=== PATIENT | female | born 1950 | race Caucasian/White ===

== ENCOUNTER 2016-07-29 12:54 | Inpatient (IN) ==
--- NOTE | 2016-07-29 13:19 | EKG Report ---
Stationary ECG Study 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
--- NOTE | 2016-07-29 13:25 | Emergency Department Note ---
Arrival - Arrival Chief Complaint: Shortness of Breath Stated Complaint: sob,multi myloma ED Nursing Triage Note: Pt states that she has been having some SOB over the last few days worse today - pt states that she is currently taking chemo - Dr Gaines - pt states that her meds were also changed at this time - pt states that she was told to come to ER for Dr Gaines Mode of Arrival: Ambulatory Limitations: No Limitations Source: Patient, RN Notes Reviewed Time Seen by Provider: 07/29/16 13:15 - History of Present Illness HPI Narrative: Patient is a 66-year-old white female with a known history of multiple myeloma followed by Dr. Gaines who is seen today complaining of shortness of breath. Patient has been short of breath for the last 3-4 days. She denies cough or sputum production. She denies any history of fever. Last chemotherapy was about 2 weeks ago. Patient is scheduled to undergo chemotherapy later this week. She denies any hemoptysis. Onset (ago): day(s) (3-4) Consistency: constant Severity: moderate Date of Last Menstrual Period: hyster Allergies/Adverse Reactions: Allergies Allergy/AdvReac Type Severity Reaction Status Date / Time Iodinated Contrast Media - Allergy Mild ITCHING Verified 12/29/14 18:19 IV Dye Home Medications: Home Medications Medication Instructions Recorded Confirmed Type Ascorbic Acid Tab [Vitamin C Tab] 500 mg PO DAILY 06/13/16 07/29/16 History Aspirin [Ecotrin] 81 mg PO DAILY 06/13/16 07/29/16 History Cyanocobalamin (Vitamin B-12) 2,500 mcg PO DAILY 06/13/16 07/29/16 History [Vitamin B12] Letrozole [Femara] 2.5 mg PO PC SUPPER 06/13/16 07/29/16 History Multivitamin [Multivitamins] 1 tablet PO DAILY 06/13/16 07/29/16 History Selenium [Selenium Cap] 200 mcg PO PC SUPPER 06/13/16 07/29/16 History Venlafaxine Xr [Effexor XR] 75 mg PO PC SUPPER 06/13/16 07/29/16 History Cholecalciferol [Vitamin D3] 1,000 unit PO DAILY 06/18/16 07/29/16 History Coenzyme Q10 200 mg PO DAILY 06/18/16 07/29/16 History Garlic 1,000 mg PO DAILY 06/18/16 07/29/16 History Review of System - Review of System 12 point system: reviewed and no additional remarkable complaints except as stated - Review of System Constitutional: Absent: chills, fever Respiratory: Absent: cough, respiratory distress, wheezing Cardiovascular: Present: chest pain (minimal, around swollen area on sternum) Medical,Surgical,& Family Hx - Medical History Endocrine: History of: Thyroid Disorder Gastrointestinal: History of: GI Problems (ULCERS) Musculoskeletal: History of: Musculoskeletal Problems (ARTHRITIS) Reproductive: History of: Breast Cancer (LEFT HAS MEDIPORT DR GAINES HAS MASS AROUND BREAST) Other: History of: Cancer (LEFT BREAST), Miscellaneous Medical Problems ( multiple myeloma) - Surgical History HEENT Surgeries: Surgical HX of: Thyroid Surgery Abdominal Surgeries: Surgical HX of: Colonoscopy, EGD Reproductive Surgeries: Surgical HX of;: Breast Surgery (LEFT BREAST REMOVE) - Family History Family History: Reports;: Family Cancer (MOM), Family Diabetes (BROTHER), Family Psychiatric Problems (MOM- ALZHMIERS) - Social History Smoking Status: Never smoker Frequency of Alcohol Use: None Type of Drug Use: None Functional capacity: independent ambulation Exam Vital Signs: Vital Signs Temperature 97.3 F L 07/29/16 13:08 Pulse Rate 102 H 07/29/16 13:08 Respiratory Rate 20 07/29/16 13:08 Blood Pressure 114/76 07/29/16 13:08 O2 Sat by Pulse Oximetry 97 07/29/16 13:08 GENERAL: This is a well-nourished well-developed white female in no apparent distress. VITAL SIGNS: Reviewed HEENT: Head is atraumatic and normocephalic. Pupils are equal round react to light. Extraocular movements are intact. Pale conjunctiva oropharynx is benign with moist mucous membranes. NECK: Neck is soft and supple without tenderness. There are no masses. There is no lymphadenopathy. LUNGS: Lungs are clear to auscultation. Chest rises symmetrically. There is no chest wall tenderness. CV: Heart is rapid rate, regular rhythm without murmurs rubs or gallops. ABDOMEN: Abdomen is soft, nontender to palpation. There are no abdominal abnormal masses palpated. There is no organomegaly. Bowel sounds are present and active. SKIN: Skin is warm and dry. No rash. EXTREMITIES: Patient has full range of motion without tenderness. There is no pedal edema. NEUROLOGIC: Awake alert and oriented 4. Cranial nerves II through XII are grossly intact. Motor is 5 over 5 in all extremities bilaterally. Course - Consultations Consultation #1: Discussed with Dr. Gutiérrez. Patient will be admitted to Dr. Gaines. Initial orders written for them. The hematology oncology service will assume care of this patient upon her arrival on the pedroza. Time: 14:29 Results - Labs CBC & BMP: 07/29/16 13:38 07/29/16 13:38 Lab Results: I have reviewed the patients labs Labs: Laboratory Tests 07/29/16 07/29/16 13:38 13:38 WBC 3.5 L Hgb 8.1 L Hct 24.9 L INR 1.2 - Diagnostic Findings Procedure: Chest x-ray: image reviewed by me, report reviewed by me (Mild compression of T8, mild cardiomegaly.) Disposition Clinical Impression: Dyspnea, Multiple myeloma, Anemia, Thrombocytopenia Case discussed with: patient, patient's family Disposition: Still a Patient Condition: Stable Time of Disposition: 14:19
[2016-07-29 13:50] LABS: Basophils % 0.3 % (0.0-0.8); Eosinophils % 1.1 % (0.00-10.9); Hematocrit 24.9 VOL% (35.7-47.0); Hemoglobin 8.1 GM/DL (12.0-16.0); Immature Granulocytes % 7.4 %; Immature Granulocytes Absolute 0.26 #; Lymphocytes # 1.1 10*3/uL (1.4-4.0); Lymphocytes % 32.4 % (21.3-54.2); Mean Corpuscular HGB Conc 32.5 GM/DL (32-36); Mean Corpuscular Hemoglobin 31 PG (27-34); Mean Corpuscular Volume 96.5 FL (87-102); Mean Platelet Volume 9.2 FL (9.6-12.0); Monocytes # 0.5 10*3/uL (0.11-0.8); Monocytes % 13.9 % (1.7-12.7); NRBC # 0.12 10*3/uL; Neutrophils # 1.6 10*3/uL (1.4-7.4); Neutrophils % 44.9 % (38.7-73.9); Red Blood Count 2.58 10*6/uL (3.8-5.5); Red Cell Distribution Width 19.6 % (9.3-17.3); White Blood Count 3.5 10*3/uL (4.5-13.71)
--- NOTE | 2016-07-29 13:59 | XRay Report ---
Exam: XR chest 2V Date: 07/29/2016 1:22 PM Indication: Shortness of breath Comparison: 06/18/2016 Technical:PA lateral chest Findings: Cardiomegaly is present. Previous surgical changes over the left axillary region with a right-sided subclavian port catheter with distal tip in the right atrium. Mild interstitial thickening in the perihilar regions. No pneumothorax. Minimal compression deformity in the midthoracic spine approximately T8. Impression: 1. Mild interstitial thickening in the perihilar regions 2. Stable appearance of the port catheter and previous surgical changes left axillary region 3. Mild compression deformity at T8 PROCEDURE INTERPRETED AT [facility] DEPARTMENT OF RADIOLOGY Final Report Signed by: Dr. Ryan Chow
[2016-07-29 14:06] LABS: INR 1.2; PT Patient Result 12.6 SECS; Partial Thromboplastin Time 24.7 SECS (0-40)
[2016-07-29 14:08] LABS: Platelet Count 42 10*3/uL (130-400)
[2016-07-29 14:13] LABS: Atypical Lymphocytes Few; Band Neutrophils 2 % (0-10); Lymphocytes 28 % (20-55); Myelocytes 1 %; Nucleated Red Blood Cells 5 (0-5); Platelet Estimate Decreased; Poikilocytosis 1+; Rouleau Slight; Segmented Neutrophils 61 % (50-85); Tear Drop Cells Few; Total Cells Counted 100
[2016-07-29 14:24] LABS: Alanine Aminotransferase 13 U/L (13-56); Albumin 2.6 G/DL (3.4-5.0); Alkaline Phosphatase 191 U/L (45-117); Aspartate Amino Transferase 52 U/L (0-37); Blood Urea Nitrogen 10 MG/DL (7-18); Calcium 8.8 MG/DL (8.5-10.1); Glucose 81 MG/DL (74-106); Osmolality,Calculated 272.7 MOS/KG (273-304); Potassium 4.1 MMOL/L (3.5-5.1); Sodium 138 MMOL/L (136-145); Total Protein 10.1 G/DL (6.4-8.3); Troponin I Only < 0.015 NG/ML (0.00-0.045)
[2016-07-29] MEDS ORDERED: SODIUM CHLORIDE 0.9% 250 ML IV PRN (16:11)
[2016-07-29] MEDS ORDERED: chlorproMAZINE 25 MG TABLET PO PRN (16:11)
[2016-07-29] MEDS ORDERED: LACTULOSE 20 GM/30 ML UDCUP PO PRN (16:11)
[2016-07-29] MEDS ORDERED: chlorproMAZINE INJ 25 MG in SODIUM CHLORIDE 0.9% 100 ML IV PRN (16:11)
[2016-07-29] MEDS ORDERED: MYLANTA/LIDO VISC 2:1 300 ML BOTTLE SWISH/SPIT PRN (16:11)
[2016-07-29] MEDS ORDERED: ACETAMINOPHEN 325 MG TABLET PO PRN (16:11)
[2016-07-29] MEDS ORDERED: ONDANSETRON 4 MG/2 ML VIAL IV PRN (16:11)
[2016-07-29] MEDS ORDERED: LOPERAMIDE 2 MG CAPSULE PO PRN ×2 (16:11)
[2016-07-29] MEDS ORDERED: BENZTROPINE 2 MG/2 ML AMP IV PRN (16:11)
[2016-07-29] MEDS ORDERED: chlorproMAZINE INJ 50 MG in SODIUM CHLORIDE 0.9% 100 ML IV PRN (16:11)
[2016-07-29] MEDS ORDERED: MAGNESIUM HYDROXIDE SUSP 30 ML UDCUP PO PRN (16:11)
[2016-07-29] MEDS ORDERED: PROMETHAZINE INJ 25 MG in SODIUM CHLORIDE 0.9% 50 ML IV PRN (16:11)
[2016-07-29] MEDS ORDERED: traMADol 50 MG TABLET PO PRN (16:11)
[2016-07-29] MEDS ORDERED: guaiFENesin 200 MG/10 ML UDCUP PO PRN (16:11)
[2016-07-29] MEDS ORDERED: ALUMINUM/MAGNES/SIMETH MAX STR 30 ML UDCUP PO PRN (16:11)
[2016-07-29] MEDS ORDERED: MYLANTA/LIDO VISC 2:1 300 ML BOTTLE SWISH/SWAL PRN (16:11)
[2016-07-29] MEDS: TEMAZEPAM 7.5 MG CAPSULE PO PRN (22:50)
[2016-07-29 22:57] LABS: Apearance,Urine CLEAR (Clear); Bilirubin,Urine Negative (Negative); Blood, Urine Moderate mg/dL (Negative); Glucose,Urine (UA) Negative (Negative); Ketones,Urine 5 mg/dL (Negative); Nitrite,Urine Negative (Negative); Protein,Urine Negative; RBC,Urine 1 /HPF (0-4); Urine Color Colorless (Yellow); Urine Specific Gravity 1.002 (1.001-1.035); Urine Urobilinogen < 2.0 EU/DL (0.2-1.0); WBC,Urine <1 /HPF (0-6)
[2016-07-30] MEDS: ALPRAZolam 0.25 MG TABLET PO PRN (02:31)
[2016-07-30] MEDS ORDERED: SODIUM CHLORIDE 0.9% 250 ML IV PRN (06:55)
[2016-07-30 07:35] LABS: Basophils % 0.5 % (0.0-0.8); Eosinophils % 1.1 % (0.00-10.9); Hematocrit 31.7 VOL% (35.7-47.0); Immature Granulocytes % 10.9 %; Immature Granulocytes Absolute 0.41 #; Lymphocytes # 1.1 10*3/uL (1.4-4.0); Lymphocytes % 30.1 % (21.3-54.2); Mean Corpuscular HGB Conc 31.9 GM/DL (32-36); Mean Corpuscular Hemoglobin 30 PG (27-34); Mean Corpuscular Volume 94.6 FL (87-102); Mean Platelet Volume 10.3 FL (9.6-12.0); Monocytes # 0.5 10*3/uL (0.11-0.8); Monocytes % 14.4 % (1.7-12.7); NRBC # 0.14 10*3/uL; Neutrophils # 1.6 10*3/uL (1.4-7.4); Platelet Count 43 10*3/uL (130-400); Red Cell Distribution Width 17.6 % (9.3-17.3); White Blood Count 3.8 10*3/uL (4.5-13.71)
[2016-07-30 07:37] LABS: Hemoglobin 10.1 GM/DL (12.0-16.0); Red Blood Count 3.35 10*6/uL (3.8-5.5)
[2016-07-30 08:15] LABS: Albumin 2.6 G/DL (3.4-5.0); Bilirubin,Total 0.8 MG/DL (0.2-1.0); Osmolality,Calculated 279.1 MOS/KG (273-304); Potassium 4.2 MMOL/L (3.5-5.1)
[2016-07-30 08:19] LABS: Band Neutrophils 6 % (0-10); Eosinophils 2 % (0-10); Hypochromasia Slight; Lymphocytes 29 % (20-55); Nucleated Red Blood Cells 7 (0-5); Platelet Estimate Decreased; Segmented Neutrophils 45 % (50-85); Total Cells Counted 100
[2016-07-30 08:31] LABS: Immunoglobulin A < 31 MG/DL (70-400); Immunoglobulin G 5630 MG/DL (700-1600); Immunoglobulin M < 21 MG/DL (40-230)
--- NOTE | 2016-07-30 08:45 | Oncology History&Physical ---
History of Present Illness History of present illness: Ms. Kate is a 66 year old female with a history of both IgG lambda myeloma that was diagnosed in August 2003 and also history of lower inner quadrant left breast carcinoma initially diagnosed April 20, 2013. She was admitted at this time with increasing dyspnea and was noted to be anemic. She was transfused. She had a slight cough. She has had sinus congestion but she actually has had no wheezing or sputum production or any suggestion of pulmonary congestion or infection. She has had no flulike symptoms. IgG lambda myeloma Ms. Cagle was diagnosed as having IgG lambda myeloma in 2013 and underwent a single bone marrow transplant. She was subsequently placed on thalidomide and dexamethasone and intermittently received Zometa. She is currently on Velcade and dexamethasone and we have held thalidomide because I suspected it might be contributing to her thrombocytopenia and leukopenia that had been going on for the last few weeks. Recently she had evidence of progression of disease and was switched to Velcade. 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 A CT of her chest, abdomen and pelvis done May 23, 2015 demonstrated an expansile soft tissue lesion in the upper right manubrium that measured 37 mm in greatest diameter. It had previously measured 26 mm in diameter a couple of months earlier. Adenocarcinoma of the left breast post mastectomy without proven evidence of metastatic disease She has a history of lower inner quadrant left breast carcinoma initially diagnosed April 20, 2013. It was stage IB at the time of diagnosis. It was ER/LA positive and HER-2/nannette negative. There was one lymph node that was microscopically positive. She was treated with mastectomy and placed on hormone therapy. She subsequently developed recurrent disease to the left chest wall with 1.1 cm primary in 2013. She was treated with radiation therapy. She had been on for marrow and later switched to Aromasin with this recurrence. She was also treated with 4 courses of Adriamycin and Cytoxan which were completed in July 2014. The radiation was completed October 28, 2014. I am still concerned that her breast cancer may be recurrent. She has sclerotic areas that were confirmed in the lumbar spine and pelvis on the CT of her chest, abdomen and pelvis done May 23, 2015. This would be unusual for myeloma and more likely to be due to breast cancer. I have a CA 27.29 on record for May 07, 2015 that was 56.0. I am rechecking this now. Past medical history: Allergies: Aspirin and iodine Prior operations: Autologous marrow transplant 2004 Hysterectomy Cholecystectomy Thyroidectomy Past medical history is positive for myeloma in 2003, GERD, hyperlipidemia, osteoarthritis and thyroid disease. Review of systems: General: Positive for increasing dyspnea and for fatigue. Eyes: No history of eye disease or visual loss ENT: No history of hearing loss, odynophagia, chronic sinus or throat infections. Positive for thyroid disease post thyroidectomy. Respiratory: Positive for gradually increasing dyspnea. Cardiovascular: Negative for coronary artery disease, heart attack, congestive heart failure, palpitations or syncope. GI: Positive for GERD. Negative for liver or gallbladder disease, peptic ulcer disease, upper or lower GI bleeding or disease of the colon. : She is postmenopausal. No history of chronic or recurrent urinary tract infections or kidney stones or hematuria. Musculoskeletal: Positive for increasing back pain and also generalized muscle aches and pains and joint stiffness. Neurologic: Negative for seizures, convulsions, paralysis or chronic or acute neurologic disorder Hematologic: Positive for chronic anemia and more recently the patient has had some problems with thrombocytopenia and leukopenia that may have been related to treatment of her myeloma including an escalation of the dose of her thalidomide Skin: Negative for chronic skin lesions, petechiae or ecchymoses. Psychiatric: Negative for significant psychiatric illness, confusion or nervous breakdown. Social history: She has never been a smoker. Family history: Brother: Glaucoma Brother: Diabetes mellitus Father: Diabetes mellitus Mother: Arthritis, blood clots and colon cancer Physical examination: General: Well-developed, well-nourished but somewhat chronically ill-appearing. In no acute distress. Eyes: Normal lids and conjunctivae. ENT: She has some obvious sinus congestion. Her pharynx is normal. Her trachea is midline. Her oral mucosa is normal. Her hearing is normal. She has a scar in the area of her thyroid gland and I cannot palpate her thyroid gland. Lungs: Normal breath sounds without rubs, rales or rhonchi. Her chest moves symmetrically with respiration. Cardiovascular: Her heart rhythm is regular without murmur, gallop or rub. There is no jugular venous distention, clubbing, edema or cyanosis. Abdomen: No abdominal masses, organomegaly, distention, tenderness or ascites. Musculoskeletal: There is no focal muscle atrophy or bone or joint deformity. Neurologic: Cranial nerves II through XII are intact. There are no focal neurologic deficits. Psychiatric: She is oriented to time, place, person and situation. Breasts: She has had a left mastectomy. She has no masses or nodules in the left mastectomy nor does she have any abnormalities of the right breast by inspection or palpation. In addition, cursory skin examination is generally normal. This lady has been dyspneic for some time. It may be a combination of things but I am going to evaluate her cardiac function because of her past history of having received Adriamycin. In addition myocardial function could be impaired by myeloma producing amyloid. I am also proceeding with another CT of the chest , abdomen and pelvis to reassess the evidence of bone involvement and to assess for any further evidence of pulmonary involvement by either breast cancer or myeloma. Home Medications Medication Instructions Recorded Confirmed Type Ascorbic Acid Tab [Vitamin C Tab] 500 mg PO DAILY 06/13/16 07/29/16 History Aspirin [Ecotrin] 81 mg PO DAILY 06/13/16 07/29/16 History Cyanocobalamin (Vitamin B-12) 2,500 mcg PO DAILY 06/13/16 07/29/16 History [Vitamin B12] Letrozole [Femara] 2.5 mg PO PC SUPPER 06/13/16 07/29/16 History Multivitamin [Multivitamins] 1 tablet PO DAILY 06/13/16 07/29/16 History Selenium [Selenium Cap] 200 mcg PO PC SUPPER 06/13/16 07/29/16 History Venlafaxine Xr [Effexor XR] 75 mg PO PC SUPPER 06/13/16 07/29/16 History Cholecalciferol [Vitamin D3] 1,000 unit PO DAILY 06/18/16 07/29/16 History Coenzyme Q10 200 mg PO DAILY 06/18/16 07/29/16 History Garlic 1,000 mg PO DAILY 06/18/16 07/29/16 History Allergies Allergy/AdvReac Type Severity Reaction Status Date / Time Iodinated Contrast Media - Allergy Mild ITCHING Verified 12/29/14 18:19 IV Dye Medical,Surgical,& Family Hx - Medical History Endocrine: History of: Thyroid Disorder Gastrointestinal: History of: GI Problems (ULCERS) Musculoskeletal: History of: Musculoskeletal Problems (ARTHRITIS) Reproductive: History of: Breast Cancer (LEFT HAS MEDIPORT DR MOORE HAS MASS AROUND BREAST) Other: History of: Cancer (LEFT BREAST), Miscellaneous Medical Problems ( multiple myeloma) - Surgical History HEENT Surgeries: Surgical HX of: Thyroid Surgery Abdominal Surgeries: Surgical HX of: Colonoscopy, EGD Reproductive Surgeries: Surgical HX of;: Breast Surgery (LEFT BREAST REMOVE) - Family History Family History: Reports;: Family Cancer (MOM), Family Diabetes (BROTHER), Family Psychiatric Problems (MOM- ALZHMIERS) - Social History Smoking Status: Never smoker Frequency of Alcohol Use: None Type of Drug Use: None Exam - Constitutional Vitals: Period Temp Pulse Resp BP Sys/Mcneill Pulse Ox Last 24 Hr 97.2 F-98.4 F 104-149 18-20 96-134/55-69 93-99 Results - Labs CBC & BMP: 07/30/16 07:17 07/30/16 07:17
[2016-07-30 11:34] LABS: Immunoglobulin A (Chem) < 31 MG/DL (70-400); Immunoglobulin G (Chem) 5630 MG/DL (700-1600); Immunoglobulin M (Chem) < 21 MG/DL (40-230)
--- NOTE | 2016-07-30 12:47 | ECHO Report ---
Marisela Kate Exam Date: 07/30/2016 11:15 Referring Physician: Technologist: Age: 66 Ht (in): Wt (lb): Gender: F Exam Location: [facility] Echo Indications: BP: / HR: Rhythm: Sinus Technical Quality: Fair IMPRESSIONS Normal left ventricular size, systolic function and wall thickness, with no regional wall motion abnormalities. Left ventricular ejection fraction is estimated at 55 %. Mildly increased right ventricular size. The right atrium is mildly enlarged. Normal left atrial size. Morphologically normal mitral valve. Mild mitral valve regurgitation. The aortic valve is trileaflet, delicate and has normal motion. Morphologically normal tricuspid valve. Mild tricuspid valve regurgitation. Tricuspid regurgitation velocities suggest a PAP of 51 mmHg. Pulmonic valve not well visualized. Small pericardial effusion. No thickening/calcification of the pericardium. Normal size aortic root and proximal ascending aorta. MEASUREMENTS (Male / Female) Normal Values 2D ECHO LV Diastolic Diameter PLAX 4.6 cm 4.2 - 5.9 / 3.9 - 5.3 cm LV Systolic Diameter PLAX 2.7 cm LV Fractional Shortening PLAX 42.0 % IVS Diastolic Thickness 0.7 cm 0.6 - 1.0 / 0.6 - 0.9 cm LVPW Diastolic Thickness 0.8 cm 0.6 - 1.0 / 0.6 - 0.9 cm RV Internal Dim ED PLAX 3.2 cm Aortic Root Diameter 2.4 cm LA Systolic Diameter LX 3.3 cm 3.0 - 4.0 / 2.7 - 3.8 cm DOPPLER TR Peak Velocity 320.0 cm/s TR Peak Gradient 41.0 mmHg FINDINGS Left Ventricle Normal left ventricular size, systolic function and wall thickness, with no regional wall motion abnormalities. Left ventricular ejection fraction is estimated at 55 %. Right Ventricle Mildly increased right ventricular size. Right Atrium The right atrium is mildly enlarged. Left Atrium Normal left atrial size. Mitral Valve Morphologically normal mitral valve. Mild mitral valve regurgitation. Aortic Valve The aortic valve is trileaflet, delicate and has normal motion. Tricuspid Valve Morphologically normal tricuspid valve. Mild tricuspid valve regurgitation. Tricuspid regurgitation velocities suggest a PAP of 51 mmHg. Pulmonic Valve Pulmonic valve not well visualized. Pericardium Small pericardial effusion. No thickening/calcification of the pericardium. Aorta Normal size aortic root and proximal ascending aorta. Sang Oreilly MD (Electronically Signed) Final Date: 30 July 2016 12:46
[2016-07-30] MEDS ORDERED: predniSONE 50 MG TABLET PO SCH (13:00)
[2016-07-30] MEDS: COENZYME Q10 100 MG CAPSULE PO SCH (13:03)
[2016-07-30] MEDS: CYANOCOBALAMIN 500 MCG TABLET PO SCH (13:03)
[2016-07-30] MEDS: ASPIRIN EC 81 MG TABLET PO SCH (13:03)
[2016-07-30] MEDS ORDERED: FUROSEMIDE 40 MG/4 ML VIAL IV ONE (13:40)
--- NOTE | 2016-07-30 13:45 | Cardiology Consult Note ---
I, Esme Singh RN, am scribing for, and in the presence of, Sang Oreilly MD 13:43. Assessment and Plan - Time spent with patient Time spent with patient: Greater than 30 minutes (due to assessment, planning, documentation) (1) Dyspnea Status: Acute Current Visit: Yes (2) Multiple myeloma Status: Acute Current Visit: Yes (3) Anemia Status: Acute Current Visit: Yes (4) Thrombocytopenia Status: Acute Current Visit: Yes (5) Orthopnea Status: Acute Current Visit: Yes (6) Tachycardia Status: Acute Assessment and plan: By my exam today her rhythm is irregular and we will evaluate that with 24-hour Holter. I don't know whether she is having episodes of atrial fibrillation. She has a small pericardial effusion which I do not think is hemodynamically significant. Current Visit: Yes (7) Elevated brain natriuretic peptide (BNP) level Status: Acute Current Visit: Yes History of Present Illness - Data of Consult Patient: new to practice (evaluated per myself at [facility] in 2012) Consult date: 07/30/16 Requesting Physician: Hernan Gaines - Consult Narrative Reason for consult: SOB, recent use of adriamycin History of present illness: Ms. Kate is a 66 year old white female whom I have evaluated in the past at [facility] in January 2013. She has a PMHx hypothyroidism, anxiety, palpitations, left breast CA with mastectomy and most recently IgG lambda myeloma in 2013 for which she is currently taking chemotherapy and being managed by Dr. Gaines. Presented to the ER with c/o dyspnea and WRIGHT increasing in severity over the last 4-5 days. Denies cough but states she has had sinus and nasal congestion over the last few days. Workup in ER included chest x-ray, EKG, lab work. Chest x-ray negative for acute processes. EKG revealed sinus tachycardia with heart rate around [address] changes. H/H noted to be 8.1 & 24.9 in ER, and she received 2 units PRBC's yesterday after admission. Current H/H 10.1 & 31.7. Cardiac isoenzymes negative. BnP in ER 263. Patient reports she does have some chest pain from time to time, usually when she is "extrememely short of breath", and she describes it as a "pressure" and says it sometimes radiates into the scapular area and also both arms. In 2012, patient was referred to me by Dr. Gaines for chest tightness and lightheadedness. A 2D echo at that time revealed an anterior pericardial effusion. She was admitted and MD was ruled out. Echocardiogram this admission with normal LV size and ejection fraction 55%, mildly increased RV/RA, normal LA size, mild TR with PA pressure 51 mmHg. States she has had some lower extremity edema the past week, but she feels this has basically resolved since thalidomide stopped recently. Trace pretibial edema on today's exam. Admitted 2+ pillow orthopnea and some infrequent palpitations. Denies current chest discomfort. Admits some mild shortness of breath and "hard to take in a good breath now and then." O2 in use. BP 105/60. Regular rhythm, tachycardic. Labs reviewed. Thrombocytopenia noted. With mildly elevated BNP and symptoms fairly convincing for orthopnea on the give her a one-time dose of intravenous Lasix. She is tachycardic but I think she is at least euvolemic if not a little volume overloaded and we will see if she feels better with a little more diuresis. Her rhythm is a little irregular as well and we are going to go ahead and check a Holter monitor and get her started on telemetry. I think there is a anxiety component here but my suspicion is that she has a little bit of volume overload. We will continue following thank you for the consult CC: Hernan Gaines MD - Home Medications and Allergies Home Medications: Home Medications Medication Instructions Recorded Confirmed Type Ascorbic Acid Tab [Vitamin C Tab] 500 mg PO DAILY 06/13/16 07/29/16 History Aspirin [Ecotrin] 81 mg PO DAILY 06/13/16 07/29/16 History Cyanocobalamin (Vitamin B-12) 2,500 mcg PO DAILY 06/13/16 07/29/16 History [Vitamin B12] Letrozole [Femara] 2.5 mg PO PC SUPPER 06/13/16 07/29/16 History Multivitamin [Multivitamins] 1 tablet PO DAILY 06/13/16 07/29/16 History Selenium [Selenium Cap] 200 mcg PO PC SUPPER 06/13/16 07/29/16 History Venlafaxine Xr [Effexor XR] 75 mg PO PC SUPPER 06/13/16 07/29/16 History Cholecalciferol [Vitamin D3] 1,000 unit PO DAILY 06/18/16 07/29/16 History Coenzyme Q10 200 mg PO DAILY 06/18/16 07/29/16 History Garlic 1,000 mg PO DAILY 06/18/16 07/29/16 History Allergies/Adverse Reactions: Allergies Allergy/AdvReac Type Severity Reaction Status Date / Time Iodinated Contrast Media - Allergy Mild ITCHING Verified 12/29/14 18:19 IV Dye - Constitutional Constitutional: Present: fatigue, fever(s) (reports 99.9 yesterday at home ( none now)). Absent: chills, daytime sleepiness, frequent falls, increased appetite, night sweats, stops breathing during sleep, weakness, weight gain, weight loss - EENT Eyes: Absent: blurry vision, loss of vision Ears: Absent: decreased hearing, ear pain Nose, mouth and throat: Present: nasal congestion, sinus pressure. Absent: dysphagia, epistaxis, neck pain, sore throat, throat swelling, tongue swelling, vertigo - Cardiovascular Cardiovascular: Present: chest pain with activity, dyspnea, dyspnea on exertion. Absent: chest pain at rest, claudication, diaphoresis, edema, radiating jaw, neck or arm pain, lightheadedness, orthopnea - Respiratory Respiratory: Present: dyspnea, dyspnea on exertion. Absent: cough, hemoptysis, wheezing, pain on inspiration - Gastrointestinal Gastrointestinal: Present: early satiety. Absent: bloating, change in bowel habits, coffee ground emesis, constipation, cramping, dysphagia, fecal incontinence, hematemesis, hematochezia, nausea, vomiting, jaundice - Genitourinary Genitourinary: Absent: abnormal vaginal bleeding, dysuria, flank pain, hematuria - Musculoskeletal Musculoskeletal: Absent: joint swelling - Neurological Neurological: Absent: confusion, dizziness, frequent falls, headache(s), numbness, paresthesias, syncope, tremor(s) - Psychiatric Psychiatric: Absent: anxiety, confusion, depression - Endocrine Endocrine: Absent: cold intolerance, heat intolerance - Hematologic/Lymphatic Hematologic/Lymphatic: Absent: easy bleeding, easy bruising Medical,Surgical,& Family Hx - Medical History Cardio: No history of: Cardiac Dysrhythmia, Cerebrovascular Disease, CHF, Hypertension, MD Psychological: No history of: Behavior Problems, Depression, Previous Suicide Attempt Neurology: No history of: Cerebrovascular Accident, Dementia, Migraine, Seizures, TIA, Vertigo HEENT: No history of: Ear Problem, Eye Problem, Glaucoma Endocrine: History of: Thyroid Disorder Respiratory: No history of: Asthma, Bronchitis, COPD, Obstructive Sleep Apnea, Pulmonary Embolism, Pulmonary Hypertension Renal: No history of: Renal (Kidney) Cancer, Dialysis, Renal Failure Genitourinary: No history of: Bladder Problem, Genitourinary Cancer Gastrointestinal: History of: GERD, GI Problems (ULCERS) No history of: Gastrointestinal Bleed, Hepatitis Musculoskeletal: History of: Musculoskeletal Problems (ARTHRITIS) Hematology: History of: Anemia, Hematologic Cancer (IgG lambda myeloma ) No history of: Blood Transfusion Reaction, Sickle Cell Disease Reproductive: History of: Breast Cancer (left breast CA 2012) Other: History of: Cancer (LEFT BREAST), Miscellaneous Medical Problems ( multiple myeloma) - Surgical History Cardiac Surgeries: Patient Denies: Cardiac Catheterization, Cardiac Surgery, Carotid Endarterectomy, Internal Defibrillator Thoracic Surgeries: Patient denies;: Kidney (Renal Surgery) HEENT Surgeries: Surgical HX of: Thyroid Surgery (thyroidectomy) Abdominal Surgeries: Surgical HX of: Cholecystectomy, Colonoscopy, EGD Reproductive Surgeries: Surgical HX of;: Breast Surgery (left mastectomy), Hysterectomy - Family History Family History: Reports;: Family Cancer (mom-colon CA), Family Diabetes (brother , father), Family Heart Disease (brother-CAD pt reports brother "had 2 stents put in his heart 2 weeks ago"), Family Hypertension, Additional Family History ( mom-Alzheimer's) - Social History Smoking Status: Never smoker Frequency of Alcohol Use: None Type of Drug Use: None Marital Status: Lives With:: Spouse Functional capacity: independent ambulation Physical Examination Vital Signs Temp Pulse Resp BP Pulse Ox 97.3 F L 102 H 20 114/76 97 07/29/16 13:08 07/29/16 13:08 07/29/16 13:08 07/29/16 13:08 07/29/16 13:08 General: Present: No Apparent Distress HEENT: Present: Normocephaly, Mucus Membranes Moist Neck: Present: Supple Neck, Midline Trachea, No JVD/HJR, No Masses, No Bruit Cardiac: Present: Regular Rhythm, No Murmur, Tachycardia. Absent: Audible Murmur, Bradycardia Lungs: Present: Clear Ascult./Percussion, No Wheeze, Rales, Rhonchi Neuro: Present: Grossly Intact. Absent: Resting Tremor Abdomen: Present: Soft, Active Bowel Sounds, No Masses. Absent: Ascites, Tender , Firm, Distended Skin: Present: Clear Extremities: Present: No Clubbing, No Cyanosis, No Edema, Normal Upper Extr. Pulses (2+ sudha), Normal Lower Extr. Pulses (2+ bilaterally), Capillary Refill ( normal) Result/EKG - Labs CBC & BMP: 07/30/16 07:17 07/30/16 07:17 Lab Results: I have reviewed the past 24 hour labs Labs: Laboratory Results - last 24 hr 07/29/16 07/29/16 07/30/16 17:25 21:30 06:55 WBC RBC Hgb Hct MCV MCH MCHC RDW Plt Count MPV Neut % (Auto) Lymph % (Auto) Hickman % (Auto) Eos % (Auto) Baso % (Auto) Neut # (Auto) Lymph # (Auto) Hickman # (Auto) Eos # (Auto) Baso # (Auto) Total Counted Immature Gran % Nucleated RBC % Immature Gran # Segmented Neutrophils Band Neutrophils Lymphocytes Monocytes Eosinophils Nucleated RBCs Nucleated RBCs # Platelet Estimate Hypochromasia Morphology Comment Sodium Potassium Chloride Carbon Dioxide Anion Gap BUN Creatinine GFR Calculation BUN/Creatinine Ratio Glucose Calculated Osmolality Calcium Total Bilirubin AST ALT Alkaline Phosphatase Total Protein Albumin Globulin Albumin/Globulin Ratio Urine Color Colorless Urine Appearance Clear Urine pH 6.0 Ur Specific [place] 1.002 Urine Protein Negative Urine Glucose (UA) Negative Urine Ketones 5 Urine Blood Moderate Urine Nitrate Negative Urine Bilirubin Negative Urine Urobilinogen < 2.0 H Urine Leukocytes Negative Urine RBC 1 Urine WBC <1 Ur Culture Indicated? Not indicated IgG IgA IgM Blood Type Cancelled Cancelled Antibody Screen Cancelled Cancelled Crossmatch See Detail See Detail Blood Bank Comment Cancelled Cancelled 07/30/16 07/30/16 07/30/16 07:17 07:17 07:17 WBC 3.8 L RBC 3.35 L D Hgb 10.1 L D Hct 31.7 L MCV 94.6 MCH 30 MCHC 31.9 L RDW 17.6 H Plt Count 43 L MPV 10.3 Neut % (Auto) 43.0 Lymph % (Auto) 30.1 Hickman % (Auto) 14.4 H Eos % (Auto) 1.1 Baso % (Auto) 0.5 Neut # (Auto) 1.6 Lymph # (Auto) 1.1 L Hickman # (Auto) 0.5 Eos # (Auto) 0.0 Baso # (Auto) 0.0 Total Counted 100 Immature Gran % 10.9 Nucleated RBC % 3.7 Immature Gran # 0.41 Segmented Neutrophils 45 L Band Neutrophils 6 Lymphocytes 29 Monocytes 18 H Eosinophils 2 Nucleated RBCs 7 H Nucleated RBCs # 0.14 Platelet Estimate Decreased Hypochromasia Slight Morphology Comment Sodium 142 Potassium 4.2 Chloride 108 H Carbon Dioxide 22 Anion Gap 16.2 H BUN 8 Creatinine 0.60 GFR Calculation 99 BUN/Creatinine Ratio 13.00 Glucose 82 Calculated Osmolality 279.1 Calcium 9.0 Total Bilirubin 0.80 AST 48 H ALT 9 L Alkaline Phosphatase 178 H Total Protein 10.0 H Albumin 2.6 L Globulin 7.4 H Albumin/Globulin Ratio 0.3 L Urine Color Urine Appearance Urine pH Ur Specific [place] Urine Protein Urine Glucose (UA) Urine Ketones Urine Blood Urine Nitrate Urine Bilirubin Urine Urobilinogen Urine Leukocytes Urine RBC Urine WBC Ur Culture Indicated? IgG 5630 H IgA < 31 L IgM < 21 L Blood Type Antibody Screen Crossmatch Blood Bank Comment - Diagnostic Findings Procedure: Chest x-ray: report reviewed by me (07/29 mild interstitial thickening in perihilar regions. mild compression deformity at T8. cardiomegaly present.) - EKG EKG results: interpreted by me, sinus rhythm EKG shows: tachycardia (sinus tachycardia, rate 110 bpm) Denilson Machuca Wesley, MD, personally performed the services described in this documentation, ascribed by Esme Singh RN in my presence, and it is both accurate and complete 345 .
[2016-07-30] MEDS: SODIUM CHLORIDE 0.9% 1,000 ML IV SCH ×2 (15:17→15:22)
[2016-07-30] MEDS ORDERED: LETROZOLE 2.5 MG TABLET PO SCH (18:00)
[2016-07-30] MEDS: VENLAFAXINE XR 75 MG CAPSULE PO SCH (18:09)
[2016-07-30] MEDS: predniSONE 50 MG TABLET PO SCH (18:10)
[2016-07-30] MEDS: TEMAZEPAM 7.5 MG CAPSULE PO PRN (21:44)
[2016-07-31] MEDS: SODIUM CHLORIDE 0.9% 1,000 ML IV SCH ×2 (03:28→17:03)
[2016-07-31] MEDS: diphenhydrAMINE CAP 25 MG CAPSULE PO PRN (05:01)
[2016-07-31 05:27] LABS: Basophils % 0.5 % (0.0-0.8); Eosinophils % 0.4 % (0.00-10.9); Hematocrit 33.1 VOL% (35.7-47.0); Hemoglobin 10.8 GM/DL (12.0-16.0); Immature Granulocytes % 11.9 %; Immature Granulocytes Absolute 0.65 #; Lymphocytes # 1.4 10*3/uL (1.4-4.0); Lymphocytes % 25.7 % (21.3-54.2); Mean Corpuscular HGB Conc 32.6 GM/DL (32-36); Mean Corpuscular Hemoglobin 30 PG (27-34); Mean Platelet Volume 9.8 FL (9.6-12.0); Monocytes # 0.7 10*3/uL (0.11-0.8); Monocytes % 12.6 % (1.7-12.7); NRBC # 0.13 10*3/uL; Neutrophils # 2.7 10*3/uL (1.4-7.4); Neutrophils % 48.9 % (38.7-73.9); Red Blood Count 3.56 10*6/uL (3.8-5.5); Red Cell Distribution Width 17.7 % (9.3-17.3); White Blood Count 5.5 10*3/uL (4.5-13.71)
[2016-07-31 05:37] LABS: Platelet Count 34 10*3/uL (130-400)
[2016-07-31] MEDS ORDERED: predniSONE 50 MG TABLET PO ONE ×2 (06:00)
[2016-07-31] MEDS ORDERED: diphenhydrAMINE CAP 50 MG CAPSULE PO ONE (06:00)
[2016-07-31 06:02] LABS: Band Neutrophils 9 % (0-10); Hypochromasia 1+; Lymphocytes 28 % (20-55); Macrocytosis 1+; Metamyelocytes 4 %; Myelocytes 1 %; Nucleated Red Blood Cells 4 (0-5); Segmented Neutrophils 47 % (50-85); Total Cells Counted 100
[2016-07-31 06:03] LABS: Platelet Estimate Decreased
[2016-07-31 06:04] LABS: Rouleau Slight
[2016-07-31 06:05] LABS: Albumin 2.6 G/DL (3.4-5.0); Bilirubin,Total 0.8 MG/DL (0.2-1.0); Calcium 8.7 MG/DL (8.5-10.1); Calcium 8.8 MG/DL (8.5-10.1); Magnesium 1.8 MG/DL (1.8-2.4); Osmolality,Calculated 277.7 MOS/KG (273-304); Osmolality,Calculated 278.7 MOS/KG (273-304); Potassium 3.7 MMOL/L (3.5-5.1); Potassium 3.9 MMOL/L (3.5-5.1); Total Protein 10.5 G/DL (6.4-8.3)
[2016-07-31 06:58] LABS: Immuno Free Light Chain Lambda 40.46 MG/DL (0.57-2.63)
--- NOTE | 2016-07-31 07:22 | CT Report ---
CT of the chest, abdomen, and pelvis with intravenous and oral contrast. 100 cc Omni 350. Axial images were obtained with sagittal and coronal reconstructions. Comparison: May 23, 2016. The patient was premedicated for allergy to intravenous contrast. Indication:. Multiple myeloma. Breast cancer. A small amount of thyroid tissue is included on this exam on the right. There has been a left mastectomy and axillary dissection. A chemotherapy port is in place on the right. Along the right midline of the upper chest wall, associated with the manubrium, there are multiple enhancing soft tissue mass is 2, measuring 17 mm each are seen adjacent to the medial aspect of the right clavicle. There is a 4 mm subcutaneous noted in this location as well. At the midline, over the manubrium, there is a 2.6 x 2.2 CM enhancing mass. Destructive changes are noted involving the manubrium, and there is additional new soft tissue mass is seen behind the manubrium increasing soft tissue mass effect behind the manubrium and sternum, within the anterior mediastinum, conglomerate measuring 50 x 18 mm. The great vessels are not occluded. The heart is enlarged. There is pericardial effusion present, stable compared to the previous exam, with a maximum thickness of 13 mm. There are bilateral pleural effusions present, small in size, not seen on the previous study. No hilar lymphadenopathy is seen. There is a diffuse increase in the interstitial markings compared to the previous exam. Scattered atelectasis is present. A small benign-appearing cystic area seen in the left lower lobe. No axillary lymphadenopathy is seen. There is a fracture of the left second anterior rib, not seen on the previous study. Healed fracture of a lower left rib was present previously. There is a hemangioma of the T10 vertebra. There are compression fractures, which appear new, involving T7, T8, and T9, without significant retropulsed fracture fragments. There is also noted to be new superior endplate compression of L4. Mixed density lesions are seen within the sternum and spinal column and pelvis, which are quite vague, and are mildly progressed compared to the previous exam. The liver is normal in size and density. A 1.7 x 1.5 cm mixed density lesion has developed in the anterior lower right lobe of the liver, not seen on the previous study. The spleen is normal in size. There is no adrenal enlargement. There is no pancreatic enlargement. No renal abnormality is seen. The urinary bladder presents a normal appearance. The abdominal aorta is of normal caliber, with scattered plaque in its wall. There is no inguinal or iliac chain lymphadenopathy. There is no retroperitoneal or mesenteric lymphadenopathy. No pancreatic enlargement is seen. The gastric contour is normal. The loops of small and large intestine are not dilated. The terminal ileum and appendix present a normal appearance. The colon is nondilated. There is no evidence of bowel obstruction. Impression: 1. Worsening enhancing soft tissue mass and lytic defect involving the manubrium and upper sternum. 2. Development of bilateral pleural effusions. 3. Stable pericardial effusion. 4. Interval increase in the interstitial markings, interstitial edema, interstitial pneumonia, or interstitial spread of tumor. 5. Development of multiple compression fractures, including T7, T8, and T9, and the superior endplate of L4. New left second rib fracture. 6. Worsening vague mixed density lesions within the entirety of the bony structures, including weightbearing areas, with suspected involvement of the right femur. 7. New hepatic lesion raising concern for metastatic focus. PROCEDURE INTERPRETED AT [facility] DEPARTMENT OF RADIOLOGY Final Report Signed by: Dr. Camryn Valerio
[2016-07-31] MEDS ORDERED: BISACODYL 5 MG TABLET PO ONE (07:27)
--- NOTE | 2016-07-31 07:27 | Oncology Progress Note ---
Oncology Subjective PN Interval history: jean-paul is not working which disrupted patient care and documentation. I have reviewed her CAT scan. She has multiple progressive bony metastases and I am concerned that this is metastatic breast cancer or refractory myeloma. I have ordered breast cancer antigen. I am consulting interventional radiology to perform a bone biopsy to see if we can establish whether or not this is myeloma versus metastatic breast cancer. She is developing progressive thrombocytopenia. She has nucleated red cells documented on her peripheral blood. 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 If this is metastatic breast cancer or if it is refractory myeloma, this is a very poor prognostic sign. We are checking an LDH on this patient and it is reported as 979. This is another very poor prognostic sign. I am consulted Dr. Sanchez to follow her with me. He performed her mastectomy. If there is something that he can biopsy to help us distinguish whether or not this is metastatic breast cancer versus myeloma, I think we need to do that. I have also discussed her case with Dr. Smiley, interventional radiology, and he is going to evaluate her and consider biopsy of a separate site from her sternum. We already had a sternal biopsy late last year that confirmed myeloma but I am suspicious of this being metastatic breast cancer as well. Exam - Constitutional Vitals: Period Temp Pulse Resp BP Sys/Mcneill Pulse Ox Last 24 Hr 96.3 F-98.9 F 104-115 18-22 108-129/61-79 93-96 Results - Labs CBC & BMP: 07/31/16 04:21 07/31/16 04:21
--- NOTE | 2016-07-31 07:27 | XRay Report ---
Exam: Chest 2 views Date: July 31, 2016 at 6:34 AM Comparison: Chest 2 views July 29, 2016 Reason: Dyspnea/shortness of breath, orthopnea Findings: A right-sided Mediport is in place, and there is mild cardiomegaly. Surgical clips are seen at the left axilla/chest, and the patient is status post left mastectomy. A few surgical clips also project below the right clavicle. The interstitial markings are slightly prominent bilaterally, which could represent minimal pulmonary edema. No pneumothorax is identified, but there is minimal bilateral pleural fluid which is better seen on the recent CT. The osseous structures appear stable. Impression: The interstitial markings are slightly prominent bilaterally, which may reflect minimal pulmonary edema. This has improved since the previous study performed on July 29, 2016. PROCEDURE INTERPRETED AT [facility] DEPARTMENT OF RADIOLOGY Final Report Signed by: Dr. Gama Georges
[2016-07-31 07:33] LABS: Albumin (SPE) 3.4 G/DL (3.2-5.3); Albumin (SPE) Rel % 34.2 %; Alpha 1 (SPE) 0.4 G/DL (0.1-0.4); Alpha 1 (SPE) Rel % 3.7 %; Alpha 2 (SPE) 0.8 G/DL (0.4-1.0); Alpha 2 (SPE) Rel % 8.1 %; Beta (SPE) 0.8 G/DL (0.5-1.1); Beta (SPE) Rel % 7.5 %
[2016-07-31 07:34] LABS: Gamma (SPE) 4.6 G/DL (0.7-1.7); Gamma (SPE) Rel % 46.5 %
[2016-07-31] MEDS ORDERED: FULVESTRANT 250 MG/5 ML SYRINGE IM ONE (08:04)
--- NOTE | 2016-07-31 08:20 | Physician Query Form ---
CLICK EDIT DOCUMENT TO SELECT QUERY ANSWER --> OK --> SIGN Kirstie Pan RN, CCDS Certified Clinical Mortgage Closing Clerk W) [phone] (f) [phone] [email or web address] PROVIDERS: Make your selection(s) from the choices in EACH section by typing an "x" and enter comments in the comment section. Please use your independent medical judgment in providing your response. This request does not imply that any particular answer is desired or expected. CLINICAL INDICATORS: (Providers should not edit this section) The medical record indicates that the patient was admitted with MM, dyspnea, WRIGHT increasing in severity over the last 4-5 days, 2+ pillow orthopnea, "mildly elevated BNP", "BNP in ER 263", BNP of 478 on the 24th, "volume overloaded" and we will see if she feels better with a little more diuresis. [patient was given one dose of IV Lasix]---[Echocardiogram this admission with normal LV size and ejection fraction 55%] Please provide further specificity regarding CHF. ACUITY: ( ) Acute ( ) Chronic ( X) Acute on Chronic ( ) Clinically unable to determine TYPE: ( ) Systolic ( X) Diastolic ( ) Combined Systolic/Diastolic ( ) Other, please specify: ( ) Clinically unable to determine ( ) The patient does NOT have CHF COMMENTS: Use of terms such as suspected, likely, or probable (associated with a specific diagnosis that is being evaluated, monitored, or treated as if it exists) are acceptable and can be restated in the discharge summary if not ruled out. MTDD
[2016-07-31] MEDS: ASPIRIN EC 81 MG TABLET PO SCH (09:06)
[2016-07-31] MEDS: CYANOCOBALAMIN 500 MCG TABLET PO SCH (09:07)
[2016-07-31] MEDS: COENZYME Q10 100 MG CAPSULE PO SCH (09:08)
[2016-07-31] MEDS: EXEMESTANE 25 MG TABLET PO SCH (13:39)
[2016-07-31] MEDS: predniSONE 50 MG TABLET PO SCH (13:39)
--- NOTE | 2016-07-31 14:17 | General Surgery Consult Note ---
Assessment and Plan - Time spent with patient Time spent with patient: Less than 30 minutes (1) Metastatic disease Status: Acute Assessment and plan: Impression: 1. Extensive metastatic disease to the bones of unknown etiology. Breast versus myeloma 2. A palpable lymph node in the right supraclavicular area 3. A sternal swelling and mass in the upper mid sternal area 4. Mastectomy wound of the left breast area with no sign of any local recurrence 5. History of multiple myeloma. Plan: 1. I don't think he could effectively biopsied the area of sternal region because of its size and possible bony involvement. No way that this could be removed. 2. Could remove the lymph node of the right supraclavicular area and see if it shows anything since his send a independent area from everything else at this time. 3. No sign of a local recurrence in the left mastectomy scar axilla at this time. Current Visit: Yes History of Present Illness Chief complaint: metastatic cancer History of present illness: Ms. Kate is a 66 year old female white who is known to have had breast cancer and is status post mastectomy on the left with previously chemotherapy and radiation therapy. She also has multiple myeloma multiple myeloma at this time. She's complained of some chest wall discomfort in his had CTs it suggest extensive bony metastatic disease. Its unknown whether these changes are related to the multiple myeloma or possibly to metastatic breast cancer. I was asked to see her for the possibility of finding something to biopsy other than the bone Cosmo to see if there was anything else going on rather than the multiple myeloma. The mastectomy site looks clean with no sign of any recurrent disease present in that area of the axilla. There is a lymph node in the right supraclavicular area that is smooth and mobile at this point and may be easily removed which we could do and see if it shows anything in particular. We'll try to set her up for surgery jarred see if we get this area. Home Medications Medication Instructions Recorded Confirmed Type Ascorbic Acid Tab [Vitamin C Tab] 500 mg PO DAILY 06/13/16 07/29/16 History Aspirin [Ecotrin] 81 mg PO DAILY 06/13/16 07/29/16 History Cyanocobalamin (Vitamin B-12) 2,500 mcg PO DAILY 06/13/16 07/29/16 History [Vitamin B12] Letrozole [Femara] 2.5 mg PO PC SUPPER 06/13/16 07/29/16 History Multivitamin [Multivitamins] 1 tablet PO DAILY 06/13/16 07/29/16 History Selenium [Selenium Cap] 200 mcg PO PC SUPPER 06/13/16 07/29/16 History Venlafaxine Xr [Effexor XR] 75 mg PO PC SUPPER 06/13/16 07/29/16 History Cholecalciferol [Vitamin D3] 1,000 unit PO DAILY 06/18/16 07/29/16 History Coenzyme Q10 200 mg PO DAILY 06/18/16 07/29/16 History Garlic 1,000 mg PO DAILY 06/18/16 07/29/16 History Allergies Allergy/AdvReac Type Severity Reaction Status Date / Time Iodinated Contrast Media - Allergy Mild ITCHING Verified 12/29/14 18:19 IV Dye Medical,Surgical,& Family Hx - Medical History Cardio: No history of: Cardiac Dysrhythmia, Cerebrovascular Disease, CHF, Hypertension, ME Psychological: No history of: Behavior Problems, Depression, Previous Suicide Attempt Neurology: No history of: Cerebrovascular Accident, Dementia, Migraine, Seizures, TIA, Vertigo HEENT: No history of: Ear Problem, Eye Problem, Glaucoma Endocrine: History of: Thyroid Disorder Respiratory: No history of: Asthma, Bronchitis, COPD, Obstructive Sleep Apnea, Pulmonary Embolism, Pulmonary Hypertension Renal: No history of: Renal (Kidney) Cancer, Dialysis, Renal Failure Genitourinary: No history of: Bladder Problem, Genitourinary Cancer Gastrointestinal: History of: GERD, GI Problems (ULCERS) No history of: Gastrointestinal Bleed, Hepatitis Musculoskeletal: History of: Musculoskeletal Problems (ARTHRITIS) Hematology: History of: Anemia, Hematologic Cancer (IgG lambda myeloma ) No history of: Blood Transfusion Reaction, Sickle Cell Disease Reproductive: History of: Breast Cancer (left breast CA 2012) Other: History of: Cancer (LEFT BREAST), Miscellaneous Medical Problems ( multiple myeloma) - Surgical History Cardiac Surgeries: Patient Denies: Cardiac Catheterization, Cardiac Surgery, Carotid Endarterectomy, Internal Defibrillator Thoracic Surgeries: Patient denies;: Kidney (Renal Surgery) HEENT Surgeries: Surgical HX of: Thyroid Surgery (thyroidectomy) Patient denies: Carotid Endarterectomy Abdominal Surgeries: Surgical HX of: Cholecystectomy, Colonoscopy, EGD Reproductive Surgeries: Surgical HX of;: Breast Surgery (left mastectomy), Hysterectomy - Family History Family History: Reports;: Family Cancer (mom-colon CA), Family Diabetes (brother , father), Family Heart Disease (brother-CAD pt reports brother "had 2 stents put in his heart 2 weeks ago"), Family Hypertension, Family Psychiatric Problems (MOM- ALZHMIERS), Additional Family History (mom-Alzheimer's) - Social History Smoking Status: Never smoker Frequency of Alcohol Use: None Type of Drug Use: None 12 point system: reviewed and no additional remarkable complaints except as stated Exam - Constitutional Vitals: Period Temp Pulse Resp BP Sys/Mcneill Pulse Ox Last 24 Hr 96.3 F-98.9 F 94-115 18-22 115-129/58-79 93-95 General appearance: no acute distress - Head Head exam: Present: normal inspection - ENT ENT exam: Present: normal exam - Neck Neck exam: Present: normal inspection, lymphadenopathy (possible lymph node in the right supraclavicular area that is smooth yet mobile) - Respiratory Respiratory exam: Present: clear to auscultation bilaterally, rales - Cardiovascular Cardiovascular exam: Present: RRR - GI/Abdominal GI/Abdominal exam: Present: normal bowel sounds, soft - Extremities Exam Extremities exam: Present: normal inspection - Back Exam Back exam: Present: normal inspection - Neurological Exam Neurological exam: Present: alert, oriented X3, CN II-XII intact - Skin Skin exam: Present: normal color, warm, dry, other (right breast is stable with no palpable masses present. Left mastectomy wound is well-healed and there is no evidence of any masses or nodules under the flaps at this time. Left axilla is also negative on palpation.) Quality Measures - VTE Contraindication to Pharmacological VTE Prophylaxis: High Risk of Bleeding Results - Labs CBC & BMP: 07/31/16 04:21 07/31/16 04:21 Lab Results: I have reviewed the past 24 hour labs
--- NOTE | 2016-07-31 17:42 | Cardiology Progress Note ---
I, Esme Singh RN, am scribing for, and in the presence of, Sang Oreilly MD 17:42. Assessment and Plan - Time spent with patient Time spent with patient: Less than 30 minutes (1) Dyspnea Status: Acute Assessment and plan: Dyspnea is essentially unchanged and her chest x-ray continues to show interstitial edema although it's improved over previously. We will push diuresis and see if we can get her symptomatically better. Current Visit: Yes (2) Multiple myeloma Status: Acute Current Visit: Yes (3) Anemia Status: Acute Current Visit: Yes (4) Thrombocytopenia Status: Acute Current Visit: Yes Cardiology - PN: Subj Interval history: Resting quietly without distress or need observed. Denies any chest discomfort overnight. Still has some mild dyspnea and is using O2 to help alleviate some of her difficulty. CT of chest/abd this AM revealed a new hepatic lesion suspicious for metastasis. Also showed worsening, enhancing soft tissue mass and lytic defect of manubrium/upper sternum, development of sudha pleural effusions, stable pericardial effusion, interval increase in interstitial edema/ PNA/spread of tumor, worsening mixed density lesions within entirety of bony structures. Per oncology note, breast CA antigen now ordered and IR has been consulted for bone biopsy to evaluate for myeloma vs metastatic breast CA. BP is 120/50, continued tachycardia with pulse rate about 110 bpm. Received IV Lasix 40 mg yesterday. Feels orthopnea "about the same." Labs reviewed: PLT 34, RBC 3.56, H/H 10.8 & 33.1, K+ 3.7, Mg+ 1.8, and BNP 478 ( 263 on 07/29) Patient has an abnormal chest x-ray is suspicious for interstitial edema. Her ejection fraction is normal and she has no evidence of impaired [place] my exam today. I don't think she has significant pericardial effusion that is human dynamically important. I am going to bump her with some Lasix and see if we can improve her symptoms. She is for evaluation related to recurrence of her primary tumor tomorrow. Exam (Progress Note) - Constitutional Vitals: Period Temp Pulse Resp BP Sys/Mcneill Pulse Ox Last 24 Hr 96.3 F-98.9 F 94-115 18-22 112-129/58-79 93-95 Exam: General: Present: No Apparent Distress HEENT: Present: Normocephaly, Mucus Membranes Moist Neck: Present: Supple Neck, Midline Trachea, No JVD/HJR, No Masses, No Bruit Cardiac: Present: Regular Rhythm, No Murmur, Tachycardia. Absent: Audible Murmur, Bradycardia Lungs: Present: Clear Ascult./Percussion, No Wheeze, Rales, Rhonchi Neuro: Present: Grossly Intact. Absent: Resting Tremor Abdomen: Present: Soft, Active Bowel Sounds, No Masses. Absent: Ascites, Tender , Firm, Distended Skin: Present: Clear Extremities: Present: No Clubbing, No Cyanosis, No Edema, Normal Upper Extr. Pulses (2+ sudha), Normal Lower Extr. Pulses (2+ bilaterally), Capillary Refill ( normal) Result/EKG - Labs CBC & BMP: 07/31/16 04:21 07/31/16 04:21 Lab Results: I have reviewed the past 24 hour labs Labs: Laboratory Results - last 24 hr 07/30/16 07/30/16 07/31/16 07:17 07:17 04:00 WBC RBC Hgb Hct MCV MCH MCHC RDW Plt Count MPV Neut % (Auto) Lymph % (Auto) [place] % (Auto) Eos % (Auto) Baso % (Auto) Neut # (Auto) Lymph # (Auto) [place] # (Auto) Eos # (Auto) Baso # (Auto) Total Counted Immature Gran % Nucleated RBC % Immature Gran # Segmented Neutrophils Band Neutrophils Lymphocytes Monocytes Basophils Metamyelocytes Myelocytes Nucleated RBCs Nucleated RBCs # Platelet Estimate Hypochromasia Macrocytosis Rouleaux Sodium Potassium Chloride Carbon Dioxide Anion Gap BUN Creatinine GFR Calculation BUN/Creatinine Ratio Glucose Calculated Osmolality Calcium Magnesium Total Bilirubin AST ALT Alkaline Phosphatase Lactate Dehydrogenase 979 H B-Natriuretic Peptide Serum Total Protein 10.0 H Total Protein Albumin Albumin (relative) 34.2 Albumin (PEP) 3.4 Globulin Albumin/Globulin Ratio Simpx-4-Usehnpxkl 0.4 Sdjln-9-Srxvdjxo (rel) 3.7 Xjtlo-0-Wqfvryhnz 0.8 Lukuz-5-Uhokxnep (rel) 8.1 Dzjc-5-Aznmkiij 0.8 Bacx-6-Lirmehie (rel) 7.5 Gamma Globulins 4.6 H Gamma Globulins (rel) 46.5 PEP Interpretation See comment IgG Total 5630 H IgA Total < 31 L IgM Total < 21 L IRAM Interpretation See comment Free [place] Light Chains 0.10 L Free Lambda Light Chain 40.46 H Free [place]/Lambda Ratio 0.00 L 07/31/16 07/31/16 07/31/16 04:21 04:21 04:21 WBC 5.5 D RBC 3.56 L Hgb 10.8 L Hct 33.1 L MCV 93.0 MCH 30 MCHC 32.6 RDW 17.7 H Plt Count 34 L* D MPV 9.8 Neut % (Auto) 48.9 Lymph % (Auto) 25.7 [place] % (Auto) 12.6 Eos % (Auto) 0.4 Baso % (Auto) 0.5 Neut # (Auto) 2.7 Lymph # (Auto) 1.4 [place] # (Auto) 0.7 Eos # (Auto) 0.0 Baso # (Auto) 0.0 Total Counted 100 Immature Gran % 11.9 Nucleated RBC % 2.4 Immature Gran # 0.65 Segmented Neutrophils 47 L Band Neutrophils 9 Lymphocytes 28 Monocytes 10 Basophils 1.0 H Metamyelocytes 4 Myelocytes 1 Nucleated RBCs 4 Nucleated RBCs # 0.13 Platelet Estimate Decreased Hypochromasia 1+ Macrocytosis 1+ Rouleaux Slight Sodium 138 Potassium 3.9 Chloride 104 Carbon Dioxide 19 L Anion Gap 18.9 H BUN 12 Creatinine 0.60 GFR Calculation 99 BUN/Creatinine Ratio 20.00 Glucose 163 H Calculated Osmolality 278.7 Calcium 8.8 Magnesium 1.8 Total Bilirubin AST ALT Alkaline Phosphatase Lactate Dehydrogenase B-Natriuretic Peptide 478 H Serum Total Protein Total Protein Albumin Albumin (relative) Albumin (PEP) Globulin Albumin/Globulin Ratio Deybh-7-Tmpsemles Zzuel-0-Irsirhym (rel) Wpmqn-8-Qhghidjrr Tinjo-7-Wvpskjwa (rel) Fvtg-9-Rwkipgqv Ztfv-6-Rrasiiyd (rel) Gamma Globulins Gamma Globulins (rel) PEP Interpretation IgG Total IgA Total IgM Total IRAM Interpretation Free [place] Light Chains Free Lambda Light Chain Free [place]/Lambda Ratio 07/31/16 04:21 WBC RBC Hgb Hct MCV MCH MCHC RDW Plt Count MPV Neut % (Auto) Lymph % (Auto) [place] % (Auto) Eos % (Auto) Baso % (Auto) Neut # (Auto) Lymph # (Auto) [place] # (Auto) Eos # (Auto) Baso # (Auto) Total Counted Immature Gran % Nucleated RBC % Immature Gran # Segmented Neutrophils Band Neutrophils Lymphocytes Monocytes Basophils Metamyelocytes Myelocytes Nucleated RBCs Nucleated RBCs # Platelet Estimate Hypochromasia Macrocytosis Rouleaux Sodium 138 Potassium 3.7 Chloride 104 Carbon Dioxide 19 L Anion Gap 18.7 H BUN 11 Creatinine 0.60 GFR Calculation 99 BUN/Creatinine Ratio 18.00 Glucose 165 H Calculated Osmolality 277.7 Calcium 8.7 Magnesium Total Bilirubin 0.80 AST 48 H ALT 10 L Alkaline Phosphatase 168 H Lactate Dehydrogenase B-Natriuretic Peptide Serum Total Protein Total Protein 10.5 H Albumin 2.6 L Albumin (relative) Albumin (PEP) Globulin 7.9 H Albumin/Globulin Ratio 0.3 L Xpknw-6-Bdwxfgjlt Slouc-2-Rxsupscl (rel) Jjbsh-1-Ervhvgldz Gxkob-5-Aewoswox (rel) Bmpi-2-Pwudrhcf Oxpk-3-Jxkzfvso (rel) Gamma Globulins Gamma Globulins (rel) PEP Interpretation IgG Total IgA Total IgM Total IRAM Interpretation Free [place] Light Chains Free Lambda Light Chain Free [place]/Lambda Ratio - Diagnostic Findings Procedure: Chest x-ray: report reviewed by me (07/31 interstitial marking slightly prominent bilaterally, poss reflective of pulmonary edema. improved since 07/29) - EKG EKG results: interpreted by me EKG shows: tachycardia, sinus rhythm IDenilson Wesley, MD, personally performed the services described in this documentation, ascribed by Esme Singh RN in my presence, and it is both accurate and complete [id number] .
[2016-07-31] MEDS: VENLAFAXINE XR 75 MG CAPSULE PO SCH (18:08)
--- NOTE | 2016-07-31 18:21 | IR History and Physical Update ---
IR Pre-Procedure - History and Physical H&P was reviewed, the patient examined and there: are no changes in the patients condition since last H&P was completed. Reason for procedure:: 66-year-old female with multiple myeloma and breast cancer. 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 She has new marrow lesions present in her pelvis and is profoundly thrombocytopenic, possibly from marrow replacement. Dr. Salmeron requesting biopsy. - Dictation Physical: refer to H&P completed by admitting physician - Physical Exam Vital Signs: Last Vital Signs Temp 98.2 F 07/31/16 11:25 Pulse 118 H 07/31/16 11:25 Resp 18 07/31/16 11:25 BP 128/78 07/31/16 11:25 Pulse Ox 97 07/31/16 11:25 Mental Status: alert and oriented - Sedation IR anesthesia plan for sedation: minimal ASA Class: II - Risks Risks: Procedures explained. Risks discussed include, but not limited to, the following:[ Pain, bleeding, infection] All questions answered. The following alternatives were discussed:[ None ] Risks and benefits discussed with: patient Consent obtained from: patient Assessment and Plan - Time spent with patient Time spent with patient: Less than 30 minutes (1) Metastatic disease Status: Acute Assessment and plan: Plan bone marrow biopsy left iliac [place] Current Visit: Yes
[2016-07-31] MEDS: TEMAZEPAM 7.5 MG CAPSULE PO PRN (21:25)
[2016-08-01 05:15] LABS: Eosinophils % 0.5 % (0.00-10.9); Hematocrit 26.5 VOL% (35.7-47.0); Hemoglobin 8.7 GM/DL (12.0-16.0); Immature Granulocytes % 9.9 %; Immature Granulocytes Absolute 0.42 #; Lymphocytes # 0.8 10*3/uL (1.4-4.0); Lymphocytes % 18.8 % (21.3-54.2); Mean Corpuscular HGB Conc 32.8 GM/DL (32-36); Mean Corpuscular Hemoglobin 31 PG (27-34); Mean Corpuscular Volume 93.3 FL (87-102); Mean Platelet Volume 10.7 FL (9.6-12.0); Monocytes # 0.7 10*3/uL (0.11-0.8); Monocytes % 16.7 % (1.7-12.7); Neutrophils # 2.3 10*3/uL (1.4-7.4); Neutrophils % 54.1 % (38.7-73.9); Red Blood Count 2.84 10*6/uL (3.8-5.5); Red Cell Distribution Width 18.2 % (9.3-17.3); White Blood Count 4.3 10*3/uL (4.5-13.71)
[2016-08-01 05:26] LABS: Platelet Count 36 10*3/uL (130-400)
[2016-08-01 05:36] LABS: INR 1.2; PT Patient Result 12.7 SECS; Partial Thromboplastin Time 25.5 SECS (0-40)
[2016-08-01 05:48] LABS: Band Neutrophils 6 % (0-10); Eosinophils 2 % (0-10); Lymphocytes 14 % (20-55); Metamyelocytes 5 %; Nucleated Red Blood Cells 3 (0-5); Segmented Neutrophils 60 % (50-85); Total Cells Counted 100
[2016-08-01 05:49] LABS: Hypochromasia 1+; Macrocytosis 1+
[2016-08-01 05:50] LABS: Platelet Estimate Decreased
[2016-08-01] MEDS ORDERED: MIDAZOLAM 2 MG/2 ML VIAL IV ONE (06:00)
[2016-08-01] MEDS ORDERED: fentaNYL 100 MCG/2 ML VIAL IV ONE (06:00)
[2016-08-01] MEDS ORDERED: DIAZEPAM 5 MG TABLET PO ONE (06:00)
[2016-08-01 06:11] LABS: Albumin 2.4 G/DL (3.4-5.0); Calcium 8.5 MG/DL (8.5-10.1); Osmolality,Calculated 281.3 MOS/KG (273-304); Potassium 3.5 MMOL/L (3.5-5.1); Total Protein 9.3 G/DL (6.4-8.3)
[2016-08-01] MEDS: SODIUM CHLORIDE 0.9% 1,000 ML IV SCH ×2 (06:14→23:27)
[2016-08-01] MEDS ORDERED: LACTATED RINGERS 1,000 ML IV SCH (06:30)
[2016-08-01] MEDS ORDERED: FAMOTIDINE 20 MG/2 ML VIAL IV ONE (06:30)
--- NOTE | 2016-08-01 07:34 | Oncology Progress Note ---
Oncology Subjective PN Interval history: This case appears to be turning into a catastrophic situation. This lady has a long history of myeloma and a more recent history of breast cancer. She now has some nucleated red cells in her peripheral blood and is developing progressive thrombocytopenia. We are trying to get a bone marrow biopsy from the pelvis to establish whether or not she has metastatic disease both from her breast and her myeloma. I am very concerned about the possibility of metastatic breast cancer at this point. We biopsied her sternum and it demonstrated plasmacytoma. Since that biopsy was done, she has had a repeat CT that demonstrates much more extensive bony involvement that concerns me for metastatic breast cancer. I have ordered a breast cancer antigen. There is no documentation as to whether or not it is pending. I am reordering it today stat. He would think this electronic medical record would provide communication as to whether or not a test was pending. The documentation in the orders section simply states "received". This is insufficient information. I have discussed this patient's case with Dr. Sanchez. He thinks he can obtain a right Supraclavicular node biopsy. I have instructed him to proceed with this as soon as it is practical. The patient is fully oriented and alert. Her family is in attendance. She has anemia as well as thrombocytopenia and she also has leukopenia. Nucleated red cells reported on her peripheral smear and once again I am concerned that this is a myelophthisic problem. Exam - Constitutional Vitals: Period Temp Pulse Resp BP Sys/Mcneill Pulse Ox Last 24 Hr 96.9 F-98.2 F 94-118 18-20 105-130/58-82 94-97 Results - Labs CBC & BMP: 08/01/16 04:29 08/01/16 04:29 Quality Measures - VTE Contraindication to Pharmacological VTE Prophylaxis: High Risk of Bleeding
[2016-08-01] MEDS ORDERED: BUPIVACAINE MPF 0.25% /EPI 30 ML VIAL ONE (09:51)
[2016-08-01] MEDS ORDERED: PROPOFOL 200 MG/20 ML VIAL IV ONE (10:24)
[2016-08-01] MEDS ORDERED: TISSUE ADHESIVE 1 EACH APPLICATOR TOP ONE (10:56)
[2016-08-01] MEDS ORDERED: HYDROmorphone 2 MG/1 ML VIAL IV PRN (11:02)
--- NOTE | 2016-08-01 12:14 | Post Interventional Procedure ---
Pre-op diagnosis: Multiple myeloma, breast cancer, pancytopenia Post-op diagnosis: same Procedure: Left iliac bone marrow aspirate and bx Flouroscopy: 0.6 min Radiologist: Hernan Smiley Anesthesia: local Specimens: other (20 cc bone marrow aspirate, 11 ga marrow biopsy) Estimated blood loss: none Complications: none Condition: stable Assessment and Plan - Time spent with patient Time spent with patient: Less than 30 minutes (1) Metastatic disease Status: Acute Assessment and plan: Plan bone marrow biopsy left iliac [place] Current Visit: Yes
--- NOTE | 2016-08-01 12:48 | Operative Note ---
Date of procedure: 08/01/16 Pre-op diagnosis: metastatic cancer with a enlarged lymph node right supraclavicular area Post-op diagnosis: same Procedure: Operative note: Preoperative diagnosis: Metastatic cancer with an enlarged lymph node right supra clavicular area. Postoperative diagnosis: Same Procedure: Excision of enlarged lymph node right supraclavicular area Surgeon Dr. Sanchez Operations Advisor Terra Lundberg [facility] Brief history: 66-year-old white female with a history of multiple myeloma and breast cancer who has come in with some increased chest discomfort and PET scans have shown multiple areas of involvement of the bone. It is unclear as with a not this is related to breast cancer or whether this is related to her multiple myeloma. Bone marrow biopsies being planned and they asked me to look for any other masses that we could diagnose and biopsy. The mastectomy site is clear with no sign of any local recurrence nothing into the axilla there. I did find a prominent lymph node in the right supraclavicular area at that we could biopsy this since its away from the left mastectomy being on the right hand away from any other lesions present. Procedure: With patient supine position prepped and draped in a sterile fashion Timeout and antibiotics completed brooches area of the right supraclavicular area at the base of the neck. We infiltrated with local anesthetic and I made a little transverse incision to the skin subcutaneous tissue dissected through Elliot's fascia down to the level of the muscle region. With cold careful dissection I was able to identify the lymph node and then just carefully dissected out using clips to control any bleeding around the edges of it. Lymph node was friable and tore up a good bit but I was able to eventually remove the entire lymph node. He is a left cauterization controlling additional bleeding we washed some saline. Once that was out then and no bleeding was seen I went ahead and closed subcutaneous tissue with a running 3-0 Vicryl closed the skin with a running 4-0 Monocryl and Dermabond was applied. Patient was then taken to recovery room Estimated blood loss 2 mL Sponge count correct 2 Drains none Complications none Condition stable satisfactory Anesthesia: MAC, local (0.25% Marcaine with epinephrine mixed medx-kec-faci 1% Xylocaine plain) Surgeon / Physician: Abdirizak Sanchez Operations Advisor: Terra Lundberg Estimated blood loss: minimal Specimens: other (lymph node) Condition: stable Disposition: floor Results - Labs CBC & BMP: 08/01/16 04:29 08/01/16 04:29 Discharge Plan - Discharge Medications No Action Letrozole [Femara] 2.5 mg PO PC SUPPER Cyanocobalamin (Vitamin B-12) [Vitamin B12] 2,500 mcg PO DAILY Multivitamin [Multivitamins] 1 tablet PO DAILY Selenium [Selenium Cap] 200 mcg PO PC SUPPER Venlafaxine Xr [Effexor XR] 75 mg PO PC SUPPER Ascorbic Acid Tab [Vitamin C Tab] 500 mg PO DAILY Aspirin [Ecotrin] 81 mg PO DAILY Coenzyme Q10 200 mg PO DAILY Cholecalciferol [Vitamin D3] 1,000 unit PO DAILY Garlic 1,000 mg PO DAILY - Follow Up or Referral - Forms/Instructions
[2016-08-01] MEDS: ASPIRIN EC 81 MG TABLET PO SCH (13:18)
[2016-08-01] MEDS: COENZYME Q10 100 MG CAPSULE PO SCH (13:18)
[2016-08-01] MEDS: FUROSEMIDE 40 MG TABLET PO SCH (13:18)
[2016-08-01] MEDS: EXEMESTANE 25 MG TABLET PO SCH (13:19)
[2016-08-01] MEDS: CYANOCOBALAMIN 500 MCG TABLET PO SCH (13:19)
[2016-08-01] MEDS ORDERED: fentaNYL 100 MCG/2 ML VIAL ONE (13:28)
[2016-08-01] MEDS ORDERED: MIDAZOLAM 2 MG/2 ML VIAL ONE (13:28)
--- NOTE | 2016-08-01 14:33 | Anesthesia ---
Anesthesia Post OP - Post Ansesthetic Evaluation Patient seen in post op: Yes Resp: within normal limits CV: within normal limits Mental: within normal limits Temp: within normal limits Zlwv-Vm-Dekyroevj: within normal limits Nausea and Vomiting: within normal limits Pain: within normal limits
[2016-08-01] MEDS: oxyCODONE/ACETAMINOPHEN 5-325 MG TABLET PO PRN (15:59)
--- NOTE | 2016-08-01 16:20 | Cardiology Progress Note ---
Francisco Machuca Vanessa, RN, am scribing for, and in the presence of, Sang Oreilly MD 16:20. Assessment and Plan - Time spent with patient Time spent with patient: Less than 30 minutes (1) Dyspnea Status: Acute Assessment and plan: -Lasix 40 mg PO QD. Current Visit: Yes (2) Multiple myeloma Status: Acute Current Visit: Yes (3) Anemia Status: Acute Current Visit: Yes (4) Thrombocytopenia Status: Acute Current Visit: Yes Cardiology - PN: Subj Interval history: Vitals stable overnight. Orthostatic VS reviewed, and no significant orthostasis seen. Has been tachycardic with HR around 110 bpm. Tele monitoring overnight revealed a couple episodes of atrial tachycardia and 1 episode suspicious for atrial fib with rapid rate around 145. BP 117/72. Progression of thrompocytopenia noted. She is scheduled for a bone marrow biopsy this AM and a right supraclavicular node biopsy later today to evaluate for metastasis from both breast CA and myeloma. Currently out of room for bone marrow biopsy. Will follow up. She is undergoing evaluation to determine whether she's having issues related to return of her breast or myeloma. She from a cardiac standpoint is stable and her heart rate continues tachycardic which I think is appropriate given the metabolic demands at this point. I will continue following Exam (Progress Note) - Constitutional Vitals: Period Temp Pulse Resp BP Sys/Mcneill Pulse Ox Last 24 Hr 96.6 F-98.2 F 107-119 18-20 101-130/58-82 95-97 Exam: General: Present: No Apparent Distress HEENT: Present: Normocephaly, Mucus Membranes Moist Neck: Present: Supple Neck, Midline Trachea, No JVD/HJR, No Masses, No Bruit Cardiac: Present: Regular Rhythm, No Murmur, Tachycardia. Absent: Audible Murmur, Bradycardia Lungs: Present: Clear Ascult./Percussion, No Wheeze, Rales, Rhonchi Neuro: Present: Grossly Intact. Absent: Resting Tremor Abdomen: Present: Soft, Active Bowel Sounds, No Masses. Absent: Ascites, Tender , Firm, Distended Skin: Present: Clear Extremities: Present: No Clubbing, No Cyanosis, No Edema, Normal Upper Extr. Pulses (2+ sudha), Normal Lower Extr. Pulses (2+ bilaterally), Capillary Refill ( normal) Result/EKG - Labs CBC & BMP: 08/01/16 04:29 08/01/16 04:29 Lab Results: I have reviewed the past 24 hour labs Labs: Laboratory Results - last 24 hr 08/01/16 08/01/16 08/01/16 04:29 04:29 04:29 WBC 4.3 L RBC 2.84 L D Hgb 8.7 L D Hct 26.5 L MCV 93.3 MCH 31 MCHC 32.8 RDW 18.2 H Plt Count 36 L* MPV 10.7 Neut % (Auto) 54.1 Lymph % (Auto) 18.8 L [place] % (Auto) 16.7 H Eos % (Auto) 0.5 Baso % (Auto) 0.0 Neut # (Auto) 2.3 Lymph # (Auto) 0.8 L [place] # (Auto) 0.7 Eos # (Auto) 0.0 Baso # (Auto) 0.0 Total Counted 100 Immature Gran % 9.9 Nucleated RBC % 2.4 Immature Gran # 0.42 Segmented Neutrophils 60 Band Neutrophils 6 Lymphocytes 14 L Monocytes 11 Eosinophils 2 Basophils 2.0 H Metamyelocytes 5 Nucleated RBCs 3 Nucleated RBCs # 0.10 Platelet Estimate Decreased Hypochromasia 1+ Macrocytosis 1+ INR 1.2 PT Patient/Control Mix 12.7 Circ Anticoag PTT 25.5 Sodium 141 Potassium 3.5 Chloride 109 H Carbon Dioxide 17 L Anion Gap 18.5 H BUN 12 Creatinine 0.60 GFR Calculation 99 BUN/Creatinine Ratio 20.00 Glucose 110 H Calculated Osmolality 281.3 Calcium 8.5 Total Bilirubin 1.00 AST 40 H ALT 9 L Alkaline Phosphatase 125 H B-Natriuretic Peptide Total Protein 9.3 H Albumin 2.4 L Globulin 6.9 H Albumin/Globulin Ratio 0.3 L Blood Type Antibody Screen 08/01/16 08/01/16 04:29 04:29 WBC RBC Hgb Hct MCV MCH MCHC RDW Plt Count MPV Neut % (Auto) Lymph % (Auto) [place] % (Auto) Eos % (Auto) Baso % (Auto) Neut # (Auto) Lymph # (Auto) [place] # (Auto) Eos # (Auto) Baso # (Auto) Total Counted Immature Gran % Nucleated RBC % Immature Gran # Segmented Neutrophils Band Neutrophils Lymphocytes Monocytes Eosinophils Basophils Metamyelocytes Nucleated RBCs Nucleated RBCs # Platelet Estimate Hypochromasia Macrocytosis INR PT Patient/Control Mix Circ Anticoag PTT Sodium Potassium Chloride Carbon Dioxide Anion Gap BUN Creatinine GFR Calculation BUN/Creatinine Ratio Glucose Calculated Osmolality Calcium Total Bilirubin AST ALT Alkaline Phosphatase B-Natriuretic Peptide 693 H Total Protein Albumin Globulin Albumin/Globulin Ratio Blood Type O POSITIVE Antibody Screen Negative - EKG EKG results: interpreted by me EKG shows: tachycardia Quality Measures - VTE Contraindication to Pharmacological VTE Prophylaxis: High Risk of Bleeding IDenilson Wesley, MD, personally performed the services described in this documentation, ascribed by Esme Singh RN in my presence, and it is both accurate and complete [id number] .
--- NOTE | 2016-08-01 16:42 | Interventional Radiology Rpt ---
IR Bone Marrow Biopsy Indication: No metastases. Myeloma and breast cancer, synchronous primaries. Pancytopenia. BONE MARROW BIOPSY- ASPIRATE Description: A formal timeout was performed. Fluoroscopic observation shows the left iliac bone to be the best candidate for sampling from posterior approach, also suspicious for containing vague metastatic lesions identified on CT. With the patient prone on the fluoroscopy table, the left low back was prepped and draped in a sterile fashion. Skin was anesthetized with 5 cc 1% lidocaine, with lidocaine injected down to the periosteal surface. Under fluoroscopic observation, a 11 gauge Arrow guide needle was advanced to the posterior left iliac crest periosteum. The outer cortex was gently penetrated with the luci tip stylette needle. A "Arrow on Control" drill was then used to penetrate the cortex several millimeters. After removing the stylette, bone marrow aspirate was performed obtaining 11 cc of bone marrow, directly into a syringe prefilled with 2000 units heparin. Cytopathology received the bone marrow aspirate and determinate was inadequate due to clotting. An additional 10 cc of bone marrow was withdrawn directly into 2000 units of heparin. This time, cytopathology determined it was an adequate sample. The drill was reattached and the coring needle advanced an additional 3 cm into the marrow space and then withdrawn and one motion. The 11-gauge biopsy specimen was then removed from the needle and handed to cytopathology. A bandage is placed the puncture site. Patient tolerated the procedure well. Medications: None. Fluoroscopy: 0.6 minutes. Impression: Uncomplicated successful bone marrow biopsy and aspirate as described. PROCEDURE INTERPRETED AT [facility] DEPARTMENT OF RADIOLOGY Final Report Signed by: Hernan Smiley M.D.
[2016-08-01] MEDS: VENLAFAXINE XR 75 MG CAPSULE PO SCH (21:03)
[2016-08-01] MEDS: TEMAZEPAM 7.5 MG CAPSULE PO PRN (21:04)
[2016-08-01] MEDS: ceFAZolin 2,000 MG in PREMIX 1 EACH IV SCH (21:04)
[2016-08-02] MEDS: SODIUM CHLORIDE 0.9% 1,000 ML IV SCH (00:12)
[2016-08-02] MEDS: ceFAZolin 2,000 MG in PREMIX 1 EACH IV SCH (04:55)
[2016-08-02 05:20] LABS: Basophils % 0.6 % (0.0-0.8); Eosinophils # 0.1 10*3/uL (0.0-0.87); Eosinophils % 1.9 % (0.00-10.9); Hemoglobin 8.7 GM/DL (12.0-16.0); Immature Granulocytes % 12.9 %; Immature Granulocytes Absolute 0.41 #; Lymphocytes # 0.9 10*3/uL (1.4-4.0); Lymphocytes % 26.8 % (21.3-54.2); Mean Corpuscular HGB Conc 32.2 GM/DL (32-36); Mean Corpuscular Hemoglobin 31 PG (27-34); Mean Corpuscular Volume 96.1 FL (87-102); Mean Platelet Volume 10.2 FL (9.6-12.0); Monocytes # 0.4 10*3/uL (0.11-0.8); NRBC # 0.18 10*3/uL; Neutrophils # 1.5 10*3/uL (1.4-7.4); Neutrophils % 45.8 % (38.7-73.9); Red Blood Count 2.81 10*6/uL (3.8-5.5); Red Cell Distribution Width 17.9 % (9.3-17.3); White Blood Count 3.2 10*3/uL (4.5-13.71)
[2016-08-02 05:40] LABS: Platelet Count 30 10*3/uL (130-400)
[2016-08-02 05:44] LABS: Band Neutrophils 10 % (0-10); Eosinophils 1 % (0-10); Lymphocytes 29 % (20-55); Metamyelocytes 4 %; Microcytosis 3+; Myelocytes 2 %; Nucleated Red Blood Cells 12 (0-5); Platelet Estimate Decreased; Polychromasia Slight; Segmented Neutrophils 49 % (50-85); Total Cells Counted 100
[2016-08-02 05:50] LABS: Calcium 7.8 MG/DL (8.5-10.1); Potassium 3.2 MMOL/L (3.5-5.1)
--- NOTE | 2016-08-02 07:46 | Oncology Progress Note ---
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 It has responded well to treatment up until now. She also has a history of breast cancer and I am concerned that it is now metastatic. She has undergone biopsies of her pelvis and also a right supraclavicular node biopsy and we are awaiting the results of these reports. In the meantime, I have switched her from letrozole to Aromasin and she has received 1 dose of Faslodex. The patient's breast cancer anagen ANTIGEN, NOT "ANAGEN" WHATEVER THAT IS...was ordered earlier this week. It did not appear on her chart until this morning. She has had both a lymph node biopsy and bone marrow biopsy with the results still pending. I am hoping to have some results back. She complains of back pain, probably from the malignancy. The nurses tell me that her is not being very supportive presently. I think he has had bad experiences with cancer previously and that he may be expecting the worst. Her outlook is very good however. She is oriented and alert and I am anxiously awaiting the reports from the biopsy specimens. Exam - Constitutional Vitals: Period Temp Pulse Resp BP Sys/Mcneill Pulse Ox Last 24 Hr 96.0 F-98.7 F 104-124 16-24 101-136/55-80 95-99 Results - Labs CBC & BMP: 08/02/16 03:58 08/02/16 03:58 Quality Measures - VTE Contraindication to Pharmacological VTE Prophylaxis: High Risk of Bleeding
--- NOTE | 2016-08-02 08:55 | General Surgery Progress Note ---
Assessment and Plan - Time spent with patient Time spent with patient: Less than 30 minutes (Stable post op excisional biopsy of right infraclavicular lymph node. We'll watch the surgical area closely, given her thrombocytopenia, and await the path for further planning.) Subjective Patient reports: Present: no new complaints Exam - Constitutional Vitals: Period Temp Pulse Resp BP Sys/Mcneill Pulse Ox Last 24 Hr 96.0 F-98.7 F 104-124 16-24 101-136/55-80 95-99 General appearance: no acute distress - Respiratory Respiratory exam: Present: clear to auscultation bilaterally, other (Right infraclavicular surgical site is clean; moderate ecchymosis is present about the incision without hematoma or unusual tenderness. ). Absent: rales, wheezes Results - Labs CBC & BMP: 08/02/16 03:58 08/02/16 03:58 Lab Results: I have reviewed the past 24 hour labs (Platelets down to 30K. Hct stable at 27.) Quality Measures - VTE Contraindication to Pharmacological VTE Prophylaxis: High Risk of Bleeding
[2016-08-02] MEDS: COENZYME Q10 100 MG CAPSULE PO SCH (09:28)
[2016-08-02] MEDS: ASPIRIN EC 81 MG TABLET PO SCH (09:28)
[2016-08-02] MEDS: CYANOCOBALAMIN 500 MCG TABLET PO SCH (09:28)
[2016-08-02] MEDS: EXEMESTANE 25 MG TABLET PO SCH (09:28)
[2016-08-02] MEDS: DEXT 5% NACL 0.45% KCL 20 MEQ 20 MEQ/1,000 ML BAG IV SCH ×2 (09:28→18:02)
[2016-08-02] MEDS: PANTOPRAZOLE 40 MG TABLET PO SCH (09:29)
[2016-08-02] MEDS: FUROSEMIDE 40 MG TABLET PO SCH (09:29)
--- NOTE | 2016-08-02 15:40 | Pathology Report from [facility] ---
ACCESSION # : [id number] PATIENT NAME : Jon Schilling ORDERING DR : ADRIANNE JESSICA MD CLINICAL HX: Metastatic cancer - Myeloma and a more history of breast cancer POST-OP DX: Same SPECIMEN INFO: Right supraclavicular lymph node GROSS DESCRIPTION: Received fresh labeled with the patient's name "JON SCHILLING" and consists of an aggregate of pink-ramesh tissue measuring 3.5 x 2.0 cm. Sectioned and submitted in one cassette. DIAGNOSIS FOR JON SCHILLING: RIGHT SUPRACLAVICULAR LYMPH NODE: Marked plasma cell infiltrate c/w multiple myeloma. SERVICE DATE: 08/01/2016 REPORT DATE: 08/02/2016 PATHOLOGIST: Desiree Roy M.D. [facility]
[2016-08-02] MEDS: VENLAFAXINE XR 75 MG CAPSULE PO SCH (18:01)
[2016-08-02] MEDS: TEMAZEPAM 7.5 MG CAPSULE PO PRN (20:32)
[2016-08-03] MEDS: DEXT 5% NACL 0.45% KCL 20 MEQ 20 MEQ/1,000 ML BAG IV SCH ×3 (02:02→19:31)
[2016-08-03 08:15] LABS: Basophils % 0.3 % (0.0-0.8); Eosinophils # 0.1 10*3/uL (0.0-0.87); Hematocrit 26.7 VOL% (35.7-47.0); Hemoglobin 8.6 GM/DL (12.0-16.0); Immature Granulocytes % 12.6 %; Immature Granulocytes Absolute 0.44 #; Lymphocytes # 0.9 10*3/uL (1.4-4.0); Lymphocytes % 26.4 % (21.3-54.2); Mean Corpuscular HGB Conc 32.2 GM/DL (32-36); Mean Corpuscular Hemoglobin 31 PG (27-34); Mean Platelet Volume 12.1 FL (9.6-12.0); Monocytes # 0.5 10*3/uL (0.11-0.8); Monocytes % 13.5 % (1.7-12.7); NRBC # 0.17 10*3/uL; Neutrophils # 1.6 10*3/uL (1.4-7.4); Neutrophils % 45.2 % (38.7-73.9); Red Blood Count 2.78 10*6/uL (3.8-5.5); Red Cell Distribution Width 17.4 % (9.3-17.3); White Blood Count 3.5 10*3/uL (4.5-13.71)
[2016-08-03 08:18] LABS: Platelet Count 25 10*3/uL (130-400)
[2016-08-03 08:36] LABS: Band Neutrophils 6 % (0-10); Hypochromasia 1+; Lymphocytes 26 % (20-55); Nucleated Red Blood Cells 1 (0-5); Platelet Estimate Adequate; Segmented Neutrophils 62 % (50-85); Total Cells Counted 100
[2016-08-03] MEDS ORDERED: SODIUM CHLORIDE 0.9% 250 ML IV PRN (08:58)
--- NOTE | 2016-08-03 09:02 | Oncology Progress Note ---
Oncology Subjective PN Interval history: This patient has a long history of myeloma and has a history of breast cancer several years that was initially stage I and then recurred on the left chest wall and was treated at that time with Adriamycin and Cytoxan. She has been on hormone therapy and I just switched her from letrozole to Aromasin. Also added Faslodex. 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 Her blood counts began to drop and I held thalidomide. She was admitted at this time with increasing dyspnea and weakness and her blood counts are following. We have 2 separate biopsies pending now. She has had a biopsy of the right iliac bone and also has had a right supraclavicular node biopsy. 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 She also has evidence of progression of bony metastases on CTs. There were arguably some blastic areas of metastatic disease which would imply either healing bone or metastatic breast cancer. However, we have not established anything to suggest recurrence of her breast cancer and it should not have recurred. I am proceeding with Zometa today. I am going to consider proceeding with daratumumab if the bone marrow biopsy returns as myeloma as well. I had considered adding Taxol and carboplatin or possibly Ibrance if this had been metastatic breast cancer. Progression of either of her malignancies may prove catastrophic. I am writing standing orders for transfusion of platelets because her platelet count continues to drop. She may also require blood transfusion because she is severely anemic. All this is apparently due to marrow involvement, either by the myeloma or the breast cancer or both. 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 Exam - Constitutional Vitals: Period Temp Pulse Resp BP Sys/Mcneill Pulse Ox Last 24 Hr 96.4 F-98.8 F 102-125 19-20 96-129/54-72 96-100 Results - Labs CBC & BMP: 08/03/16 07:51 08/02/16 03:58 Quality Measures - VTE Contraindication to Pharmacological VTE Prophylaxis: High Risk of Bleeding
[2016-08-03] MEDS ORDERED: ZOLEDRONIC ACID 4 MG in PREMIX 1 EACH IV ONE (10:00)
[2016-08-03] MEDS: EXEMESTANE 25 MG TABLET PO SCH (10:08)
[2016-08-03] MEDS: oxyCODONE/ACETAMINOPHEN 5-325 MG TABLET PO PRN (10:08)
[2016-08-03] MEDS: ASPIRIN EC 81 MG TABLET PO SCH (10:09)
[2016-08-03] MEDS: FUROSEMIDE 40 MG TABLET PO SCH (10:09)
[2016-08-03] MEDS: COENZYME Q10 100 MG CAPSULE PO SCH (10:09)
[2016-08-03] MEDS: PANTOPRAZOLE 40 MG TABLET PO SCH (10:10)
[2016-08-03] MEDS: CYANOCOBALAMIN 500 MCG TABLET PO SCH (10:10)
--- NOTE | 2016-08-03 15:54 | Cardiology Progress Note ---
I, Esme Singh RN, am scribing for, and in the presence of, Sang Oreilly MD 15:53. Assessment and Plan - Time spent with patient Time spent with patient: Less than 30 minutes (1) Dyspnea Status: Acute Assessment and plan: -Lasix 40 mg PO QD. Current Visit: Yes (2) Multiple myeloma Status: Acute Current Visit: Yes (3) Anemia Status: Acute Current Visit: Yes (4) Thrombocytopenia Status: Acute Current Visit: Yes Cardiology - PN: Subj Interval history: No new complaint overnight. No CP. States mild SOB is "about the same" with no increase in severity. Feels better using O2. Some soreness from previous pelvic bone biopsy and right supraventricular node biopsy sites yesterday. Awaiting results. Labs reviewed. Thrombocytopenia and neutropenia noted. K+ 3.2 today.BP 116/70, tachycardic with HR around 115 bpm. The patient is lying in bed comfortable. She continues with oxygen and says that she feels better with it. She doesn't appear to be dyspneic and is sleeping better and appears to be able to speak in full sentences without having to stop. We are awaiting results of studies. I don't see any evidence that there is anything from a heart failure standpoint that applies here currently. I have discussed in detail the particulars of this case and I have examined the patient and reviewed the patient's chart both current and old. I was directly involved in the patient's evaluation and management and I completely agree with Esme Singh regarding this patient's evaluation and treatment plan. Exam (Progress Note) - Constitutional Vitals: Period Temp Pulse Resp BP Sys/Mcneill Pulse Ox Last 24 Hr 96.0 F-98.7 F 104-124 16-24 101-136/55-80 95-99 Exam: General: Present: No Apparent Distress HEENT: Present: Normocephaly, Mucus Membranes Moist Neck: Present: Supple Neck, Midline Trachea, No JVD/HJR, No Masses, No Bruit. Other (dsg at biopsy site of right suprventricular node area) Cardiac: Present: Regular Rhythm, No Murmur, Tachycardia. Absent: Audible Murmur, Bradycardia Lungs: Present: Clear Ascult./Percussion, No Wheeze, Rales, Rhonchi Neuro: Present: Grossly Intact. Absent: Resting Tremor Abdomen: Present: Soft, Active Bowel Sounds, No Masses. Absent: Ascites, Tender , Firm, Distended Skin: Present: Clear Extremities: Present: No Clubbing, No Cyanosis, No Edema, Normal Upper Extr. Pulses (2+ sudha), Normal Lower Extr. Pulses (2+ bilaterally), Capillary Refill ( normal) Result/EKG - Labs CBC & BMP: 08/03/16 07:51 08/02/16 03:58 Lab Results: I have reviewed the past 24 hour labs Labs: Laboratory Results - last 24 hr 07/30/16 07/30/16 08/02/16 07:17 07:17 03:58 WBC 3.2 L RBC 2.81 L Hgb 8.7 L Hct 27.0 L MCV 96.1 MCH 31 MCHC 32.2 RDW 17.9 H Plt Count 30 L* MPV 10.2 Neut % (Auto) 45.8 Lymph % (Auto) 26.8 [place] % (Auto) 12.0 Eos % (Auto) 1.9 Baso % (Auto) 0.6 Neut # (Auto) 1.5 Lymph # (Auto) 0.9 L [place] # (Auto) 0.4 Eos # (Auto) 0.1 Baso # (Auto) 0.0 Total Counted 100 Immature Gran % 12.9 Nucleated RBC % 5.7 Immature Gran # 0.41 Segmented Neutrophils 49 L Band Neutrophils 10 Lymphocytes 29 Monocytes 5 Eosinophils 1 Metamyelocytes 4 Myelocytes 2 Nucleated RBCs 12 H Nucleated RBCs # 0.18 Platelet Estimate Decreased Polychromasia Slight Microcytosis 3+ Sodium Potassium Chloride Carbon Dioxide Anion Gap BUN Creatinine GFR Calculation BUN/Creatinine Ratio Glucose Calculated Osmolality Calcium Breast [employer] Ag 42.0 H TSH, Ultra Sensitive 1.7 08/02/16 03:58 WBC RBC Hgb Hct MCV MCH MCHC RDW Plt Count MPV Neut % (Auto) Lymph % (Auto) [place] % (Auto) Eos % (Auto) Baso % (Auto) Neut # (Auto) Lymph # (Auto) [place] # (Auto) Eos # (Auto) Baso # (Auto) Total Counted Immature Gran % Nucleated RBC % Immature Gran # Segmented Neutrophils Band Neutrophils Lymphocytes Monocytes Eosinophils Metamyelocytes Myelocytes Nucleated RBCs Nucleated RBCs # Platelet Estimate Polychromasia Microcytosis Sodium 143 Potassium 3.2 L Chloride 111 H Carbon Dioxide 21 Anion Gap 14.2 BUN 19 H Creatinine 0.60 GFR Calculation 99 BUN/Creatinine Ratio 31.00 H Glucose 87 Calculated Osmolality 285.0 Calcium 7.8 L Breast [employer] Ag TSH, Ultra Sensitive - EKG EKG results: interpreted by me Quality Measures - VTE Contraindication to Pharmacological VTE Prophylaxis: High Risk of Bleeding Denilson Machuca Wesley, MD, personally performed the services described in this documentation, ascribed by Esme Singh RN in my presence, and it is both accurate and complete 553 .
--- NOTE | 2016-08-03 15:55 | Cardiology Progress Note ---
Francisco Machuca Vanessa RN, am scribing for, and in the presence of, Sang Oreilly MD 15:55. Assessment and Plan - Time spent with patient Time spent with patient: Less than 30 minutes (1) Dyspnea Status: Acute Assessment and plan: -Lasix 40 mg PO QD. Current Visit: Yes (2) Multiple myeloma Status: Acute Current Visit: Yes (3) Anemia Status: Acute Current Visit: Yes (4) Thrombocytopenia Status: Acute Current Visit: Yes Cardiology - PN: Subj Interval history: No new complaint this morning. Patient is getting up OOB to go to bathroom and return. Reports large increase in urine output since daily PO Lasix added to medication regimen. Does not appear as short of breath as in previous couple days. Denies increasing dyspnea, pain, or other c/o. Tele monitoring reveals continued tachycardia, rate 100-110 bpm. No orthostasis after reviewing vitals. SBP 110-120 / DBP 60-80 mmHg. She has been up and sitting in the chair some today. We've encouraged her to begin ambulating a little. Dr. Goldman plans to keep her through the weekend and we will continue following. She is currently cardiac stable. I have discussed in detail the particulars of this case and I have examined the patient and reviewed the patient's chart both current and old. I was directly involved in the patient's evaluation and management and I completely agree with Esme Singh regarding this patient's evaluation and treatment plan. Exam (Progress Note) - Constitutional Vitals: Period Temp Pulse Resp BP Sys/Mcneill Pulse Ox Last 24 Hr 96.4 F-98.8 F 102-125 19-20 96-129/54-72 96-100 Exam: General: Present: No Apparent Distress HEENT: Present: Normocephaly, Mucus Membranes Moist Neck: Present: Supple Neck, Midline Trachea, No JVD/HJR, No Masses, No Bruit. Other (dsg at biopsy site of right suprventricular node area) Cardiac: Present: Regular Rhythm, No Murmur, Tachycardia. Absent: Audible Murmur, Bradycardia Lungs: Present: Clear Ascult./Percussion, No Wheeze, Rales, Rhonchi Neuro: Present: Grossly Intact. Absent: Resting Tremor Abdomen: Present: Soft, Active Bowel Sounds, No Masses. Absent: Ascites, Tender , Firm, Distended Skin: Present: Clear Extremities: Present: No Clubbing, No Cyanosis, No Edema, Normal Upper Extr. Pulses (2+ sudha), Normal Lower Extr. Pulses (2+ bilaterally), Capillary Refill ( normal) Result/EKG - Labs CBC & BMP: 08/03/16 07:51 08/02/16 03:58 Lab Results: I have reviewed the past 24 hour labs Labs: Laboratory Results - last 24 hr 08/03/16 07:51 WBC 3.5 L RBC 2.78 L Hgb 8.6 L Hct 26.7 L MCV 96.0 MCH 31 MCHC 32.2 RDW 17.4 H Plt Count 25 L* MPV 12.1 H Neut % (Auto) 45.2 Lymph % (Auto) 26.4 [place] % (Auto) 13.5 H Eos % (Auto) 2.0 Baso % (Auto) 0.3 Neut # (Auto) 1.6 Lymph # (Auto) 0.9 L [place] # (Auto) 0.5 Eos # (Auto) 0.1 Baso # (Auto) 0.0 Total Counted 100 Immature Gran % 12.6 Nucleated RBC % 4.9 Immature Gran # 0.44 Segmented Neutrophils 62 Band Neutrophils 6 Lymphocytes 26 Monocytes 6 Nucleated RBCs 1 Nucleated RBCs # 0.17 Platelet Estimate Adequate Hypochromasia 1+ - EKG EKG results: interpreted by me Quality Measures - VTE Contraindication to Pharmacological VTE Prophylaxis: High Risk of Bleeding Denilson Machuca Wesley, MD, personally performed the services described in this documentation, ascribed by Esme Singh RN in my presence, and it is both accurate and complete 555 .
[2016-08-03] MEDS: VENLAFAXINE XR 75 MG CAPSULE PO SCH (18:40)
[2016-08-03] MEDS: TEMAZEPAM 7.5 MG CAPSULE PO PRN (19:47)
[2016-08-04] MEDS: DEXT 5% NACL 0.45% KCL 20 MEQ 20 MEQ/1,000 ML BAG IV SCH ×2 (03:37→12:54)
[2016-08-04 08:41] LABS: Basophils % 0.3 % (0.0-0.8); Eosinophils # 0.1 10*3/uL (0.0-0.87); Hematocrit 24.9 VOL% (35.7-47.0); Hemoglobin 8.1 GM/DL (12.0-16.0); Immature Granulocytes % 14.3 %; Immature Granulocytes Absolute 0.48 #; Lymphocytes # 0.8 10*3/uL (1.4-4.0); Mean Corpuscular HGB Conc 32.5 GM/DL (32-36); Mean Corpuscular Hemoglobin 31 PG (27-34); Mean Corpuscular Volume 94.7 FL (87-102); Mean Platelet Volume 11.8 FL (9.6-12.0); Monocytes # 0.5 10*3/uL (0.11-0.8); Monocytes % 14.6 % (1.7-12.7); NRBC # 0.11 10*3/uL; Neutrophils # 1.5 10*3/uL (1.4-7.4); Neutrophils % 44.8 % (38.7-73.9); Red Blood Count 2.63 10*6/uL (3.8-5.5); Red Cell Distribution Width 17.3 % (9.3-17.3); White Blood Count 3.4 10*3/uL (4.5-13.71)
[2016-08-04 08:48] LABS: Platelet Count 21 10*3/uL (130-400)
--- NOTE | 2016-08-04 09:21 | Oncology Progress Note ---
Assessment and Plan (1) Multiple myeloma Status: Acute Current Visit: Yes (2) Anemia Status: Acute Current Visit: Yes (3) Thrombocytopenia Status: Acute Current Visit: Yes Oncology Subjective PN Interval history: Mrs. Giron has no complaints today. We are awaiting the results of her bone marrow biopsy. It appears that she has rapidly progressive multiple myeloma. She'll most likely begin new chemotherapy on Saturday. She has no issues today and seems to be feeling well. I encouraged her to ambulate in the hallway and sit in the chair for most of the day. On exam her abdomen is soft. Her skin is warm and dry. Lungs are clear to auscultation bilaterally with no wheezes. She is alert known to person place and time. She does not need any transfusion today but will likely need one bag of platelets tomorrow. Exam - Constitutional Vitals: Period Temp Pulse Resp BP Sys/Mcneill Pulse Ox Last 24 Hr 96.1 F-97.3 F 103-112 18-21 98-124/58-69 96-98 Results - Labs CBC & BMP: 08/04/16 08:28 08/02/16 03:58 Quality Measures - VTE Contraindication to Pharmacological VTE Prophylaxis: High Risk of Bleeding
[2016-08-04 09:38] LABS: Band Neutrophils 7 % (0-10); Eosinophils 3 % (0-10); Lymphocytes 19 % (20-55); Metamyelocytes 4 %; Nucleated Red Blood Cells 5 (0-5); Segmented Neutrophils 56 % (50-85); Total Cells Counted 100
[2016-08-04 09:39] LABS: Hypochromasia Slight; Macrocytosis 1+
[2016-08-04 09:40] LABS: Platelet Estimate Decreased
[2016-08-04] MEDS: COENZYME Q10 100 MG CAPSULE PO SCH (10:26)
[2016-08-04] MEDS: EXEMESTANE 25 MG TABLET PO SCH (10:26)
[2016-08-04] MEDS: CYANOCOBALAMIN 500 MCG TABLET PO SCH (10:26)
[2016-08-04] MEDS: FUROSEMIDE 40 MG TABLET PO SCH (10:27)
[2016-08-04] MEDS: ASPIRIN EC 81 MG TABLET PO SCH (10:27)
[2016-08-04] MEDS: PANTOPRAZOLE 40 MG TABLET PO SCH (10:27)
--- NOTE | 2016-08-04 11:43 | Cardiology Progress Note ---
Assessment and Plan (1) Dyspnea Status: Acute Assessment and plan: -Lasix 40 mg PO QD. 08/04: She is stable and nothing is new cardiac bonilla. Following. Current Visit: Yes (2) Multiple myeloma Status: Acute Current Visit: Yes (3) Anemia Status: Acute Current Visit: Yes (4) Thrombocytopenia Status: Acute Current Visit: Yes Cardiology - PN: Subj Interval history: Pt is minimally dyspneic and is ambulating without difficulty. She has had some nosebleeds and her plt count is 21k. We are continuing to follow. No new cardiac issues noted. Exam (Progress Note) - Constitutional Vitals: Period Temp Pulse Resp BP Sys/Mcneill Pulse Ox Last 24 Hr 96.1 F-97.3 F 103-112 18-21 98-124/58-69 96-98 Exam: General: Present: No Apparent Distress HEENT: Present: Normocephaly, Mucus Membranes Moist Neck: Present: Supple Neck, Midline Trachea, No JVD/HJR, No Masses, No Bruit. Other (dsg at biopsy site of right suprventricular node area) Cardiac: Present: Regular Rhythm, No Murmur, Tachycardia. Absent: Audible Murmur, Bradycardia Lungs: Present: Clear Ascult./Percussion, No Wheeze, Rales, Rhonchi Neuro: Present: Grossly Intact. Absent: Resting Tremor Abdomen: Present: Soft, Active Bowel Sounds, No Masses. Absent: Ascites, Tender , Firm, Distended Skin: Present: Clear Extremities: Present: No Clubbing, No Cyanosis, No Edema, Normal Upper Extr. Pulses (2+ sudha), Normal Lower Extr. Pulses (2+ bilaterally), Capillary Refill ( normal) Result/EKG - Labs CBC & BMP: 08/04/16 08:28 08/02/16 03:58 Labs: Laboratory Results - last 24 hr 08/01/16 08/04/16 08:02 08:28 WBC 3.4 L RBC 2.63 L Hgb 8.1 L Hct 24.9 L MCV 94.7 MCH 31 MCHC 32.5 RDW 17.3 Plt Count 21 L* MPV 11.8 Neut % (Auto) 44.8 Lymph % (Auto) 23.0 [place] % (Auto) 14.6 H Eos % (Auto) 3.0 Baso % (Auto) 0.3 Neut # (Auto) 1.5 Lymph # (Auto) 0.8 L [place] # (Auto) 0.5 Eos # (Auto) 0.1 Baso # (Auto) 0.0 Total Counted 100 Immature Gran % 14.3 Nucleated RBC % 3.3 Immature Gran # 0.48 Segmented Neutrophils 56 Band Neutrophils 7 Lymphocytes 19 L Monocytes 11 Eosinophils 3 Metamyelocytes 4 Nucleated RBCs 5 Nucleated RBCs # 0.11 Platelet Estimate Decreased Hypochromasia Slight Macrocytosis 1+ Breast [employer] Ag 42.7 H Quality Measures - VTE Contraindication to Pharmacological VTE Prophylaxis: High Risk of Bleeding
[2016-08-04] MEDS: diphenhydrAMINE CAP 25 MG CAPSULE PO PRN (13:07)
[2016-08-04] MEDS: VENLAFAXINE XR 75 MG CAPSULE PO SCH (17:44)
[2016-08-04] MEDS: TEMAZEPAM 7.5 MG CAPSULE PO PRN (19:53)
[2016-08-04] MEDS: ALPRAZolam 0.25 MG TABLET PO PRN (23:43)
[2016-08-05] MEDS: DEXT 5% NACL 0.45% KCL 20 MEQ 20 MEQ/1,000 ML BAG IV SCH ×2 (01:21→04:52)
[2016-08-05 05:24] LABS: Basophils % 0.3 % (0.0-0.8); Eosinophils # 0.1 10*3/uL (0.0-0.87); Eosinophils % 1.5 % (0.00-10.9); Hematocrit 22.7 VOL% (35.7-47.0); Hemoglobin 7.6 GM/DL (12.0-16.0); Immature Granulocytes % 10.8 %; Immature Granulocytes Absolute 0.43 #; Lymphocytes # 1.1 10*3/uL (1.4-4.0); Lymphocytes % 28.7 % (21.3-54.2); Mean Corpuscular HGB Conc 33.5 GM/DL (32-36); Mean Corpuscular Hemoglobin 31 PG (27-34); Mean Corpuscular Volume 92.7 FL (87-102); Mean Platelet Volume 11.4 FL (9.6-12.0); Monocytes # 0.6 10*3/uL (0.11-0.8); Monocytes % 15.9 % (1.7-12.7); Neutrophils # 1.7 10*3/uL (1.4-7.4); Neutrophils % 42.8 % (38.7-73.9); Red Blood Count 2.45 10*6/uL (3.8-5.5); Red Cell Distribution Width 17.5 % (9.3-17.3)
[2016-08-05 05:38] LABS: Platelet Count 20 10*3/uL (130-400)
[2016-08-05 06:11] LABS: Band Neutrophils 5 % (0-10); Eosinophils 3 % (0-10); Hypochromasia 2+; Lymphocytes 24 % (20-55); Metamyelocytes 3 %; Myelocytes 2 %; Nucleated Red Blood Cells 3 (0-5); Platelet Estimate Decreased; Promyelocytes 2 %; Segmented Neutrophils 49 % (50-85); Total Cells Counted 100
[2016-08-05] MEDS ORDERED: SODIUM CHLORIDE 0.9% 250 ML IV PRN (09:34)
--- NOTE | 2016-08-05 09:37 | Oncology Progress Note ---
Assessment and Plan (1) Multiple myeloma Status: Acute Current Visit: Yes (2) Anemia Status: Acute Current Visit: Yes (3) Thrombocytopenia Status: Acute Current Visit: Yes Oncology Subjective PN Interval history: She is doing well with no new complaints. We will transfuse HER-2 units of blood today. We will hold off on a unit of platelets but will likely need this tomorrow. We are still awaiting the results of her bone marrow biopsy. She'll most likely begin new therapy for her myeloma tomorrow. On exam today she is alert and appears place and time. Her skin is warm and dry. Her lungs are clear to station bilaterally no wheezing. Abdomen is soft with no palpable masses. Exam - Constitutional Vitals: Period Temp Pulse Resp BP Sys/Mcneill Pulse Ox Last 24 Hr 96.9 F-97.9 F 98-113 18-20 110-120/60-66 92-98 Results - Labs CBC & BMP: 08/05/16 04:00 08/02/16 03:58 Quality Measures - VTE Contraindication to Pharmacological VTE Prophylaxis: High Risk of Bleeding
[2016-08-05] MEDS: COENZYME Q10 100 MG CAPSULE PO SCH (09:52)
[2016-08-05] MEDS: ASPIRIN EC 81 MG TABLET PO SCH (09:52)
[2016-08-05] MEDS: CYANOCOBALAMIN 500 MCG TABLET PO SCH (09:52)
[2016-08-05] MEDS: FUROSEMIDE 40 MG TABLET PO SCH (09:52)
[2016-08-05] MEDS: PANTOPRAZOLE 40 MG TABLET PO SCH (09:53)
[2016-08-05] MEDS: EXEMESTANE 25 MG TABLET PO SCH (09:53)
--- NOTE | 2016-08-05 11:56 | Cardiology Progress Note ---
Assessment and Plan (1) Dyspnea Status: Acute Assessment and plan: -Lasix 40 mg PO QD. 08/04: She is stable and nothing is new cardiac bonilla. Following. 08/05: Her dyspnea is actually little better. She is up in the chair and moving about the room without difficulty. Current Visit: Yes (2) Multiple myeloma Status: Acute Current Visit: Yes (3) Anemia Status: Acute Current Visit: Yes (4) Thrombocytopenia Status: Acute Current Visit: Yes (5) Tachycardia Status: Acute Assessment and plan: By my exam today her rhythm is irregular and we will evaluate that with 24-hour Holter. I don't know whether she is having episodes of atrial fibrillation. She has a small pericardial effusion which I do not think is hemodynamically significant. 08/05: Her rates are in the 115-120 range. I think this is all compensatory. She does have a small pericardial effusion and I might repeat an echocardiogram in the morning just to reassess this effusion. She has no symptoms that make me think she is having any problems with tamponade but we will recheck this. With her platelet count is concerning for worsening pericardial fluid related to bleeding. Current Visit: Yes Cardiology - PN: Subj Interval history: Patient's complaints of stabbing abdominal pain which is clearly noncardiac and sounds like spasm. We will continue as currently. Exam (Progress Note) - Constitutional Vitals: Period Temp Pulse Resp BP Sys/Mcneill Pulse Ox Last 24 Hr 96.9 F-97.9 F 98-113 18-20 111-120/60-64 92-98 Result/EKG - Labs CBC & BMP: 08/05/16 04:00 08/02/16 03:58 Labs: Laboratory Results - last 24 hr 08/05/16 08/05/16 04:00 04:00 WBC 4.0 L RBC 2.45 L Hgb 7.6 L Hct 22.7 L MCV 92.7 MCH 31 MCHC 33.5 RDW 17.5 H Plt Count 20 L* MPV 11.4 Neut % (Auto) 42.8 Lymph % (Auto) 28.7 [place] % (Auto) 15.9 H Eos % (Auto) 1.5 Baso % (Auto) 0.3 Neut # (Auto) 1.7 Lymph # (Auto) 1.1 L [place] # (Auto) 0.6 Eos # (Auto) 0.1 Baso # (Auto) 0.0 Total Counted 100 Immature Gran % 10.8 Nucleated RBC % 2.5 Immature Gran # 0.43 Segmented Neutrophils 49 L Band Neutrophils 5 Lymphocytes 24 Monocytes 12 Eosinophils 3 Metamyelocytes 3 Myelocytes 2 Promyelocytes 2 Nucleated RBCs 3 Nucleated RBCs # 0.10 Platelet Estimate Decreased Hypochromasia 2+ Blood Type O POSITIVE Antibody Screen Negative Crossmatch See Detail Quality Measures - VTE Contraindication to Pharmacological VTE Prophylaxis: High Risk of Bleeding
[2016-08-05] MEDS: VENLAFAXINE XR 75 MG CAPSULE PO SCH (20:37)
[2016-08-05] MEDS: TEMAZEPAM 7.5 MG CAPSULE PO PRN (20:37)
[2016-08-06] MEDS: DEXT 5% NACL 0.45% KCL 20 MEQ 20 MEQ/1,000 ML BAG IV SCH ×3 (01:33→18:24)
[2016-08-06 06:04] LABS: Basophils % 0.2 % (0.0-0.8); Eosinophils # 0.1 10*3/uL (0.0-0.87); Eosinophils % 1.4 % (0.00-10.9); Hemoglobin 9.5 GM/DL (12.0-16.0); Immature Granulocytes Absolute 0.78 #; Lymphocytes # 1.1 10*3/uL (1.4-4.0); Lymphocytes % 25.6 % (21.3-54.2); Mean Corpuscular HGB Conc 33.9 GM/DL (32-36); Mean Corpuscular Hemoglobin 31 PG (27-34); Mean Corpuscular Volume 90.9 FL (87-102); Mean Platelet Volume 12.7 FL (9.6-12.0); Monocytes # 0.5 10*3/uL (0.11-0.8); Monocytes % 11.5 % (1.7-12.7); NRBC # 0.21 10*3/uL; Neutrophils # 1.9 10*3/uL (1.4-7.4); Neutrophils % 43.3 % (38.7-73.9); Red Blood Count 3.08 10*6/uL (3.8-5.5); Red Cell Distribution Width 18.2 % (9.3-17.3); White Blood Count 4.3 10*3/uL (4.5-13.71)
[2016-08-06 06:17] LABS: Platelet Count 21 10*3/uL (130-400)
[2016-08-06 06:31] LABS: Band Neutrophils 7 % (0-10); Eosinophils 2 % (0-10); Hypochromasia 1+; Lymphocytes 16 % (20-55); Microcytosis 1+; Myelocytes 1 %; Nucleated Red Blood Cells 1 (0-5); Platelet Estimate Decreased; Segmented Neutrophils 52 % (50-85); Total Cells Counted 100
--- NOTE | 2016-08-06 07:44 | Oncology Progress Note ---
Oncology Subjective PN Interval history: I am still awaiting the results of the patient's bone marrow biopsy and aspirate that was done the same day as her supraclavicular node biopsy. The supraclavicular node biopsy demonstrated myeloma. The bone marrow biopsy report is not even back yet. We have actually checked with pathology and there is no report as of this time. Of course this is underlying treatment plans. She has bony metastases that are probably due to myeloma. She got Zometa last week. I anticipate using daratumumab as part of her next treatment. She required blood transfusion during the weekend. We will continue to monitor blood counts closely. Her platelet count is 21,000. I expect to transfuse platelets tomorrow. Exam - Constitutional Vitals: Period Temp Pulse Resp BP Sys/Mcneill Pulse Ox Last 24 Hr 9.8 F-98.6 F 101-120 18-20 96-122/54-71 97-100 Results - Labs CBC & BMP: 08/06/16 04:00 08/02/16 03:58 Quality Measures - VTE Contraindication to Pharmacological VTE Prophylaxis: High Risk of Bleeding
[2016-08-06] MEDS: ASPIRIN EC 81 MG TABLET PO SCH (08:21)
[2016-08-06] MEDS: CYANOCOBALAMIN 500 MCG TABLET PO SCH (08:21)
[2016-08-06] MEDS: COENZYME Q10 100 MG CAPSULE PO SCH (08:21)
[2016-08-06] MEDS: PANTOPRAZOLE 40 MG TABLET PO SCH (08:21)
[2016-08-06] MEDS: FUROSEMIDE 40 MG TABLET PO SCH (08:21)
[2016-08-06] MEDS: EXEMESTANE 25 MG TABLET PO SCH (08:21)
[2016-08-06] MEDS ORDERED: traMADol 50 MG TABLET PO PRN (13:12)
--- NOTE | 2016-08-06 14:30 | Cardiology Progress Note ---
Aquilino Machuca April, RN, am scribing for, and in the presence of, Emerald Campuzano DO 14 :30. Assessment and Plan - Time spent with patient Time spent with patient: Less than 30 minutes (1) Anemia Status: Acute Assessment and plan: Improved today after transfusing blood product yesterday. Current Visit: Yes (2) Dyspnea Status: Acute Current Visit: Yes (3) Multiple myeloma Status: Acute Assessment and plan: Dr. Gaines is following. Current Visit: Yes (4) Tachycardia Status: Acute Current Visit: Yes (5) Thrombocytopenia Status: Acute Current Visit: Yes (6) Pericardial effusion Status: Acute Assessment and plan: This remains stable and continues to be small at 1 week. She has a resting tachycardia recommend we stop her Lasix and add a low-dose beta-agata. Current Visit: Yes Cardiology - PN: Subj Interval history: Sitting up in chair in no acute distress. She denies chest pain, shortness of breath, or palpitations. Oxygen not in use. She reports she was having some stabbing abdominal pain yesterday. This is better today, it is just tender with movement today. She was given 2 units of blood product yesterday and H&H is improved today at 9.5 and 28. Platelets are at [address] Gaines is planning to transfuse platelets tomorrow. She is currently sinus tach with heart rates ranging from 100-110. I saw and discussed with Ms. Velarde. This very pleasant 66-year-old female with very small pericardial effusion on her echo earlier this month repeat echo today shows a small pericardial effusion. There is also a very echo dense bright possibly calcified structure visualized in the right atrium that is likely a vestigial remnant of some type. I consider recommendation of CADY however given the patient's thrombocytopenia and anemia I do not think this is advisable. She also states that she has some dysphasia. This echocardiographic finding it does not appear to be something acute. Exam (Progress Note) - Constitutional Vitals: Period Temp Pulse Resp BP Sys/Mcneill Pulse Ox Last 24 Hr 9.8 F-98.6 F 101-120 18-20 96-122/54-71 97-100 General appearance: normal weight, no acute distress - Head Head exam: Present: normal inspection. Absent: abrasion, hematoma - Eye Eye exam: Absent: periorbital swelling, laceration to eyelids - ENT ENT exam: Present: normal exam, normal external ear exam - Neck Neck exam: Absent: tenderness - Respiratory Respiratory exam: Present: clear to auscultation bilaterally. Absent: accessory muscle use, chest wall tenderness, rhonchi, wheezes - Cardiovascular Cardiovascular exam: Present: regular rate and rhythm (Tachycardia at 115 bpm she has an S4), tachycardia - GI/Abdominal GI/Abdominal exam: Present: normal bowel sounds, tenderness, soft. Absent: distended - Extremities Exam Extremities exam: Present: other (all extremities warm and with good pulses). Absent: edema - Neurological Exam Neurological exam: Present: alert, oriented X3 - Psychiatric Psychiatric exam: Present: normal affect, normal mood - Skin Skin exam: Present: warm, dry. Absent: abrasion Result/EKG - Labs CBC & BMP: 08/06/16 04:00 08/02/16 03:58 Lab Results: I have reviewed the past 24 hour labs Labs: Laboratory Results - last 24 hr 08/05/16 08/06/16 04:00 04:00 WBC 4.3 L RBC 3.08 L D Hgb 9.5 L D Hct 28.0 L MCV 90.9 MCH 31 MCHC 33.9 RDW 18.2 H Plt Count 21 L* MPV 12.7 H Neut % (Auto) 43.3 Lymph % (Auto) 25.6 [place] % (Auto) 11.5 Eos % (Auto) 1.4 Baso % (Auto) 0.2 Neut # (Auto) 1.9 Lymph # (Auto) 1.1 L [place] # (Auto) 0.5 Eos # (Auto) 0.1 Baso # (Auto) 0.0 Total Counted 100 Immature Gran % 18.0 Nucleated RBC % 4.8 Immature Gran # 0.78 Segmented Neutrophils 52 Band Neutrophils 7 Lymphocytes 16 L Monocytes 22 H Eosinophils 2 Myelocytes 1 Nucleated RBCs 1 Nucleated RBCs # 0.21 Platelet Estimate Decreased Hypochromasia 1+ Microcytosis 1+ Blood Type O POSITIVE Antibody Screen Negative Crossmatch See Detail - EKG EKG results: interpreted by me EKG shows: tachycardia, sinus rhythm Quality Measures - VTE Contraindication to Pharmacological VTE Prophylaxis: High Risk of Bleeding ITatianna Shea, DO, personally performed the services described in this documentation, ascribed by Rolle,Abbi, RN in my presence, and it is both accurate and complete 430 .
--- NOTE | 2016-08-06 14:36 | ECHO Report ---
Marisela Kate Exam Date: 08/06/2016 10:06 Referring Physician: Technologist: Jeana Brooks RDCS Age: 66 Ht (in): Wt (lb): Gender: F Exam Location: [facility] Echo Indications: Dyspnea, unspecified, Multiple myeloma, Anemia, Thrombocytopenia, Tachycardia, unspecified, re-evaluate pericardial effusion BP: / HR: Rhythm: Sinus Technical Quality: IMPRESSIONS Left ventricular ejection fraction is estimated at 60 %. Resting tachycardia. Tricuspid regurgitation velocities suggest a PAP of 40 mmHg. There is a very bright mobile structure in the right atrium coming from the area of the CS. 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 Consider CADY if clinicall indicated. Small pericardial effusion that appears smaller than 07/30/2016. MEASUREMENTS (Male / Female) Normal Values 2D ECHO LV Diastolic Diameter PLAX 5.2 cm 4.2 - 5.9 / 3.9 - 5.3 cm LV Systolic Diameter PLAX 3.1 cm LV Fractional Shortening PLAX 41.0 % IVS Diastolic Thickness 0.9 cm 0.6 - 1.0 / 0.6 - 0.9 cm LVPW Diastolic Thickness 0.9 cm 0.6 - 1.0 / 0.6 - 0.9 cm RV Internal Dim ED PLAX 3.9 cm Aortic Root Diameter 3.0 cm LA Systolic Diameter LX 2.8 cm 3.0 - 4.0 / 2.7 - 3.8 cm DOPPLER TR Peak Velocity 276.0 cm/s TR Peak Gradient 30.5 mmHg FINDINGS Left Ventricle Normal left ventricular cavity size. Normal left ventricular wall thickness. Left ventricular ejection fraction is estimated at 60 %. Resting tachycardia. Right Ventricle The right ventricle is normal in size and function. Right Atrium The right atrium is mildly enlarged. Left Atrium Mild atrial enlargement in apical view (elongated LA). Mitral Valve Mildly thickened mitral valve with mild mitral regurgitation. Aortic Valve Morphologically normal aortic valve without significant sclerosis or stenosis. There is no aortic regurgitation. Tricuspid Valve Morphologically normal tricuspid valve. Trace to mild tricuspid valve regurgitation. Tricuspid regurgitation velocities suggest a PAP of 40 mmHg. Pulmonic Valve Morphologically normal pulmonic valve without significant stenosis. There is no pulmonic regurgitation. Pericardium Normal pericardium wit very small effusion. Aorta Normal ascending aorta dimension. Emerald Campuzano (Electronically Signed) Final Date: 06 August 2016 14:35
[2016-08-06] MEDS: VENLAFAXINE XR 75 MG CAPSULE PO SCH (18:23)
[2016-08-06] MEDS: TEMAZEPAM 7.5 MG CAPSULE PO PRN ×2 (21:03→22:28)
[2016-08-06] MEDS: CARVEDILOL 3.125 MG TABLET PO SCH (21:03)
[2016-08-07] MEDS: ALPRAZolam 0.25 MG TABLET PO PRN ×2 (01:06→20:50)
[2016-08-07] MEDS ORDERED: HEPARIN LOCK FLUSH 500 UNIT/5 ML SYRINGE IV ONE (04:59)
[2016-08-07 05:17] LABS: Basophils % 0.8 % (0.0-0.8); Eosinophils # 0.1 10*3/uL (0.0-0.87); Eosinophils % 1.4 % (0.00-10.9); Hematocrit 28.6 VOL% (35.7-47.0); Hemoglobin 9.7 GM/DL (12.0-16.0); Immature Granulocytes % 14.4 %; Immature Granulocytes Absolute 0.73 #; Lymphocytes # 1.5 10*3/uL (1.4-4.0); Lymphocytes % 29.1 % (21.3-54.2); Mean Corpuscular HGB Conc 33.9 GM/DL (32-36); Mean Corpuscular Hemoglobin 31 PG (27-34); Mean Corpuscular Volume 91.7 FL (87-102); Monocytes # 0.7 10*3/uL (0.11-0.8); Monocytes % 13.6 % (1.7-12.7); NRBC # 0.29 10*3/uL; Neutrophils # 2.1 10*3/uL (1.4-7.4); Neutrophils % 40.7 % (38.7-73.9); Red Blood Count 3.12 MC/CUMM (3.8-5.5); White Blood Count 5.1 T/CUMM (4-12)
[2016-08-07 05:41] LABS: Platelet Count 18 T/CUMM (130-400)
[2016-08-07 05:57] LABS: Band Neutrophils 8 % (0-10); Eosinophils 1 % (0-10); Lymphocytes 30 % (20-55); Metamyelocytes 1 %; Myelocytes 2 %; Nucleated Red Blood Cells 6 (0-5); Promyelocytes 1 %; Segmented Neutrophils 42 % (50-85); Total Cells Counted 100
[2016-08-07 05:58] LABS: Giant Platelets Few; Hypochromasia Slight; Microcytosis 1+; Ovalocytes Slight; Platelet Estimate Decreased
[2016-08-07] MEDS ORDERED: SODIUM CHLORIDE 0.9% 250 ML IV PRN (07:45)
--- NOTE | 2016-08-07 08:19 | Oncology Progress Note ---
Oncology Subjective PN Interval history: I am proceeding with daratumumab and Velcade chemotherapy on this patient with refractory myeloma that has now progressed on to prior combinations of chemotherapy. The chemotherapy will include Velcade 2.3 mg IV and daratumumab 1000 mg IV to be given at least 3 hours after the premedications. In addition, I am going to continue the patient on dexamethasone 20 mg IV daily for a total of 4 days. I have handwritten these orders to ensure that they are properly recorded. She is thrombocytopenic and she will get a transfusion of single donor platelets today. I have given her information from up-to-date on daratumumab and I am asked her to read it. She has done that. We are going to monitor her for toxicity from the daratumumab. Although it supposed to be given weekly, we will be careful about it and may not give it weekly. She has previously been treated with Velcade, but only for a short period of time. Prior to that, she progressed on thalidomide and on Revlimid. In fact, she has also progressed on Adriamycin and Cytoxan. Exam - Constitutional Vitals: Period Temp Pulse Resp BP Sys/Mcneill Pulse Ox Last 24 Hr 96.6 F-98.2 F 99-119 20-24 94-125/52-75 93-98 Results - Labs CBC & BMP: 08/07/16 04:00 08/02/16 03:58 Quality Measures - VTE Contraindication to Pharmacological VTE Prophylaxis: High Risk of Bleeding
[2016-08-07] MEDS: ASPIRIN EC 81 MG TABLET PO SCH (08:53)
[2016-08-07] MEDS: COENZYME Q10 100 MG CAPSULE PO SCH (08:53)
[2016-08-07] MEDS: CARVEDILOL 3.125 MG TABLET PO SCH ×2 (08:54→20:50)
[2016-08-07] MEDS: CYANOCOBALAMIN 500 MCG TABLET PO SCH (08:55)
[2016-08-07] MEDS: PANTOPRAZOLE 40 MG TABLET PO SCH (08:55)
[2016-08-07] MEDS: EXEMESTANE 25 MG TABLET PO SCH (09:00)
[2016-08-07] MEDS: DEXT 5% NACL 0.45% KCL 20 MEQ 20 MEQ/1,000 ML BAG IV SCH ×2 (09:01→23:35)
--- NOTE | 2016-08-07 09:50 | Cardiology Progress Note ---
I, Abbi Rolle, RN, am scribing for, and in the presence of, Emerald Campuzano DO 09 :50. Assessment and Plan - Time spent with patient Time spent with patient: Less than 30 minutes (1) Anemia Status: Chronic Current Visit: Yes (2) Dyspnea Status: Chronic Current Visit: Yes (3) Multiple myeloma Status: Chronic Assessment and plan: Dr. Gaines is following. Current Visit: Yes (4) Tachycardia Status: Acute Assessment and plan: I think this is due to her anemia and her current illness. She is tolerating Coreg at this time if it persists consider increasing. I would not change today. Current Visit: Yes (5) Thrombocytopenia Status: Acute Current Visit: Yes (6) Pericardial effusion Status: Acute Current Visit: Yes Cardiology - PN: Subj Interval history: Sitting up in chair in no acute distress, oxygen not in use. States she didn't sleep well last night, no particular problem, just couldn't sleep. Denies any chest pain, shortness of breath, or palpitations. Her platelets are down to 18 , it looks like she has been ordered transfusion today. Coreg 3.125 bid was started yesterday. She is in sinus tach with heart rates in the 110's. Ms. Cagle continues to have resting tachycardia she has sinus mechanism with occasional APCs on telemetry. She states her dyspnea may be a little better. I had seen her just after going to the restroom her heart rate was about 110 I reviewed her telemetry heart rate was occasional APCs. I discussed findings of the transthoracic echo in the specifically the TTE and that the Thebesian valve with . I recommend continuing the beta-agata at this time. Saw and examined with Ms. Velarde Exam (Progress Note) - Constitutional Vitals: Period Temp Pulse Resp BP Sys/Mcneill Pulse Ox Last 24 Hr 96.6 F-98.2 F 99-119 20-24 94-125/52-75 93-98 General appearance: normal weight, no acute distress - Head Head exam: Absent: abrasion, hematoma - Eye Eye exam: Absent: periorbital swelling, laceration to eyelids - ENT ENT exam: Present: normal exam, normal external ear exam - Neck Neck exam: Absent: tenderness - Respiratory Respiratory exam: Present: clear to auscultation bilaterally. Absent: accessory muscle use, chest wall tenderness - Cardiovascular Cardiovascular exam: Present: regular rate and rhythm, tachycardia, other ( Subcutaneous mass in the right at the suprasternal notch is noted) - GI/Abdominal GI/Abdominal exam: Present: normal bowel sounds, soft. Absent: distended, tenderness - Extremities Exam Extremities exam: Absent: calf tenderness, edema - Neurological Exam Neurological exam: Present: alert, oriented X3 - Psychiatric Psychiatric exam: Present: normal affect, normal mood - Skin Skin exam: Present: warm, dry. Absent: abrasion Result/EKG - Labs CBC & BMP: 08/07/16 04:00 08/02/16 03:58 Lab Results: I have reviewed the past 24 hour labs Labs: Laboratory Results - last 24 hr 08/07/16 04:00 WBC 5.1 RBC 3.12 L Hgb 9.7 L Hct 28.6 L MCV 91.7 MCH 31 MCHC 33.9 RDW 18.0 H Plt Count 18 L* Neut % (Auto) 40.7 Lymph % (Auto) 29.1 [place] % (Auto) 13.6 H Eos % (Auto) 1.4 Baso % (Auto) 0.8 Neut # (Auto) 2.1 Lymph # (Auto) 1.5 [place] # (Auto) 0.7 Eos # (Auto) 0.1 Baso # (Auto) 0.0 Total Counted 100 Immature Gran % 14.4 Nucleated RBC % 5.7 Immature Gran # 0.73 Segmented Neutrophils 42 L Band Neutrophils 8 Lymphocytes 30 Monocytes 15 Eosinophils 1 Metamyelocytes 1 Myelocytes 2 Promyelocytes 1 Nucleated RBCs 6 H Nucleated RBCs # 0.29 Platelet Estimate Decreased Giant Platelets Few Hypochromasia Slight Microcytosis 1+ Ovalocytes Slight Morphology Comment - EKG EKG results: interpreted by me EKG shows: tachycardia, sinus rhythm Quality Measures - VTE Contraindication to Pharmacological VTE Prophylaxis: High Risk of Bleeding ITatianna Shea, DO, personally performed the services described in this documentation, ascribed by Abbi Rolle RN in my presence, and it is both accurate and complete 950 .
[2016-08-07] MEDS: VENLAFAXINE XR 75 MG CAPSULE PO SCH (18:19)
[2016-08-07] MEDS: TEMAZEPAM 7.5 MG CAPSULE PO PRN (23:34)
[2016-08-08 08:11] LABS: Basophils % 0.4 % (0.0-0.8); Eosinophils # 0.1 10*3/uL (0.0-0.87); Eosinophils % 1.5 % (0.00-10.9); Hematocrit 24.2 VOL% (35.7-47.0); Immature Granulocytes % 13.2 %; Immature Granulocytes Absolute 0.63 #; Lymphocytes # 1.4 10*3/uL (1.4-4.0); Lymphocytes % 28.8 % (21.3-54.2); Mean Corpuscular HGB Conc 33.1 GM/DL (32-36); Mean Corpuscular Hemoglobin 31 PG (27-34); Mean Corpuscular Volume 93.1 FL (87-102); Mean Platelet Volume 10.8 FL (9.6-12.0); Monocytes # 0.8 10*3/uL (0.11-0.8); Monocytes % 16.1 % (1.7-12.7); NRBC # 0.22 10*3/uL; Neutrophils # 1.9 10*3/uL (1.4-7.4); Platelet Count 53 T/CUMM (130-400); Red Cell Distribution Width 17.9 % (9.3-17.3); White Blood Count 4.8 T/CUMM (4-12)
--- NOTE | 2016-08-08 08:26 | Oncology Progress Note ---
Oncology Subjective PN Interval history: We had a delay in starting chemotherapy on this patient due to the fact that it had to be ordered. This medication is extremely expensive and I was informed that by the director of the pharmacy. Unfortunately the patient could not be treated outpatient because she is too sick and debilitated. I am hoping that next week or possibly the week after we will be able to administer this medication outpatient but she is got to get well enough to go home. Her platelet count today is 53,000 after transfusion. We will continue to monitor platelet counts. I am hoping that I can discharge her later this week and continue this chemotherapy as an outpatient but her platelet count is too low presently. Exam - Constitutional Vitals: Period Temp Pulse Resp BP Sys/Mcneill Pulse Ox Last 24 Hr 96.2 F-98.2 F 97-122 18-22 100-130/58-69 93-99 Results - Labs CBC & BMP: 08/08/16 08:00 08/08/16 08:00 Quality Measures - VTE Contraindication to Pharmacological VTE Prophylaxis: High Risk of Bleeding
[2016-08-08 08:34] LABS: Band Neutrophils 11 % (0-10); Hypochromasia 1+; Lymphocytes 25 % (20-55); Metamyelocytes 6 %; Myelocytes 1 %; Nucleated Red Blood Cells 11 (0-5); Platelet Estimate Decreased; Segmented Neutrophils 42 % (50-85); Total Cells Counted 100
[2016-08-08 08:35] LABS: Rouleau Slight
[2016-08-08 08:36] LABS: Macrocytosis Slight; Polychromasia Slight
[2016-08-08 09:09] LABS: Albumin 2.5 G/DL (3.4-5.0); Bilirubin,Total 0.7 MG/DL (0.2-1.0); Calcium 8.7 MG/DL (8.5-10.1); Osmolality,Calculated 278.5 MOS/KG (273-304); Potassium 4.1 MMOL/L (3.5-5.1)
[2016-08-08] MEDS: ASPIRIN EC 81 MG TABLET PO SCH (10:05)
[2016-08-08] MEDS: CYANOCOBALAMIN 500 MCG TABLET PO SCH (10:05)
[2016-08-08] MEDS: PANTOPRAZOLE 40 MG TABLET PO SCH (10:05)
[2016-08-08] MEDS: CARVEDILOL 3.125 MG TABLET PO SCH ×2 (10:05→20:15)
[2016-08-08] MEDS: COENZYME Q10 100 MG CAPSULE PO SCH (10:06)
[2016-08-08] MEDS: EXEMESTANE 25 MG TABLET PO SCH (10:06)
[2016-08-08] MEDS ORDERED: FAMOTIDINE INJ 40 MG in SODIUM CHLORIDE 0.9% 100 ML IV ONE (12:00)
[2016-08-08] MEDS ORDERED: diphenhydrAMINE 50 MG/1 ML VIAL IV ONE (12:00)
[2016-08-08] MEDS ORDERED: FAMOTIDINE 20 MG/2 ML VIAL IV ONE (12:00)
[2016-08-08] MEDS ORDERED: DEXAMETHASONE INJ 20 MG in SODIUM CHLORIDE 0.9% 50 ML IV ONE (12:00)
[2016-08-08] MEDS ORDERED: SODIUM CHLORIDE 0.9% IV ONE ×2 (12:30→15:00)
[2016-08-08] MEDS ORDERED: BORTEZOMIB IV ONE (12:30)
[2016-08-08] MEDS: DEXAMETHASONE INJ 20 MG in SODIUM CHLORIDE 0.9% 50 ML IV SCH (12:57)
--- NOTE | 2016-08-08 13:20 | Cardiology Progress Note ---
Aquilino Machuca April, RN, am scribing for, and in the presence of, Emerald Campuzano DO 13 :20. Assessment and Plan (1) Anemia Status: Chronic Current Visit: Yes (2) Dyspnea Status: Chronic Current Visit: Yes (3) Multiple myeloma Status: Chronic Assessment and plan: Dr. Gaines is following. Current Visit: Yes (4) Tachycardia Status: Acute Assessment and plan: As per HPI Current Visit: Yes (5) Thrombocytopenia Status: Acute Assessment and plan: Platelet transfusion yesterday. Current Visit: Yes (6) Pericardial effusion Status: Acute Current Visit: Yes Cardiology - PN: Subj Interval history: Resting in bed in no acute distress, oxygen not in use. She reports she slept better last night. She's had a shower this morning and states she feels good today. Denies any chest pain, shortness of breath, or palpitations. Currently in sinus tach with heart rates in the 100-106 range. I saw and discussed and examined with Ms. Rolel. The patient looks amazingly good for her current condition. She continues to have sinus tachycardia but her heart rate has trended down. She states she is less short of breath. Her platelets are up but her hemoglobin is down slightly. He is fine with me to discontinue the remote monitoring I discussed this with the nurses. Exam (Progress Note) - Constitutional Vitals: Period Temp Pulse Resp BP Sys/Mcneill Pulse Ox Last 24 Hr 96.5 F-98.2 F 97-109 18-22 100-120/58-69 93-99 General appearance: normal weight, no acute distress - Head Head exam: Absent: abrasion, hematoma - Eye Eye exam: Absent: periorbital swelling, laceration to eyelids - ENT ENT exam: Present: normal exam, normal external ear exam - Neck Neck exam: Absent: tenderness - Respiratory Respiratory exam: Present: clear to auscultation bilaterally. Absent: accessory muscle use, chest wall tenderness, wheezes - Cardiovascular Cardiovascular exam: Present: regular rate and rhythm, tachycardia - GI/Abdominal GI/Abdominal exam: Present: normal bowel sounds, soft. Absent: distended, tenderness - Extremities Exam Extremities exam: Absent: calf tenderness, edema - Back Exam Back exam: Absent: muscle spasm, vertebral tenderness - Neurological Exam Neurological exam: Present: alert, oriented X3 - Psychiatric Psychiatric exam: Present: normal affect, normal mood - Skin Skin exam: Present: warm, dry. Absent: abrasion Result/EKG - Labs CBC & BMP: 08/08/16 08:00 08/08/16 08:00 Lab Results: I have reviewed the past 24 hour labs Labs: Laboratory Results - last 24 hr 08/08/16 08/08/16 08/08/16 08:00 08:00 Unknown WBC 4.8 RBC 2.60 L Hgb 8.0 L Hct 24.2 L MCV 93.1 MCH 31 MCHC 33.1 RDW 17.9 H Plt Count 53 L D MPV 10.8 Neut % (Auto) 40.0 Lymph % (Auto) 28.8 [place] % (Auto) 16.1 H Eos % (Auto) 1.5 Baso % (Auto) 0.4 Neut # (Auto) 1.9 Lymph # (Auto) 1.4 [place] # (Auto) 0.8 Eos # (Auto) 0.1 Baso # (Auto) 0.0 Total Counted 100 Immature Gran % 13.2 Nucleated RBC % 4.6 Immature Gran # 0.63 Segmented Neutrophils 42 L Band Neutrophils 11 H Lymphocytes 25 Monocytes 15 Metamyelocytes 6 Myelocytes 1 Nucleated RBCs 11 H Nucleated RBCs # 0.22 Platelet Estimate Decreased Polychromasia Slight Hypochromasia 1+ Macrocytosis Slight Rouleaux Slight Sodium 139 Potassium 4.1 Chloride 105 Carbon Dioxide 22 Anion Gap 16.1 H BUN 19 H Creatinine 0.60 GFR Calculation 97 BUN/Creatinine Ratio 31.00 H Glucose 104 Calculated Osmolality 278.5 Calcium 8.7 Total Bilirubin 0.70 AST 52 H ALT 17 Alkaline Phosphatase 94 Total Protein 10.0 H Albumin 2.5 L Globulin 7.5 H Albumin/Globulin Ratio 0.3 L Blood Type O POSITIVE Antibody Screen Negative Crossmatch See Detail - EKG EKG results: interpreted by me EKG shows: tachycardia, sinus rhythm Quality Measures - VTE Contraindication to Pharmacological VTE Prophylaxis: High Risk of Bleeding ITatianna Shea, , personally performed the services described in this documentation, ascribed by Abbi Rolle RN in my presence, and it is both accurate and complete [id number] .
[2016-08-08] MEDS ORDERED: DARATUMUMAB IV ONE (15:00)
[2016-08-08] MEDS: DEXT 5% NACL 0.45% KCL 20 MEQ 20 MEQ/1,000 ML BAG IV SCH (19:00)
[2016-08-08] MEDS: VENLAFAXINE XR 75 MG CAPSULE PO SCH (20:12)
[2016-08-08] MEDS: TEMAZEPAM 7.5 MG CAPSULE PO PRN (20:12)
[2016-08-09 05:32] LABS: Albumin 2.4 G/DL (3.4-5.0); Bilirubin,Total 0.5 MG/DL (0.2-1.0); Calcium 8.6 MG/DL (8.5-10.1); Osmolality,Calculated 285.4 MOS/KG (273-304); Potassium 4.1 MMOL/L (3.5-5.1); Total Protein 9.8 G/DL (6.4-8.3)
[2016-08-09 08:07] LABS: Basophils % 0.2 % (0.0-0.8); Eosinophils % 0.2 % (0.00-10.9); Hematocrit 26.9 VOL% (35.7-47.0); Immature Granulocytes % 11.9 %; Lymphocytes # 0.6 10*3/uL (1.4-4.0); Lymphocytes % 13.8 % (21.3-54.2); Mean Corpuscular HGB Conc 33.5 GM/DL (32-36); Mean Corpuscular Hemoglobin 30 PG (27-34); Mean Corpuscular Volume 90.6 FL (87-102); Mean Platelet Volume 11.8 FL (9.6-12.0); Monocytes # 0.3 10*3/uL (0.11-0.8); Monocytes % 6.2 % (1.7-12.7); NRBC # 0.27 10*3/uL; Neutrophils # 2.8 10*3/uL (1.4-7.4); Neutrophils % 67.7 % (38.7-73.9); Red Blood Count 2.97 MC/CUMM (3.8-5.5); Red Cell Distribution Width 18.1 % (9.3-17.3); White Blood Count 4.2 T/CUMM (4-12)
[2016-08-09 08:09] LABS: Platelet Count 35 T/CUMM (130-400)
--- NOTE | 2016-08-09 08:14 | Oncology Progress Note ---
Oncology Subjective PN Interval history: This is a patient with myeloma who was hospitalized because of severe profound progression of her myeloma with thrombocytopenia, anemia and progression of bone metastases with multiple new areas of metastatic disease to the spine, resulting in worsening bone pain. She has received Velcade and she is evidently still getting daratumumab which was delayed by 2 days. She remains extremely weak. She is requiring parenteral narcotics for pain. We will continue to monitor blood counts closely. This note was disrupted by the computer shutting down. In addition, earlier this week, I had to reorder lab work that disappeared from the electronic medical record Her lungs are clear with normal breath sounds. Heart sounds are normal. Cranial nerves II through XII are intact. There are no focal neurologic deficits. She is fully oriented and alert. I am renewing parenteral narcotics. Exam - Constitutional Vitals: Period Temp Pulse Resp BP Sys/Mcneill Pulse Ox Last 24 Hr 96.3 F-98.6 F 84-133 18-20 89-145/48-76 95-98 Results - Labs CBC & BMP: 08/09/16 04:05 08/09/16 04:15 Quality Measures - VTE Contraindication to Pharmacological VTE Prophylaxis: High Risk of Bleeding
[2016-08-09 08:42] LABS: Band Neutrophils 11 % (0-10); Hypochromasia Slight; Lymphocytes 21 % (20-55); Metamyelocytes 5 %; Nucleated Red Blood Cells 6 (0-5); Segmented Neutrophils 57 % (50-85); Total Cells Counted 100
[2016-08-09 08:43] LABS: Macrocytosis 1+; Platelet Estimate Decreased
[2016-08-09] MEDS ORDERED: HYDROmorphone 2 MG/1 ML VIAL IV PRN (08:49)
[2016-08-09] MEDS: DEXAMETHASONE INJ 20 MG in SODIUM CHLORIDE 0.9% 50 ML IV SCH (09:35)
[2016-08-09] MEDS: CYANOCOBALAMIN 500 MCG TABLET PO SCH (09:36)
[2016-08-09] MEDS: CARVEDILOL 3.125 MG TABLET PO SCH ×2 (09:36→20:55)
[2016-08-09] MEDS: ASPIRIN EC 81 MG TABLET PO SCH (09:36)
[2016-08-09] MEDS: PANTOPRAZOLE 40 MG TABLET PO SCH (09:36)
[2016-08-09] MEDS: COENZYME Q10 100 MG CAPSULE PO SCH (09:36)
[2016-08-09] MEDS: EXEMESTANE 25 MG TABLET PO SCH (09:36)
--- NOTE | 2016-08-09 16:02 | Cardiology Progress Note ---
Aquilino Machuca April RN, am scribing for, and in the presence of, TatiannaVanessaDO prabhjot 16 :02. Assessment and Plan - Time spent with patient Time spent with patient: Less than 30 minutes (1) Anemia Status: Acute Assessment and plan: Improved today after transfusing blood product yesterday. Current Visit: Yes (2) Dyspnea Status: Chronic Current Visit: Yes (3) Multiple myeloma Status: Chronic Assessment and plan: Dr. Gaines is following. Current Visit: Yes (4) Tachycardia Status: Acute Assessment and plan: Sinus, no change. Current Visit: Yes (5) Thrombocytopenia Status: Acute Current Visit: Yes (6) Pericardial effusion Status: Acute Current Visit: Yes Cardiology - PN: Subj Interval history: Sitting up in chair with no complaints except that her back is hurting. Oxygen not in use. She was transfused blood product yesterday and her H&H is a little better, her platelet count has dropped some. She does continue to have some tachycardia. I saw and examined the patient with Ms. Rolle. The patient states she has no complaints except that she is getting tired because it is after 3:00 in the afternoon. She has no palpitations. Her heart rates about 100 Exam (Progress Note) - Constitutional Vitals: Period Temp Pulse Resp BP Sys/Mcneill Pulse Ox Last 24 Hr 96.3 F-98.6 F 84-133 18-20 89-145/48-76 95-98 General appearance: normal weight, no acute distress - Head Head exam: Absent: abrasion, hematoma - Eye Eye exam: Absent: periorbital swelling, laceration to eyelids - Neck Neck exam: Absent: tenderness - Respiratory Respiratory exam: Present: clear to auscultation bilaterally. Absent: accessory muscle use, chest wall tenderness - Cardiovascular Cardiovascular exam: Present: regular rate and rhythm, tachycardia - GI/Abdominal GI/Abdominal exam: Present: normal bowel sounds, soft. Absent: distended, tenderness - Extremities Exam Extremities exam: Absent: calf tenderness, edema - Neurological Exam Neurological exam: Present: alert, oriented X3 - Psychiatric Psychiatric exam: Present: normal affect, normal mood - Skin Skin exam: Present: warm, dry. Absent: abrasion Result/EKG - Labs CBC & BMP: 08/09/16 04:05 08/09/16 04:15 Lab Results: I have reviewed the past 24 hour labs Labs: Laboratory Results - last 24 hr 08/08/16 08/08/16 08/09/16 08:00 Unknown 04:05 WBC 4.2 RBC 2.97 L Hgb 9.0 L Hct 26.9 L MCV 90.6 MCH 30 MCHC 33.5 RDW 18.1 H Plt Count 35 L* D MPV 11.8 Neut % (Auto) 67.7 Lymph % (Auto) 13.8 L [place] % (Auto) 6.2 Eos % (Auto) 0.2 Baso % (Auto) 0.2 Neut # (Auto) 2.8 Lymph # (Auto) 0.6 L [place] # (Auto) 0.3 Eos # (Auto) 0.0 Baso # (Auto) 0.0 Total Counted 100 Immature Gran % 11.9 Nucleated RBC % 6.4 Immature Gran # 0.50 Segmented Neutrophils 57 Band Neutrophils 11 H Lymphocytes 21 Monocytes 6 Metamyelocytes 5 Nucleated RBCs 6 H Nucleated RBCs # 0.27 Platelet Estimate Decreased Hypochromasia Slight Macrocytosis 1+ Sodium 139 Potassium 4.1 Chloride 105 Carbon Dioxide 22 Anion Gap 16.1 H BUN 19 H Creatinine 0.60 GFR Calculation 97 BUN/Creatinine Ratio 31.00 H Glucose 104 Calculated Osmolality 278.5 Calcium 8.7 Total Bilirubin 0.70 AST 52 H ALT 17 Alkaline Phosphatase 94 Total Protein 10.0 H Albumin 2.5 L Globulin 7.5 H Albumin/Globulin Ratio 0.3 L Blood Type O POSITIVE Antibody Screen Negative Crossmatch See Detail 08/09/16 04:15 WBC RBC Hgb Hct MCV MCH MCHC RDW Plt Count MPV Neut % (Auto) Lymph % (Auto) [place] % (Auto) Eos % (Auto) Baso % (Auto) Neut # (Auto) Lymph # (Auto) [place] # (Auto) Eos # (Auto) Baso # (Auto) Total Counted Immature Gran % Nucleated RBC % Immature Gran # Segmented Neutrophils Band Neutrophils Lymphocytes Monocytes Metamyelocytes Nucleated RBCs Nucleated RBCs # Platelet Estimate Hypochromasia Macrocytosis Sodium 140 Potassium 4.1 Chloride 107 Carbon Dioxide 19 L Anion Gap 18.1 H BUN 20 H Creatinine 0.60 GFR Calculation 97 BUN/Creatinine Ratio 33.00 H Glucose 164 H Calculated Osmolality 285.4 Calcium 8.6 Total Bilirubin 0.50 AST 75 H ALT 19 Alkaline Phosphatase 95 Total Protein 9.8 H Albumin 2.4 L Globulin 7.4 H Albumin/Globulin Ratio 0.3 L Blood Type Antibody Screen Crossmatch - EKG EKG results: interpreted by me EKG shows: tachycardia, sinus rhythm Quality Measures - VTE Contraindication to Pharmacological VTE Prophylaxis: High Risk of Bleeding Tatianna Machuca Shea, , personally performed the services described in this documentation, ascribed by Abbi Rolle RN in my presence, and it is both accurate and complete 602 .
[2016-08-09] MEDS: VENLAFAXINE XR 75 MG CAPSULE PO SCH (17:46)
[2016-08-09] MEDS: DEXT 5% NACL 0.45% KCL 20 MEQ 20 MEQ/1,000 ML BAG IV SCH ×2 (17:46)
[2016-08-09] MEDS: ALPRAZolam 0.25 MG TABLET PO PRN (20:55)
[2016-08-10] MEDS: DEXT 5% NACL 0.45% KCL 20 MEQ 20 MEQ/1,000 ML BAG IV SCH ×3 (03:50→22:09)
[2016-08-10 05:37] LABS: Eosinophils % 0.3 % (0.00-10.9); Hematocrit 22.9 VOL% (35.7-47.0); Hemoglobin 7.5 GM/DL (12.0-16.0); Immature Granulocytes % 8.7 %; Immature Granulocytes Absolute 0.31 #; Lymphocytes # 0.8 10*3/uL (1.4-4.0); Lymphocytes % 22.8 % (21.3-54.2); Mean Corpuscular HGB Conc 32.8 GM/DL (32-36); Mean Corpuscular Hemoglobin 30 PG (27-34); Mean Corpuscular Volume 90.9 FL (87-102); Monocytes # 0.3 10*3/uL (0.11-0.8); Monocytes % 9.6 % (1.7-12.7); NRBC # 0.22 10*3/uL; Neutrophils # 2.1 10*3/uL (1.4-7.4); Neutrophils % 58.6 % (38.7-73.9); Red Blood Count 2.52 MC/CUMM (3.8-5.5); Red Cell Distribution Width 18.4 % (9.3-17.3); White Blood Count 3.6 T/CUMM (4-12)
[2016-08-10 05:42] LABS: Platelet Count 28 T/CUMM (130-400)
[2016-08-10 05:53] LABS: Alanine Aminotransferase 18 U/L (13-56); Albumin 2.3 G/DL (3.4-5.0); Alkaline Phosphatase 85 U/L (45-117); Aspartate Amino Transferase 42 U/L (0-37); Bilirubin,Total < 0.39 MG/DL (0.2-1.0); Blood Urea Nitrogen 22 MG/DL (7-18); Calcium 8.6 MG/DL (8.5-10.1); Glucose 126 MG/DL (74-106); Osmolality,Calculated 285.3 MOS/KG (273-304); Potassium 4.4 MMOL/L (3.5-5.1); Sodium 141 MMOL/L (136-145); Total Protein 9.1 G/DL (6.4-8.3)
[2016-08-10 06:15] LABS: Band Neutrophils 4 % (0-10); Lymphocytes 11 % (20-55); Nucleated Red Blood Cells 2 (0-5); Segmented Neutrophils 79 % (50-85); Total Cells Counted 100
[2016-08-10 06:16] LABS: Hypochromasia 2+; Microcytosis 2+; Platelet Estimate Decreased
[2016-08-10] MEDS: DEXAMETHASONE INJ 20 MG in SODIUM CHLORIDE 0.9% 50 ML IV SCH (08:19)
[2016-08-10] MEDS: ASPIRIN EC 81 MG TABLET PO SCH (08:20)
[2016-08-10] MEDS: PANTOPRAZOLE 40 MG TABLET PO SCH (08:20)
[2016-08-10] MEDS: COENZYME Q10 100 MG CAPSULE PO SCH (08:20)
[2016-08-10] MEDS: CARVEDILOL 3.125 MG TABLET PO SCH ×2 (08:20→21:51)
[2016-08-10] MEDS: EXEMESTANE 25 MG TABLET PO SCH (08:20)
[2016-08-10] MEDS: CYANOCOBALAMIN 500 MCG TABLET PO SCH (08:20)
--- NOTE | 2016-08-10 10:14 | Oncology Progress Note ---
Oncology Subjective PN Interval history: This lady has had relatively rapid progression of myeloma. She is now on daratumumab, Velcade and dexamethasone. She has only had 2 doses of Velcade and she received 1 dose of daratumumab earlier this week. 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 She was initially diagnosed as having myeloma in August 2003 and later was found to have breast cancer in April 2013. The breast cancer was node negative and estrogen receptor positive and I initially treated her with radiation and hormone therapy but the tumor recurred and she underwent mastectomy received chemotherapy using Adriamycin and Cytoxan and was maintained on hormone therapy which she is continuing. This patient has CBCs, CMP is and LDH is ordered through August 14, 2015. I placed this order and I just reviewed it prior to starting this note. I am dictating this as part of the progress note because earlier last week these 3 orders disappeared from the electronic medical record. She is anemic and we are going to transfuse 2 units of packed red cells today. We clemente blood for type and hold prior to institution of daratumumab and we have informed the blood bank of this fact. She is oriented and alert. She is in no acute distress. She has a very prominent area of myeloma involvement of the upper sternum that is biopsy- proven to be myeloma. We also biopsied a right supraclavicular lymph node in the right posterior iliac crest. This was done because of her history of breast cancer with recurrence. It was also done because her breast cancer antigen was elevated the last time I checked it. None of the biopsies suggest recurrent breast cancer. She has certainly had fairly rapidly progressing bone involvement that is all apparently from the myeloma. My plan is to continue weekly Velcade. I have had significant complications from daratumumab and I am considering whether or not to repeat the daratumumab this next week or not because it caused profound pancytopenia in 1 patient recently. Exam - Constitutional Vitals: Period Temp Pulse Resp BP Sys/Mcneill Pulse Ox Last 24 Hr 96.2 F-97.4 F 108-125 20-22 90-124/51-62 96-100 Results - Labs CBC & BMP: 08/10/16 04:05 08/10/16 04:05 Quality Measures - VTE Contraindication to Pharmacological VTE Prophylaxis: High Risk of Bleeding
--- NOTE | 2016-08-10 10:52 | Cardiology Progress Note ---
Assessment and Plan - Time spent with patient Time spent with patient: Less than 30 minutes (1) Anemia Status: Acute Assessment and plan: Improved today after transfusing blood product yesterday. Current Visit: Yes (2) Dyspnea Status: Chronic Current Visit: Yes (3) Multiple myeloma Status: Chronic Assessment and plan: Dr. Gaines is following. Current Visit: Yes (4) Tachycardia Status: Acute Assessment and plan: Sinus, no change. As per HPI Current Visit: Yes (5) Thrombocytopenia Status: Acute Assessment and plan: Platelet transfusion yesterday. Current Visit: Yes (6) Pericardial effusion Status: Acute Assessment and plan: This remains stable and continues to be small at 1 week. She has a resting tachycardia recommend we stop her Lasix and add a low-dose beta-agata. Current Visit: Yes Cardiology - PN: Subj Interval history: Ms. Cagle states that she is having diarrhea today she has no other complaints. She does not sense palpitations. She continues to have resting sinus tachycardia. I do not think this is pathologic nor do I think it is an appropriate I think it is appropriate for clinical setting. I reviewed Dr. Gaines's note. I reviewed her labs as well Exam (Progress Note) - Constitutional Vitals: Period Temp Pulse Resp BP Sys/Mcneill Pulse Ox Last 24 Hr 96.2 F-97.4 F 108-125 20-22 90-124/51-62 96-100 General appearance: normal weight - Respiratory Respiratory exam: Present: clear to auscultation bilaterally - Cardiovascular Cardiovascular exam: Present: tachycardia, other (Regular PMI is within normal limits) - GI/Abdominal GI/Abdominal exam: Present: normal bowel sounds - Neurological Exam Neurological exam: Present: alert, oriented X3 - Psychiatric Psychiatric exam: Present: normal affect, normal mood Result/EKG - Labs CBC & BMP: 08/10/16 04:05 08/10/16 04:05 Labs: Laboratory Results - last 24 hr 08/10/16 08/10/16 08/10/16 04:05 04:05 04:05 WBC 3.6 L RBC 2.52 L Hgb 7.5 L Hct 22.9 L MCV 90.9 MCH 30 MCHC 32.8 RDW 18.4 H Plt Count 28 L* MPV 12.0 Neut % (Auto) 58.6 Lymph % (Auto) 22.8 [place] % (Auto) 9.6 Eos % (Auto) 0.3 Baso % (Auto) 0.0 Neut # (Auto) 2.1 Lymph # (Auto) 0.8 L [place] # (Auto) 0.3 Eos # (Auto) 0.0 Baso # (Auto) 0.0 Total Counted 100 Immature Gran % 8.7 Nucleated RBC % 6.2 Immature Gran # 0.31 Segmented Neutrophils 79 Band Neutrophils 4 Lymphocytes 11 L Monocytes 6 Nucleated RBCs 2 Nucleated RBCs # 0.22 Platelet Estimate Decreased Hypochromasia 2+ Microcytosis 2+ Sodium 141 Potassium 4.4 Chloride 107 Carbon Dioxide 19 L Anion Gap 19.4 H BUN 22 H Creatinine 0.60 GFR Calculation 97 BUN/Creatinine Ratio 36.00 H Glucose 126 H Calculated Osmolality 285.3 Calcium 8.6 Total Bilirubin < 0.39 AST 42 H ALT 18 Alkaline Phosphatase 85 Lactate Dehydrogenase 633 H Total Protein 9.1 H Albumin 2.3 L Globulin 6.8 H Albumin/Globulin Ratio 0.3 L Quality Measures - VTE Contraindication to Pharmacological VTE Prophylaxis: High Risk of Bleeding
[2016-08-10] MEDS: DESITIN 4OZ/NYSTATIN 15 GRAM MIXTURE PASTE TOP SCH ×2 (16:27→21:51)
[2016-08-10] MEDS: VENLAFAXINE XR 75 MG CAPSULE PO SCH (17:57)
[2016-08-10] MEDS: ALPRAZolam 0.25 MG TABLET PO PRN (21:50)
[2016-08-11] MEDS ORDERED: HEPARIN LOCK FLUSH 500 UNIT/5 ML SYRINGE IV ONE (04:03)
[2016-08-11] MEDS: DEXT 5% NACL 0.45% KCL 20 MEQ 20 MEQ/1,000 ML BAG IV SCH ×2 (05:33→20:59)
[2016-08-11 05:42] LABS: Basophils % 0.3 % (0.0-0.8); Eosinophils % 0.3 % (0.00-10.9); Hematocrit 28.1 VOL% (35.7-47.0); Hemoglobin 9.3 GM/DL (12.0-16.0); Immature Granulocytes % 6.6 %; Immature Granulocytes Absolute 0.23 #; Lymphocytes # 0.6 10*3/uL (1.4-4.0); Lymphocytes % 17.9 % (21.3-54.2); Mean Corpuscular HGB Conc 33.1 GM/DL (32-36); Mean Corpuscular Hemoglobin 30 PG (27-34); Mean Corpuscular Volume 90.6 FL (87-102); Mean Platelet Volume 12.7 FL (9.6-12.0); Monocytes # 0.4 10*3/uL (0.11-0.8); Monocytes % 10.1 % (1.7-12.7); NRBC # 0.39 10*3/uL; Neutrophils # 2.2 10*3/uL (1.4-7.4); Neutrophils % 64.8 % (38.7-73.9); Red Cell Distribution Width 17.3 % (9.3-17.3); White Blood Count 3.5 T/CUMM (4-12)
[2016-08-11 05:51] LABS: Platelet Count 26 T/CUMM (130-400)
[2016-08-11 06:02] LABS: Albumin 2.4 G/DL (3.4-5.0); Bilirubin,Total 1.2 MG/DL (0.2-1.0); Calcium 8.6 MG/DL (8.5-10.1); Osmolality,Calculated 283.4 MOS/KG (273-304); Potassium 4.3 MMOL/L (3.5-5.1); Total Protein 9.1 G/DL (6.4-8.3)
[2016-08-11 07:43] LABS: Band Neutrophils 3 % (0-10); Lymphocytes 17 % (20-55); Nucleated Red Blood Cells 10 (0-5); Segmented Neutrophils 73 % (50-85); Total Cells Counted 100
[2016-08-11 07:44] LABS: Hypochromasia Slight; Microcytosis 1+; Ovalocytes Slight; Platelet Estimate Decreased
[2016-08-11] MEDS: PANTOPRAZOLE 40 MG TABLET PO SCH (08:41)
[2016-08-11] MEDS: DEXAMETHASONE INJ 20 MG in SODIUM CHLORIDE 0.9% 50 ML IV SCH (08:41)
[2016-08-11] MEDS: CARVEDILOL 3.125 MG TABLET PO SCH ×2 (08:41→20:58)
[2016-08-11] MEDS: CYANOCOBALAMIN 500 MCG TABLET PO SCH (08:41)
[2016-08-11] MEDS: EXEMESTANE 25 MG TABLET PO SCH (08:41)
[2016-08-11] MEDS: DESITIN 4OZ/NYSTATIN 15 GRAM MIXTURE PASTE TOP SCH ×2 (08:41→20:59)
[2016-08-11] MEDS: ASPIRIN EC 81 MG TABLET PO SCH (08:41)
[2016-08-11] MEDS: COENZYME Q10 100 MG CAPSULE PO SCH (08:41)
--- NOTE | 2016-08-11 11:16 | Oncology Progress Note ---
Assessment and Plan (1) Multiple myeloma Status: Chronic Assessment and plan: 66 year old female with PMHx of MM s/p autoSCT in 2003 admitted for initiation of daratumumab, velcade, and decadron. - completes last day of IV decadron today - tolerating treatment well - continue to observe for side effects and tumor lysis Current Visit: Yes (2) Pancytopenia Status: Acute Assessment and plan: likely secondary to treatment and myeloma - continue to monitor daily CBC - no transfusions needed today Current Visit: Yes (3) Pericardial effusion Status: Acute Assessment and plan: appreciate cardiology assistance - small and not hemodynamically significant. will continue to observe for now Current Visit: Yes Oncology Subjective PN Interval history: 66 year old female with PMHx of MM s/p autoSCT in 2003 admitted for initiation of daratumumab, velcade, and decadron. Today patient states tolerating treatment well. Referred mild diarrhea now improved. Good po intake. Refers insomnia with steroids. No fevers. Ambulating in hallways. Has needed intermittent transfusions for pancytopenia. Exam - Constitutional Vitals: Period Temp Pulse Resp BP Sys/Mcneill Pulse Ox Last 24 Hr 96.1 F-98.9 F 105-112 18-20 98-136/56-77 94-100 General appearance: no acute distress - Eye Eye Exam: Present: EOMI Pupils: Present: PERRL - Respiratory Respiratory exam: Present: CTAB - Cardiovascular Cardiovascular exam: Present: RRR, tachycardia - GI/Abdominal GI/Abdominal exam: Present: soft. Absent: ascites, distended, guarding, tenderness - Extremities Exam Extremities exam: Absent: edema - Neurological Exam Neurological exam: Present: alert, oriented X3 - Skin Skin exam: Present: warm Results - Labs CBC & BMP: 08/11/16 05:36 08/11/16 05:33 Quality Measures - VTE Contraindication to Pharmacological VTE Prophylaxis: High Risk of Bleeding
--- NOTE | 2016-08-11 13:56 | Event Note ---
Heart rate is stable nothing to add or change.
[2016-08-11] MEDS: VENLAFAXINE XR 75 MG CAPSULE PO SCH (17:36)
[2016-08-11] MEDS: ALPRAZolam 0.25 MG TABLET PO PRN (20:58)
[2016-08-12] MEDS: DEXT 5% NACL 0.45% KCL 20 MEQ 20 MEQ/1,000 ML BAG IV SCH ×3 (02:00→22:14)
[2016-08-12 05:40] LABS: Basophils % 0.3 % (0.0-0.8); Hematocrit 28.4 VOL% (35.7-47.0); Hemoglobin 9.3 GM/DL (12.0-16.0); Immature Granulocytes % 3.5 %; Immature Granulocytes Absolute 0.12 #; Lymphocytes # 0.8 10*3/uL (1.4-4.0); Lymphocytes % 22.6 % (21.3-54.2); Mean Corpuscular HGB Conc 32.7 GM/DL (32-36); Mean Corpuscular Hemoglobin 30 PG (27-34); Mean Corpuscular Volume 92.5 FL (87-102); Mean Platelet Volume 12.3 FL (9.6-12.0); Monocytes # 0.3 10*3/uL (0.11-0.8); Monocytes % 8.7 % (1.7-12.7); NRBC # 0.42 10*3/uL; Neutrophils # 2.2 10*3/uL (1.4-7.4); Neutrophils % 64.9 % (38.7-73.9); Red Blood Count 3.07 MC/CUMM (3.8-5.5); Red Cell Distribution Width 17.3 % (9.3-17.3); White Blood Count 3.5 T/CUMM (4-12)
[2016-08-12 05:49] LABS: Platelet Count 24 T/CUMM (130-400)
[2016-08-12 05:54] LABS: Albumin 2.1 G/DL (3.4-5.0); Bilirubin,Total 0.5 MG/DL (0.2-1.0); Calcium 8.6 MG/DL (8.5-10.1); Osmolality,Calculated 281.5 MOS/KG (273-304); Potassium 4.5 MMOL/L (3.5-5.1)
[2016-08-12 06:12] LABS: Hypochromasia Slight; Lymphocytes 24 % (20-55); Microcytosis 1+; Nucleated Red Blood Cells 18 (0-5); Platelet Estimate Decreased; Segmented Neutrophils 71 % (50-85); Total Cells Counted 100
[2016-08-12 06:13] LABS: Rouleau Slight
[2016-08-12] MEDS: CYANOCOBALAMIN 500 MCG TABLET PO SCH (09:51)
[2016-08-12] MEDS: COENZYME Q10 100 MG CAPSULE PO SCH (09:51)
[2016-08-12] MEDS: PANTOPRAZOLE 40 MG TABLET PO SCH (09:52)
[2016-08-12] MEDS: EXEMESTANE 25 MG TABLET PO SCH (09:52)
[2016-08-12] MEDS: ASPIRIN EC 81 MG TABLET PO SCH (09:52)
[2016-08-12] MEDS: CARVEDILOL 3.125 MG TABLET PO SCH ×2 (09:53→22:12)
[2016-08-12] MEDS: DESITIN 4OZ/NYSTATIN 15 GRAM MIXTURE PASTE TOP SCH ×2 (09:53→22:12)
--- NOTE | 2016-08-12 10:55 | Oncology Progress Note ---
Assessment and Plan (1) Multiple myeloma Status: Chronic Assessment and plan: 66 year old female with PMHx of MM s/p autoSCT in 2003 admitted for initiation of daratumumab, velcade, and decadron. - completes last day of IV decadron yesterday - tolerating treatment well - continue to observe for side effects and tumor lysis with likely d/c soon Current Visit: Yes (2) Pancytopenia Status: Acute Assessment and plan: likely secondary to treatment and myeloma - continue to monitor daily CBC - labs stable today - will monitor bicarb with slow trend down though clinically patient doing well with stable Cr, glucose. likely related to tx Current Visit: Yes (3) Pericardial effusion Status: Acute Assessment and plan: appreciate cardiology assistance - small and not hemodynamically significant. will continue to observe for now Current Visit: Yes Oncology Subjective PN Interval history: Patient feels well today. Has tolerated treatment well. Ambulating well in hallways. Good PO intake. Refers no new pain. Continues to have increased energy from steroids. No fevers. Exam - Constitutional Vitals: Period Temp Pulse Resp BP Sys/Mcneill Pulse Ox Last 24 Hr 96.6 F-97.7 F 99-110 18-20 101-116/55-70 98-100 General appearance: no acute distress - Eye Eye Exam: Present: EOMI Pupils: Present: PERRL - Respiratory Respiratory exam: Present: CTAB - Cardiovascular Cardiovascular exam: Present: RRR - GI/Abdominal GI/Abdominal exam: Present: soft. Absent: ascites, distended, firm, mass, tenderness - Extremities Exam Extremities exam: Absent: edema - Neurological Exam Neurological exam: Present: alert, oriented X3 - Psychiatric Psychiatric exam: Present: normal affect - Skin Skin exam: Present: warm Results - Labs CBC & BMP: 08/12/16 04:00 08/12/16 04:00 Quality Measures - VTE Contraindication to Pharmacological VTE Prophylaxis: High Risk of Bleeding
[2016-08-12] MEDS: VENLAFAXINE XR 75 MG CAPSULE PO SCH (22:11)
[2016-08-12] MEDS: ALPRAZolam 0.25 MG TABLET PO PRN (22:11)
[2016-08-13 05:40] LABS: Basophils % 0.4 % (0.0-0.8); Eosinophils % 0.8 % (0.00-10.9); Hematocrit 29.1 VOL% (35.7-47.0); Immature Granulocytes % 6.1 %; Immature Granulocytes Absolute 0.16 #; Lymphocytes # 0.5 10*3/uL (1.4-4.0); Lymphocytes % 18.7 % (21.3-54.2); Mean Corpuscular HGB Conc 34.4 GM/DL (32-36); Mean Corpuscular Hemoglobin 30 PG (27-34); Mean Corpuscular Volume 87.9 FL (87-102); Mean Platelet Volume 12.2 FL (9.6-12.0); Monocytes # 0.3 10*3/uL (0.11-0.8); NRBC # 0.29 10*3/uL; Neutrophils # 1.6 10*3/uL (1.4-7.4); Red Blood Count 3.31 MC/CUMM (3.8-5.5); Red Cell Distribution Width 16.9 % (9.3-17.3); White Blood Count 2.6 T/CUMM (4-12)
[2016-08-13 05:52] LABS: Platelet Count 28 T/CUMM (130-400)
[2016-08-13 06:11] LABS: Albumin 2.1 G/DL (3.4-5.0); Bilirubin,Total 0.7 MG/DL (0.2-1.0); Calcium 8.1 MG/DL (8.5-10.1); Osmolality,Calculated 278.5 MOS/KG (273-304); Total Protein 8.6 G/DL (6.4-8.3)
[2016-08-13 06:19] LABS: Band Neutrophils 6 % (0-10); Hypochromasia 1+; Lymphocytes 18 % (20-55); Nucleated Red Blood Cells 6 (0-5); Segmented Neutrophils 69 % (50-85); Total Cells Counted 100
[2016-08-13 06:20] LABS: Platelet Estimate Decreased; Polychromasia Slight
--- NOTE | 2016-08-13 07:55 | Oncology Progress Note ---
Oncology Subjective PN Interval history: Patient with myeloma now on daratumumab and Velcade due to progression after being on thalidomide for a prolonged period of time. Ms. Kate is a 66 year old female with a history of both IgG lambda myeloma that was diagnosed in August 2003 and also history of lower inner quadrant left breast carcinoma initially diagnosed April 20, 2013. She was admitted with increasing dyspnea and was noted to be anemic. I am discontinuing IV fluids today. I am hoping that we can discharge her later this week. My plan is to give her another dose of Velcade this week and set her up for daratumumab outpatient starting next week. Her ANC is 1600 and her platelet count is 28,000. He still has nucleated red cells in her peripheral blood. However, on physical examination, the bony mass effect in her upper sternum has decreased in size over the last few days. Her lungs are relatively clear and her heart sounds are normal. Her oral mucosa is normal. Cranial nerves II through XII are intact. There are no focal neurologic deficits. She is fully oriented and alert. She has a history of breast cancer but all of this appears to be progression of her IgG lambda myeloma and it appears to be responding to Velcade and daratumumab. Exam - Constitutional Vitals: Period Temp Pulse Resp BP Sys/Mcneill Pulse Ox Last 24 Hr 96.5 F-97.1 F 16-105 16-20 99-118/56-68 96-100 Results - Labs CBC & BMP: 08/13/16 04:00 08/13/16 04:10 Quality Measures - VTE Contraindication to Pharmacological VTE Prophylaxis: High Risk of Bleeding
[2016-08-13] MEDS: PANTOPRAZOLE 40 MG TABLET PO SCH (09:29)
[2016-08-13] MEDS: ASPIRIN EC 81 MG TABLET PO SCH (09:29)
[2016-08-13] MEDS: COENZYME Q10 100 MG CAPSULE PO SCH (09:29)
[2016-08-13] MEDS: CYANOCOBALAMIN 500 MCG TABLET PO SCH (09:30)
[2016-08-13] MEDS: EXEMESTANE 25 MG TABLET PO SCH (09:30)
[2016-08-13] MEDS: DESITIN 4OZ/NYSTATIN 15 GRAM MIXTURE PASTE TOP SCH ×2 (09:31→22:14)
[2016-08-13] MEDS: CARVEDILOL 3.125 MG TABLET PO SCH ×2 (09:31→20:44)
--- NOTE | 2016-08-13 10:13 | Cardiology Progress Note ---
Assessment and Plan (1) Sinus tachycardia Status: Acute Assessment and plan: This is stable and I do not think is pathological. We will monitor this especially she received 2 more treatments during the hospital course. Current Visit: Yes (2) Pericardial effusion Status: Acute Assessment and plan: On recent echocardiogram this is trivial and not physiologically significant. Current Visit: Yes Cardiology - PN: Subj Interval history: 66-year-old female who is recently been followed and seen by Dr. Oreilly and Dr. Mccann. The patient's had a minimal pericardial effusion previously that is extremely small in this admission. Her echocardiogram fairly unremarkable. She is has some tachycardia is been stable and may be related to her underlying illness. She is already on low-dose Coreg. Reviewing her chart that I would not increase this unless she has increasing her sinus tachycardia. At present is less than 110. Today she has no complaints cardiac-bonilla. She denies any real significant shortness of breath. She's had no chest pain. Her rhythm remained sinus. Exam (Progress Note) - Constitutional Vitals: Period Temp Pulse Resp BP Sys/Mcneill Pulse Ox Last 24 Hr 96.5 F-97.1 F 16-105 16-20 99-118/56-68 96-100 Exam: General appearance: no acute distress HEENT exam: normal inspection, atraumatic Neck exam: normal inspection no JVD. No carotid bruit. Trachea is in midline Respiratory/lungs exam: clear to auscultation bilaterally good air movement. Cardiovascular exam: regular rate and rhythm, no murmur or gallop or rub. Slightly tachycardic. Chest wall exam: nontender GI/Abdominal exam: normal bowel sounds, soft, nontender. Extremeties/musculoskeletal: normal inspection without edema or cyanosis. Neurological exam: alert, oriented X3, no focal deficits Psychiatric exam: Cognitive function is grossly normal. Skin exam: normal color, warm Result/EKG - Labs CBC & BMP: 08/13/16 04:00 08/13/16 04:10 Lab Results: I have reviewed the past 24 hour labs Labs: Laboratory Results - last 24 hr 08/13/16 08/13/16 08/13/16 04:00 04:10 04:10 WBC 2.6 L RBC 3.31 L Hgb 10.0 L Hct 29.1 L MCV 87.9 MCH 30 MCHC 34.4 RDW 16.9 Plt Count 28 L* MPV 12.2 H Neut % (Auto) 61.0 Lymph % (Auto) 18.7 L [place] % (Auto) 13.0 H Eos % (Auto) 0.8 Baso % (Auto) 0.4 Neut # (Auto) 1.6 Lymph # (Auto) 0.5 L [place] # (Auto) 0.3 Eos # (Auto) 0.0 Baso # (Auto) 0.0 Total Counted 100 Immature Gran % 6.1 Nucleated RBC % 11.1 Immature Gran # 0.16 Segmented Neutrophils 69 Band Neutrophils 6 Lymphocytes 18 L Monocytes 7 Nucleated RBCs 6 H Nucleated RBCs # 0.29 Platelet Estimate Decreased Polychromasia Slight Hypochromasia 1+ Sodium 139 Potassium 4.0 Chloride 105 Carbon Dioxide 19 L Anion Gap 19.0 H BUN 22 H Creatinine 0.60 GFR Calculation 98 BUN/Creatinine Ratio 36.00 H Glucose 84 Calculated Osmolality 278.5 Calcium 8.1 L Total Bilirubin 0.70 AST 35 ALT 50 Alkaline Phosphatase 91 Lactate Dehydrogenase 386 H Total Protein 8.6 H Albumin 2.1 L Globulin 6.5 H Albumin/Globulin Ratio 0.3 L Quality Measures - VTE Contraindication to Pharmacological VTE Prophylaxis: High Risk of Bleeding
[2016-08-13] MEDS: VENLAFAXINE XR 75 MG CAPSULE PO SCH (17:35)
[2016-08-13] MEDS: ALPRAZolam 0.25 MG TABLET PO PRN (20:44)
[2016-08-14 06:34] LABS: Eosinophils # 0.1 10*3/uL (0.0-0.87); Eosinophils % 3.5 % (0.00-10.9); Hematocrit 33.6 VOL% (35.7-47.0); Hemoglobin 11.1 GM/DL (12.0-16.0); Immature Granulocytes % 5.6 %; Immature Granulocytes Absolute 0.11 #; Lymphocytes # 0.5 10*3/uL (1.4-4.0); Lymphocytes % 24.2 % (21.3-54.2); Mean Corpuscular Hemoglobin 30 PG (27-34); Mean Corpuscular Volume 91.1 FL (87-102); Mean Platelet Volume 11.9 FL (9.6-12.0); Monocytes # 0.2 10*3/uL (0.11-0.8); Monocytes % 11.1 % (1.7-12.7); NRBC # 0.23 10*3/uL; Neutrophils # 1.1 10*3/uL (1.4-7.4); Neutrophils % 55.6 % (38.7-73.9); Red Blood Count 3.69 MC/CUMM (3.8-5.5)
[2016-08-14 06:37] LABS: Platelet Count 33 T/CUMM (130-400)
[2016-08-14 06:57] LABS: Eosinophils 5 % (0-10); Hypochromasia 1+; Lymphocytes 22 % (20-55); Nucleated Red Blood Cells 6 (0-5); Platelet Estimate Decreased; Segmented Neutrophils 63 % (50-85); Total Cells Counted 100
[2016-08-14 07:13] LABS: Bilirubin,Total 0.7 MG/DL (0.2-1.0); Calcium 8.1 MG/DL (8.5-10.1); Osmolality,Calculated 276.7 MOS/KG (273-304)
--- NOTE | 2016-08-14 08:29 | Oncology Progress Note ---
Oncology Subjective PN Interval history: This patient received chemotherapy last week that included Velcade 2.3 mg IV on August 08 and daratumumab 1000 mg IV on August 09. My plan is to repeat Velcade this week and resume daratumumab next week along with Velcade. Rules and regulations are disrupting this patient's care because I would ordinarily give daratumumab again this week but it is not covered inpatient by insurance. She is oriented and alert. She complains of back pain. She thought all of this was arthritis but I have explained to her that she has worsening bone involvement and damage from her myeloma. However, the lump in her manubrium that represents myeloma is definitely shrinking. Potentially home tomorrow or possibly . We will do Velcade tomorrow, probably. Exam - Constitutional Vitals: Period Temp Pulse Resp BP Sys/Mcneill Pulse Ox Last 24 Hr 96.6 F-97.5 F 18-106 18-22 90-116/54-66 94-97 Results - Labs CBC & BMP: 08/14/16 06:27 08/14/16 06:27 Quality Measures - VTE Contraindication to Pharmacological VTE Prophylaxis: High Risk of Bleeding
[2016-08-14] MEDS: COENZYME Q10 100 MG CAPSULE PO SCH (08:48)
[2016-08-14] MEDS: PANTOPRAZOLE 40 MG TABLET PO SCH (08:48)
[2016-08-14] MEDS: CARVEDILOL 3.125 MG TABLET PO SCH ×2 (08:49→20:47)
[2016-08-14] MEDS: ASPIRIN EC 81 MG TABLET PO SCH (08:49)
[2016-08-14] MEDS: EXEMESTANE 25 MG TABLET PO SCH (08:49)
[2016-08-14] MEDS: CYANOCOBALAMIN 500 MCG TABLET PO SCH (08:49)
[2016-08-14] MEDS: DESITIN 4OZ/NYSTATIN 15 GRAM MIXTURE PASTE TOP SCH ×2 (08:53→20:48)
--- NOTE | 2016-08-14 17:51 | Cardiology Progress Note ---
Sven, Esme Singh RN, am scribing for, and in the presence of, Hernan Lezama MD 17:51. Assessment and Plan - Time spent with patient Time spent with patient: Less than 30 minutes (1) Sinus tachycardia Status: Acute Assessment and plan: Continues to be stable. Monitor closely as she will be receiving further chemotherapy treatment prior to discharge. Current Visit: Yes (2) Pericardial effusion Status: Acute Assessment and plan: Physiologically, hemodynamically insignificant per echocardiogram this admission. Current Visit: Yes (3) Multiple myeloma Status: Chronic Current Visit: Yes (4) Thrombocytopenia Status: Acute Assessment and plan: Managed and treated by oncology. Current Visit: Yes Cardiology - PN: Subj Interval history: Patient is resting quietly this afternoon. She has no new complaint overnight except for some back pain she felt to be related to arthritis. Per oncology note , pain is contributed to worsening bone involvement and damage due to myeloma. Not requiring oxygen and says she is not feeling very short of breath today at all. Sinus tachycardia continues to be stable and on average is about 110 bpm. Blood pressure stable with SBP averaging 90-115 mmHg. generally her heart rates are stable. Tentatively scheduled for discharge home tomorrow or . Exam (Progress Note) - Constitutional Vitals: Period Temp Pulse Resp BP Sys/Mcneill Pulse Ox Last 24 Hr 96 F-98.0 F 18-108 18-22 90-115/54-67 94-97 Exam: General appearance: no acute distress HEENT exam: normal inspection, atraumatic Neck exam: normal inspection no JVD. No carotid bruit. Trachea is in midline Respiratory/lungs exam: clear to auscultation bilaterally good air movement. Cardiovascular exam: regular rate and rhythm, no murmur or gallop or rub. Slightly tachycardic. Chest wall exam: nontender GI/Abdominal exam: normal bowel sounds, soft, nontender. Extremeties/musculoskeletal: normal inspection without edema or cyanosis. Neurological exam: alert, oriented X3, no focal deficits Psychiatric exam: Cognitive function is grossly normal. Skin exam: normal color, warm Result/EKG - Labs CBC & BMP: 08/14/16 06:27 08/14/16 06:27 Lab Results: I have reviewed the past 24 hour labs Labs: Laboratory Results - last 24 hr 08/14/16 08/14/16 06:27 06:27 WBC 2.0 L RBC 3.69 L Hgb 11.1 L Hct 33.6 L MCV 91.1 MCH 30 MCHC 33.0 RDW 17.0 Plt Count 33 L* MPV 11.9 Neut % (Auto) 55.6 Lymph % (Auto) 24.2 [place] % (Auto) 11.1 Eos % (Auto) 3.5 Baso % (Auto) 0.0 Neut # (Auto) 1.1 L Lymph # (Auto) 0.5 L [place] # (Auto) 0.2 Eos # (Auto) 0.1 Baso # (Auto) 0.0 Total Counted 100 Immature Gran % 5.6 Nucleated RBC % 11.6 Immature Gran # 0.11 Segmented Neutrophils 63 Lymphocytes 22 Monocytes 10 Eosinophils 5 Nucleated RBCs 6 H Nucleated RBCs # 0.23 Platelet Estimate Decreased Hypochromasia 1+ Sodium 138 Potassium 4.0 Chloride 103 Carbon Dioxide 22 Anion Gap 17.0 H BUN 21 H Creatinine 0.60 GFR Calculation 98 BUN/Creatinine Ratio 35.00 H Glucose 74 Calculated Osmolality 276.7 Calcium 8.1 L Total Bilirubin 0.70 AST 28 ALT 40 Alkaline Phosphatase 99 Total Protein 9.0 H Albumin 2.0 L Globulin 7.0 H Albumin/Globulin Ratio 0.2 L - EKG EKG results: interpreted by me, no acute changes EKG shows: tachycardia Quality Measures - VTE Contraindication to Pharmacological VTE Prophylaxis: High Risk of Bleeding Teja Machuca John Timothy, MD, personally performed the services described in this documentation, ascribed by Esme Singh RN in my presence, and it is both accurate and complete 751 .
[2016-08-14] MEDS: VENLAFAXINE XR 75 MG CAPSULE PO SCH (18:10)
[2016-08-14] MEDS: ALPRAZolam 0.25 MG TABLET PO PRN (20:45)
[2016-08-15] MEDS ORDERED: HEPARIN LOCK FLUSH 500 UNIT/5 ML SYRINGE IV ONE ×2 (06:12→10:46)
[2016-08-15 06:32] LABS: Eosinophils # 0.1 10*3/uL (0.0-0.87); Hemoglobin 10.8 GM/DL (12.0-16.0); Immature Granulocytes Absolute 0.05 #; Lymphocytes # 0.5 10*3/uL (1.4-4.0); Lymphocytes % 27.7 % (21.3-54.2); Mean Corpuscular HGB Conc 34.8 GM/DL (32-36); Mean Corpuscular Hemoglobin 30 PG (27-34); Mean Corpuscular Volume 87.3 FL (87-102); Mean Platelet Volume 11.1 FL (9.6-12.0); Monocytes # 0.2 10*3/uL (0.11-0.8); Monocytes % 12.7 % (1.7-12.7); Neutrophils # 0.9 10*3/uL (1.4-7.4); Neutrophils % 53.6 % (38.7-73.9); Red Blood Count 3.55 MC/CUMM (3.8-5.5); Red Cell Distribution Width 16.7 % (9.3-17.3); White Blood Count 1.7 T/CUMM (4-12)
[2016-08-15 06:38] LABS: Platelet Count 30 T/CUMM (130-400)
[2016-08-15 06:57] LABS: Band Neutrophils 5 % (0-10); Lymphocytes 24 % (20-55); Metamyelocytes 2 %; Nucleated Red Blood Cells 3 (0-5); Segmented Neutrophils 58 % (50-85); Total Cells Counted 100
[2016-08-15 06:58] LABS: Hypochromasia 1+; Microcytosis 1+; Platelet Estimate Decreased
[2016-08-15 07:09] LABS: Bilirubin,Total 0.7 MG/DL (0.2-1.0); Calcium 8.1 MG/DL (8.5-10.1); Osmolality,Calculated 272.8 MOS/KG (273-304); Potassium 4.1 MMOL/L (3.5-5.1); Total Protein 9.1 G/DL (6.4-8.3)
[2016-08-15] MEDS ORDERED: BORTEZOMIB IV ONE (08:57)
[2016-08-15] MEDS ORDERED: DEXAMETHASONE INJ 20 MG in SODIUM CHLORIDE 0.9% 50 ML IV ONE (08:57)
[2016-08-15] MEDS ORDERED: SODIUM CHLORIDE 0.9% IV ONE (08:57)
--- NOTE | 2016-08-15 09:01 | Discharge Summary ---
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 Kate is a 66 year old female with a history of both IgG lambda myeloma that was diagnosed in August 2003 and also history of lower inner quadrant left breast carcinoma initially diagnosed April 20, 2013. She was admitted at this time with increasing dyspnea and was noted to be anemic. She was transfused. She had a slight cough. She has had sinus congestion but she actually has had no wheezing or sputum production or any suggestion of pulmonary congestion or infection. She has had no flulike symptoms. IgG lambda myeloma Ms. Cagle was diagnosed as having IgG lambda myeloma in 2003 and underwent a single bone marrow transplant. She was subsequently placed on thalidomide and dexamethasone and intermittently received Zometa. She is currently on Velcade and dexamethasone and we have held thalidomide because I suspected it might be contributing to her thrombocytopenia and leukopenia that had been going on for the last few weeks. Recently she had evidence of progression of disease and was switched to Velcade. 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 A CT of her chest, abdomen and pelvis done May 23, 2015 demonstrated an expansile soft tissue lesion in the upper right manubrium that measured 37 mm in greatest diameter. It had previously measured 26 mm in diameter a couple of months earlier. Adenocarcinoma of the left breast post mastectomy without proven evidence of metastatic disease She has a history of lower inner quadrant left breast carcinoma initially diagnosed April 20, 2013. It was stage IB at the time of diagnosis. It was ER/AL positive and HER-2/nannette negative. There was one lymph node that was microscopically positive. She was treated with mastectomy and placed on hormone therapy. She subsequently developed recurrent disease to the left chest wall with 1.1 cm primary in 2013. She was treated with radiation therapy. She had been on for marrow and later switched to Aromasin with this recurrence. She was also treated with 4 courses of Adriamycin and Cytoxan which were completed in July 2014. The radiation was completed October 28, 2014. During this hospital stay she was found to have multiple new areas of bone involvement from tumor and we could not decide whether this was myeloma or recurrent breast cancer with metastatic disease. It is probably progression of her myeloma and not metastatic breast cancer. During this hospital stay she underwent a biopsy of a right supraclavicular lymph node that was positive for myeloma and also she underwent biopsy of a right iliac crest area of abnormality that was confirmed to be myeloma as well. Because we were unable to distinguish whether or not the patient had metastatic breast cancer or had progression of her myeloma, she was given 1 dose of Faslodex 500 mg IM on July 31. During this hospital stay she also received Zometa 4 mg IV on August 03. I will plan to repeated every 3 months. In addition, she was started on Darzalex 1000 mg IV on August 09 along with Velcade 2.3 mg IV on August 08. The patient will receive Velcade 2.3 mg IV today along with dexamethasone 20 mg IV today prior to discharge. Next week, she will need to return and have a CBC, CMP and LDH and at that time we will begin treatment with: Darzalex 1000 mg IV weekly Velcade 2.3 mg IV weekly Dexamethasone 40 mg IV weekly I am discharging the patient today and I would like for her to return in 1 and 2 weeks to receive Darzalex 1000 mg and Velcade 2.3 mg IV along with dexamethasone 20 mg IV at that time. The mass in her manubrium is definitely shrinking with the current chemotherapy. I will want to see her back in 2 weeks with a CBC, CMP and LDH, serum protein electrophoresis, serum immunoelectrophoresis and serum free light chain assay. I am giving her prescriptions for Martin 7.5 mg with 100 tablets and no refills to take 1 every 4 hours for pain and also Aromasin 25 mg with 30 tablets and 11 refills to take 1 daily. I have not completely discount the fact that the patient may have progression of her breast cancer as well but it appears that most of the new areas of bony involvement or probably from her myeloma. Discharge Plan - Discharge Data Disposition: Disch To Home/Self Care Condition at Discharge: Guarded Discharge Diet: advance to your usual diet Activity: resume usual activities as tolerated, no lifting, no prolonged standing Hygiene: no restrictions Weight Bearing at Discharge: weight bear as tolerated Driving: other Contact your physician if you experience:: fever over 101, Difficulty voiding, Redness or swelling, Nausea/Vomiting, Shortness of breath, Bleeding, pain uncontrolled by pain medications - Discharge Medications Continue Venlafaxine Xr [Effexor XR] 75 mg PO PC SUPPER Aspirin [Ecotrin] 81 mg PO DAILY Coenzyme Q10 200 mg PO DAILY Cholecalciferol [Vitamin D3] 1,000 unit PO DAILY Discontinued Letrozole [Femara] 2.5 mg PO PC SUPPER Cyanocobalamin (Vitamin B-12) [Vitamin B12] 2,500 mcg PO DAILY Multivitamin [Multivitamins] 1 tablet PO DAILY Selenium [Selenium Cap] 200 mcg PO PC SUPPER Ascorbic Acid Tab [Vitamin C Tab] 500 mg PO DAILY Garlic 1,000 mg PO DAILY - Follow Up or Referral - Forms/Instructions Additional Discharge Instructions: Discontinue all of the vitamins for the time being. In addition, I am giving you a prescription for Aromasin 25 mg to begin instead of taking letrozole. Also I am writing a prescription for Martin 7.5 mg with 100 tablets and no refills to take 1 every 4 hours for pain. We are going to start Darzalex 1000 mg and Velcade 2.3 mg outpatient next week. We will repeat this weekly. We will check a CBC and CMP prior treatment. We need a serum protein electrophoresis, serum immunoelectrophoresis and serum free light chain assay drawn next week. Return to see me in 2 weeks with CBC, CMP and LDH. Exam - Constitutional Vitals: Period Temp Pulse Resp BP Sys/Mcneill Pulse Ox Last 24 Hr 96.1 F-98.0 F 18-108 18-22 96-109/57-67 94-98 Discharge Results Procedures and tests throughout hospitalization: Pending Orders 07/30/16 06:55 Red Blood Cells Leuko Red Routine 08/03/16 08:58 Single Donor Platelets Routine Labs on day of discharge: Labs from last 24 hours 08/15/16 08/15/16 08/15/16 04:00 04:00 04:00 WBC 1.7 L RBC 3.55 L Hgb 10.8 L Hct 31.0 L MCV 87.3 MCH 30 MCHC 34.8 RDW 16.7 Plt Count 30 L* MPV 11.1 Neut % (Auto) 53.6 Lymph % (Auto) 27.7 [place] % (Auto) 12.7 Eos % (Auto) 3.0 Baso % (Auto) 0.0 Neut # (Auto) 0.9 L Lymph # (Auto) 0.5 L [place] # (Auto) 0.2 Eos # (Auto) 0.1 Baso # (Auto) 0.0 Total Counted 100 Immature Gran % 3.0 Nucleated RBC % 6.0 Immature Gran # 0.05 Segmented Neutrophils 58 Band Neutrophils 5 Lymphocytes 24 Monocytes 11 Metamyelocytes 2 Nucleated RBCs 3 Nucleated RBCs # 0.10 Platelet Estimate Decreased Hypochromasia 1+ Microcytosis 1+ Sodium 137 Potassium 4.1 Chloride 100 Carbon Dioxide 24 Anion Gap 17.1 H BUN 16 Creatinine 0.60 GFR Calculation 97 BUN/Creatinine Ratio 26.00 H Glucose 87 Calculated Osmolality 272.8 L Calcium 8.1 L Total Bilirubin 0.70 AST 34 ALT 34 Alkaline Phosphatase 97 Lactate Dehydrogenase 635 H Total Protein 9.1 H Albumin 2.0 L Globulin 7.1 H Albumin/Globulin Ratio 0.2 L DS: Provider Date of admission: 07/29/16 14:29 Primary care physician: Carlos Alberto Alonso Attending physician on admission: Hernan Gaines MD Consults: 07/29/16 16:17 Consult to Pharmacy [CONS] Routine Reason for Pharmacy Consult: Adjust Meds Renal Funct 07/30/16 09:25 Consult to Physician [CONS] Routine Comment: shortness of breath, past adriamycin use. Consulting Provider: Cardiology - [facility] Consulting Provider Notified: Yes When should Consulting Provider be notified: Now Consult to Specialist Group: Cardiology When should Consulting Provider be notified: Now Person Notified: NAUN Date Notified: 07/30/16 Time Notified: 09:44 07/31/16 08:29 Consult to Physician [CONS] Routine Comment: known to you, progression of disease Consulting Provider: Abdirizak Sanchez Consulting Provider Notified: Yes When should Consulting Provider be notified: Now Consult to Specialist Group: Surgery When should Consulting Provider be notified: Now Person Notified: QUIQUE Date Notified: 07/31/16 Time Notified: 09:03 07/31/16 14:13 Consult to Anesthesiology [CONS] Routine Consulting Provider: Reason for Anesthesiology: Pre-op Clearance Discharging clinician: Hernan Gaines MD
[2016-08-15] MEDS: CYANOCOBALAMIN 500 MCG TABLET PO SCH (10:04)
[2016-08-15] MEDS: ASPIRIN EC 81 MG TABLET PO SCH (10:04)
[2016-08-15] MEDS: CARVEDILOL 3.125 MG TABLET PO SCH (10:04)
[2016-08-15] MEDS: PANTOPRAZOLE 40 MG TABLET PO SCH (10:04)
[2016-08-15] MEDS: EXEMESTANE 25 MG TABLET PO SCH (10:05)
[2016-08-15] MEDS: DESITIN 4OZ/NYSTATIN 15 GRAM MIXTURE PASTE TOP SCH (10:05)
[2016-08-15] MEDS: COENZYME Q10 100 MG CAPSULE PO SCH (10:05)
[2016-08-15 12:26] VITALS: BP 101/74
--- NOTE | 2016-08-17 12:33 | Physician Query Form ---
CLICK EDIT DOCUMENT TO SELECT QUERY ANSWER --> OK --> SIGN Kirstie Pan RN, CCDS Certified Clinical Professor Of Communication And Writing W) [phone] (f) [phone] [email or web address] PROVIDERS: Make your selection(s) from the choices in EACH section by typing an "x" and enter comments in the comment section. Please use your independent medical judgment in providing your response. This request does not imply that any particular answer is desired or expected. CLINICAL INDICATORS: (Providers should not edit this section) The medical record indicates that the patient was admitted with multiple myeloma , Pancytopenia "likely secondary to treatment and myeloma". Based on the above, could you clarify the appropriate diagnosis, if significant , that supports the above abnormalities and additional evaluation, monitoring, and/or treatment rendered: ( ) Chemotherapy induced pancytopenia ( ) Pancytopenia due to ( ) Other, please specify: ( ) Clinically unable to determine COMMENTS: Use of terms such as suspected, likely, or probable (associated with a specific diagnosis that is being evaluated, monitored, or treated as if it exists) are acceptable and can be restated in the discharge summary if not ruled out. MTDD
--- NOTE | 2016-08-22 10:41 | Pathology Report from [facility] ---
ACCESSION # : [id number] PATIENT NAME : Jon Kate ORDERING DR : BRITTANY VEGA MD CLINICAL HX: Multiple myeloma POST-OP DX: Same SPECIMEN INFO: Bone marrow biopsy with CT GROSS DESCRIPTION: Received is a bone marrow biopsy with CT packed and shipped to [email or web address] for evaluation by the Hematology Department. DIAGNOSIS FOR JON KATE: The following is the bone marrow report from Dione Miguel MD., [facility], [facility] [place]:FINAL DIAGNOSIS: Extensive marrow involvement by lambda-restricted plasma cell myeloma (95%) with unfavorable prognostication. See assessment.COMPREHENSIVE ASSESSMENT: Bone marrow examination reveals increased plasma cells in sheets. They comprise ~95% based on CD138 IHC stain. Immunophenotyping by flow cytometry and immunohistochemistry shows lambda resection in the plasma cells. The overall findings are consistent with marrow involvement by a plasma cell myeloma. Karyotype shows findings associated with an unfavorable prognosis. Correlation with other clinical data is recommended.MORPHOLOGY: BONE MARROW BIOPSY AND ASPIRATION: Findings consistent with extensive marrow involvement by lambda- restricted plasma cell myeloma (95%). Hypercellular marrow with decreased trilineage hematopoiesis. Increased reticulin fibrosis (2+).FLOW CYTOMETRY: Lambda restricted plasma cell population (~2.8% of total) consistent with a plasma cell neoplasm.CYTOGENETICS/FISH: A composite of eight of twenty cells analyzed exhibited a near-tetraploid chromosome complement with varying multiple numerical and structural abnormalities. These findings, including gain of 1q and relative losses of chromosomes 13 and 17, are consistent with the clinical diagnosis of multiple myeloma and are associated with an unfavorable prognosis. Clinical correlation is advised. The remaining cells were interpreted as normal.Note: FISH results with the MM panel probes were NORMAL, showed no evidence of aneuploidy. This discrepancy between metaphase cytogenetics and interphase FISH can occur if the abnormal clone has a selective advantage in culture which causes it to be present at a higher percentage in the metaphase population.Myeloma FISH: NORMAL results. SERVICE DATE: 08/02/2016 REPORT DATE: 08/22/2016 PATHOLOGIST: Monica Tapia
== END 2016-08-15 12:20 | disposition home or self-care (01) | DRG 823 ==
LOC: N.ED 12:54 → N.EDINP 14:29 → N.4E 16:02
PROVIDERS: ADMIT Specialist; ATTEND Specialist

== ENCOUNTER 2016-08-17 18:41 | Inpatient (IN) ==
[2016-08-17] MEDS ORDERED: SODIUM CHLORIDE 0.9% 1,000 ML IV STA (19:05)
[2016-08-17 19:18] LABS: Eosinophils % 1.3 % (0.00-10.9); Hemoglobin 11.3 GM/DL (12.0-16.0); Immature Granulocytes % 5.8 %; Immature Granulocytes Absolute 0.09 #; Lymphocytes # 0.5 10*3/uL (1.4-4.0); Lymphocytes % 34.4 % (21.3-54.2); Mean Corpuscular HGB Conc 33.2 GM/DL (32-36); Mean Corpuscular Hemoglobin 30 PG (27-34); Mean Corpuscular Volume 89.9 FL (87-102); Mean Platelet Volume 9.2 FL (9.6-12.0); Monocytes # 0.2 10*3/uL (0.11-0.8); Monocytes % 11.7 % (1.7-12.7); NRBC # 0.04 10*3/uL; Neutrophils # 0.7 10*3/uL (1.4-7.4); Neutrophils % 46.8 % (38.7-73.9); Red Blood Count 3.78 MC/CUMM (3.8-5.5); Red Cell Distribution Width 16.9 % (9.3-17.3); White Blood Count 1.5 T/CUMM (4-12)
[2016-08-17 19:27] LABS: Apearance,Urine Slightly Hazy (Clear); Bilirubin,Urine Negative (Negative); Blood, Urine Large mg/dL (Negative); Glucose,Urine (UA) Negative (Negative); Hyaline Casts,Urine 1 /LPF (0-3); Ketones,Urine Negative (Negative); Mucus,Urine Occasional /LPF (Occasional); Nitrite,Urine Negative (Negative); Protein,Urine Negative; RBC,Urine 41 /HPF (0-4); Squamous Epithelial Cell,Urine Occasional /HPF (0-10); Urine Color Yellow (Yellow); Urine Specific Gravity 1.012 (1.001-1.035); Urine Urobilinogen < 2.0 EU/DL (0.2-1.0)
[2016-08-17 19:30] LABS: Platelet Count 16 T/CUMM (130-400)
--- NOTE | 2016-08-17 19:32 | XRay Report ---
History: Shortness of breath and fever Date: 08/17/2016 Study: Chest x-ray AP portable Comparison exam: Chest x-ray July 31, 2016 A right-sided Mediport-type catheter is positioned with its tip overlying the right atrium. There is cardiomegaly. The pulmonary vasculature is prominent. There is no mediastinal mass. There is patchy and hazy airspace disease in the lower lungs, suggesting pulmonary edema. There is mild bilateral pleural effusion. The patient is status post previous left mastectomy. There is no acute osseous abnormality. Impression: Cardiomegaly and evidence of CHF with bibasilar alveolar pulmonary edema PROCEDURE INTERPRETED AT [facility] DEPARTMENT OF RADIOLOGY Final Report Signed by: Dr. Muriel Resendiz
[2016-08-17 19:36] LABS: Albumin 2.1 G/DL (3.4-5.0); Bilirubin,Total 0.5 MG/DL (0.2-1.0); Calcium 8.6 MG/DL (8.5-10.1); Osmolality,Calculated 269.2 MOS/KG (273-304); Potassium 4.3 MMOL/L (3.5-5.1); Total Protein 10.4 G/DL (6.4-8.3)
[2016-08-17] MEDS ORDERED: MORPHINE 2 MG/1 ML SYRINGE IV STA (20:10)
[2016-08-17] MEDS ORDERED: ONDANSETRON 4 MG/2 ML VIAL IV STA (20:10)
[2016-08-17] MEDS ORDERED: ONDANSETRON 4 MG/2 ML VIAL ONE (20:11)
[2016-08-17] MEDS ORDERED: MORPHINE 2 MG/1 ML SYRINGE ONE (20:12)
--- NOTE | 2016-08-17 20:29 | CT Report ---
History: Shortness of breath. History of breast cancer. History of multiple myeloma Date: 08/17/2016 Study: CT chest with IV contrast with pulmonary embolus technique Comparison exam: CT chest July 31, [address] sections were obtained through the lungs following the IV administration of 80 mL of Omnipaque 350 without immediate complication. Multiplanar reconstruction images were also evaluated. Total DLP measures 181.7 mGy*cm. There is no definite discrete filling defect within the pulmonary arterial tree to suggest acute pulmonary embolic disease. There is no thoracic aortic aneurysm or dissection. There is again a soft tissue mass of the sternum with lytic bony destruction compatible with metastatic disease similar to the July 31, 2016 study. There is no new mediastinal mass. There is pericardial effusion which is mildly increased. There is mild bilateral pleural effusion. There is some hazy pulmonary edema in both lungs. A right subclavian Mediport catheter is positioned with its tip near the atrial caval junction. There has been previous left mastectomy. The exam is otherwise unchanged. Impression: No evidence of acute pulmonary embolic disease. Pulmonary edema with increasing pericardial effusion and mild bilateral pleural effusion. Large metastatic lesion of the sternum as before with underlying pathologic fracture of the manubrium, unchanged PROCEDURE INTERPRETED AT [facility] DEPARTMENT OF RADIOLOGY Final Report Signed by: Dr. Muriel Resendiz
[2016-08-17 20:41] LABS: Anisocytosis 1+; Band Neutrophils 10 % (0-10); Eosinophils 2 % (0-10); Lymphocytes 30 % (20-55); Macrocytosis 1+; Metamyelocytes 4 %; Platelet Estimate Decreased; Segmented Neutrophils 46 % (50-85); Total Cells Counted 100
[2016-08-17] MEDS ORDERED: FUROSEMIDE 40 MG/4 ML VIAL IV STA (22:01)
[2016-08-17] MEDS ORDERED: FUROSEMIDE 40 MG/4 ML VIAL ONE (22:08)
--- NOTE | 2016-08-17 22:31 | Emergency Department Note ---
James Machuca Brooke, am scribing for, and in the presence of, Lillian Viramontes DO 19:31. IWander Catherine, DO, personally performed the services described in this documentation, ascribed by Macy Ramirez in my presence, and it is both accurate and complete . Arrival - Arrival Chief Complaint: Fever Stated Complaint: SOB,TEMP ED Nursing Triage Note: Pt c/o Fever (100.3 at home) and SOB started this afternoon. Last chemo was Sat. Mode of Arrival: Wheelchair Limitations: No Limitations Source: Patient, Family, RN Notes Reviewed Time Seen by Provider: 08/17/16 18:59 - History of Present Illness HPI Narrative: Patient is a 66 year old female, with IGG lambda myeloma, who presents to the ED with c/o fever and SOB. Patient says her temperature was 100.3 at home and that it started around 1500. Her temperature during triage was 97.5. Patient was discharged from hospital on August 15 after being here for two and a half weeks. Family member says she got several blood transfusions while in the hospital. They tried to get home oxygen but Dr. Gaines told them that Patient did not qualify. Patient says the SOB is an ongoing problem that has not gotten any better. She says the SOB is worsened with any exertion. She says they did not check her for pulmonary embolism while in the hospital. Patient's last cancer treatment was on August 15 and her next one is next Saturday. Family member says, last time they were in the ED, a CT showed "spots" on Patient's lungs but they are unsure if it is cancer. They have not contacted Dr. Gaines about this problem today. She also has PMHx of thyroid disorder, breast cancer, GERD, anemia, and arthritis. Patient's Primary Care Provider is Dr. Alonso. Consistency: intermittent Severity: moderate Severity scale (1-10): 4 Quality: stabbing, fullness, sharp Allergies/Adverse Reactions: Allergies Allergy/AdvReac Type Severity Reaction Status Date / Time Iodinated Contrast Media - Allergy Mild ITCHING Verified 12/29/14 18:19 IV Dye Home Medications: Home Medications Medication Instructions Recorded Confirmed Type Aspirin [Ecotrin] 81 mg PO DAILY 06/13/16 08/17/16 History Venlafaxine Xr [Effexor XR] 75 mg PO PC SUPPER 06/13/16 08/17/16 History Cholecalciferol [Vitamin D3] 1,000 unit PO DAILY 06/18/16 08/17/16 History Coenzyme Q10 200 mg PO DAILY 06/18/16 08/17/16 History Exemestane [Aromasin] 25 mg PO DAILY 08/15/16 08/17/16 History HYDROcodone/ACETAMIN 7.5-325 1 tablet PO Q4H PRN 08/15/16 08/17/16 History [[place] 7.5-325] Review of System - Review of System 12 point system: reviewed and no additional remarkable complaints except as stated - Review of System Constitutional: Present: weakness. Absent: fever Respiratory: Present: other (SOB). Absent: respiratory distress Cardiovascular: Present: dyspnea on exertion, orthopnea. Absent: chest pain, palpitations, edema, syncope Gastrointestinal: Absent: abdominal pain, nausea, vomiting, diarrhea, constipation Skin: Absent: rash Neurological: Present: weakness. Absent: headache, numbness, paresthesias Medical,Surgical,& Family Hx - Medical History Cardio: No history of: Cardiac Dysrhythmia, Cerebrovascular Disease, CHF, Hypertension, MS Psychological: No history of: Behavior Problems, Depression, Previous Suicide Attempt Neurology: No history of: Cerebrovascular Accident, Dementia, Migraine, Seizures, TIA, Vertigo HEENT: No history of: Ear Problem, Eye Problem, Glaucoma Endocrine: History of: Thyroid Disorder Respiratory: No history of: Asthma, Bronchitis, COPD, Obstructive Sleep Apnea, Pulmonary Embolism, Pulmonary Hypertension Renal: No history of: Renal (Kidney) Cancer, Dialysis, Renal Failure Genitourinary: No history of: Bladder Problem, Genitourinary Cancer Gastrointestinal: History of: GERD, GI Problems (ULCERS) No history of: Gastrointestinal Bleed, Hepatitis Musculoskeletal: History of: Musculoskeletal Problems (ARTHRITIS) Hematology: History of: Anemia, Hematologic Cancer (IgG lambda myeloma ) No history of: Blood Transfusion Reaction, Sickle Cell Disease Reproductive: History of: Breast Cancer (left breast CA 2012) Other: History of: Cancer (LEFT BREAST), Miscellaneous Medical Problems ( multiple myeloma) - Surgical History Cardiac Surgeries: Patient Denies: Cardiac Catheterization, Cardiac Surgery, Carotid Endarterectomy, Internal Defibrillator Thoracic Surgeries: Patient denies;: Kidney (Renal Surgery) HEENT Surgeries: Surgical HX of: Thyroid Surgery (thyroidectomy) Patient denies: Carotid Endarterectomy Abdominal Surgeries: Surgical HX of: Cholecystectomy, Colonoscopy, EGD Reproductive Surgeries: Surgical HX of;: Breast Surgery (left mastectomy), Hysterectomy - Family History Family History: Reports;: Family Cancer (mom-colon CA), Family Diabetes (brother , father), Family Heart Disease (brother-CAD pt reports brother "had 2 stents put in his heart 2 weeks ago"), Family Hypertension, Family Psychiatric Problems (MOM- ALZHMIERS) - Social History Smoking Status: Never smoker Have you smoked in the last 12 months: No Frequency of Alcohol Use: None Type of Drug Use: None Marital Status: Lives With:: Spouse Functional capacity: independent ambulation Exam Vital Signs: Vital Signs Temperature 97.5 F L 08/17/16 19:37 Pulse Rate 125 H 08/17/16 19:37 Respiratory Rate 24 08/17/16 19:37 Blood Pressure 116/80 08/17/16 19:37 O2 Sat by Pulse Oximetry 95 08/17/16 18:42 - General General appearance: alert, in no apparent distress - Head Head exam: Present: atraumatic, normocephalic - Eye Eye exam: Present: normal appearance, PERRL, EOMI - ENT ENT exam: Present: normal exam - Neck Neck exam: Present: normal inspection - Chest Chest inspection: Present: normal inspection, symmetric chest wall rise - Respiratory Respiratory exam: Present: normal lung sounds bilaterally, other (decreased breath sounds at the base, bilaterally). Absent: accessory muscle use, respiratory distress - Cardiovascular Cardiovascular exam: Present: regular rate, normal rhythm, normal heart sounds - Abdominal Exam Abdominal exam: Present: soft. Absent: distention, tenderness - Extremities Exam Extremities exam: Present: normal inspection, full ROM, normal capillary refill. Absent: tenderness - Back Exam Back exam: Present: normal inspection - Neurological Exam Neurological exam: Present: alert, oriented X3, CN II-XII intact. Absent: motor sensory deficit - Psychiatric Psychiatric exam: Present: normal affect, normal mood - Skin Skin exam: Present: warm, dry, intact, normal color Course Course Narrative: she is resting and has had pain relief after the Morphine - discussed her test results and she agrees to stay overnight and get platelets and some lasix for the fluid - Consultations Consultation #1: Dr. Reyna Time: 22:30 Results - Labs CBC & BMP: 08/17/16 19:07 08/17/16 19:07 Labs: Microbiology 08/17/16 18:55 Nasal Aspirate Influenza Types A,B Antigen (TYRON) - Final Negative for Influenza A Ag Negative for Influenza B Ag Laboratory Tests 08/17/16 08/17/16 19:04 19:07 WBC 1.5 L RBC 3.78 L Hgb 11.3 L Hct 34.0 L Plt Count 16 L* D MPV 9.2 L Neut # (Auto) 0.7 L Lymph # (Auto) 0.5 L Urine Urobilinogen < 2.0 H - Diagnostic Findings Procedure: Chest x-ray: report reviewed by me (Cardiomegaly and evidence of CHF with bibasilar alveolar pulmonary edema.) Disposition Clinical Impression: Dyspnea, Metastatic cancer, Temporary low platelet count Case discussed with: patient, patient's family Disposition: Still a Patient Condition: Stable Time of Disposition: 22:31
[2016-08-17] MEDS ORDERED: ACETAMINOPHEN 325 MG TABLET PO PRN (22:32)
[2016-08-17] MEDS ORDERED: HYDROmorphone 2 MG/1 ML VIAL IV PRN (22:32)
[2016-08-17] MEDS ORDERED: ONDANSETRON 4 MG/2 ML VIAL IV PRN (22:32)
[2016-08-18 05:35] LABS: Basophils % 0.6 % (0.0-0.8); Eosinophils % 1.2 % (0.00-10.9); Hematocrit 29.9 VOL% (35.7-47.0); Hemoglobin 9.9 GM/DL (12.0-16.0); Immature Granulocytes % 1.8 %; Immature Granulocytes Absolute 0.03 #; Lymphocytes # 0.6 10*3/uL (1.4-4.0); Lymphocytes % 37.4 % (21.3-54.2); Mean Corpuscular HGB Conc 33.1 GM/DL (32-36); Mean Corpuscular Hemoglobin 30 PG (27-34); Mean Corpuscular Volume 89.5 FL (87-102); Monocytes # 0.2 10*3/uL (0.11-0.8); Monocytes % 12.3 % (1.7-12.7); NRBC # 0.03 10*3/uL; Neutrophils # 0.8 10*3/uL (1.4-7.4); Neutrophils % 46.7 % (38.7-73.9); Platelet Count 53 T/CUMM (130-400); Red Blood Count 3.34 MC/CUMM (3.8-5.5); Red Cell Distribution Width 17.1 % (9.3-17.3); White Blood Count 1.6 T/CUMM (4-12)
[2016-08-18 06:54] LABS: Anisocytosis Slight; Band Neutrophils 3 % (0-10); Eosinophils 1 % (0-10); Lymphocytes 36 % (20-55); Macrocytosis Slight; Metamyelocytes 1 %; Platelet Estimate Decreased; Segmented Neutrophils 50 % (50-85); Total Cells Counted 100
[2016-08-18] MEDS ORDERED: FUROSEMIDE 20 MG/2 ML VIAL IV ONE (09:25)
--- NOTE | 2016-08-18 09:29 | Oncology History&Physical ---
Assessment and Plan - Time spent with patient Time spent with patient: Greater than 30 minutes (1) Pulmonary edema Status: Acute Assessment and plan: We will give her another dose of Lasix today. If she is doing well tomorrow, we will likely discharge her home. Current Visit: Yes (2) Dyspnea Status: Chronic Current Visit: No (3) Multiple myeloma Status: Chronic Current Visit: No (4) Anemia Status: Acute Current Visit: No (5) Thrombocytopenia Status: Acute Current Visit: No (6) Orthopnea Status: Acute Current Visit: No History of Present Illness History of present illness: Ms. Kate is a 66 year old female with a history of progressive multiple myeloma who is currently on treatment and was just started on Darzalex last week. She was discharged home just a couple days ago and presented to the emergency room yesterday complaining of shortness of breath. She states it was somewhat worse than his shortness of breath she had when she was in the hospital previously. Her CT scan was consistent with pulmonary edema and also showed her large sternal lesion. Her platelet count was less than 20,000 so she was given 1 unit of platelets. She is admitted for diuresis and observation. Her platelet count has responded well to transfusion. She states she is breathing better today after the diuresis last night. She is neutropenic. She denies any fevers chills or night sweats. She agrees to stay another day for another round of Lasix. Home Medications Medication Instructions Recorded Confirmed Type Aspirin [Ecotrin] 81 mg PO DAILY 06/13/16 08/17/16 History Venlafaxine Xr [Effexor XR] 75 mg PO PC SUPPER 06/13/16 08/17/16 History Exemestane [Aromasin] 25 mg PO DAILY 08/15/16 08/17/16 History HYDROcodone/ACETAMIN 7.5-325 1 tablet PO Q4H PRN 08/15/16 08/17/16 History [[place] 7.5-325] Allergies Allergy/AdvReac Type Severity Reaction Status Date / Time Iodinated Contrast Media - Allergy Mild ITCHING Verified 12/29/14 18:19 IV Dye Medical,Surgical,& Family Hx - Medical History Cardio: No history of: Cardiac Dysrhythmia, Cerebrovascular Disease, CHF, Hypertension, MS Psychological: No history of: Behavior Problems, Depression, Previous Suicide Attempt Neurology: No history of: Cerebrovascular Accident, Dementia, Migraine, Seizures, TIA, Vertigo HEENT: No history of: Ear Problem, Eye Problem, Glaucoma Endocrine: History of: Thyroid Disorder Respiratory: No history of: Asthma, Bronchitis, COPD, Obstructive Sleep Apnea, Pulmonary Embolism, Pulmonary Hypertension Renal: No history of: Renal (Kidney) Cancer, Dialysis, Renal Failure Genitourinary: No history of: Bladder Problem, Genitourinary Cancer Gastrointestinal: History of: GERD, GI Problems (ULCERS) No history of: Gastrointestinal Bleed, Hepatitis Musculoskeletal: History of: Musculoskeletal Problems (ARTHRITIS) Hematology: History of: Anemia, Hematologic Cancer (IgG lambda myeloma ) No history of: Blood Transfusion Reaction, Sickle Cell Disease Reproductive: History of: Breast Cancer (left breast CA 2012) Other: History of: Cancer (LEFT BREAST), Miscellaneous Medical Problems ( multiple myeloma) - Surgical History Cardiac Surgeries: Patient Denies: Cardiac Catheterization, Cardiac Surgery, Carotid Endarterectomy, Internal Defibrillator Thoracic Surgeries: Patient denies;: Kidney (Renal Surgery) HEENT Surgeries: Surgical HX of: Thyroid Surgery (thyroidectomy) Patient denies: Carotid Endarterectomy Abdominal Surgeries: Surgical HX of: Cholecystectomy, Colonoscopy, EGD Reproductive Surgeries: Surgical HX of;: Breast Surgery (left mastectomy), Hysterectomy - Family History Family History: Reports;: Family Cancer (mom-colon CA), Family Diabetes (brother , father), Family Heart Disease (brother-CAD pt reports brother "had 2 stents put in his heart 2 weeks ago"), Family Hypertension, Family Psychiatric Problems (MOM- ALZHMIERS) - Social History Smoking Status: Never smoker Frequency of Alcohol Use: None Type of Drug Use: None 12 point system: reviewed and no additional remarkable complaints except as stated - Constitutional Constitutional: Present: fatigue. Absent: chills, fever(s) - Respiratory Respiratory: Present: dyspnea Exam - Constitutional Vitals: Period Temp Pulse Resp BP Sys/Mcneill Pulse Ox Last 24 Hr 96.4 F-99.3 F 109-118 20-22 99-117/56-76 93-95 General appearance: normal weight, no acute distress - Head Head Exam: Present: normocephalic, atraumatic - Eye Eye Exam: Present: EOMI Pupils: Present: PERRL - ENT ENT exam: Present: normal exam, normal oropharynx - Neck Neck exam: Absent: lymphadenopathy, thyromegaly - Respiratory Respiratory exam: Present: CTAB. Absent: decreased breath sounds, wheezes - Cardiovascular Cardiovascular exam: Present: RRR. Absent: JVD, tachycardia - GI/Abdominal GI/Abdominal exam: Present: soft. Absent: ascites, distended, firm, mass Results - Labs CBC & BMP: 08/18/16 04:39 08/17/16 19:07 Lab Results: I have reviewed the past 24 hour labs
[2016-08-18] MEDS: LEVOFLOXACIN INJ 500 MG in PREMIX 1 EACH IV SCH (09:49)
[2016-08-18] MEDS ORDERED: BENZTROPINE 2 MG/2 ML AMP IV PRN (11:02)
[2016-08-18] MEDS ORDERED: MYLANTA/LIDO VISC 2:1 300 ML BOTTLE SWISH/SWAL PRN (11:02)
[2016-08-18] MEDS ORDERED: ALUMINUM/MAGNES/SIMETH MAX STR 30 ML UDCUP PO PRN (11:02)
[2016-08-18] MEDS ORDERED: guaiFENesin 200 MG/10 ML UDCUP PO PRN (11:02)
[2016-08-18] MEDS ORDERED: LOPERAMIDE 2 MG CAPSULE PO PRN ×2 (11:02)
[2016-08-18] MEDS ORDERED: MYLANTA/LIDO VISC 2:1 300 ML BOTTLE SWISH/SPIT PRN (11:02)
[2016-08-18] MEDS ORDERED: PROMETHAZINE INJ 25 MG in SODIUM CHLORIDE 0.9% 50 ML IV PRN (11:02)
[2016-08-18] MEDS ORDERED: diphenhydrAMINE CAP 25 MG CAPSULE PO PRN (11:02)
[2016-08-18] MEDS ORDERED: FILGRASTIM-SNDZ 300 MCG/0.5 ML SYRINGE SUBCUT ONE (14:04)
[2016-08-18] MEDS: VANCOMYCIN INJ 1,000 MG in SODIUM CHLORIDE 0.9% 250 ML IV SCH (17:49)
[2016-08-18] MEDS: TEMAZEPAM 7.5 MG CAPSULE PO PRN ×2 (21:10→22:52)
[2016-08-19] MEDS: VANCOMYCIN INJ 1,000 MG in SODIUM CHLORIDE 0.9% 250 ML IV SCH ×2 (04:40→16:53)
--- NOTE | 2016-08-19 08:42 | Oncology Progress Note ---
Assessment and Plan (1) Multiple myeloma Status: Chronic Current Visit: No (2) Dyspnea Status: Chronic Current Visit: No (3) Anemia Status: Acute Current Visit: No (4) Thrombocytopenia Status: Acute Current Visit: No (5) Orthopnea Status: Acute Current Visit: No Oncology Subjective PN Interval history: Mrs. Kate is now growing gram-positive cocci and 2 separate blood culture bottles. Initial MRSA testing is negative. We added vancomycin to her antimicrobial regimen. She is already on Levaquin. She is neutropenic so I have placed her on Neupogen. I will recheck her blood counts today and once again in the morning. She is complaining of worsening left hip pain so I'll get a plain film of this today. It appears that she's had numerous CTs and bone scans over the last few months. I'm holding her aspirin and her Aromasin for now. Given her progressive myeloma and a likely bone pain this will create , we could consider holding the Aromasin indefinitely. Exam - Constitutional Vitals: Period Temp Pulse Resp BP Sys/Mcneill Pulse Ox Last 24 Hr 97.2 F-98.6 F 106-116 16-20 100-111/57-69 94-100 General appearance: normal weight, no acute distress - Head Head Exam: Present: normocephalic, atraumatic - Eye Eye Exam: Present: EOMI Pupils: Present: PERRL - Neck Neck exam: Absent: lymphadenopathy, thyromegaly - Respiratory Respiratory exam: Present: CTAB Results - Labs CBC & BMP: 08/18/16 04:39 08/17/16 19:07
[2016-08-19] MEDS: FILGRASTIM-SNDZ 300 MCG/0.5 ML SYRINGE SUBCUT SCH (09:15)
[2016-08-19] MEDS: LEVOFLOXACIN INJ 500 MG in PREMIX 1 EACH IV SCH (09:18)
[2016-08-19 09:34] LABS: Magnesium 1.9 MG/DL (1.8-2.4); Osmolality,Calculated 275.8 MOS/KG (273-304); Potassium 3.7 MMOL/L (3.5-5.1)
--- NOTE | 2016-08-19 13:48 | XRay Report ---
History: Pain Date: 08/19/2016 Study: Left hip single view Comparison exam: Left femur x-ray December 08, 2009 There is no obvious fracture on this single view study. There is no dislocation or focal destructive osseous abnormality. The left hip is well conjugated. There is a calcified injection granuloma in the soft tissues of the left flank Impression: Grossly unremarkable single view left hip radiograph PROCEDURE INTERPRETED AT [facility] DEPARTMENT OF RADIOLOGY Final Report Signed by: Dr. Muriel Resendiz
[2016-08-19] MEDS: VENLAFAXINE XR 75 MG CAPSULE PO SCH (18:25)
[2016-08-19] MEDS ORDERED: HEPARIN LOCK FLUSH 500 UNIT/5 ML SYRINGE IV ONE (18:58)
[2016-08-19] MEDS: TEMAZEPAM 7.5 MG CAPSULE PO PRN (22:10)
[2016-08-20] MEDS: VANCOMYCIN INJ 1,000 MG in SODIUM CHLORIDE 0.9% 250 ML IV SCH ×2 (03:53→16:43)
[2016-08-20 05:10] LABS: Eosinophils % 0.9 % (0.00-10.9); Hematocrit 28.9 VOL% (35.7-47.0); Hemoglobin 9.5 GM/DL (12.0-16.0); Immature Granulocytes % 12.3 %; Immature Granulocytes Absolute 0.27 #; Lymphocytes # 0.6 10*3/uL (1.4-4.0); Mean Corpuscular HGB Conc 32.9 GM/DL (32-36); Mean Corpuscular Hemoglobin 30 PG (27-34); Mean Corpuscular Volume 90.3 FL (87-102); Mean Platelet Volume 11.9 FL (9.6-12.0); Monocytes # 0.1 10*3/uL (0.11-0.8); Monocytes % 5.9 % (1.7-12.7); Neutrophils # 1.2 10*3/uL (1.4-7.4); Neutrophils % 55.9 % (38.7-73.9); White Blood Count 2.2 T/CUMM (4-12)
[2016-08-20 05:17] LABS: Calcium 8.3 MG/DL (8.5-10.1); Osmolality,Calculated 272.8 MOS/KG (273-304); Potassium 3.7 MMOL/L (3.5-5.1)
[2016-08-20 05:29] LABS: Platelet Count 21 T/CUMM (130-400)
[2016-08-20 05:40] LABS: Band Neutrophils 7 % (0-10); Eosinophils 2 % (0-10); Lymphocytes 24 % (20-55); Segmented Neutrophils 63 % (50-85); Total Cells Counted 100
[2016-08-20 05:41] LABS: Hypochromasia Slight; Macrocytosis 1+
[2016-08-20 05:42] LABS: Platelet Estimate Decreased; Rouleau Slight
[2016-08-20] MEDS: FILGRASTIM-SNDZ 300 MCG/0.5 ML SYRINGE SUBCUT SCH (08:06)
--- NOTE | 2016-08-20 08:42 | Oncology Progress Note ---
Oncology Subjective PN Interval history: History of present illness: Ms. Kate is a 66 year old female with a history of both IgG lambda myeloma that was diagnosed in August 2003 and also history of lower inner quadrant left breast carcinoma initially diagnosed April 20, 2013. She was admitted at this time with weakness and prostration and has 2 positive blood cultures for gram-positive cocci. Final identification is pending. She is currently on Levaquin and vancomycin intravenously. Presently her ANC is 1200 and her count is 21,000. The patient has received daratumumab. Attempts to crossmatch her own blood drawn male will not be possible. She already had blood type and hold in the blood bank and I have already contacted them prior to her last discharge to inform them of that fact. IgG lambda myeloma Ms. Cagle was diagnosed as having IgG lambda myeloma in 2003 and underwent a single bone marrow transplant. She was subsequently placed on thalidomide and dexamethasone and intermittently received Zometa. She received her last dose of Zometa about 2 weeks ago on August 03.. She is currently on Velcade and dexamethasone and we have held thalidomide because I suspected it might be contributing to her thrombocytopenia and leukopenia that had been going on for the last few weeks. Recently she had evidence of progression of disease and was switched to Velcade. 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 A CT of her chest, abdomen and pelvis done May 23, 2015 demonstrated an expansile soft tissue lesion in the upper right manubrium that measured 37 mm in greatest diameter. It had previously measured 26 mm in diameter a couple of months earlier. She received her first dose of daratumumab 1000mg. on August 09, 2016. Adenocarcinoma of the left breast post mastectomy without proven evidence of metastatic disease She has a history of lower inner quadrant left breast carcinoma initially diagnosed April 20, 2013. It was stage IB at the time of diagnosis. It was ER/ME positive and HER-2/nannette negative. There was one lymph node that was microscopically positive. She was treated with mastectomy and placed on hormone therapy. She subsequently developed recurrent disease to the left chest wall with 1.1 cm primary in 2013. She was treated with radiation therapy. She had been on for marrow and later switched to Aromasin with this recurrence. She was also treated with 4 courses of Adriamycin and Cytoxan which were completed in July 2014. The radiation was completed October 28, 2014. We have not documented any evidence of recurrence of her breast cancer. She has had a biopsy of her manubrium as well as a right supraclavicular node biopsy and a right iliac biopsy, all of which were interpreted as demonstrating plasma cells. On physical examination she is acutely and chronically ill-appearing. Eyes: Normal lids and conjunctivae. ENT: Her oral mucosa and pharynx are normal. Her trachea is midline and she has no neck masses. Cardiovascular: Her heart rhythm is regular without murmur, gallop or rub. There is no jugular venous distention. Lungs: Breath sounds are normal without rubs, rales or rhonchi. Musculoskeletal: The mass in her manubrium is slightly larger than it was at discharge. Exam - Constitutional Vitals: Period Temp Pulse Resp BP Sys/Mcneill Pulse Ox Last 24 Hr 96.4 F-99.1 F 80-120 16-20 99-112/58-71 95-99 Results - Labs CBC & BMP: 08/20/16 04:47 08/20/16 04:47
[2016-08-20] MEDS: LEVOFLOXACIN INJ 500 MG in PREMIX 1 EACH IV SCH (09:36)
[2016-08-20] MEDS: DEXT 5% NACL 0.45% KCL 20 MEQ 20 MEQ/1,000 ML BAG IV SCH ×2 (11:00→22:22)
[2016-08-20] MEDS: VENLAFAXINE XR 75 MG CAPSULE PO SCH ×2 (16:46→17:14)
[2016-08-20] MEDS: ALPRAZolam 0.25 MG TABLET PO PRN (21:06)
[2016-08-20] MEDS: MAGNESIUM HYDROXIDE SUSP 30 ML UDCUP PO PRN (21:06)
[2016-08-21] MEDS: DEXT 5% NACL 0.45% KCL 20 MEQ 20 MEQ/1,000 ML BAG IV SCH ×2 (03:22→11:30)
[2016-08-21] MEDS: VANCOMYCIN INJ 1,000 MG in SODIUM CHLORIDE 0.9% 250 ML IV SCH ×2 (03:59→16:40)
[2016-08-21 05:52] LABS: Eosinophils % 1.9 % (0.00-10.9); Hematocrit 25.3 VOL% (35.7-47.0); Hemoglobin 8.6 GM/DL (12.0-16.0); Immature Granulocytes % 11.1 %; Immature Granulocytes Absolute 0.23 #; Lymphocytes # 0.6 10*3/uL (1.4-4.0); Lymphocytes % 27.9 % (21.3-54.2); Mean Corpuscular Hemoglobin 30 PG (27-34); Mean Corpuscular Volume 87.2 FL (87-102); Mean Platelet Volume 10.5 FL (9.6-12.0); Monocytes # 0.2 10*3/uL (0.11-0.8); Monocytes % 8.7 % (1.7-12.7); Neutrophils % 49.4 % (38.7-73.9); Red Cell Distribution Width 16.8 % (9.3-17.3); White Blood Count 2.1 T/CUMM (4-12)
[2016-08-21 06:13] LABS: Platelet Count 11 T/CUMM (130-400)
[2016-08-21 06:28] LABS: Band Neutrophils 1 % (0-10); Eosinophils 3 % (0-10); Hypochromasia 1+; Lymphocytes 26 % (20-55); Ovalocytes Slight; Platelet Estimate Decreased; Segmented Neutrophils 65 % (50-85); Total Cells Counted 100
[2016-08-21 06:29] LABS: Microcytosis 1+; Rouleau Slight
[2016-08-21 06:54] LABS: Albumin 1.8 G/DL (3.4-5.0); Bilirubin,Total 0.6 MG/DL (0.2-1.0); Calcium 8.2 MG/DL (8.5-10.1); Osmolality,Calculated 277.4 MOS/KG (273-304); Potassium 3.8 MMOL/L (3.5-5.1); Total Protein 8.7 G/DL (6.4-8.3)
--- NOTE | 2016-08-21 07:13 | Physician Query Form ---
CLICK EDIT DOCUMENT TO SELECT QUERY ANSWER --> OK --> SIGN Kirstie Pan RN, CCDS Certified Clinical Order Caller W) [phone] (f) [phone] [email or web address] PROVIDERS: Make your selection(s) from the choices in EACH section by typing an "x" and enter comments in the comment section. Please use your independent medical judgment in providing your response. This request does not imply that any particular answer is desired or expected. CLINICAL INDICATORS: (Providers should not edit this section) The medical record indicates that the patient was admitted with pulmonary edema , thrombocytopenia, Pulse of 125#, Respirations of 24, WBC of 1.5, 10% Bands and the patient has two positive blood cultures for Staphylococcus epidermidis. [patient is on Vancomycin/ Levaquin] Please clarify which, if any, of the following is the etiology of the above symptoms and treatment rendered: ( ) Septic Shock (severe sepsis with hypotension) ( ) Severe Sepsis (sepsis with acute organ failure) - Please specify type acute organ failure: ( ) Sepsis due to a localized infection, please specify site: ( ) Sepsis due to a device, implant or graft, please specify: ( ) Localized infection only, without systemic illness, please specify site: ( ) Bacteremia (abnormal lab finding only, does not indicate systemic illness) ( ) Other condition, please specify: (x ) Clinically unable to determine Criteria for Sepsis (SIRS due to an infection) should be based on 2 or more of the following being present: Temperature > 101F or < 96.8F WBC > 12,000 or < 4,000, or > 10% bands Tachycardia HR > 90 beats/minute Tachypnea RR > 20 breaths/minute or PaCO2 > 32mmHg Lactate level > 2.0 mmol/L (>4 is equivalent to severe sepsis) Altered Mental Status Mottling of skin or prolonged capillary refill Non-diabetic hyperglycemia (blood sugar >120 mg/dl) Other evidence of acute organ failure associated with sepsis ( severe sepsis) COMMENTS: Use of terms such as suspected, likely, or probable (associated with a specific diagnosis that is being evaluated, monitored, or treated as if it exists) are acceptable and can be restated in the discharge summary if not ruled out. MTDD
[2016-08-21] MEDS: FILGRASTIM-SNDZ 300 MCG/0.5 ML SYRINGE SUBCUT SCH (08:21)
[2016-08-21] MEDS ORDERED: SODIUM CHLORIDE 0.9% IV ONE (08:24)
[2016-08-21] MEDS ORDERED: BORTEZOMIB IV ONE (08:24)
[2016-08-21] MEDS ORDERED: DEXAMETHASONE 10 MG/1 ML VIAL IV ONE (08:25)
--- NOTE | 2016-08-21 08:26 | Oncology Progress Note ---
Oncology Subjective PN Interval history: I am proceeding with Velcade 2.3 mg IV and dexamethasone 40 mg IV today. This is a patient with progression of myeloma. She is also on daratumumab but I am probably not going to be able to give it this week because of low blood counts. However, I can proceed with the Velcade. I note that her globulins have fallen. Her globulins were 6.9 today, down from 8.3 August 17. She is thrombocytopenic today and platelets have been ordered. She is also leukopenic. Her myeloma has progressed and has new findings on some of the cytogenetic studies suggesting that it may be more refractory at this point. The mass in her manubrium had short last week and it has regrown. This is not good. This suggests that the turnover of the plasma cells has increased substantially and also suggests that it will be more refractory to treatment as the plasma cells multiply more rapidly. Exam - Constitutional Vitals: Period Temp Pulse Resp BP Sys/Mcneill Pulse Ox Last 24 Hr 96.3 F-99.3 F 75-125 18-20 94-135/51-75 95-97 Results - Labs CBC & BMP: 08/21/16 04:50 08/21/16 04:50
[2016-08-21] MEDS ORDERED: DEXAMETHASONE INJ 40 MG in SODIUM CHLORIDE 0.9% 50 ML IV ONE (09:00)
[2016-08-21] MEDS: LEVOFLOXACIN INJ 500 MG in PREMIX 1 EACH IV SCH (09:05)
[2016-08-21] MEDS: LACTULOSE 20 GM/30 ML UDCUP PO PRN (09:56)
[2016-08-21] MEDS: VENLAFAXINE XR 75 MG CAPSULE PO SCH (19:36)
[2016-08-22] MEDS: TEMAZEPAM 7.5 MG CAPSULE PO PRN ×2 (00:19→23:35)
[2016-08-22] MEDS: DEXT 5% NACL 0.45% KCL 20 MEQ 20 MEQ/1,000 ML BAG IV SCH ×2 (00:21→16:13)
[2016-08-22] MEDS: VANCOMYCIN INJ 1,000 MG in SODIUM CHLORIDE 0.9% 250 ML IV SCH ×2 (05:10→17:08)
[2016-08-22 05:36] LABS: Basophils % 0.4 % (0.0-0.8); Hematocrit 25.1 VOL% (35.7-47.0); Hemoglobin 8.5 GM/DL (12.0-16.0); Immature Granulocytes % 10.1 %; Immature Granulocytes Absolute 0.28 #; Lymphocytes # 0.9 10*3/uL (1.4-4.0); Lymphocytes % 30.6 % (21.3-54.2); Mean Corpuscular HGB Conc 33.9 GM/DL (32-36); Mean Corpuscular Hemoglobin 30 PG (27-34); Mean Corpuscular Volume 88.1 FL (87-102); Mean Platelet Volume 11.8 FL (9.6-12.0); Monocytes # 0.4 10*3/uL (0.11-0.8); Neutrophils # 1.3 10*3/uL (1.4-7.4); Neutrophils % 44.9 % (38.7-73.9); Red Blood Count 2.85 MC/CUMM (3.8-5.5); Red Cell Distribution Width 16.9 % (9.3-17.3); White Blood Count 2.8 T/CUMM (4-12)
[2016-08-22 05:42] LABS: Platelet Count 28 T/CUMM (130-400)
[2016-08-22 06:07] LABS: Band Neutrophils 4 % (0-10); Hypochromasia 1+; Lymphocytes 25 % (20-55); Ovalocytes Slight; Platelet Estimate Decreased; Segmented Neutrophils 59 % (50-85); Total Cells Counted 100
[2016-08-22 06:08] LABS: Microcytosis 1+
[2016-08-22 06:22] LABS: Albumin 1.8 G/DL (3.4-5.0); Bilirubin,Total 0.8 MG/DL (0.2-1.0); Calcium 8.7 MG/DL (8.5-10.1); Osmolality,Calculated 275.7 MOS/KG (273-304); Potassium 4.6 MMOL/L (3.5-5.1)
--- NOTE | 2016-08-22 08:50 | Oncology Progress Note ---
Oncology Subjective PN Interval history: This patient has a history of progression of myeloma. That is the reason she has received daratumumab and that is also the reason she has received Velcade which she was supposed to get yesterday. She had already progressed after a single autologous marrow transplant and she had also progressed after being treated with thalidomide and dexamethasone since 2003. She has also progressed on Velcade and dexamethasone and this is the reason that she is on daratumumab as well. In addition, she has breast cancer and could have metastatic disease from it. However, all of the areas that we have biopsied contained myeloma and not breast cancer. The problem is that she has blastic lesions on x-rays of her axial spine. Myeloma does not ordinarily cause blastic changes. It causes osteolytic changes usually. This is the reason that we have treated her with Faslodex recently. This is also the reason why we have added Velcade that does not appear to be working by itself and thus we added daratumumab. Her insurance company is looking over her shoulder and trying desperately to find some reason to deny payment for these treatments. I have urged, so far all they have done is call for a [id number] discussion and then they canceled that and approved her treatment so far. On physical examination she is chronically ill. She has a large mass in the manubrium that has increased in size since a week ago. It initially shrank. However, we are having to hold Darzalex because of pancytopenia. Her white cell count today is 2800 and her platelet count is 28,000. We really need to continue the daratumumab but cannot do so safely this week. She has already received Velcade this week along with dexamethasone. I have explained to her that this may represent rapid progression of refractory myeloma. She has certainly responded well to treatment up until now for a myeloma this been present since 2003 and this is clearly discouraging. We are also watching her closely for any evidence of regression of her breast cancer which was only weakly hormone receptor positive and which actually recurred after initial treatment in spite of the fact that it was early stage breast cancer at the time of initial diagnosis. Exam - Constitutional Vitals: Period Temp Pulse Resp BP Sys/Mcneill Pulse Ox Last 24 Hr 96.2 F-98.5 F 100-113 18-20 88-110/47-76 94-98 Results - Labs CBC & BMP: 02/15/17 04:00 08/22/16 04:00
[2016-08-22] MEDS: FILGRASTIM-SNDZ 300 MCG/0.5 ML SYRINGE SUBCUT SCH (08:59)
[2016-08-22] MEDS: LEVOFLOXACIN INJ 500 MG in PREMIX 1 EACH IV SCH (09:00)
--- NOTE | 2016-08-22 13:41 | Physician Query Form ---
CLICK EDIT DOCUMENT TO SELECT QUERY ANSWER --> OK --> SIGN Kirstie Pan RN, CCDS Certified Clinical Poising Inspector W) [phone] (f) [phone] [email or web address] PROVIDERS: Make your selection(s) from the choices in EACH section by typing an "x" and enter comments in the comment section. Please use your independent medical judgment in providing your response. This request does not imply that any particular answer is desired or expected. CLINICAL INDICATORS: (Providers should not edit this section) The medical record indicates that the patient was admitted with pulmonary edema , on the : "Pancytopenia", and the patient is getting Velcade. Based on the above, could you clarify the appropriate diagnosis, if significant , that supports the above abnormalities and additional evaluation, monitoring, and/or treatment rendered: ( ) Pancytopenia due to ( ) Chemotherapy induced pancytopenia ( ) Other, please specify: ( x) Clinically unable to determine COMMENTS: Use of terms such as suspected, likely, or probable (associated with a specific diagnosis that is being evaluated, monitored, or treated as if it exists) are acceptable and can be restated in the discharge summary if not ruled out. MTDD
[2016-08-22] MEDS: VENLAFAXINE XR 75 MG CAPSULE PO SCH (18:23)
[2016-08-23] MEDS: VANCOMYCIN INJ 1,000 MG in SODIUM CHLORIDE 0.9% 250 ML IV SCH ×2 (04:32→16:33)
[2016-08-23 05:21] LABS: Eosinophils % 0.5 % (0.00-10.9); Hematocrit 31.9 VOL% (35.7-47.0); Hemoglobin 10.8 GM/DL (12.0-16.0); Immature Granulocytes % 7.4 %; Immature Granulocytes Absolute 0.15 #; Lymphocytes # 0.6 10*3/uL (1.4-4.0); Lymphocytes % 28.9 % (21.3-54.2); Mean Corpuscular HGB Conc 33.9 GM/DL (32-36); Mean Corpuscular Hemoglobin 30 PG (27-34); Mean Corpuscular Volume 87.9 FL (87-102); Monocytes # 0.3 10*3/uL (0.11-0.8); Monocytes % 14.2 % (1.7-12.7); Red Blood Count 3.63 MC/CUMM (3.8-5.5)
[2016-08-23 05:43] LABS: Platelet Count 12 T/CUMM (130-400)
[2016-08-23 05:51] LABS: Alanine Aminotransferase 54 U/L (13-56); Albumin 1.8 G/DL (3.4-5.0); Alkaline Phosphatase 186 U/L (45-117); Aspartate Amino Transferase 69 U/L (0-37); Band Neutrophils 5 % (0-10); Bilirubin,Total < 0.39 MG/DL (0.2-1.0); Blood Urea Nitrogen 21 MG/DL (7-18); Calcium 8.5 MG/DL (8.5-10.1); Glucose 113 MG/DL (74-106); Hypochromasia Slight; Lymphocytes 29 % (20-55); Metamyelocytes 1 %; Osmolality,Calculated 286.1 MOS/KG (273-304); Platelet Estimate Decreased; Potassium 4.3 MMOL/L (3.5-5.1); Segmented Neutrophils 51 % (50-85); Sodium 142 MMOL/L (136-145); Total Cells Counted 100; Total Protein 8.6 G/DL (6.4-8.3)
[2016-08-23 05:52] LABS: Microcytosis 1+
[2016-08-23] MEDS ORDERED: SODIUM CHLORIDE 0.9% 250 ML IV PRN ×3 (08:54→10:00)
[2016-08-23] MEDS: LEVOFLOXACIN INJ 500 MG in PREMIX 1 EACH IV SCH (09:35)
[2016-08-23] MEDS: FILGRASTIM-SNDZ 300 MCG/0.5 ML SYRINGE SUBCUT SCH (09:35)
--- NOTE | 2016-08-23 09:59 | Oncology Progress Note ---
Oncology Subjective PN Interval history: This patient has advanced myeloma with extensive bone involvement. Some of her bone involvement could be from breast cancer which she also has but she has had multiple biopsies that revealed plasma cell infiltrates including her manubrium , right supraclavicular lymph node and her iliac crest on the right side. She was on thalidomide from 2003 to the present. Prior to starting thalidomide she had a bone marrow transplant. She was more recently started on Velcade and we also added daratumumab. I had planned to repeat the daratumumab but she is pancytopenic. She has a large mass on the manubrium still. It was larger a couple of days ago than it is now. I am hoping that is going to shrink with Velcade. However , the fact that it is growing and shrinking with each dose of Velcade is not a good sign. It suggests rapid cell turnover which in myeloma is a bad sign prognostically. We are transfusing platelets. We are providing standing orders for but blood transfusions and platelet transfusions. Her myeloma has been successfully treated since 2003 but I am suspicious that it is becoming refractory. Exam - Constitutional Vitals: Period Temp Pulse Resp BP Sys/Mcneill Pulse Ox Last 24 Hr 96.5 F-97.6 F 114-120 16-20 99-116/57-68 97-100 Results - Labs CBC & BMP: 08/23/16 04:00 08/23/16 04:00
[2016-08-23] MEDS: VENLAFAXINE XR 75 MG CAPSULE PO SCH (19:08)
[2016-08-23] MEDS: TEMAZEPAM 7.5 MG CAPSULE PO PRN (20:04)
[2016-08-24] MEDS: DEXT 5% NACL 0.45% KCL 20 MEQ 20 MEQ/1,000 ML BAG IV SCH ×3 (02:19→23:23)
[2016-08-24] MEDS: VANCOMYCIN INJ 1,000 MG in SODIUM CHLORIDE 0.9% 250 ML IV SCH ×2 (04:00→16:12)
[2016-08-24 04:57] LABS: Basophils % 1.2 % (0.0-0.8); Eosinophils % 1.2 % (0.00-10.9); Hematocrit 39.8 VOL% (35.7-47.0); Immature Granulocytes % 3.6 %; Immature Granulocytes Absolute 0.06 #; Lymphocytes # 0.3 10*3/uL (1.4-4.0); Lymphocytes % 18.8 % (21.3-54.2); Mean Corpuscular HGB Conc 32.7 GM/DL (32-36); Mean Corpuscular Hemoglobin 29 PG (27-34); Mean Corpuscular Volume 89.8 FL (87-102); Mean Platelet Volume 12.3 FL (9.6-12.0); Monocytes # 0.2 10*3/uL (0.11-0.8); Monocytes % 9.1 % (1.7-12.7); Neutrophils # 1.1 10*3/uL (1.4-7.4); Neutrophils % 66.1 % (38.7-73.9); Red Blood Count 4.43 MC/CUMM (3.8-5.5); Red Cell Distribution Width 17.1 % (9.3-17.3); White Blood Count 1.7 T/CUMM (4-12)
[2016-08-24 05:00] LABS: Platelet Count 30 T/CUMM (130-400)
[2016-08-24 05:24] LABS: Albumin 1.9 G/DL (3.4-5.0); Bilirubin,Total 0.7 MG/DL (0.2-1.0); Calcium 8.6 MG/DL (8.5-10.1); Osmolality,Calculated 277.4 MOS/KG (273-304); Potassium 4.3 MMOL/L (3.5-5.1); Total Protein 8.3 G/DL (6.4-8.3)
[2016-08-24 05:26] LABS: Band Neutrophils 5 % (0-10); Lymphocytes 20 % (20-55); Segmented Neutrophils 72 % (50-85); Total Cells Counted 60
[2016-08-24 05:27] LABS: Platelet Estimate Decreased; Toxic Granulation 1+
[2016-08-24] MEDS: FILGRASTIM-SNDZ 300 MCG/0.5 ML SYRINGE SUBCUT SCH (08:36)
[2016-08-24] MEDS: LEVOFLOXACIN INJ 500 MG in PREMIX 1 EACH IV SCH (08:38)
--- NOTE | 2016-08-24 09:02 | Oncology Progress Note ---
Oncology Subjective PN Interval history: Platelets 30,000. Absolute neutrophil count 1100. Patient with myeloma that has progressed and is apparently becoming refractory according to analysis of a biopsy of 1 of the plasmacytomas. Her insurance company is being disruptive by questioning whether or not the treatment that I am giving is appropriate, including Zometa, Velcade and daratumumab. We were required to call them back and only after we did that did they actually say that they did not need to have a [id number] encounter concerning her treatment. She is acutely ill with myeloma and also has a history of breast cancer but I cannot be absolutely certain is not active as well. However ANC is 1100. It is following. She needs to be on granulocyte colony- stimulating factor. She is also thrombocytopenic with right periorbital ecchymosis. It appears that this myeloma is extremely aggressive at this point and becoming refractory to treatment but she has not had adequate time to receive treatment for the progressing myeloma. She will possibly need another dose of daratumumab fairly soon. Exam - Constitutional Vitals: Period Temp Pulse Resp BP Sys/Mcneill Pulse Ox Last 24 Hr 96.6 F-98.2 F 112-127 18-20 99-129/57-76 93-100 Results - Labs CBC & BMP: 08/24/16 04:00 08/24/16 04:00
[2016-08-24] MEDS: VENLAFAXINE XR 75 MG CAPSULE PO SCH (18:32)
[2016-08-24] MEDS: TEMAZEPAM 7.5 MG CAPSULE PO PRN (23:36)
[2016-08-25] MEDS: VANCOMYCIN INJ 1,000 MG in SODIUM CHLORIDE 0.9% 250 ML IV SCH ×2 (04:53→15:29)
[2016-08-25 06:04] LABS: Basophils % 0.5 % (0.0-0.8); Hematocrit 24.9 VOL% (35.7-47.0); Hemoglobin 8.4 GM/DL (12.0-16.0); Immature Granulocytes % 6.8 %; Immature Granulocytes Absolute 0.14 #; Lymphocytes # 0.4 10*3/uL (1.4-4.0); Lymphocytes % 21.5 % (21.3-54.2); Mean Corpuscular HGB Conc 33.7 GM/DL (32-36); Mean Corpuscular Hemoglobin 29 PG (27-34); Mean Corpuscular Volume 87.1 FL (87-102); Mean Platelet Volume 12.3 FL (9.6-12.0); Monocytes # 0.2 10*3/uL (0.11-0.8); Monocytes % 10.7 % (1.7-12.7); Neutrophils # 1.2 10*3/uL (1.4-7.4); Neutrophils % 59.5 % (38.7-73.9); Red Blood Count 2.86 MC/CUMM (3.8-5.5); Red Cell Distribution Width 16.6 % (9.3-17.3); White Blood Count 2.1 T/CUMM (4-12)
[2016-08-25 06:11] LABS: Platelet Count 32 T/CUMM (130-400)
[2016-08-25 06:34] LABS: Albumin 1.9 G/DL (3.4-5.0); Bilirubin,Total 1.4 MG/DL (0.2-1.0); Calcium 8.7 MG/DL (8.5-10.1); Osmolality,Calculated 272.7 MOS/KG (273-304); Total Protein 8.5 G/DL (6.4-8.3)
[2016-08-25 08:11] LABS: Band Neutrophils 8 % (0-10); Lymphocytes 28 % (20-55); Segmented Neutrophils 64 % (50-85); Total Cells Counted 100
[2016-08-25 08:12] LABS: Hypochromasia 1+; Microcytosis 1+; Platelet Estimate Decreased
[2016-08-25] MEDS: FILGRASTIM-SNDZ 300 MCG/0.5 ML SYRINGE SUBCUT SCH (08:14)
[2016-08-25] MEDS: LEVOFLOXACIN INJ 500 MG in PREMIX 1 EACH IV SCH ×2 (08:16→10:04)
--- NOTE | 2016-08-25 10:48 | Oncology Progress Note ---
Oncology Subjective PN Interval history: This is a patient with multiple myeloma who has been previously treated with bone marrow transplant and also treated with thalidomide and third line treatment was Velcade with fourth line treatment being the addition of daratumumab. She has progression of disease and I am continuing supportive care and I am also considering changing her chemotherapy. I am meeting resistance from the inpatient pharmacy concerning daratumumab and I am also meeting resistance from her insurance carrier, even from the standpoint of using Zometa to treat her bone metastases. Her ANC is 1200 today and her platelet count is 32,000. If the CBC can be trusted, her hemoglobin has dropped dramatically to 8.4. She is on granulocyte colony-stimulating factor. She is developed herpes labialis. She has an ecchymosis of her right eye in the small wound at the corner of her left eye. She is critically ill with what am afraid represents progression of myeloma that has responded exceptionally well since 2003, but now has mutated to a more aggressive form. I am considering for approach to take next as far as therapeutic measures for the myeloma. In addition she has underlying breast cancer and I cannot be absolutely certain that some of her bone metastases are not due to it. She has received 1 dose of Faslodex and I will consider administering another one at some point. Exam - Constitutional Vitals: Period Temp Pulse Resp BP Sys/Mcneill Pulse Ox Last 24 Hr 96.6 F-97.7 F 85-114 18-20 106-121/56-72 93-99 Results - Labs CBC & BMP: 08/25/16 05:12 08/25/16 05:12
[2016-08-25] MEDS: LACTULOSE 20 GM/30 ML UDCUP PO PRN (12:52)
[2016-08-25] MEDS: DEXT 5% NACL 0.45% KCL 20 MEQ 20 MEQ/1,000 ML BAG IV SCH (14:36)
[2016-08-25] MEDS: traMADol 50 MG TABLET PO PRN (20:19)
[2016-08-25] MEDS: VENLAFAXINE XR 75 MG CAPSULE PO SCH (20:20)
[2016-08-25] MEDS: TEMAZEPAM 7.5 MG CAPSULE PO PRN (20:20)
[2016-08-26] MEDS: traMADol 50 MG TABLET PO PRN (02:00)
[2016-08-26] MEDS: DEXT 5% NACL 0.45% KCL 20 MEQ 20 MEQ/1,000 ML BAG IV SCH ×2 (04:22→19:44)
[2016-08-26] MEDS: VANCOMYCIN INJ 1,000 MG in SODIUM CHLORIDE 0.9% 250 ML IV SCH ×2 (04:23→20:40)
[2016-08-26 05:30] LABS: Eosinophils % 1.4 % (0.00-10.9); Hematocrit 22.9 VOL% (35.7-47.0); Hemoglobin 7.7 GM/DL (12.0-16.0); Immature Granulocytes % 6.7 %; Immature Granulocytes Absolute 0.14 #; Lymphocytes # 0.5 10*3/uL (1.4-4.0); Lymphocytes % 23.4 % (21.3-54.2); Mean Corpuscular HGB Conc 33.6 GM/DL (32-36); Mean Corpuscular Hemoglobin 29 PG (27-34); Mean Corpuscular Volume 87.1 FL (87-102); Mean Platelet Volume 12.6 FL (9.6-12.0); Monocytes # 0.2 10*3/uL (0.11-0.8); Monocytes % 10.5 % (1.7-12.7); Neutrophils # 1.2 10*3/uL (1.4-7.4); Red Blood Count 2.63 MC/CUMM (3.8-5.5); Red Cell Distribution Width 16.6 % (9.3-17.3); White Blood Count 2.1 T/CUMM (4-12)
[2016-08-26] MEDS ORDERED: SODIUM CHLORIDE 0.9% 250 ML IV PRN ×2 (05:39→11:34)
[2016-08-26 05:40] LABS: Platelet Count 16 T/CUMM (130-400)
[2016-08-26 05:51] LABS: Albumin 1.8 G/DL (3.4-5.0); Bilirubin,Total 0.5 MG/DL (0.2-1.0); Calcium 8.3 MG/DL (8.5-10.1); Total Protein 8.5 G/DL (6.4-8.3)
[2016-08-26 07:31] LABS: Band Neutrophils 13 % (0-10); Hypochromasia 2+; Lymphocytes 13 % (20-55); Microcytosis 1+; Platelet Estimate Decreased; Segmented Neutrophils 62 % (50-85); Total Cells Counted 100
[2016-08-26] MEDS: LEVOFLOXACIN INJ 500 MG in PREMIX 1 EACH IV SCH (11:06)
[2016-08-26] MEDS: fentaNYL 25 MCG/HR PATCH TRANSDERM SCH (11:15)
[2016-08-26] MEDS: FILGRASTIM-SNDZ 300 MCG/0.5 ML SYRINGE SUBCUT SCH (11:19)
--- NOTE | 2016-08-26 11:32 | Oncology Progress Note ---
Oncology Subjective PN Interval history: This patient is being followed for advanced myeloma with progression of bony metastases. She is having worsening pain and I am adding parenteral narcotics for pain relief. I am also considering further chemotherapy tomorrow. She has had one course of daratumumab and has been pancytopenic. She is also on Velcade. Her previous treatment consisted initially of a bone marrow transplant and later thalidomide which she took from 2003 until recently. She has obvious bony metastases that appear to all be due to myeloma but we cannot be certain. Some of the metastases are blastic/sclerotic and could represent breast cancer. This is the reason that she is gotten Faslodex. This is also the reason she is gotten Zometa. She has a past history of recurrent breast cancer to the left chest wall after initially undergoing lumpectomy. She subsequently underwent mastectomy and radiation and was treated with chemotherapy using Adriamycin and Cytoxan. On physical examination she is chronically ill as well as acutely ill. She has a right periorbital ecchymosis. She is complaining of numbness in the right submental region that could represent a jaw metastasis. Her myeloma appears to be progressing and I think it is in a more aggressive stage and form and that it has mutated. She is having a lot of back pain. Her platelet count is 16,000. Her white cell count is 2100 and her hemoglobin is 7.7. I am transfusing platelets and red cells today. Exam - Constitutional Vitals: Period Temp Pulse Resp BP Sys/Mcneill Pulse Ox Last 24 Hr 96.3 F-97.5 F 104-125 18-21 111-139/62-79 96-98 Results - Labs CBC & BMP: 08/26/16 04:00 08/26/16 04:00
[2016-08-26] MEDS: VENLAFAXINE XR 75 MG CAPSULE PO SCH (19:04)
[2016-08-26] MEDS: TEMAZEPAM 7.5 MG CAPSULE PO PRN (20:39)
[2016-08-27] MEDS: DEXT 5% NACL 0.45% KCL 20 MEQ 20 MEQ/1,000 ML BAG IV SCH ×2 (04:56→20:07)
[2016-08-27 05:34] LABS: Basophils % 0.7 % (0.0-0.8); Eosinophils % 0.7 % (0.00-10.9); Hematocrit 28.7 VOL% (35.7-47.0); Hemoglobin 9.4 GM/DL (12.0-16.0); Immature Granulocytes % 8.6 %; Immature Granulocytes Absolute 0.23 #; Lymphocytes # 0.8 10*3/uL (1.4-4.0); Lymphocytes % 30.9 % (21.3-54.2); Mean Corpuscular HGB Conc 32.8 GM/DL (32-36); Mean Corpuscular Hemoglobin 28 PG (27-34); Mean Corpuscular Volume 86.4 FL (87-102); Mean Platelet Volume 11.7 FL (9.6-12.0); Monocytes # 0.2 10*3/uL (0.11-0.8); Monocytes % 8.2 % (1.7-12.7); Neutrophils # 1.4 10*3/uL (1.4-7.4); Neutrophils % 50.9 % (38.7-73.9); Red Blood Count 3.32 MC/CUMM (3.8-5.5); Red Cell Distribution Width 16.7 % (9.3-17.3); White Blood Count 2.7 T/CUMM (4-12)
[2016-08-27 05:49] LABS: Platelet Count 27 T/CUMM (130-400)
[2016-08-27 06:00] LABS: Band Neutrophils 8 % (0-10); Lymphocytes 26 % (20-55); Nucleated Red Blood Cells 1 (0-5); Segmented Neutrophils 60 % (50-85); Total Cells Counted 100
[2016-08-27 06:01] LABS: Hypochromasia 1+; Microcytosis 1+; Platelet Estimate Decreased
[2016-08-27 06:06] LABS: Bilirubin,Total 0.6 MG/DL (0.2-1.0); Calcium 8.3 MG/DL (8.5-10.1); Osmolality,Calculated 271.7 MOS/KG (273-304); Potassium 4.1 MMOL/L (3.5-5.1)
--- NOTE | 2016-08-27 08:14 | Oncology Progress Note ---
Oncology Subjective PN Interval history: Ms. Kate has IgG lambda myeloma and is currently on chemotherapy using Velcade and daratumumab but I have only been able to give 1 dose of daratumumab because of prolonged thrombocytopenia and leukopenia. She received 1000 mg of daratumumab on August 09. That has been her only dose. She has been on weekly Velcade. I am considering at least one dose of BCNU. In addition she has breast cancer and may have metastatic disease from her breast cancer. We cannot be certain that it has not metastasized. She has osteoblastic lesions of the bone which are unusual with myeloma but, with breast cancer. Her hemoglobin is 9.4. Her white cell count is 2700 and her platelet count is 27,000. We are continuing to have to monitor blood work on a daily basis because of the myeloma and the treatment for the myeloma. She is having a lot of back pain due to extensive bone involvement and she is requiring parenteral narcotics for this pain. I am proceeding with chemotherapy today. She is feeling better but she still has significant bone pain and she has been on parenteral narcotics which have adjusted. See my orders. Exam - Constitutional Vitals: Period Temp Pulse Resp BP Sys/Mcneill Pulse Ox Last 24 Hr 96.7 F-97.8 F 106-122 - 105-133/64-80 93-99 Results - Labs CBC & BMP: 08/27/16 04:00 08/27/16 04:00
[2016-08-27] MEDS: VANCOMYCIN INJ 1,000 MG in SODIUM CHLORIDE 0.9% 250 ML IV SCH ×2 (08:53→20:10)
[2016-08-27] MEDS ORDERED: ALTEPLASE 10 MG in SODIUM CHLORIDE 0.9% 250 ML IV ONE (08:59)
[2016-08-27] MEDS: FILGRASTIM-SNDZ 300 MCG/0.5 ML SYRINGE SUBCUT SCH (09:15)
[2016-08-27] MEDS ORDERED: DEXAMETHASONE INJ 20 MG in SODIUM CHLORIDE 0.9% 50 ML IV ONE (10:00)
[2016-08-27] MEDS ORDERED: GRANISETRON 1 MG/1 ML VIAL IV ONE (10:00)
[2016-08-27] MEDS ORDERED: [UNRECOGNIZED DRUG - OTHER] IV ONE (10:00)
[2016-08-27] MEDS ORDERED: DEXTROSE 5% IV ONE (10:00)
[2016-08-27] MEDS ORDERED: vinCRIStine 2 MG in SYRINGE 1 EACH IV ONE (10:00)
[2016-08-27] MEDS: traMADol 50 MG TABLET PO PRN (11:42)
[2016-08-27] MEDS: LEVOFLOXACIN INJ 500 MG in PREMIX 1 EACH IV SCH (13:17)
[2016-08-27] MEDS: LACTULOSE 20 GM/30 ML UDCUP PO PRN (13:20)
[2016-08-27] MEDS ORDERED: ALTEPLASE 2 MG VIAL INTRACATH ONE (18:31)
[2016-08-27] MEDS: VENLAFAXINE XR 75 MG CAPSULE PO SCH (20:02)
[2016-08-27] MEDS: ALPRAZolam 0.25 MG TABLET PO PRN (20:03)
[2016-08-28 05:08] LABS: Basophils % 0.7 % (0.0-0.8); Hematocrit 27.4 VOL% (35.7-47.0); Hemoglobin 9.1 GM/DL (12.0-16.0); Immature Granulocytes % 10.2 %; Immature Granulocytes Absolute 0.44 #; Lymphocytes # 1.3 10*3/uL (1.4-4.0); Lymphocytes % 30.9 % (21.3-54.2); Mean Corpuscular HGB Conc 33.2 GM/DL (32-36); Mean Corpuscular Hemoglobin 29 PG (27-34); Mean Corpuscular Volume 85.9 FL (87-102); Monocytes # 0.4 10*3/uL (0.11-0.8); Neutrophils # 2.1 10*3/uL (1.4-7.4); Neutrophils % 48.2 % (38.7-73.9); Red Blood Count 3.19 MC/CUMM (3.8-5.5); Red Cell Distribution Width 16.7 % (9.3-17.3); White Blood Count 4.3 T/CUMM (4-12)
[2016-08-28 05:20] LABS: Platelet Count 14 T/CUMM (130-400)
[2016-08-28] MEDS ORDERED: SODIUM CHLORIDE 0.9% 250 ML IV PRN (05:21)
[2016-08-28 05:28] LABS: Bilirubin,Total 0.5 MG/DL (0.2-1.0); Calcium 7.9 MG/DL (8.5-10.1); Osmolality,Calculated 278.7 MOS/KG (273-304); Potassium 4.4 MMOL/L (3.5-5.1); Total Protein 9.1 G/DL (6.4-8.3)
[2016-08-28 05:39] LABS: Band Neutrophils 8 % (0-10); Lymphocytes 25 % (20-55); Segmented Neutrophils 59 % (50-85); Total Cells Counted 100
[2016-08-28 05:40] LABS: Hypochromasia 1+; Microcytosis 1+; Platelet Estimate Decreased
--- NOTE | 2016-08-28 07:40 | Oncology Progress Note ---
Oncology Subjective PN Interval history: Her platelet count is 14,000 today we will transfuse 1 unit of single donor platelets. She has a hemoglobin of 9.1. Her white cell count is 4300 on granulocyte colony-stimulating factor. This patient has advanced progressive IgG lambda myeloma that was initially diagnosed in 2003 and initially treated with bone marrow transplant and subsequently with thalidomide and then later Velcade and ultimately daratumumab but she is only received 1 dose of the daratumumab because of pancytopenia. Is supposed to be given weekly. Her illness is complicated by the fact that she has breast cancer and may also have metastatic disease from it. We are treating it as well. The tumor is hormone receptor positive and she has received 1 dose of Faslodex. She feels better today even though her platelet count is lower. The right periorbital ecchymosis is improving. I suspect that her subjective improvement rehydration. It is related to the corticosteroids that she received. She has a persistent mass in the manubrium that were watching closely. She is critically ill with advanced myeloma. She is on parenteral narcotics. We will continue to monitor her for side effects from the chemotherapy. Exam - Constitutional Vitals: Period Temp Pulse Resp BP Sys/Mcneill Pulse Ox Last 24 Hr 96.5 F-97.5 F 99-112 18-20 93-126/54-76 92-98 Results - Labs CBC & BMP: 08/28/16 04:00 08/28/16 04:10
[2016-08-28] MEDS: FILGRASTIM-SNDZ 300 MCG/0.5 ML SYRINGE SUBCUT SCH (08:19)
[2016-08-28] MEDS: VANCOMYCIN INJ 1,000 MG in SODIUM CHLORIDE 0.9% 250 ML IV SCH ×2 (08:26→21:01)
[2016-08-28] MEDS: LEVOFLOXACIN INJ 500 MG in PREMIX 1 EACH IV SCH (12:39)
[2016-08-28] MEDS: VENLAFAXINE XR 75 MG CAPSULE PO SCH (18:16)
[2016-08-28] MEDS: TEMAZEPAM 7.5 MG CAPSULE PO PRN (20:58)
[2016-08-28] MEDS: ALPRAZolam 0.25 MG TABLET PO PRN (20:58)
[2016-08-28] MEDS: DEXT 5% NACL 0.45% KCL 20 MEQ 20 MEQ/1,000 ML BAG IV SCH (21:00)
[2016-08-29 04:54] LABS: Basophils % 0.3 % (0.0-0.8); Eosinophils % 0.3 % (0.00-10.9); Hematocrit 24.7 VOL% (35.7-47.0); Immature Granulocytes % 11.5 %; Immature Granulocytes Absolute 0.35 #; Lymphocytes % 32.9 % (21.3-54.2); Mean Corpuscular HGB Conc 32.4 GM/DL (32-36); Mean Corpuscular Hemoglobin 29 PG (27-34); Mean Corpuscular Volume 88.8 FL (87-102); Mean Platelet Volume 9.8 FL (9.6-12.0); Monocytes # 0.3 10*3/uL (0.11-0.8); Monocytes % 8.9 % (1.7-12.7); Neutrophils # 1.4 10*3/uL (1.4-7.4); Neutrophils % 46.1 % (38.7-73.9); Red Blood Count 2.78 MC/CUMM (3.8-5.5); Red Cell Distribution Width 16.8 % (9.3-17.3)
[2016-08-29 04:59] LABS: Platelet Count 29 T/CUMM (130-400)
[2016-08-29 05:16] LABS: Bilirubin,Total 0.9 MG/DL (0.2-1.0); Calcium 8.5 MG/DL (8.5-10.1); Osmolality,Calculated 280.3 MOS/KG (273-304); Total Protein 8.3 G/DL (6.4-8.3)
[2016-08-29 05:32] LABS: Band Neutrophils 8 % (0-10); Eosinophils 2 % (0-10); Hypochromasia 1+; Lymphocytes 29 % (20-55); Microcytosis 1+; Segmented Neutrophils 56 % (50-85); Total Cells Counted 100
[2016-08-29 05:33] LABS: Platelet Estimate Decreased
--- NOTE | 2016-08-29 08:10 | Oncology Progress Note ---
Oncology Subjective PN Interval history: This patient has had IgG lambda myeloma since 2003. She has previously been treated with bone marrow transplant and also with thalidomide. More recently she has received Velcade and in addition Darzalex. She is anemic with a hemoglobin of 8.0. Her platelet count is 29,000. Her absolute neutrophil count is 1400. 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 She has also been treated with Zometa. In addition she has a history of breast cancer. She has some blastic lesions on bone x-ray that are probably healing plasmacytomas but this is unusual. Blastic metastases are more likely to be due to breast cancer. I am going to go ahead and transfuse additional packed red cells today. On examining her, the mass in her manubrium may be slightly smaller. The difficulty is going to be in managing her pancytopenia while treating this myeloma in the hopes of achieving an effective response in spite of the fact that it may have transformed into a more aggressive form of myeloma. Exam - Constitutional Vitals: Period Temp Pulse Resp BP Sys/Mcneill Pulse Ox Last 24 Hr 96.0 F-98.4 F 104-120 20-20 93-112/57-66 96-97 Results - Labs CBC & BMP: 08/29/16 04:00 08/29/16 04:00
[2016-08-29] MEDS ORDERED: SODIUM CHLORIDE 0.9% 250 ML IV PRN (09:08)
[2016-08-29] MEDS: VANCOMYCIN INJ 1,000 MG in SODIUM CHLORIDE 0.9% 250 ML IV SCH (09:30)
[2016-08-29] MEDS: FILGRASTIM-SNDZ 300 MCG/0.5 ML SYRINGE SUBCUT SCH (09:33)
[2016-08-29] MEDS: fentaNYL 25 MCG/HR PATCH TRANSDERM SCH (09:34)
[2016-08-29] MEDS: LEVOFLOXACIN INJ 500 MG in PREMIX 1 EACH IV SCH (12:14)
[2016-08-29] MEDS: VENLAFAXINE XR 75 MG CAPSULE PO SCH (18:23)
[2016-08-29] MEDS: DEXT 5% NACL 0.45% KCL 20 MEQ 20 MEQ/1,000 ML BAG IV SCH (20:14)
[2016-08-29] MEDS: TEMAZEPAM 7.5 MG CAPSULE PO PRN (22:16)
[2016-08-30] MEDS: DEXT 5% NACL 0.45% KCL 20 MEQ 20 MEQ/1,000 ML BAG IV SCH ×3 (00:19→18:19)
[2016-08-30] MEDS: VANCOMYCIN INJ 1,000 MG in SODIUM CHLORIDE 0.9% 250 ML IV SCH ×2 (00:19→12:40)
[2016-08-30 06:14] LABS: Albumin 2.1 G/DL (3.4-5.0); Bilirubin,Total 0.9 MG/DL (0.2-1.0); Osmolality,Calculated 274.7 MOS/KG (273-304); Potassium 3.8 MMOL/L (3.5-5.1); Total Protein 8.8 G/DL (6.4-8.3)
[2016-08-30 06:22] LABS: Basophils % 0.7 % (0.0-0.8); Hematocrit 31.4 VOL% (35.7-47.0); Hemoglobin 10.3 GM/DL (12.0-16.0); Immature Granulocytes % 7.8 %; Immature Granulocytes Absolute 0.24 #; Lymphocytes # 1.1 10*3/uL (1.4-4.0); Lymphocytes % 36.8 % (21.3-54.2); Mean Corpuscular HGB Conc 32.8 GM/DL (32-36); Mean Corpuscular Hemoglobin 29 PG (27-34); Mean Corpuscular Volume 89.7 FL (87-102); Mean Platelet Volume 11.9 FL (9.6-12.0); Monocytes # 0.3 10*3/uL (0.11-0.8); Monocytes % 9.1 % (1.7-12.7); Neutrophils # 1.4 10*3/uL (1.4-7.4); Neutrophils % 44.6 % (38.7-73.9); Red Cell Distribution Width 15.9 % (9.3-17.3); White Blood Count 3.1 T/CUMM (4-12)
[2016-08-30 06:35] LABS: Platelet Count 16 T/CUMM (130-400)
[2016-08-30 06:56] LABS: Band Neutrophils 9 % (0-10); Lymphocytes 27 % (20-55); Metamyelocytes 2 %; Segmented Neutrophils 53 % (50-85); Total Cells Counted 100
[2016-08-30 06:58] LABS: Hypochromasia Slight; Microcytosis 1+; Platelet Estimate Decreased
[2016-08-30 06:59] LABS: Rouleau Slight
--- NOTE | 2016-08-30 07:58 | Oncology Progress Note ---
Oncology Subjective PN Interval history: Patient with IgG lambda myeloma that she has had for about 13 years. She has finally progressed after a marrow transplant and after being treated with thalidomide and dexamethasone. She has been on Velcade as well as daratumumab and earlier this week she received 1 dose of BCNU 60 mg IV. 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 This appears slightly smaller today. She is thrombocytopenic as well as leukopenic and anemic and we are monitoring lab work on a regular basis and transfusing platelets and red cells as needed. She is also on parenteral narcotics for pain due to painful bony metastases that are primarily from the myeloma but we cannot exclude bony metastases from her breast cancer. All biopsies have been negative for metastatic breast cancer but several areas of metastatic disease are reported as sclerotic which is unusual for myeloma. She also has a history of breast cancer and may have metastatic disease. The tumor was early stage but recurred after lumpectomy and she underwent mastectomy and adjuvant chemotherapy. The tumor was estrogen receptor positive and she has been on hormone therapy including Faslodex. Her last dose of Faslodex was July 31. Her absolute neutrophil count is 1400. Her platelet count is 16,000. Her hemoglobin is 10.3. She is oriented and alert and in no acute distress. She has bilateral periorbital ecchymoses that are clearing. Exam - Constitutional Vitals: Period Temp Pulse Resp BP Sys/Mcneill Pulse Ox Last 24 Hr 96.9 F-98.5 F 98-131 18-22 104-127/56-81 94-100 Results - Labs CBC & BMP: 08/30/16 04:00 08/30/16 04:00
[2016-08-30] MEDS: LEVOFLOXACIN INJ 500 MG in PREMIX 1 EACH IV SCH (10:01)
[2016-08-30] MEDS: FILGRASTIM-SNDZ 300 MCG/0.5 ML SYRINGE SUBCUT SCH (10:03)
[2016-08-30] MEDS: VENLAFAXINE XR 75 MG CAPSULE PO SCH (17:48)
[2016-08-30] MEDS: TEMAZEPAM 7.5 MG CAPSULE PO PRN (21:04)
[2016-08-31] MEDS: VANCOMYCIN INJ 1,000 MG in SODIUM CHLORIDE 0.9% 250 ML IV SCH ×2 (00:43→12:54)
[2016-08-31 06:33] LABS: Basophils % 0.8 % (0.0-0.8); Eosinophils % 0.4 % (0.00-10.9); Hematocrit 28.3 VOL% (35.7-47.0); Hemoglobin 9.4 GM/DL (12.0-16.0); Immature Granulocytes % 0.4 %; Immature Granulocytes Absolute 0.01 #; Lymphocytes # 1.2 10*3/uL (1.4-4.0); Mean Corpuscular HGB Conc 33.2 GM/DL (32-36); Mean Corpuscular Hemoglobin 29 PG (27-34); Mean Corpuscular Volume 87.3 FL (87-102); Mean Platelet Volume 10.2 FL (9.6-12.0); Monocytes # 0.3 10*3/uL (0.11-0.8); Monocytes % 11.1 % (1.7-12.7); Neutrophils # 0.9 10*3/uL (1.4-7.4); Neutrophils % 36.3 % (38.7-73.9); Platelet Count 47 T/CUMM (130-400); Red Blood Count 3.24 MC/CUMM (3.8-5.5); White Blood Count 2.4 T/CUMM (4-12)
[2016-08-31 07:06] LABS: Band Neutrophils 6 % (0-10); Eosinophils 1 % (0-10); Hypochromasia 1+; Lymphocytes 55 % (20-55); Ovalocytes Slight; Platelet Estimate Decreased; Segmented Neutrophils 25 % (50-85); Total Cells Counted 100
[2016-08-31 07:07] LABS: Microcytosis 1+; Rouleau Slight
[2016-08-31 07:22] LABS: Bilirubin,Total 0.7 MG/DL (0.2-1.0); Calcium 8.4 MG/DL (8.5-10.1); Osmolality,Calculated 276.7 MOS/KG (273-304); Potassium 4.2 MMOL/L (3.5-5.1); Total Protein 8.3 G/DL (6.4-8.3)
--- NOTE | 2016-08-31 07:56 | Oncology Progress Note ---
Oncology Subjective PN Interval history: This patient has advanced IgG lambda myeloma initially diagnosed in 2003 and now with progression of disease. She has previously been treated with a bone marrow transplant followed by thalidomide and dexamethasone. Velcade has been added she also has had 1 dose of daratumumab. Earlier this week but resorted to using BCNU 60 mg and vincristine 2 mg IV. She remains pancytopenic and she continued to have severe pain from bone metastases requiring parenteral narcotics. She is also dependent on transfusions. Blood work today includes white cell count 2400, ANC 900, hemoglobin 9.4, platelet count 47,000 after platelet transfusion. In addition, she has a history of breast cancer that was stage I but it recurred locally, requiring radiation and chemotherapy. The tumor is hormone receptor positive and we are treating her with hormone therapy. On examining her, the mass in the manubrium is decreasing in size. Unfortunately she is also having another drop in her blood counts. She is on granulocyte colony-stimulating factor. We are continuing to monitor her for toxicity from her chemotherapy. She is also on parenteral narcotics for pain and we are monitoring this. Her most recent biopsy included flow cytometry and cytogenetic studies that imply that this tumor is becoming more resistant. Exam - Constitutional Vitals: Period Temp Pulse Resp BP Sys/Mcneill Pulse Ox Last 24 Hr 96 F-97.7 F 127-140 16-20 100-125/50-67 92-96 Results - Labs CBC & BMP: 08/31/16 06:29 08/31/16 06:29
--- NOTE | 2016-08-31 08:59 | EKG Report ---
Stationary ECG Study [facility] Test Date: 08/31/2016 8:59:05 AM Pat Name: JON SCHILLING Department: Room: 422 Gender: F Vmware Architect: KIKE : 1950 Requested by: Hernan Walker Order Number: [id number] Reading MD: SEAN VELA Intervals [place] Rate: 138 P: 999 NC: 0 QRS: 12 QRSD: 89 T: 71 QT: 289 QTc: 370 Interpretive Statements Sinus tachycardia Electronically Signed On 08-31-16 22:25:40 AUTOMOTIVE QUALITY ENGINEER by SEAN VELA [email or web address]
[2016-08-31] MEDS: FILGRASTIM-SNDZ 300 MCG/0.5 ML SYRINGE SUBCUT SCH (09:26)
[2016-08-31] MEDS: CARVEDILOL 3.125 MG TABLET PO SCH ×2 (09:26→20:21)
[2016-08-31] MEDS: DEXT 5% NACL 0.45% KCL 20 MEQ 20 MEQ/1,000 ML BAG IV SCH (15:47)
[2016-08-31] MEDS: VENLAFAXINE XR 75 MG CAPSULE PO SCH (17:14)
[2016-08-31] MEDS: NYSTATIN 500,000 UNIT/5 ML UDCUP SWISH/SWAL SCH ×2 (17:14→20:22)
[2016-08-31] MEDS: TEMAZEPAM 7.5 MG CAPSULE PO PRN (20:22)
[2016-09-01] MEDS: VANCOMYCIN INJ 1,000 MG in SODIUM CHLORIDE 0.9% 250 ML IV SCH ×3 (00:44→23:52)
[2016-09-01 05:54] LABS: Hematocrit 26.8 VOL% (35.7-47.0); Immature Granulocytes % 1.5 %; Immature Granulocytes Absolute 0.03 #; Mean Corpuscular HGB Conc 33.6 GM/DL (32-36); Mean Corpuscular Hemoglobin 29 PG (27-34); Mean Corpuscular Volume 87.6 FL (87-102); Mean Platelet Volume 11.1 FL (9.6-12.0); Monocytes # 0.3 10*3/uL (0.11-0.8); Monocytes % 13.8 % (1.7-12.7); Neutrophils # 0.6 10*3/uL (1.4-7.4); Neutrophils % 32.7 % (38.7-73.9); Red Blood Count 3.06 MC/CUMM (3.8-5.5)
[2016-09-01 06:06] LABS: Platelet Count 29 T/CUMM (130-400)
[2016-09-01 06:25] LABS: Bilirubin,Total 0.9 MG/DL (0.2-1.0); Calcium 8.2 MG/DL (8.5-10.1); Osmolality,Calculated 277.7 MOS/KG (273-304); Total Protein 7.7 G/DL (6.4-8.3)
[2016-09-01 06:51] LABS: Band Neutrophils 4 % (0-10); Eosinophils 1 % (0-10); Hypochromasia 1+; Lymphocytes 47 % (20-55); Microcytosis 1+; Platelet Estimate Decreased; Segmented Neutrophils 32 % (50-85); Total Cells Counted 100
[2016-09-01 06:52] LABS: Rouleau Slight
--- NOTE | 2016-09-01 08:04 | EKG Report ---
Stationary ECG Study [facility] Test Date: 09/01/2016 8:02:55 AM Pat Name: JON SCHILLING Department: Room: 422 Gender: F Special Needs Teacher: : 1950 Requested by: Hernan Walker Order Number: [id number] Reading MD: SEAN VELA Intervals [place] Rate: 120 P: 98 AL: 173 QRS: 97 QRSD: 89 T: 33 QT: 303 QTc: 374 Interpretive Statements SINUS TACHYCARDIA BORDERLINE RIGHT AXIS DEVIATION Electronically Signed On 09-02-16 00:19:52 MICROFILM OPERATOR by SEAN VELA [id number]
[2016-09-01] MEDS: DEXT 5% NACL 0.45% KCL 20 MEQ 20 MEQ/1,000 ML BAG IV SCH ×2 (09:13→23:52)
[2016-09-01] MEDS: FILGRASTIM-SNDZ 300 MCG/0.5 ML SYRINGE SUBCUT SCH (09:14)
[2016-09-01] MEDS: fentaNYL 25 MCG/HR PATCH TRANSDERM SCH (09:14)
[2016-09-01] MEDS: CARVEDILOL 3.125 MG TABLET PO SCH ×2 (09:15→20:09)
[2016-09-01] MEDS: NYSTATIN 500,000 UNIT/5 ML UDCUP SWISH/SWAL SCH ×4 (09:15→20:09)
[2016-09-01] MEDS: traMADol 50 MG TABLET PO PRN (12:37)
--- NOTE | 2016-09-01 13:06 | Oncology Progress Note ---
Oncology Subjective PN Interval history: Long-standing multiple myeloma. Patient treated with chemotherapy last week. Pancytopenia is noted with ongoing Neupogen therapy. She does not require red blood cells or platelets today. She is up in the chair and appears comfortable. She does have O2 in place. She reports a pain level of 8 though she did not ask for anything specific at that time. She is also on several IV antibiotics given her immunosuppressed state. We will continue to monitor her closely. Exam - Constitutional Vitals: Period Temp Pulse Resp BP Sys/Mcneill Pulse Ox Last 24 Hr 97 F-98.3 F 110-121 17-20 102-127/57-75 87-98 Results - Labs CBC & BMP: 09/01/16 04:00 09/01/16 04:00
[2016-09-01] MEDS: VENLAFAXINE XR 75 MG CAPSULE PO SCH (18:22)
[2016-09-01] MEDS: TEMAZEPAM 7.5 MG CAPSULE PO PRN (20:09)
[2016-09-02 04:27] LABS: Basophils % 0.4 % (0.0-0.8); Eosinophils % 0.4 % (0.00-10.9); Hematocrit 28.1 VOL% (35.7-47.0); Hemoglobin 9.2 GM/DL (12.0-16.0); Immature Granulocytes % 6.2 %; Immature Granulocytes Absolute 0.14 #; Lymphocytes % 43.4 % (21.3-54.2); Mean Corpuscular HGB Conc 32.7 GM/DL (32-36); Mean Corpuscular Hemoglobin 29 PG (27-34); Mean Corpuscular Volume 89.8 FL (87-102); Mean Platelet Volume 9.7 FL (9.6-12.0); Monocytes # 0.4 10*3/uL (0.11-0.8); Monocytes % 18.1 % (1.7-12.7); Neutrophils # 0.7 10*3/uL (1.4-7.4); Neutrophils % 31.5 % (38.7-73.9); Red Blood Count 3.13 MC/CUMM (3.8-5.5); Red Cell Distribution Width 15.9 % (9.3-17.3); White Blood Count 2.3 T/CUMM (4-12)
[2016-09-02 04:33] LABS: Platelet Count 21 T/CUMM (130-400)
[2016-09-02 05:09] LABS: Albumin 1.9 G/DL (3.4-5.0); Bilirubin,Total 0.6 MG/DL (0.2-1.0); Calcium 7.8 MG/DL (8.5-10.1); Total Protein 7.3 G/DL (6.4-8.3)
[2016-09-02 05:46] LABS: Band Neutrophils 3 % (0-10); Lymphocytes 49 % (20-55); Platelet Estimate Decreased; Segmented Neutrophils 36 % (50-85)
[2016-09-02 05:48] LABS: Anisocytosis 1+; Microcytosis 1+; Total Cells Counted 100
--- NOTE | 2016-09-02 08:18 | Oncology Progress Note ---
Oncology Subjective PN Interval history: Patient is afebrile. She is up in chair in no acute distress. She does have O2 in place and mild dyspnea is noted during communication. No significant leg edema. She has a few scattered older appearing ecchymoses. No active bleeding. I do not appreciate any wheezes on bilateral anterior pulmonary examination. Labs are notable for platelet count of 21,000. MRSA bacteremia discussed with patient. Most recent blood cultures are negative. Remains on vancomycin. I will update a chest x-ray today. Her oral intake seems to be adequate and I will slightly reduce her IV fluids given frequent urination Exam - Constitutional Vitals: Period Temp Pulse Resp BP Sys/Mcneill Pulse Ox Last 24 Hr 96.6 F-97.9 F 109-120 18-20 102-127/57-80 92-96 Results - Labs CBC & BMP: 09/02/16 04:00 09/02/16 04:00
[2016-09-02] MEDS: NYSTATIN 500,000 UNIT/5 ML UDCUP SWISH/SWAL SCH ×4 (09:16→20:31)
[2016-09-02] MEDS: FILGRASTIM-SNDZ 300 MCG/0.5 ML SYRINGE SUBCUT SCH (09:17)
[2016-09-02] MEDS: CARVEDILOL 3.125 MG TABLET PO SCH ×2 (09:17→20:30)
--- NOTE | 2016-09-02 10:25 | XRay Report ---
Exam: Chest 2 views Date: September 02, 2016 at 8:39 AM Comparison: Chest one view portable August 17, 2016 Reason: Immunosuppressed patient with staph bacteremia Findings: A right-sided Mediport is again present with its distal tip within the right atrium. The cardiac silhouette is again enlarged. Opacities are present within both lungs, mainly at the lung bases. This likely represents pulmonary edema and atelectasis, but superimposed pneumonia is not excluded. No pneumothorax is identified, but there is mild bilateral pleural fluid. The osseous structures appear stable. There are known suspicious osseous lesions which are not well demonstrated on this study. Surgical clips are seen at the left axilla/chest wall, and the patient is status post left mastectomy. Impression: 1. The cardiac silhouette is again enlarged. This could represent cardiomegaly and/or a pericardial effusion. 2. There are opacities within both lungs, mainly at the lung bases. They have slightly increased and likely represent atelectasis and pulmonary edema. Superimposed pneumonia is not excluded. 3. Mild bilateral pleural fluid, increased since the previous study. PROCEDURE INTERPRETED AT [facility] DEPARTMENT OF RADIOLOGY Final Report Signed by: Dr. Gama Georges
[2016-09-02] MEDS: traMADol 50 MG TABLET PO PRN (12:06)
[2016-09-02] MEDS: VANCOMYCIN INJ 1,000 MG in SODIUM CHLORIDE 0.9% 250 ML IV SCH (12:28)
[2016-09-02] MEDS: VENLAFAXINE XR 75 MG CAPSULE PO SCH (18:20)
[2016-09-02] MEDS: DEXT 5% NACL 0.45% KCL 20 MEQ 20 MEQ/1,000 ML BAG IV SCH ×2 (18:38→21:59)
[2016-09-02] MEDS: TEMAZEPAM 7.5 MG CAPSULE PO PRN (20:30)
[2016-09-03] MEDS: VANCOMYCIN INJ 1,000 MG in SODIUM CHLORIDE 0.9% 250 ML IV SCH ×2 (00:42→12:49)
[2016-09-03 05:04] LABS: Basophils % 0.3 % (0.0-0.8); Eosinophils % 0.3 % (0.00-10.9); Hemoglobin 9.4 GM/DL (12.0-16.0); Immature Granulocytes % 15.3 %; Immature Granulocytes Absolute 0.45 #; Lymphocytes % 34.2 % (21.3-54.2); Mean Corpuscular HGB Conc 32.4 GM/DL (32-36); Mean Corpuscular Hemoglobin 29 PG (27-34); Mean Corpuscular Volume 89.2 FL (87-102); Mean Platelet Volume 8.6 FL (9.6-12.0); Monocytes # 0.5 10*3/uL (0.11-0.8); Neutrophils # 0.9 10*3/uL (1.4-7.4); Neutrophils % 31.9 % (38.7-73.9); Red Blood Count 3.25 MC/CUMM (3.8-5.5); Red Cell Distribution Width 15.7 % (9.3-17.3)
[2016-09-03 05:09] LABS: Platelet Count 15 T/CUMM (130-400)
[2016-09-03 05:28] LABS: Bilirubin,Total 0.7 MG/DL (0.2-1.0); Calcium 7.9 MG/DL (8.5-10.1); Osmolality,Calculated 278.4 MOS/KG (273-304); Total Protein 7.3 G/DL (6.4-8.3)
[2016-09-03] MEDS ORDERED: SODIUM CHLORIDE 0.9% 250 ML IV PRN (05:35)
[2016-09-03 05:46] LABS: Band Neutrophils 7 % (0-10); Hypochromasia 1+; Lymphocytes 36 % (20-55); Platelet Estimate Decreased; Segmented Neutrophils 38 % (50-85); Total Cells Counted 100
[2016-09-03 05:47] LABS: Microcytosis 1+; Rouleau Slight
--- NOTE | 2016-09-03 07:50 | Oncology Progress Note ---
Oncology Subjective PN Interval history: This patient has IgG lambda myeloma that has been treated with multiple combinations of chemotherapy. She initially underwent bone marrow transplant followed by thalidomide and dexamethasone and later Velcade was added. Subsequently daratumumab was added as well. She has only received 1 dose of it. She has received 1 dose of BCNU as well and its contributing to her pancytopenia although she has extensive bony involvement and probably has extensive marrow replacement by myeloma. Blood work today includes: White cell count 3000 with an ANC of 900 and rising. Platelet count 15,000. Hemoglobin 9.4. Her serum creatinine is 0.4. I have reviewed her chest x-ray film personally. She had fluid overload with bilateral small pleural effusions with blunting of the costophrenic angles bilaterally. I am going to start gentle diuresis. She should be receiving platelets today. I am also discontinuing her IV fluids. She fell last night and hurt her left hip. I do not think it serious but I am going to check an x-ray because of her history of myeloma. Exam - Constitutional Vitals: Period Temp Pulse Resp BP Sys/Mcneill Pulse Ox Last 24 Hr 96.4 F-98.6 F 89-109 18-20 113-131/64-77 93-98 Results - Labs CBC & BMP: 09/03/16 04:00 09/03/16 04:00
[2016-09-03] MEDS ORDERED: FUROSEMIDE 40 MG/4 ML VIAL IV ONE (07:57)
[2016-09-03] MEDS: CARVEDILOL 3.125 MG TABLET PO SCH ×2 (09:25→20:40)
[2016-09-03] MEDS: NYSTATIN 500,000 UNIT/5 ML UDCUP SWISH/SWAL SCH ×4 (09:25→20:39)
[2016-09-03] MEDS: FILGRASTIM-SNDZ 300 MCG/0.5 ML SYRINGE SUBCUT SCH (09:26)
--- NOTE | 2016-09-03 12:35 | XRay Report ---
Exam: XR hip 2V LT Date: 09/03/2016 8:41 AM Indication: Left hip pain status post fall Comparison: None Technical: AP lateral Findings: Injection granulomas present over the gluteal region. The femoral head is seated within the acetabular regions greater lesser trochanteric region and pubic rami are intact. Iliac wing SI joints unremarkable. Moderate fecal debris is present. Impression: 1. No fracture dislocation 2. Injection granulomas 3. Mild to moderate fecal debris rectal and PROCEDURE INTERPRETED AT [facility] DEPARTMENT OF RADIOLOGY Final Report Signed by: Dr. Ryan Chow
--- NOTE | 2016-09-03 16:12 | XRay Report ---
XR hip 2V RT Clinical Information: Right hip pain status post fall Comparison: 12/08/2009 Findings: No evidence of acute fracture or hip dislocation. No suspicious osseous or soft tissue lesions are identified. There are small degenerative osteophytes at the superior lateral acetabular margin. Impression: No acute findings. Mild degenerative changes. PROCEDURE INTERPRETED AT [facility] DEPARTMENT OF RADIOLOGY Final Report Signed by: Bigg Lane
[2016-09-03] MEDS: VENLAFAXINE XR 75 MG CAPSULE PO SCH (17:00)
[2016-09-04] MEDS ORDERED: HEPARIN LOCK FLUSH 500 UNIT/5 ML SYRINGE IV ONE (00:32)
[2016-09-04] MEDS: VANCOMYCIN INJ 1,000 MG in SODIUM CHLORIDE 0.9% 250 ML IV SCH ×2 (00:35→15:05)
[2016-09-04 07:13] LABS: Basophils % 0.6 % (0.0-0.8); Eosinophils % 0.4 % (0.00-10.9); Hematocrit 31.7 VOL% (35.7-47.0); Hemoglobin 10.4 GM/DL (12.0-16.0); Immature Granulocytes Absolute 1.07 #; Lymphocytes # 1.2 10*3/uL (1.4-4.0); Lymphocytes % 23.8 % (21.3-54.2); Mean Corpuscular HGB Conc 32.8 GM/DL (32-36); Mean Corpuscular Hemoglobin 29 PG (27-34); Mean Corpuscular Volume 89.5 FL (87-102); Mean Platelet Volume 10.5 FL (9.6-12.0); Monocytes # 0.9 10*3/uL (0.11-0.8); Monocytes % 18.3 % (1.7-12.7); Neutrophils # 1.7 10*3/uL (1.4-7.4); Neutrophils % 34.9 % (38.7-73.9); Platelet Count 41 T/CUMM (130-400); Red Blood Count 3.54 MC/CUMM (3.8-5.5); Red Cell Distribution Width 15.5 % (9.3-17.3); White Blood Count 4.9 T/CUMM (4-12)
[2016-09-04 07:37] LABS: Band Neutrophils 30 % (0-10); Eosinophils 1 % (0-10); Hypochromasia 2+; Lymphocytes 21 % (20-55); Microcytosis 1+; Myelocytes 1 %; Nucleated Red Blood Cells 1 (0-5); Platelet Estimate Decreased; Promyelocytes 1 %; Segmented Neutrophils 33 % (50-85); Total Cells Counted 100
[2016-09-04 07:45] LABS: Albumin 2.4 G/DL (3.4-5.0); Bilirubin,Total 0.8 MG/DL (0.2-1.0); Calcium 8.2 MG/DL (8.5-10.1); Osmolality,Calculated 274.5 MOS/KG (273-304); Total Protein 7.8 G/DL (6.4-8.3)
--- NOTE | 2016-09-04 07:46 | Oncology Progress Note ---
Oncology Subjective PN Interval history: Ms. Kate remains hospitalized with IgG lambda myeloma complicated by breast cancer. She has progressive myeloma. She is about 13 years out from her initial diagnosis and she has previously been treated with bone marrow transplant as well as thalidomide and dexamethasone and also Velcade and 1 dose of daratumumab. She has also received 1 dose of BCNU. It appears that the mass in her manubrium is shrinking. Blood work today includes a white cell count of 4900 and rising. Her absolute neutrophil count is up to 1700. Her hemoglobin is 10.4 and her platelet count is 41,000 after receiving a platelet transfusion yesterday. Her serum creatinine remains normal at 0.4 and she has a serum calcium that slightly low at 8.2 but she also has a low albumin. I am increasing her physical therapy. The main thing that is keeping me from discharging her is her weakness and the fact that she continues to fall. She sustained a small cut on her ankle last night. It only required a Band-Aid but she fell the day before and hurt her hip. X-rays of her hip do not demonstrate any fracture or apparently any other abnormality. She has documented extensive bony metastases from her myeloma. Exam - Constitutional Vitals: Period Temp Pulse Resp BP Sys/Mcneill Pulse Ox Last 24 Hr 96.4 F-97.6 F 91-130 13-20 77-134/47-81 92-98 Results - Labs CBC & BMP: 09/04/16 06:52 09/04/16 07:09
[2016-09-04] MEDS: CARVEDILOL 3.125 MG TABLET PO SCH ×2 (09:04→20:07)
[2016-09-04] MEDS: NYSTATIN 500,000 UNIT/5 ML UDCUP SWISH/SWAL SCH ×4 (09:07→20:08)
[2016-09-04] MEDS: FILGRASTIM-SNDZ 300 MCG/0.5 ML SYRINGE SUBCUT SCH (09:09)
[2016-09-04] MEDS: fentaNYL 25 MCG/HR PATCH TRANSDERM SCH (09:13)
[2016-09-04] MEDS: VENLAFAXINE XR 75 MG CAPSULE PO SCH (17:05)
[2016-09-05] MEDS: VANCOMYCIN INJ 1,000 MG in SODIUM CHLORIDE 0.9% 250 ML IV SCH ×2 (01:07→12:51)
[2016-09-05] MEDS ORDERED: HEPARIN LOCK FLUSH 500 UNIT/5 ML SYRINGE IV ONE ×2 (04:39→15:09)
[2016-09-05 05:32] LABS: Basophils # 0.1 10*3/uL (0.0-0.2); Basophils % 0.6 % (0.0-0.8); Eosinophils % 0.3 % (0.00-10.9); Hematocrit 29.8 VOL% (35.7-47.0); Hemoglobin 9.6 GM/DL (12.0-16.0); Immature Granulocytes % 19.6 %; Immature Granulocytes Absolute 1.52 #; Lymphocytes # 1.5 10*3/uL (1.4-4.0); Lymphocytes % 19.3 % (21.3-54.2); Mean Corpuscular HGB Conc 32.2 GM/DL (32-36); Mean Corpuscular Hemoglobin 29 PG (27-34); Mean Corpuscular Volume 89.2 FL (87-102); Mean Platelet Volume 11.8 FL (9.6-12.0); Monocytes # 1.3 10*3/uL (0.11-0.8); Monocytes % 17.2 % (1.7-12.7); NRBC # 0.04 10*3/uL; Neutrophils # 3.3 10*3/uL (1.4-7.4); Red Blood Count 3.34 MC/CUMM (3.8-5.5); Red Cell Distribution Width 15.6 % (9.3-17.3); White Blood Count 7.7 T/CUMM (4-12)
[2016-09-05 05:37] LABS: Platelet Count 30 T/CUMM (130-400)
[2016-09-05 05:55] LABS: Band Neutrophils 9 % (0-10); Eosinophils 1 % (0-10); Lymphocytes 15 % (20-55); Myelocytes 2 %; Nucleated Red Blood Cells 1 (0-5); Segmented Neutrophils 56 % (50-85); Total Cells Counted 100
[2016-09-05 05:56] LABS: Hypochromasia 1+; Microcytosis 1+; Platelet Estimate Decreased
[2016-09-05 06:14] LABS: Albumin 2.3 G/DL (3.4-5.0); Bilirubin,Total 1.1 MG/DL (0.2-1.0); Potassium 3.8 MMOL/L (3.5-5.1); Total Protein 7.4 G/DL (6.4-8.3)
[2016-09-05] MEDS: DEXT 5% NACL 0.45% KCL 20 MEQ 20 MEQ/1,000 ML BAG IV SCH (08:04)
--- NOTE | 2016-09-05 08:13 | Oncology Progress Note ---
Oncology Subjective PN Interval history: Patient with IgG lambda myeloma and history of locally recurrent breast cancer. She was admitted with progression of disease from her myeloma. She has disseminated bone involvement now. She was first diagnosed as having myeloma in 2003 and controlled with thalidomide and dexamethasone for many years after initially undergoing bone marrow transplant. Lab work during this hospital stay includes:Lab work done September 05, 2016 with a white cell count of 7700 and an absolute neutrophil count of 3300, hemoglobin of 9.6 and a platelet count that is 30,000 and falling. She has a serum creatinine of 0.4. Her alkaline phosphatase today is 306 with an LDH of 465. We can consider discharging her if her platelet count will stabilize. We are working on physical therapy and attempting to discharge her so that we can continue chemotherapy outpatient including daratumumab and Velcade and dexamethasone. She received 1 dose of BCNU earlier in this hospital stay and I think it has produced a response with shrinkage of the plasmacytoma in her manubrium. She is having some back pain but it is less severe than it was on admission. She has narcotics available both oral and parenteral treatment. She is oriented and alert. Her respirations are unlabored. Cranial nerves II through XII are intact. Cursory skin examination is normal. She is oriented to time, place, person and situation with normal mood and affect. Exam - Constitutional Vitals: Period Temp Pulse Resp BP Sys/Mcneill Pulse Ox Last 24 Hr 97.0 F-97.6 F 75-103 18-20 110-125/62-74 93-97 Results - Labs CBC & BMP: 09/05/16 05:09 09/05/16 05:09
[2016-09-05] MEDS: CARVEDILOL 3.125 MG TABLET PO SCH ×2 (08:57→21:06)
[2016-09-05] MEDS: NYSTATIN 500,000 UNIT/5 ML UDCUP SWISH/SWAL SCH ×4 (08:59→21:06)
[2016-09-05] MEDS: FILGRASTIM-SNDZ 300 MCG/0.5 ML SYRINGE SUBCUT SCH (09:00)
[2016-09-05] MEDS: VENLAFAXINE XR 75 MG CAPSULE PO SCH (17:11)
[2016-09-05] MEDS: HEPARIN LOCK FLUSH 500 UNIT/5 ML SYRINGE IV PRN (17:13)
[2016-09-06] MEDS: VANCOMYCIN INJ 1,000 MG in SODIUM CHLORIDE 0.9% 250 ML IV SCH ×2 (01:09→11:42)
[2016-09-06] MEDS: HEPARIN LOCK FLUSH 500 UNIT/5 ML SYRINGE IV PRN (04:10)
[2016-09-06 05:52] LABS: Basophils # 0.1 10*3/uL (0.0-0.2); Basophils % 0.5 % (0.0-0.8); Eosinophils % 0.3 % (0.00-10.9); Hematocrit 28.9 VOL% (35.7-47.0); Hemoglobin 9.2 GM/DL (12.0-16.0); Immature Granulocytes % 16.8 %; Immature Granulocytes Absolute 1.63 #; Lymphocytes # 1.9 10*3/uL (1.4-4.0); Lymphocytes % 19.3 % (21.3-54.2); Mean Corpuscular HGB Conc 31.8 GM/DL (32-36); Mean Corpuscular Hemoglobin 29 PG (27-34); Mean Corpuscular Volume 89.5 FL (87-102); Mean Platelet Volume 12.7 FL (9.6-12.0); Monocytes # 1.7 10*3/uL (0.11-0.8); Monocytes % 17.1 % (1.7-12.7); NRBC # 0.06 10*3/uL; Neutrophils # 4.5 10*3/uL (1.4-7.4); Red Blood Count 3.23 MC/CUMM (3.8-5.5); Red Cell Distribution Width 15.8 % (9.3-17.3); White Blood Count 9.7 T/CUMM (4-12)
[2016-09-06 05:56] LABS: Platelet Count 26 T/CUMM (130-400)
[2016-09-06 06:18] LABS: Band Neutrophils 13 % (0-10); Hypochromasia 1+; Lymphocytes 17 % (20-55); Metamyelocytes 1 %; Myelocytes 1 %; Ovalocytes Slight; Platelet Estimate Decreased; Segmented Neutrophils 54 % (50-85); Total Cells Counted 100
[2016-09-06 06:19] LABS: Microcytosis 1+
[2016-09-06 06:28] LABS: Albumin 2.4 G/DL (3.4-5.0); Bilirubin,Total 0.6 MG/DL (0.2-1.0); Osmolality,Calculated 278.3 MOS/KG (273-304); Potassium 3.6 MMOL/L (3.5-5.1); Total Protein 7.2 G/DL (6.4-8.3)
--- NOTE | 2016-09-06 07:14 | Oncology Progress Note ---
Oncology Subjective PN Interval history: Patient with IgG lambda myeloma with progression of disease. She has had significant progression of bony metastases and has a mass in the manubrium. She has previously been treated with bone marrow transplant followed by thalidomide and dexamethasone and then Velcade followed by daratumumab. The last Velcade dose was August 21, 2016 and was 2.3 mg. The last dose of BCNU was given August 27, 2016 and was 60 mg. She received vincristine 2 mg IV on that same day. This was the only dose of this medication that she has received. In addition, she was started on Darzalex 1000 mg IV on August 09 along with Velcade 2.3 mg IV on August 08. Lab work today:White cell count 9700 with an absolute neutrophil count 4500. Hemoglobin 9.2. Platelet count 26,000 and falling, serum creatinine 0.4. Globulins have fallen to 4.8 as of today from 5.4 on September 02. She is generally improving. She remains weak and she actually had nausea and vomiting this morning. I am still considering sending her home fairly soon but obviously not today and obviously not until I see that her platelet count is rising. This patient also has breast cancer that recurred locally in the left breast after undergoing lumpectomy. She had a mastectomy at that point and received radiation and adjuvant chemotherapy using Adriamycin and Cytoxan. Exam - Constitutional Vitals: Period Temp Pulse Resp BP Sys/Mcneill Pulse Ox Last 24 Hr 96.4 F-98.2 F 96-101 18-20 122-128/60-74 92-95 Results - Labs CBC & BMP: 09/06/16 04:00 09/06/16 04:00
[2016-09-06] MEDS: FILGRASTIM-SNDZ 300 MCG/0.5 ML SYRINGE SUBCUT SCH (08:41)
[2016-09-06] MEDS: CARVEDILOL 3.125 MG TABLET PO SCH ×2 (08:41→21:04)
[2016-09-06] MEDS: NYSTATIN 500,000 UNIT/5 ML UDCUP SWISH/SWAL SCH ×4 (08:41→21:05)
[2016-09-06] MEDS: VENLAFAXINE XR 75 MG CAPSULE PO SCH (17:11)
[2016-09-07] MEDS: VANCOMYCIN INJ 1,000 MG in SODIUM CHLORIDE 0.9% 250 ML IV SCH ×2 (00:10→16:07)
[2016-09-07] MEDS: HEPARIN LOCK FLUSH 500 UNIT/5 ML SYRINGE IV PRN ×2 (04:25→18:18)
[2016-09-07 05:05] LABS: Basophils # 0.1 10*3/uL (0.0-0.2); Basophils % 0.6 % (0.0-0.8); Eosinophils % 0.3 % (0.00-10.9); Hematocrit 28.7 VOL% (35.7-47.0); Hemoglobin 9.3 GM/DL (12.0-16.0); Immature Granulocytes % 20.2 %; Immature Granulocytes Absolute 2.71 #; Lymphocytes # 2.7 10*3/uL (1.4-4.0); Lymphocytes % 19.7 % (21.3-54.2); Mean Corpuscular HGB Conc 32.4 GM/DL (32-36); Mean Corpuscular Hemoglobin 29 PG (27-34); Mean Corpuscular Volume 89.7 FL (87-102); Mean Platelet Volume 10.2 FL (9.6-12.0); Monocytes # 1.5 10*3/uL (0.11-0.8); Monocytes % 11.4 % (1.7-12.7); NRBC # 0.07 10*3/uL; Neutrophils # 6.4 10*3/uL (1.4-7.4); Neutrophils % 47.8 % (38.7-73.9); Red Cell Distribution Width 15.8 % (9.3-17.3); White Blood Count 13.4 T/CUMM (4-12)
[2016-09-07 05:10] LABS: Platelet Count 17 T/CUMM (130-400)
[2016-09-07 05:29] LABS: Albumin 2.5 G/DL (3.4-5.0); Bilirubin,Total 1.4 MG/DL (0.2-1.0); Calcium 8.3 MG/DL (8.5-10.1); Osmolality,Calculated 280.1 MOS/KG (273-304); Potassium 3.5 MMOL/L (3.5-5.1); Total Protein 7.3 G/DL (6.4-8.3)
[2016-09-07 05:34] LABS: Band Neutrophils 9 % (0-10); Lymphocytes 23 % (20-55); Metamyelocytes 2 %; Myelocytes 1 %; Platelet Estimate Decreased; Segmented Neutrophils 56 % (50-85); Total Cells Counted 100
[2016-09-07 05:35] LABS: Hypochromasia 1+; Microcytosis 1+; Ovalocytes Slight
--- NOTE | 2016-09-07 07:52 | Oncology Progress Note ---
Oncology Subjective PN Interval history: Patient with IgG lambda myeloma post chemotherapy. Lab work today includes:A platelet count of 17,000 and falling, white cell count 13,400 with an absolute neutrophil count of 6400, hemoglobin of 9.3. Renal function is normal with a serum creatinine of 0.4. She has previously been treated with bone marrow transplant followed by thalidomide and dexamethasone and then Velcade followed by daratumumab. The last Velcade dose was August 21, 2016 and was 2.3 mg. The last dose of BCNU was given August 27, 2016 and was 60 mg. She received vincristine 2 mg IV on that same day. This was the only dose of this medication that she has received. In addition, she was started on Darzalex 1000 mg IV on August 09 along with Velcade 2.3 mg IV on August 08. I am discontinuing granulocyte colony-stimulating factor now. She will receive a platelet transfusion today. I am proceeding with Velcade today. I would like her to stay until I return on Saturday and then if she is improving and her platelet count is rising, we can discharge her at that time. Exam - Constitutional Vitals: Period Temp Pulse Resp BP Sys/Mcneill Pulse Ox Last 24 Hr 97.0 F-98.0 F 89-96 20-20 98-119/55-67 91-96 Results - Labs CBC & BMP: 09/07/16 04:00 09/07/16 04:00
[2016-09-07] MEDS ORDERED: DEXAMETHASONE 10 MG/1 ML VIAL IV ONE (08:52)
[2016-09-07] MEDS ORDERED: DEXAMETHASONE INJ 40 MG in SODIUM CHLORIDE 0.9% 50 ML IV ONE (09:30)
[2016-09-07] MEDS ORDERED: SODIUM CHLORIDE 0.9% IV ONE (10:00)
[2016-09-07] MEDS ORDERED: BORTEZOMIB IV ONE (10:00)
[2016-09-07] MEDS: NYSTATIN 500,000 UNIT/5 ML UDCUP SWISH/SWAL SCH ×4 (10:44→21:28)
[2016-09-07] MEDS: CARVEDILOL 3.125 MG TABLET PO SCH ×2 (10:44→21:28)
[2016-09-07] MEDS: fentaNYL 25 MCG/HR PATCH TRANSDERM SCH (10:45)
[2016-09-07] MEDS: VENLAFAXINE XR 75 MG CAPSULE PO SCH (18:18)
[2016-09-07] MEDS ORDERED: FLUCONAZOLE 200 MG TABLET PO ONE (21:37)
[2016-09-08] MEDS: VANCOMYCIN INJ 1,000 MG in SODIUM CHLORIDE 0.9% 250 ML IV SCH ×2 (00:38→13:09)
[2016-09-08 05:18] LABS: Basophils # 0.2 10*3/uL (0.0-0.2); Basophils % 0.8 % (0.0-0.8); Hematocrit 27.3 VOL% (35.7-47.0); Hemoglobin 8.7 GM/DL (12.0-16.0); Immature Granulocytes % 16.6 %; Immature Granulocytes Absolute 3.57 #; Lymphocytes # 3.5 10*3/uL (1.4-4.0); Lymphocytes % 16.1 % (21.3-54.2); Mean Corpuscular HGB Conc 31.9 GM/DL (32-36); Mean Corpuscular Hemoglobin 29 PG (27-34); Mean Corpuscular Volume 90.1 FL (87-102); Mean Platelet Volume 10.5 FL (9.6-12.0); Monocytes # 2.6 10*3/uL (0.11-0.8); Monocytes % 12.1 % (1.7-12.7); NRBC # 0.14 10*3/uL; Neutrophils # 11.7 10*3/uL (1.4-7.4); Neutrophils % 54.4 % (38.7-73.9); Platelet Count 55 T/CUMM (130-400); Red Blood Count 3.03 MC/CUMM (3.8-5.5); Red Cell Distribution Width 15.9 % (9.3-17.3); White Blood Count 21.6 T/CUMM (4-12)
[2016-09-08 06:04] LABS: Band Neutrophils 29 % (0-10); Lymphocytes 10 % (20-55); Metamyelocytes 1 %; Myelocytes 6 %; Promyelocytes 1 %; Segmented Neutrophils 53 % (50-85); Total Cells Counted 100
[2016-09-08 06:05] LABS: Platelet Estimate Decreased
--- NOTE | 2016-09-08 09:19 | Oncology Progress Note ---
Assessment and Plan (1) Multiple myeloma Status: Chronic Current Visit: No (2) Dyspnea Status: Chronic Current Visit: No (3) Anemia Status: Acute Current Visit: No (4) Thrombocytopenia Status: Acute Current Visit: No (5) Orthopnea Status: Acute Current Visit: No Oncology Subjective PN Interval history: Mr. Giron seems to be feeling well today. She has no new complaints. She has not needed any transfusions today. Her white count remains significantly elevated this is due to her recent Neupogen treatments. She received Velcade yesterday. She was sitting in a chair on my evaluation today. I will not make any changes to her current treatment regimen. Exam - Constitutional Vitals: Period Temp Pulse Resp BP Sys/Mcneill Pulse Ox Last 24 Hr 96.3 F-97.6 F 85-119 18-20 111-141/59-86 95-96 General appearance: normal weight, no acute distress - Head Head Exam: Present: normocephalic, atraumatic - Eye Eye Exam: Present: EOMI Pupils: Present: PERRL - ENT ENT exam: Present: normal exam, normal oropharynx - Neck Neck exam: Absent: lymphadenopathy, thyromegaly - Respiratory Respiratory exam: Present: CTAB. Absent: wheezes - Cardiovascular Cardiovascular exam: Present: RRR Results - Labs CBC & BMP: 09/08/16 04:00 09/07/16 04:00 Lab Results: I have reviewed the past 24 hour labs
[2016-09-08] MEDS: CARVEDILOL 3.125 MG TABLET PO SCH ×2 (09:51→20:15)
[2016-09-08] MEDS: NYSTATIN 500,000 UNIT/5 ML UDCUP SWISH/SWAL SCH ×4 (09:51→20:15)
[2016-09-08] MEDS: MAGNESIUM HYDROXIDE SUSP 30 ML UDCUP PO PRN (13:08)
[2016-09-08] MEDS: VENLAFAXINE XR 75 MG CAPSULE PO SCH (18:41)
[2016-09-09] MEDS: VANCOMYCIN INJ 1,000 MG in SODIUM CHLORIDE 0.9% 250 ML IV SCH ×2 (00:18→15:30)
[2016-09-09 06:58] LABS: Basophils % 0.3 % (0.0-0.8); Eosinophils % 0.1 % (0.00-10.9); Hematocrit 26.2 VOL% (35.7-47.0); Hemoglobin 8.6 GM/DL (12.0-16.0); Immature Granulocytes % 16.5 %; Mean Corpuscular HGB Conc 32.8 GM/DL (32-36); Mean Corpuscular Hemoglobin 29 PG (27-34); Mean Corpuscular Volume 88.5 FL (87-102); Mean Platelet Volume 10.1 FL (9.6-12.0); Monocytes % 12.4 % (1.7-12.7); NRBC # 0.23 10*3/uL; Neutrophils # 8.2 10*3/uL (1.4-7.4); Neutrophils % 51.7 % (38.7-73.9); Red Blood Count 2.96 MC/CUMM (3.8-5.5); White Blood Count 15.8 T/CUMM (4-12)
[2016-09-09 07:00] LABS: Platelet Count 40 T/CUMM (130-400)
[2016-09-09 07:57] LABS: Band Neutrophils 8 % (0-10); Lymphocytes 21 % (20-55); Metamyelocytes 2 %; Myelocytes 1 %; Segmented Neutrophils 54 % (50-85); Total Cells Counted 100
[2016-09-09 07:58] LABS: Hypochromasia 1+; Microcytosis 1+
[2016-09-09 07:59] LABS: Platelet Estimate Decreased
[2016-09-09] MEDS: NYSTATIN 500,000 UNIT/5 ML UDCUP SWISH/SWAL SCH ×4 (08:56→20:27)
[2016-09-09] MEDS: CARVEDILOL 3.125 MG TABLET PO SCH ×2 (08:56→20:23)
--- NOTE | 2016-09-09 08:59 | Oncology Progress Note ---
Assessment and Plan (1) Multiple myeloma Status: Chronic Current Visit: No (2) Dyspnea Status: Chronic Current Visit: No (3) Anemia Status: Acute Current Visit: No (4) Thrombocytopenia Status: Acute Current Visit: No (5) Orthopnea Status: Acute Current Visit: No Oncology Subjective PN Interval history: No new complaints. No transfusion needed today. Patient doing well. Exam - Constitutional Vitals: Period Temp Pulse Resp BP Sys/Mcneill Pulse Ox Last 24 Hr 97.0 F-97.9 F 91-104 18-20 116-133/66-83 93-97 General appearance: normal weight, no acute distress - Head Head Exam: Present: normocephalic, atraumatic - Eye Eye Exam: Present: EOMI Pupils: Present: PERRL - ENT ENT exam: Present: normal exam, normal oropharynx - Neck Neck exam: Absent: lymphadenopathy, thyromegaly - Respiratory Respiratory exam: Present: CTAB. Absent: wheezes - Cardiovascular Cardiovascular exam: Present: RRR. Absent: JVD, tachycardia - GI/Abdominal GI/Abdominal exam: Present: soft. Absent: ascites, distended, mass - Neurological Exam Neurological exam: Present: alert, oriented X3 - Psychiatric Psychiatric exam: Present: normal affect, normal mood - Skin Skin exam: Present: warm, dry Results - Labs CBC & BMP: 09/09/16 06:39 09/07/16 04:00 Lab Results: I have reviewed the past 24 hour labs
[2016-09-09] MEDS: VENLAFAXINE XR 75 MG CAPSULE PO SCH (17:47)
[2016-09-10] MEDS: VANCOMYCIN INJ 1,000 MG in SODIUM CHLORIDE 0.9% 250 ML IV SCH (00:28)
[2016-09-10 06:33] LABS: Basophils # 0.1 10*3/uL (0.0-0.2); Basophils % 0.6 % (0.0-0.8); Eosinophils % 0.2 % (0.00-10.9); Hematocrit 25.9 VOL% (35.7-47.0); Immature Granulocytes % 23.4 %; Immature Granulocytes Absolute 2.19 #; Lymphocytes # 1.7 10*3/uL (1.4-4.0); Lymphocytes % 17.9 % (21.3-54.2); Mean Corpuscular HGB Conc 30.9 GM/DL (32-36); Mean Corpuscular Hemoglobin 29 PG (27-34); Mean Corpuscular Volume 93.2 FL (87-102); Mean Platelet Volume 11.8 FL (9.6-12.0); Monocytes % 10.9 % (1.7-12.7); NRBC # 0.19 10*3/uL; Neutrophils # 4.4 10*3/uL (1.4-7.4); Red Blood Count 2.78 MC/CUMM (3.8-5.5); Red Cell Distribution Width 16.3 % (9.3-17.3); White Blood Count 9.4 T/CUMM (4-12)
[2016-09-10 06:44] LABS: Platelet Count 30 T/CUMM (130-400)
[2016-09-10 07:01] LABS: Band Neutrophils 35 % (0-10); Hypochromasia 1+; Lymphocytes 20 % (20-55); Myelocytes 5 %; Nucleated Red Blood Cells 2 (0-5); Platelet Estimate Decreased; Segmented Neutrophils 29 % (50-85); Total Cells Counted 100
--- NOTE | 2016-09-10 08:35 | Discharge Summary ---
Hospital Course - Hospital Course Hospital Course: Diagnoses: IgG lambda myeloma with progression of disease Anemia requiring blood transfusion Thrombocytopenia requiring platelet transfusion History of breast cancer Supraventricular tachycardia Multiple areas of bony involvement with progression of myeloma including the manubrium This 66-year-old lady was admitted with increasing dyspnea that was interpreted as pulmonary edema but I suspect that it was due to severe symptomatic anemia and progression of her myeloma. The patient has received 1 dose of Darzalex 1000 mg given IV on August 09. She appeared to respond to this but it really needs to be given outpatient and that is why I am discharging the patient today. I want her to return for chemotherapy outpatient later this week. Chemotherapy later this week will include Darzalex 1000 mg IV and it will be continued weekly Velcade 2.3 mg IV weekly Dexamethasone 40 mg IV weekly Zometa 4 mg IV over 30 minutes I should mention that this patient received BCNU 60 mg IV on August 27, 2016. She clearly responded to it and I would consider using it again if she does not respond to Darzalex and Velcade. However, the tumor in her manubrium is regrowing and this is of major concern because it implies that this tumor is doubling at a faster than usual right for myeloma. This means that her prognosis is poor. During this hospital stay she had a run of supraventricular tachycardia and was placed on Coreg 3.125 mg twice daily and she will be discharged on this is a new medication. She had been on fentanyl patches for pain but these were discontinued. I am setting up treatment for Darzalex this week and next week. This week, in my office, she will need a serum protein electrophoresis, serum immunoelectrophoresis and serum free light chain assay as well as a CBC and serum creatinine. I plan to see her in 2 weeks. With a CBC, CMP, LDH. Discharge Plan - Discharge Data Disposition: Disch To Home/Self Care Condition at Discharge: Guarded Discharge Diet: advance to your usual diet Activity: resume usual activities as tolerated Hygiene: no restrictions Weight Bearing at Discharge: weight bear as tolerated Driving: other Contact your physician if you experience:: fever over 101, Difficulty voiding, Redness or swelling, Nausea/Vomiting, Shortness of breath, Bleeding, pain uncontrolled by pain medications - Discharge Medications Continue Venlafaxine Xr [Effexor XR] 75 mg PO PC SUPPER Aspirin [Ecotrin] 81 mg PO DAILY HYDROcodone/ACETAMIN 7.5-325 [[place] 7.5-325] 1 tablet PO Q4H PRN PRN Reason: Pain Exemestane [Aromasin] 25 mg PO DAILY No Action Carvedilol [Coreg] 3.125 mg PO BID - Follow Up or Referral - Forms/Instructions Additional Discharge Instructions: I am giving the patient a prescription for carvedilol 3.125 mg with 60 tablets and 5 refills to take 1 twice daily. I am also writing a prescription for [place] 7.5/325 with 100 tablets to take 1-2 every 4 hours as needed for pain. I need to start her on Darzalex this week at a dose of 1000 mg IV weekly and she will need to continue with Velcade 2.3 mg weekly as well as dexamethasone 40 mg IV weekly. In addition, this week only, she will receive Zometa 4 mg IV over 30 minutes. I need to see her in 2 weeks with a CBC, CMP, LDH, serum protein electrophoresis, serum immunoelectrophoresis and serum free light chain assay. Exam - Constitutional Vitals: Period Temp Pulse Resp BP Sys/Mcneill Pulse Ox Last 24 Hr 97.1 F-98.4 F 85-92 18-21 105-148/59-78 96-99 Discharge Results Procedures and tests throughout hospitalization: Pending Orders 08/26/16 Red Blood Cells Leuko Red Stat Single Donor Platelets Stat Type and Screen Stat Labs on day of discharge: Labs from last 24 hours 09/10/16 06:11 WBC 9.4 D RBC 2.78 L Hgb 8.0 L Hct 25.9 L MCV 93.2 MCH 29 MCHC 30.9 L RDW 16.3 Plt Count 30 L* D MPV 11.8 Neut % (Auto) 47.0 Lymph % (Auto) 17.9 L [place] % (Auto) 10.9 Eos % (Auto) 0.2 Baso % (Auto) 0.6 Neut # (Auto) 4.4 Lymph # (Auto) 1.7 [place] # (Auto) 1.0 H Eos # (Auto) 0.0 Baso # (Auto) 0.1 Total Counted 100 Immature Gran % 23.4 Nucleated RBC % 2.0 Immature Gran # 2.19 Segmented Neutrophils 29 L Band Neutrophils 35 H Lymphocytes 20 Monocytes 11 Myelocytes 5 Nucleated RBCs 2 Nucleated RBCs # 0.19 Platelet Estimate Decreased Hypochromasia 1+ DS: Provider Date of admission: 08/20/16 11:04 Primary care physician: Carlos Alberto Alonso Attending physician on admission: Hernan Gaines MD Consults: 09/04/16 08:23 Consult to Physical Therapy [CONS] Routine Reason for Physical Therapy: Evaluate and Treat Start Therapy: Today 09/04/16 14:30 Consult to Case Mgmt/Social Srvs [CONS] Routine Reason for Case Mgmt/Social Srvs: Equipment Consult Comment: Swathi caruso 09/07/16 09:46 Consult to Case Mgmt/Social Srvs [CONS] Routine Reason for Case Mgmt/Social Srvs: Equipment Consult Comment: home oxygen as needed 09/07/16 14:27 Consult to Case Mgmt/Social Srvs [CONS] Routine Reason for Case Mgmt/Social Srvs: Home Health Discharging clinician: Hernan Gaines MD
[2016-09-10] MEDS: CARVEDILOL 3.125 MG TABLET PO SCH (08:59)
[2016-09-10] MEDS: NYSTATIN 500,000 UNIT/5 ML UDCUP SWISH/SWAL SCH (10:21)
[2016-09-10 12:43] VITALS: BP 126/69
== END 2016-09-10 12:30 | disposition home health service (06) | DRG 840 ==
LOC: N.EDINP 18:41 → N.ED 18:41 → N.4E 22:59
PROVIDERS: ADMIT Specialist; ATTEND Specialist

== ENCOUNTER 2016-11-03 12:19 | Inpatient (IN) ==
[2016-11-03] MEDS ORDERED: ONDANSETRON 4 MG/2 ML VIAL IV STA ×2 (13:01→16:42)
[2016-11-03] MEDS ORDERED: SODIUM CHLORIDE 0.9% 1,000 ML IV STA (13:01)
--- NOTE | 2016-11-03 13:06 | Emergency Department Note ---
I, Yazmin Fairbanks, am scribing for, and in the presence of, Mei Arzate DO 12:59. IHuey Debra, DO, personally performed the services described in this documentation, ascribed by Yazmin Fairbanks in my presence, and it is both accurate and complete . Arrival - Arrival Chief Complaint: Nausea/Vomiting/Diarrhea Stated Complaint: Cancer Pt,dehydration ED Nursing Triage Note: C/O HAVING DECREASED APPETITE OVER THE LAST FEW DAYS., + NAUSEA., DENIES HAVING DIARRHEA., STATES SHE WAS JUST RELEASED FROM [facility] LAST EVENING FOR SUBDURAL HEMATOMA., FAMILY ALSO STATES THEY FEEL LIKE HER BLOOD COUNT IS GOIGN TO BE LOW., LAST CHEMO FOR MULTIMYLOMA WAS 1 WEEK AGO Mode of Arrival: Wheelchair Limitations: No Limitations Source: Patient, Family, RN Notes Reviewed - History of Present Illness HPI Narrative: Patient is a 66 y/o female with a history significant for Multiple Myeloma presenting to the ED with c/o nausea with an onset of a few days. Patient has had a decrease in appetite as well. Patient recently was discharged from [facility] yesterday after suffering a subdural hematoma last week. Family reports that they believe she may be anemic and very dehydrated. Family reports that patient was able to tolerate a 1/2 cup of Pedialyte and some jello yesterday. Patient receives treatment for Multiple Myeloma per Dr. Diego. Patient denies having any antiemetic medications. Patient is seen here frequently for blood and platelet transfusions. Patient last received chemotherapy a week ago. No other complaint/pain. Allergies/Adverse Reactions: Allergies Allergy/AdvReac Type Severity Reaction Status Date / Time Iodinated Contrast Media - Allergy Mild ITCHING Verified 11/03/16 12:30 Oral and [Iodinated Contrast Media - IV Dye] Home Medications: Home Medications Medication Instructions Recorded Confirmed Type Venlafaxine Xr [Effexor XR] 75 mg PO PC SUPPER 06/13/16 11/03/16 History Exemestane [Aromasin] 25 mg PO DAILY 08/15/16 11/03/16 History Carvedilol [Coreg] 3.125 mg PO BID W/MEALS 09/10/16 11/03/16 History HYDROcodone/ACETAMIN 10-325 [[place] 1 tablet PO Q6H PRN 11/03/16 11/03/16 History 10-325] Levothyroxine Tab [Synthroid Tab] 50 mcg PO DAILY@0700 11/03/16 11/03/16 History Mag Hydrox/Aluminum Hyd/Simeth 10 ml PO Q6H PRN 11/03/16 11/03/16 History [Alum-Mag Hydroxide-Simeth Liq] Omeprazole 40 mg PO DAILY 11/03/16 11/03/16 History Review of System - Review of System 12 point system: reviewed and no additional remarkable complaints except as stated - Review of System Gastrointestinal: Present: as per HPI, nausea Medical,Surgical,& Family Hx - Medical History Cardio: No history of: Cardiac Dysrhythmia, Cerebrovascular Disease, CHF, Hypertension, [place] Psychological: No history of: Behavior Problems, Depression, Previous Suicide Attempt Neurology: No history of: Cerebrovascular Accident, Dementia, Migraine, Seizures, TIA, Vertigo HEENT: No history of: Ear Problem, Eye Problem, Glaucoma Endocrine: History of: Thyroid Disorder Respiratory: No history of: Asthma, Bronchitis, COPD, Obstructive Sleep Apnea, Pulmonary Embolism, Pulmonary Hypertension Renal: No history of: Renal (Kidney) Cancer, Dialysis, Renal Failure Genitourinary: No history of: Bladder Problem, Genitourinary Cancer Gastrointestinal: History of: GERD, GI Problems (ULCERS) No history of: Gastrointestinal Bleed, Hepatitis Musculoskeletal: History of: Musculoskeletal Problems (ARTHRITIS) Hematology: History of: Anemia, Hematologic Cancer (IgG lambda myeloma ) No history of: Blood Transfusion Reaction, Sickle Cell Disease Reproductive: History of: Breast Cancer (left breast CA 2012) Other: History of: Cancer (LEFT BREAST), Miscellaneous Medical Problems ( multiple myeloma) - Surgical History Cardiac Surgeries: Patient Denies: Cardiac Catheterization, Cardiac Surgery, Carotid Endarterectomy, Internal Defibrillator Thoracic Surgeries: Patient denies;: Kidney (Renal Surgery) HEENT Surgeries: Surgical HX of: Thyroid Surgery (thyroidectomy) Patient denies: Carotid Endarterectomy Abdominal Surgeries: Surgical HX of: Cholecystectomy, Colonoscopy, EGD Reproductive Surgeries: Surgical HX of;: Breast Surgery (left mastectomy), Hysterectomy - Family History Family History: Reports;: Family Cancer (mom-colon CA), Family Diabetes (brother , father), Family Heart Disease (brother-CAD pt reports brother "had 2 stents put in his heart 2 weeks ago"), Family Hypertension, Family Psychiatric Problems (MOM- ALZHMIERS) - Social History Smoking Status: Never smoker Frequency of Alcohol Use: None Type of Drug Use: None Exam Vital Signs: Vital Signs Temperature 98.2 F 11/03/16 12:24 Pulse Rate 107 H 11/03/16 16:15 Respiratory Rate 20 11/03/16 16:15 Blood Pressure 126/78 11/03/16 16:15 O2 Sat by Pulse Oximetry 97 11/03/16 16:15 - General General appearance: alert, in no apparent distress - Head Head exam: Present: atraumatic, normocephalic, normal inspection - Eye Eye exam: Present: normal appearance, PERRL, EOMI - ENT ENT exam: Present: mucous membranes dry. Absent: normal oropharynx - Neck Neck exam: Present: normal inspection, full ROM, trachea midline - Chest Chest inspection: Present: normal inspection, symmetric chest wall rise - Respiratory Respiratory exam: Present: normal lung sounds bilaterally. Absent: rales, rhonchi, wheezes - Cardiovascular Cardiovascular exam: Present: normal rhythm, tachycardia, normal heart sounds. Absent: regular rate - Abdominal Exam Abdominal exam: Present: soft, normal bowel sounds. Absent: distention, tenderness - Extremities Exam Extremities exam: Present: normal inspection - Back Exam Back exam: Present: normal inspection - Neurological Exam Neurological exam: Present: alert, oriented X3, CN II-XII intact. Absent: motor sensory deficit - Psychiatric Psychiatric exam: Present: normal affect, normal mood - Skin Skin exam: Present: warm, dry, intact, normal color Results - Labs CBC & BMP: 11/03/16 14:00 11/03/16 14:00 Lab Results: I have reviewed the patients labs Labs: Laboratory Tests 11/03/16 14:00 WBC 1.8 L RBC 2.39 L Hgb 7.2 L Hct 21.7 L RDW 20.4 H Plt Count 68 L Neut % (Auto) 18.9 L Lymph % (Auto) 60.0 H [place] % (Auto) 21.1 H Neut # (Auto) 0.3 L Lymph # (Auto) 1.1 L Laboratory Tests 11/03/16 11/03/16 14:00 14:00 INR 1.3 PT Patient/Control Mix 13.8 Circ Anticoag PTT 34.7 D Sodium 129 L Potassium 3.5 Chloride 96 L Carbon Dioxide 22 BUN 15 Creatinine 0.40 L BUN/Creatinine Ratio 37.00 H Glucose 129 H Calculated Osmolality 260.9 L Calcium 7.2 L Total Bilirubin 1.60 H AST 45 H Alkaline Phosphatase 141 H Albumin 2.4 L Globulin 5.6 H Albumin/Globulin Ratio 0.4 L Laboratory Tests 11/03/16 11/03/16 13:01 14:00 Sodium 129 L Potassium 3.5 Chloride 96 L Carbon Dioxide 22 BUN 15 Creatinine 0.40 L BUN/Creatinine Ratio 37.00 H Glucose 129 H Calculated Osmolality 260.9 L Calcium 7.2 L Total Bilirubin 1.60 H AST 45 H Alkaline Phosphatase 141 H Albumin 2.4 L Globulin 5.6 H Albumin/Globulin Ratio 0.4 L Urine Color Lexi Urine Appearance Clear Urine pH 6.0 Ur Specific [place] 1.018 Urine Protein 100 Urine Glucose (UA) 50 Urine Ketones 5 Urine Blood Small Urine Nitrate Negative Urine Bilirubin Negative Urine Urobilinogen < 2.0 H Urine Leukocytes Negative Urine RBC 6 Urine WBC 1 Urine Mucus Occasional Laboratory Tests 11/03/16 14:00 Total Counted 100 Immature Gran % 0.0 Nucleated RBC % 1.7 Immature Gran # 0.00 Segmented Neutrophils 24 L Lymphocytes 65 H Monocytes 11 Nucleated RBCs # 0.03 Platelet Estimate Decreased Giant Platelets Few Hypochromasia 2+ Spherocytes Few Laboratory Tests 11/03/16 14:07 Uric Acid 3.1 Magnesium 1.7 L Lactate Dehydrogenase 990 H
[2016-11-03] MEDS ORDERED: ONDANSETRON 4 MG/2 ML VIAL ONE (13:53)
[2016-11-03 14:15] LABS: Hematocrit 21.7 VOL% (35.7-47.0); Hemoglobin 7.2 GM/DL (12.0-16.0); Lymphocytes # 1.1 10*3/uL (1.4-4.0); Mean Corpuscular HGB Conc 33.2 GM/DL (32-36); Mean Corpuscular Hemoglobin 30 PG (27-34); Mean Corpuscular Volume 90.8 FL (87-102); Mean Platelet Volume 11.7 FL (9.6-12.0); Monocytes # 0.4 10*3/uL (0.11-0.8); Monocytes % 21.1 % (1.7-12.7); NRBC # 0.03 10*3/uL; Neutrophils # 0.3 10*3/uL (1.4-7.4); Neutrophils % 18.9 % (38.7-73.9); Red Blood Count 2.39 MC/CUMM (3.8-5.5); Red Cell Distribution Width 20.4 % (9.3-17.3); White Blood Count 1.8 T/CUMM (4-12)
[2016-11-03 14:18] LABS: Platelet Count 68 T/CUMM (130-400)
[2016-11-03 14:31] LABS: INR 1.3; PT Patient Result 13.8 SECS; Partial Thromboplastin Time 34.7 SECS (0-40)
[2016-11-03 14:34] LABS: Albumin 2.4 G/DL (3.4-5.0); Bilirubin,Total 1.6 MG/DL (0.2-1.0); Calcium 7.2 MG/DL (8.5-10.1); Osmolality,Calculated 260.9 MOS/KG (273-304); Potassium 3.5 MMOL/L (3.5-5.1)
[2016-11-03 14:39] LABS: Apearance,Urine CLEAR (Clear); Bilirubin,Urine Negative (Negative); Blood, Urine Small mg/dL (Negative); Glucose,Urine (UA) 50 mg/dL (Negative); Ketones,Urine 5 mg/dL (Negative); Mucus,Urine Occasional /LPF (Occasional); Nitrite,Urine Negative (Negative); Protein,Urine 100 MG/DL; RBC,Urine 6 /HPF (0-4); Urine Color Amber (Yellow); Urine Specific Gravity 1.018 (1.001-1.035); Urine Urobilinogen < 2.0 EU/DL (0.2-1.0); WBC,Urine 1 /HPF (0-6)
[2016-11-03 14:51] LABS: Lymphocytes 65 % (20-55); Segmented Neutrophils 24 % (50-85); Total Cells Counted 100
[2016-11-03 14:52] LABS: Giant Platelets Few; Hypochromasia 2+; Platelet Estimate Decreased
[2016-11-03 14:53] LABS: Spherocytes Few
[2016-11-03] MEDS ORDERED: MYLANTA/LIDO VISC 2:1 300 ML BOTTLE SWISH/SWAL PRN (15:57)
[2016-11-03] MEDS ORDERED: BENZTROPINE 2 MG/2 ML AMP IV PRN (15:57)
[2016-11-03] MEDS ORDERED: chlorproMAZINE INJ 50 MG in SODIUM CHLORIDE 0.9% 100 ML IV PRN (15:57)
[2016-11-03] MEDS ORDERED: PROMETHAZINE INJ 25 MG in SODIUM CHLORIDE 0.9% 50 ML IV PRN (15:57)
[2016-11-03] MEDS ORDERED: chlorproMAZINE INJ 25 MG in SODIUM CHLORIDE 0.9% 100 ML IV PRN (15:57)
[2016-11-03] MEDS ORDERED: traMADol 50 MG TABLET PO PRN (15:57)
[2016-11-03] MEDS ORDERED: MYLANTA/LIDO VISC 2:1 300 ML BOTTLE SWISH/SPIT PRN (15:57)
[2016-11-03] MEDS ORDERED: ALPRAZolam 0.25 MG TABLET PO PRN (15:57)
[2016-11-03] MEDS ORDERED: guaiFENesin 200 MG/10 ML UDCUP PO PRN (15:57)
[2016-11-03] MEDS ORDERED: ACETAMINOPHEN 325 MG TABLET PO PRN (15:57)
[2016-11-03] MEDS ORDERED: chlorproMAZINE 25 MG TABLET PO PRN (15:57)
[2016-11-03] MEDS ORDERED: LOPERAMIDE 2 MG CAPSULE PO PRN ×2 (15:57)
[2016-11-03] MEDS ORDERED: SODIUM CHLORIDE 0.9% 250 ML IV PRN (16:00)
[2016-11-03] MEDS ORDERED: LORazepam 2 MG/1 ML VIAL IV STA (16:16)
[2016-11-03] MEDS ORDERED: ONDANSETRON 4 MG/2 ML VIAL IV PRN (16:16)
[2016-11-03] MEDS ORDERED: LORazepam 2 MG/1 ML VIAL ONE (16:30)
[2016-11-03 16:52] LABS: Magnesium 1.7 MG/DL (1.8-2.4); Uric Acid 3.1 MG/DL (2.6-6.0)
[2016-11-03] MEDS ORDERED: methylPREDNISolone SOD SUC 40 MG/1 ML VIAL ONE (17:55)
[2016-11-03] MEDS ORDERED: methylPREDNISolone SOD SUC 125 MG/2 ML VIAL IV SCH (18:00)
[2016-11-03 18:14] LABS: ABG Base Excess -3.1 MMOL/L (-2.5-2.5); ABG HCO3 18.8 MMOL/L (20-26); ABG Oxygen Saturation 98.3 % (95-100); ABG PCO2 23.1 MM HG (35-48); ABG PH 7.529 (7.35-7.45); ABG PO2 123.6 MM HG (80-95); ABG TCO2 19.5 MMOL/L (23-27)
[2016-11-03] MEDS: ALBUTEROL/IPRATROPIUM 3 ML NEB RESP TX PRN ×2 (18:15→20:14)
[2016-11-03 18:49] LABS: Hematocrit 23.8 VOL% (35.7-47.0); Hemoglobin 7.6 GM/DL (12.0-16.0); Immature Granulocytes % 0.3 %; Immature Granulocytes Absolute 0.01 #; Lymphocytes # 2.7 10*3/uL (1.4-4.0); Lymphocytes % 70.8 % (21.3-54.2); Mean Corpuscular HGB Conc 31.9 GM/DL (32-36); Mean Corpuscular Hemoglobin 30 PG (27-34); Monocytes # 0.7 10*3/uL (0.11-0.8); Monocytes % 17.8 % (1.7-12.7); NRBC # 0.02 10*3/uL; Neutrophils # 0.4 10*3/uL (1.4-7.4); Neutrophils % 11.1 % (38.7-73.9); Red Blood Count 2.56 MC/CUMM (3.8-5.5); Red Cell Distribution Width 20.9 % (9.3-17.3); White Blood Count 3.8 T/CUMM (4-12)
[2016-11-03 18:54] LABS: Platelet Count 78 T/CUMM (130-400)
[2016-11-03] MEDS ORDERED: ALBUTEROL/IPRATROPIUM 3 ML NEB RESP TX SCH (19:00)
[2016-11-03 19:18] LABS: Hypochromasia 1+; Lymphocytes 84 % (20-55); Platelet Estimate Decreased; Polychromasia Slight; Segmented Neutrophils 11 % (50-85); Total Cells Counted 100
--- NOTE | 2016-11-03 19:37 | XRay Report ---
Exam: XR chest 1V portable Indication: Shortness of breath Comparison study: 10/29/2016 Findings: Cardiac silhouette is mildly enlarged, similar to prior. Central perihilar and basilar interstitial opacities are again noted but are slightly more prominent when compared to prior and may represent a degree of interstitial edema changes/heart failure. No definite focal consolidation is identified. There is no pneumothorax. Trace pleural effusions are not excluded. Right chest Mediport is in similar position. Osseous structures appear stable. Remote healed fracture of the right eighth rib is noted. Impression: Findings suggestive of slight worsening of interstitial edema changes/pulmonary edema. Trace pleural effusions are not excluded. PROCEDURE INTERPRETED AT [facility] DEPARTMENT OF RADIOLOGY Final Report Signed by: Bigg Lane
[2016-11-03] MEDS ORDERED: LEVOFLOXACIN INJ 750 MG in PREMIX 1 EACH IV SCH (20:00)
[2016-11-03] MEDS ORDERED: FUROSEMIDE 40 MG/4 ML VIAL IV ONE (20:06)
[2016-11-03] MEDS ORDERED: HALOPERIDOL 5 MG/ML AMP IV PRN (20:07)
[2016-11-04] MEDS: ALBUTEROL/IPRATROPIUM 3 ML NEB RESP TX SCH ×4 (00:47→19:27)
[2016-11-04] MEDS: ONDANSETRON 4 MG/2 ML VIAL IV PRN (05:38)
[2016-11-04 09:31] LABS: Hemoglobin 8.1 GM/DL (12.0-16.0); Immature Granulocytes % 0.8 %; Lymphocytes % 35.9 % (21.3-54.2); Mean Corpuscular HGB Conc 33.8 GM/DL (32-36); Mean Corpuscular Hemoglobin 30 PG (27-34); Mean Corpuscular Volume 88.6 FL (87-102); Mean Platelet Volume 12.9 FL (9.6-12.0); Neutrophils % 37.3 % (38.7-73.9); Red Blood Count 2.71 MC/CUMM (3.8-5.5); Red Cell Distribution Width 19.5 % (9.3-17.3); White Blood Count 1.3 T/CUMM (4-12)
[2016-11-04 09:32] LABS: Immature Granulocytes Absolute 0.01 #; Lymphocytes # 0.5 10*3/uL (1.4-4.0); Monocytes # 0.3 10*3/uL (0.11-0.8); NRBC # 0.03 10*3/uL; Neutrophils # 0.5 10*3/uL (1.4-7.4); Platelet Count 49 T/CUMM (130-400)
[2016-11-04 10:06] LABS: Band Neutrophils 1 % (0-10); Lymphocytes 34 % (20-55); Nucleated Red Blood Cells 1 (0-5); Segmented Neutrophils 42 % (50-85); Total Cells Counted 100
[2016-11-04 10:07] LABS: Hypochromasia 1+; Platelet Estimate Decreased
[2016-11-04] MEDS: FUROSEMIDE 40 MG/4 ML VIAL IV SCH (10:57)
[2016-11-04] MEDS ORDERED: MAGNESIUM SULF RIDER 2 GM in PREMIX 1 EACH IV ONE (11:00)
--- NOTE | 2016-11-04 11:43 | Oncology History&Physical ---
Assessment and Plan (1) Multiple myeloma Status: Chronic Assessment and plan: - recent treatment with vincristine, BCNU, and adriamycin - symptomatic anemia s/p transfusion 2 units PRBC - neutropenia- will start filgrastim - levaquin for neutropenic ppx - mucositis with thrush - continue with stomatitis and addition of diflucan 200mg PO QD Current Visit: No (2) Dyspnea Status: Chronic Assessment and plan: CXR supportive of CHF - continue with lasix 40mg IV daily - repeat CXR in am Current Visit: No (3) Subdural hematoma Status: Acute Assessment and plan: recently d/elena from [facility] - mental status improved today. will hold off on repeat imaging - holding heparin, aspirin, anticoagulation given recent bleed Current Visit: No (4) Breast cancer Status: Acute Assessment and plan: continue with exemestane Current Visit: Yes History of Present Illness Chief complaint: failure to thrive History of present illness: Ms. Kate is a 66 year old female with PMHx of MM s/p cycle 1 of vincristine , BCNU, and adriamycin and recent subdural hematoma discharged for [facility] this week presented yesterday with worsening failure to thrive, fatigue, poor PO intake, mouth pain. Denies fevers. Patient intermittently needs transfusions. Patient found to be short of breath on the floor with CXR suggestive of pulmonary edema. In ER patient was anxious and received ativan resulting in significant confusion improved with haldol. Today patient states feels better after receiving 2 units PRBC. Continues on O2. No fevers. Confusion resolved. No bleeding. Home Medications Medication Instructions Recorded Confirmed Type Venlafaxine Xr [Effexor XR] 75 mg PO PC SUPPER 06/13/16 11/03/16 History Exemestane [Aromasin] 25 mg PO DAILY 08/15/16 11/03/16 History Carvedilol [Coreg] 3.125 mg PO BID W/MEALS 09/10/16 11/03/16 History HYDROcodone/ACETAMIN 10-325 [[place] 1 tablet PO Q6H PRN 11/03/16 11/03/16 History 10-325] Levothyroxine Tab [Synthroid Tab] 50 mcg PO DAILY@0700 11/03/16 11/03/16 History Mag Hydrox/Aluminum Hyd/Simeth 10 ml PO Q6H PRN 11/03/16 11/03/16 History [Alum-Mag Hydroxide-Simeth Liq] Omeprazole 40 mg PO DAILY 11/03/16 11/03/16 History Allergies Allergy/AdvReac Type Severity Reaction Status Date / Time Iodinated Contrast Media - Allergy Mild ITCHING Verified 11/03/16 12:30 Oral and [Iodinated Contrast Media - IV Dye] Medical,Surgical,& Family Hx - Medical History Cardio: No history of: Cardiac Dysrhythmia, Cerebrovascular Disease, CHF, Hypertension, [place] Psychological: No history of: Behavior Problems, Depression, Previous Suicide Attempt Neurology: No history of: Cerebrovascular Accident, Dementia, Migraine, Seizures, TIA, Vertigo HEENT: No history of: Ear Problem, Eye Problem, Glaucoma Endocrine: History of: Thyroid Disorder Respiratory: No history of: Asthma, Bronchitis, COPD, Obstructive Sleep Apnea, Pulmonary Embolism, Pulmonary Hypertension Renal: No history of: Renal (Kidney) Cancer, Dialysis, Renal Failure Genitourinary: No history of: Bladder Problem, Genitourinary Cancer Gastrointestinal: History of: GERD, GI Problems (ULCERS) No history of: Gastrointestinal Bleed, Hepatitis Musculoskeletal: History of: Musculoskeletal Problems (ARTHRITIS) Hematology: History of: Anemia, Hematologic Cancer (IgG lambda myeloma ) No history of: Blood Transfusion Reaction, Sickle Cell Disease Reproductive: History of: Breast Cancer (left breast [place] 2012) Other: History of: Cancer (LEFT BREAST), Miscellaneous Medical Problems ( multiple myeloma) - Surgical History Cardiac Surgeries: Patient Denies: Cardiac Catheterization, Cardiac Surgery, Carotid Endarterectomy, Internal Defibrillator Thoracic Surgeries: Patient denies;: Kidney (Renal Surgery) HEENT Surgeries: Surgical HX of: Thyroid Surgery (thyroidectomy) Patient denies: Carotid Endarterectomy Abdominal Surgeries: Surgical HX of: Cholecystectomy, Colonoscopy, EGD Reproductive Surgeries: Surgical HX of;: Breast Surgery (left mastectomy), Hysterectomy - Family History Family History: Reports;: Family Cancer (mom-colon CA), Family Diabetes (brother , father), Family Heart Disease (brother-CAD pt reports brother "had 2 stents put in his heart 2 weeks ago"), Family Hypertension, Family Psychiatric Problems (MOM- ALZHMIERS) - Social History Smoking Status: Never smoker Frequency of Alcohol Use: None Type of Drug Use: None - Constitutional Constitutional: Present: fatigue, weakness. Absent: fever(s), increased appetite, night sweats - EENT Eye: Absent: blurry vision Nose, mouth and throat: Absent: dizziness - Cardiovascular Cardiovascular ROS IM: Present: orthopnea. Absent: chest pain, edema - Respiratory Respiratory: Present: dyspnea. Absent: cough - Gastrointestinal Gastrointestinal: Present: nausea. Absent: abdominal pain, constipation, cramping, hematemesis, hematochezia, loose stools, melena, vomiting - Genitourinary Genitourinary ROS female: Absent: difficulty urinating, hematuria - Musculoskeletal Musculoskeletal ROS: Present: back pain - Neurological Neurological ROS: Present: abnormal gait. Absent: focal weakness - Psychiatric Psychiatric General: Present: other (confusion) - Hematologic/Lymphatic Hematologic/Lymphatic: Absent: easy bleeding, easy bruising Exam - Constitutional Vitals: Period Temp Pulse Resp BP Sys/Mcneill Pulse Ox Last 24 Hr 97 F-99.3 F 95-128 18-38 116-154/62-92 91-100 General appearance: no acute distress - Eye Eye Exam: Present: EOMI - Respiratory Respiratory exam: Present: decreased breath sounds - Cardiovascular Cardiovascular exam: Present: RRR - GI/Abdominal GI/Abdominal exam: Present: soft. Absent: ascites, distended, mass, tenderness - Extremities Exam Extremities exam: Absent: edema - Neurological Exam Neurological exam: Present: alert, oriented X3, CN II-XII intact - Skin Skin exam: Present: warm Results - Labs CBC & BMP: 11/04/16 09:20 11/03/16 14:00 Quality Measures - VTE Contraindication to Pharmacological VTE Prophylaxis: Recent Intracrainal Surgey
[2016-11-04] MEDS ORDERED: FLUCONAZOLE 200 MG TABLET PO SCH (12:00)
[2016-11-04 12:35] LABS: Albumin 2.4 G/DL (3.4-5.0); Bilirubin,Total 1.8 MG/DL (0.2-1.0); Calcium 6.7 MG/DL (8.5-10.1); Osmolality,Calculated 267.7 MOS/KG (273-304); Total Protein 7.7 G/DL (6.4-8.3)
[2016-11-04] MEDS: MYLANTA/LIDO VISC/NYST 180 ML BOTTLE SWISH/SWAL PRN ×2 (13:10→17:11)
[2016-11-04] MEDS: LEVOFLOXACIN 750 MG TABLET PO SCH (13:47)
[2016-11-04] MEDS: FILGRASTIM-SNDZ 300 MCG/0.5 ML SYRINGE SUBCUT SCH (13:47)
[2016-11-04] MEDS: TEMAZEPAM 7.5 MG CAPSULE PO PRN (20:15)
[2016-11-05] MEDS: ALBUTEROL/IPRATROPIUM 3 ML NEB RESP TX SCH ×4 (00:04→20:03)
[2016-11-05] MEDS: TEMAZEPAM 7.5 MG CAPSULE PO PRN (01:52)
[2016-11-05] MEDS: LEVOTHYROXINE 50 MCG TABLET PO SCH (06:55)
--- NOTE | 2016-11-05 07:22 | XRay Report ---
Referring Physician: Jacobo Young Exam: XR chest 1V portable Date: November 05, 2016 at 5:27 AM Reason: Evaluate pulmonary edema, evaluate for infiltrate Comparison: Chest one view portable November 03, 2016 Findings: A right-sided Mediport is again in place. The cardiac silhouette is again enlarged. The interstitial markings are diffusely prominent bilaterally, and there are scattered hazy opacities within the mid and lower lung zones bilaterally. This is concerning for pulmonary edema and atelectasis, but superimposed pneumonia is not excluded. The osseous structures appear stable. Of note, the patient has a known history of multiple myeloma and breast cancer. Surgical clips are seen at the left axilla and right infraclavicular/supraclavicular region, and the patient may be status post left mastectomy. Impression: There has been no significant change. PROCEDURE INTERPRETED AT [facility] DEPARTMENT OF RADIOLOGY Final Report Signed by: Dr. Gama Georges
--- NOTE | 2016-11-05 07:55 | Oncology Progress Note ---
Oncology Subjective PN Interval history: Ms. Kate is a 66 year old female with a history of both IgG lambda myeloma that was diagnosed in August 2003 and also history of lower inner quadrant left breast carcinoma initially diagnosed April 20, 2013. IgG lambda myeloma Ms. Cagle was diagnosed as having IgG lambda myeloma in 2003 and underwent a single bone marrow transplant. She was subsequently placed on thalidomide and dexamethasone and intermittently received Zometa. She is currently on Velcade and dexamethasone and we have held thalidomide because I suspected it might be contributing to her thrombocytopenia and leukopenia that had been going on for the last few weeks. Recently she had evidence of progression of disease and was switched to Velcade. Subsequent to that she received daratumumab. Her last and most recent chemotherapy on October 23, 2016 that included BCNU 50 mg, dexamethasone, Adriamycin 50 mg and vincristine 2 mg IV. Today she has severe monilial stomatitis and leukopenia and thrombocytopenia. However, the bony metastasis in her sternum has obviously significantly decreased in size. Adenocarcinoma of the left breast post mastectomy without proven evidence of metastatic disease She has a history of lower inner quadrant left breast carcinoma initially diagnosed April 20, 2013. It was stage IB at the time of diagnosis. It was ER/ND positive and HER-2/nannette negative. There was one lymph node that was microscopically positive. She was treated with mastectomy and placed on hormone therapy. She subsequently developed recurrent disease to the left chest wall with 1.1 cm primary in 2013. She was treated with radiation therapy. She had been on Femara and later switched to Aromasin with this recurrence. She was also treated with 4 courses of Adriamycin and Cytoxan which were completed in July 2014. The radiation was completed October 28, 2014. In addition to her other problems, she was recently sent to [facility] in [place] with what was thought to be a subdural hematoma. Her lab work yesterday included a white cell count of 1300 with a hemoglobin of 8.1 and a platelet count of 49,000. Her serum potassium was 3.0 yesterday. Her serum creatinine was 0.6 and her serum calcium was 6.7 but her serum albumin is also low at 2.4. Lab work today: White cell count 3000 with an absolute neutrophil count of 1800 , hemoglobin 9.9 and platelet count 54,000 and rising. On physical examination: General she is acutely and chronically ill. Eyes: Normal lids and conjunctivae. ENT: She has monilial stomatitis as well as erosive stomatitis and glossitis. Her voice is hoarse and she is having difficulty speaking because her tongue is swollen. Neck: Her trachea is midline and she has no neck masses. Lungs: Breath sounds are slightly coarse without rubs, rales or rhonchi. There is symmetrical unlabored chest motion with respiration. Cardiovascular: Her heart rhythm is regular without murmur, gallop or rub. There is no jugular venous distention, clubbing, cyanosis or edema. Abdomen: No masses or organomegaly and no ascites or tenderness. 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 It is decreased in size by well over half since her last course of vincristine, BCNU, Adriamycin and dexamethasone. Neurologic: Cranial nerves II through XII are intact. The patient may be a little mentally slow but I think it is because she is so critically ill. Psychiatric: She is oriented to time, place, person and situation. I have copied and amended her list of diagnoses from her admission history and physical and they are as follows: (1) Multiple myeloma Status: Chronic Assessment and plan: - recent treatment with BCNU 50 mg, dexamethasone, Adriamycin 50 mg and vincristine 2 mg IV. - symptomatic anemia s/p transfusion 2 units PRBC - neutropenia- will start filgrastim - levaquin for neutropenic ppx - mucositis with thrush - continue with stomatitis and addition of diflucan 200mg PO QD Current Visit: No (2) Dyspnea Status: Chronic Assessment and plan: CXR supportive of CHF - continue with lasix 40mg IV daily - repeat CXR in am Current Visit: No (3) Subdural hematoma Status: Acute Assessment and plan: recently d/elena from [facility]. It was apparently the opinion of the neurosurgeons at [facility] that the bleed was chronic and not acute. - mental status improved today. will hold off on repeat imaging - holding heparin, aspirin, anticoagulation given recent bleed Current Visit: No (4) Breast cancer Status: Acute Assessment and plan: continue with exemestane Current Visit: Yes Exam - Constitutional Vitals: Period Temp Pulse Resp BP Sys/Mcneill Pulse Ox Last 24 Hr 97.9 F-99.4 F 87-100 18-24 124-136/66-79 94-100 Results - Labs CBC & BMP: 11/05/16 08:20 11/05/16 08:20 Quality Measures - VTE Contraindication to Pharmacological VTE Prophylaxis: Recent Intracrainal Surgey
[2016-11-05 08:50] LABS: Basophils % 0.3 % (0.0-0.8); Hematocrit 30.1 VOL% (35.7-47.0); Hemoglobin 9.9 GM/DL (12.0-16.0); Immature Granulocytes % 6.3 %; Immature Granulocytes Absolute 0.19 #; Lymphocytes # 0.3 10*3/uL (1.4-4.0); Mean Corpuscular HGB Conc 32.9 GM/DL (32-36); Mean Corpuscular Hemoglobin 30 PG (27-34); Mean Corpuscular Volume 90.1 FL (87-102); Mean Platelet Volume 11.4 FL (9.6-12.0); Monocytes # 0.7 10*3/uL (0.11-0.8); Monocytes % 23.7 % (1.7-12.7); NRBC # 0.03 10*3/uL; Neutrophils # 1.8 10*3/uL (1.4-7.4); Neutrophils % 58.7 % (38.7-73.9); Platelet Count 54 T/CUMM (130-400); Red Blood Count 3.34 MC/CUMM (3.8-5.5); Red Cell Distribution Width 20.2 % (9.3-17.3)
[2016-11-05] MEDS ORDERED: FLUCONAZOLE 100 MG TABLET PO SCH (09:00)
--- NOTE | 2016-11-05 09:03 | Physician Query Form ---
CLICK EDIT DOCUMENT TO SELECT QUERY ANSWER --> OK --> SIGN Kirstie Pan RN, CCDS Certified Clinical Band Leader W) [phone] (f) [phone] [email or web address] PROVIDERS: Make your selection(s) from the choices in EACH section by typing an "x" and enter comments in the comment section. Please use your independent medical judgment in providing your response. This request does not imply that any particular answer is desired or expected. CLINICAL INDICATORS: (Providers should not edit this section) The medical record indicates that the patient was admitted with MM, BNP of 3957# , "Chest supportive of CHF" and "continue with Lasix 40 mg IV daily". Please provide further specificity regarding CHF. ACUITY: ( ) Acute ( ) Chronic ( ) Acute on Chronic ( x) Clinically unable to determine TYPE: ( ) Systolic ( ) Diastolic ( ) Combined Systolic/Diastolic ( ) Other, please specify: (x ) Clinically unable to determine ( ) The patient does NOT have CHF COMMENTS: Use of terms such as suspected, likely, or probable (associated with a specific diagnosis that is being evaluated, monitored, or treated as if it exists) are acceptable and can be restated in the discharge summary if not ruled out. [facility]
--- NOTE | 2016-11-05 09:04 | Physician Query Form ---
CLICK EDIT DOCUMENT TO SELECT QUERY ANSWER --> OK --> SIGN Kirstie Pan RN, CCDS Certified Clinical Cloth Tester Quality W) [phone] (f) [phone] [email or web address] PROVIDERS: Make your selection(s) from the choices in EACH section by typing an "x" and enter comments in the comment section. Please use your independent medical judgment in providing your response. This request does not imply that any particular answer is desired or expected. CLINICAL INDICATORS: (Providers should not edit this section) The medical record indicates that the patient was admitted with MM, HH of 7.2/ and the patient was given 2 units of blood. "She is currently on Velcade and dexamethasone and we have held thalidomide because I suspected it might be contributing to her thrombocytopenia and leukopenia that had been going on for the last few weeks" Based on the above, could you clarify which of the following conditions you are evaluating, treating, and/or monitoring? ( ) Blood loss anemia ( ) acute ( ) chronic ( ) acute on chronic ( ) Dilutional anemia due to IV fluids ( x) Anemia due to chemotherapy ( x) Anemia due to neoplastic disease ( ) Pernicious anemia ( ) Aplastic anemia ( ) Hemolytic anemia ( ) immune ( ) non-immune - please specify cause: ( ) Anemia due to other condition, please specify: ( ) Clinically unable to determine COMMENTS: Use of terms such as suspected, likely, or probable (associated with a specific diagnosis that is being evaluated, monitored, or treated as if it exists) are acceptable and can be restated in the discharge summary if not ruled out. [facility]TDD
--- NOTE | 2016-11-05 09:05 | Physician Query Form ---
CLICK EDIT DOCUMENT TO SELECT QUERY ANSWER --> OK --> SIGN Kirstie Pan RN, CCDS Certified Clinical Raking Machine Operator W) [phone] (f) [phone] [email or web address] PROVIDERS: Make your selection(s) from the choices in EACH section by typing an "x" and enter comments in the comment section. Please use your independent medical judgment in providing your response. This request does not imply that any particular answer is desired or expected. CLINICAL INDICATORS: (Providers should not edit this section) The medical record indicates that the patient was admitted with MM, BNP of 3957# , "Chest supportive of CHF" and "continue with Lasix 40 mg IV daily". Please provide further specificity regarding CHF. ACUITY: ( ) Acute ( ) Chronic ( ) Acute on Chronic ( x) Clinically unable to determine TYPE: ( ) Systolic ( ) Diastolic ( ) Combined Systolic/Diastolic ( ) Other, please specify: ( ) Clinically unable to determine (x ) The patient does NOT have CHF COMMENTS: Use of terms such as suspected, likely, or probable (associated with a specific diagnosis that is being evaluated, monitored, or treated as if it exists) are acceptable and can be restated in the discharge summary if not ruled out. [facility] [place]
[2016-11-05 09:20] LABS: Albumin 2.3 G/DL (3.4-5.0); Bilirubin,Total 1.6 MG/DL (0.2-1.0); Calcium 7.1 MG/DL (8.5-10.1); Osmolality,Calculated 270.2 MOS/KG (273-304); Potassium 2.9 MMOL/L (3.5-5.1); Total Protein 7.7 G/DL (6.4-8.3)
[2016-11-05] MEDS: DEXT 5% NACL 0.45% KCL 20 MEQ 20 MEQ/1,000 ML BAG IV SCH ×3 (09:47→21:18)
[2016-11-05] MEDS: FLUCONAZOLE INJ 200 MG in PREMIX 1 EACH IV SCH (09:49)
[2016-11-05] MEDS: FUROSEMIDE 40 MG/4 ML VIAL IV SCH (09:52)
[2016-11-05] MEDS: MYLANTA/LIDO VISC/NYST 180 ML BOTTLE SWISH/SWAL PRN (09:53)
[2016-11-05] MEDS: FILGRASTIM-SNDZ 300 MCG/0.5 ML SYRINGE SUBCUT SCH (09:53)
[2016-11-05 09:57] LABS: Band Neutrophils 2 % (0-10); Hypochromasia 1+; Lymphocytes 20 % (20-55); Microcytosis 1+; Platelet Estimate Decreased; Segmented Neutrophils 57 % (50-85); Total Cells Counted 100
[2016-11-05] MEDS: LEVOFLOXACIN 750 MG TABLET PO SCH (10:02)
[2016-11-05] MEDS: LEVOFLOXACIN INJ 750 MG in PREMIX 1 EACH IV SCH (11:22)
[2016-11-05] MEDS: ONDANSETRON 4 MG/2 ML VIAL IV PRN (11:43)
[2016-11-05] MEDS: CLOTRIMAZOLE 10 MG TROCHE PO SCH ×3 (13:23→20:16)
[2016-11-06] MEDS: ALBUTEROL/IPRATROPIUM 3 ML NEB RESP TX SCH ×4 (00:11→19:23)
[2016-11-06 06:28] LABS: Basophils # 0.1 10*3/uL (0.0-0.2); Basophils % 1.2 % (0.0-0.8); Hematocrit 31.5 VOL% (35.7-47.0); Hemoglobin 10.8 GM/DL (12.0-16.0); Immature Granulocytes % 1.4 %; Immature Granulocytes Absolute 0.06 #; Lymphocytes # 0.4 10*3/uL (1.4-4.0); Lymphocytes % 9.9 % (21.3-54.2); Mean Corpuscular HGB Conc 34.3 GM/DL (32-36); Mean Corpuscular Hemoglobin 29 PG (27-34); Mean Corpuscular Volume 85.8 FL (87-102); Mean Platelet Volume 12.5 FL (9.6-12.0); Monocytes # 0.6 10*3/uL (0.11-0.8); Monocytes % 14.9 % (1.7-12.7); NRBC # 0.04 10*3/uL; Neutrophils % 72.6 % (38.7-73.9); Platelet Count 60 T/CUMM (130-400); Red Blood Count 3.67 MC/CUMM (3.8-5.5); White Blood Count 4.2 T/CUMM (4-12)
[2016-11-06 07:01] LABS: Band Neutrophils 10 % (0-10); Giant Platelets Few; Hypochromasia 1+; Lymphocytes 6 % (20-55); Microcytosis 1+; Nucleated Red Blood Cells 1 (0-5); Platelet Estimate Decreased; Segmented Neutrophils 61 % (50-85); Total Cells Counted 100
[2016-11-06 07:05] LABS: Albumin 2.3 G/DL (3.4-5.0); Bilirubin,Total 1.7 MG/DL (0.2-1.0); Osmolality,Calculated 268.2 MOS/KG (273-304); Potassium 2.7 MMOL/L (3.5-5.1); Total Protein 7.4 G/DL (6.4-8.3)
--- NOTE | 2016-11-06 07:19 | Oncology Progress Note ---
Oncology Subjective PN Interval history: (1) Multiple myeloma Status: Chronic Assessment and plan: - recent treatment with BCNU 50 mg, dexamethasone, Adriamycin 50 mg and vincristine 2 mg IV. She has only had one course of this and it was given October 23, 2016. - symptomatic anemia s/p transfusion 2 units PRBC - neutropenia- on filgrastim.Lab work today includes white cell count of 4200 with an absolute neutrophil count of 3000. Her hemoglobin is up to 10.8 today. Her platelet count is 60,000 and rising. - levaquin for neutropenic ppx - mucositis with thrush - continue with stomatitis and addition of diflucan 200mg PO QD Current Visit: No (2) Dyspnea Status: Chronic Assessment and plan: CXR supportive of CHF - continue with lasix 40mg IV daily - repeat CXR in am Current Visit: No (3) Subdural hematoma Status: Acute Assessment and plan: recently d/elena from [facility]. It was apparently the opinion of the neurosurgeons at [facility] that the bleed was chronic and not acute. - mental status: She fell last night and does not remember it. She is on [place] and has alprazolam ordered which I am discontinuing. She also has haloperidol ordered which we should use instead. - holding heparin, aspirin, anticoagulation given recent bleed Current Visit: No (4) Breast cancer Status: Acute Assessment and plan: No evidence of recurrence continue with exemestane Current Visit: Yes Exam - Constitutional Vitals: Period Temp Pulse Resp BP Sys/Mcneill Pulse Ox Last 24 Hr 97.0 F-98.4 F 70-112 16-24 132-147/67-99 90-100 Results - Labs CBC & BMP: 11/06/16 05:34 11/06/16 05:34 Quality Measures - VTE Contraindication to Pharmacological VTE Prophylaxis: Recent Intracrainal Surgey
[2016-11-06] MEDS: FUROSEMIDE 40 MG/4 ML VIAL IV SCH (09:53)
[2016-11-06] MEDS: CLOTRIMAZOLE 10 MG TROCHE PO SCH ×4 (09:54→21:50)
[2016-11-06] MEDS: FILGRASTIM-SNDZ 300 MCG/0.5 ML SYRINGE SUBCUT SCH (09:55)
[2016-11-06] MEDS: FLUCONAZOLE INJ 200 MG in PREMIX 1 EACH IV SCH (09:55)
[2016-11-06] MEDS: LEVOTHYROXINE 50 MCG TABLET PO SCH (09:55)
[2016-11-06] MEDS: LEVOFLOXACIN INJ 750 MG in PREMIX 1 EACH IV SCH (13:01)
[2016-11-06] MEDS: DEXT 5% NACL 0.45% KCL 20 MEQ 20 MEQ/1,000 ML BAG IV SCH ×2 (15:30)
[2016-11-07] MEDS: DEXT 5% NACL 0.45% KCL 20 MEQ 20 MEQ/1,000 ML BAG IV SCH ×2 (00:41→07:46)
[2016-11-07 05:03] LABS: Basophils # 0.1 10*3/uL (0.0-0.2); Basophils % 1.2 % (0.0-0.8); Hematocrit 32.3 VOL% (35.7-47.0); Hemoglobin 11.3 GM/DL (12.0-16.0); Immature Granulocytes Absolute 0.18 #; Lymphocytes # 0.6 10*3/uL (1.4-4.0); Lymphocytes % 10.7 % (21.3-54.2); Mean Corpuscular Hemoglobin 30 PG (27-34); Mean Corpuscular Volume 85.9 FL (87-102); Mean Platelet Volume 12.9 FL (9.6-12.0); Monocytes # 0.8 10*3/uL (0.11-0.8); Monocytes % 13.8 % (1.7-12.7); NRBC # 0.03 10*3/uL; Neutrophils # 4.3 10*3/uL (1.4-7.4); Neutrophils % 71.3 % (38.7-73.9); Platelet Count 59 T/CUMM (130-400); Red Blood Count 3.76 MC/CUMM (3.8-5.5); Red Cell Distribution Width 19.9 % (9.3-17.3)
[2016-11-07 05:23] LABS: Albumin 2.2 G/DL (3.4-5.0); Bilirubin,Total 1.3 MG/DL (0.2-1.0); Calcium 7.3 MG/DL (8.5-10.1); Osmolality,Calculated 268.4 MOS/KG (273-304); Potassium 2.7 MMOL/L (3.5-5.1); Total Protein 6.8 G/DL (6.4-8.3)
[2016-11-07 05:45] LABS: Band Neutrophils 8 % (0-10); Lymphocytes 9 % (20-55); Metamyelocytes 2 %; Myelocytes 3 %; Nucleated Red Blood Cells 1 (0-5); Segmented Neutrophils 75 % (50-85); Total Cells Counted 100
[2016-11-07 05:46] LABS: Anisocytosis 1+; Platelet Estimate Decreased
[2016-11-07] MEDS: ALBUTEROL/IPRATROPIUM 3 ML NEB RESP TX SCH ×4 (06:23→19:34)
[2016-11-07] MEDS: LEVOTHYROXINE 50 MCG TABLET PO SCH (06:43)
--- NOTE | 2016-11-07 07:56 | Oncology Progress Note ---
Oncology Subjective PN Interval history: Blood work today includes white cell count of 6000 with an absolute neutrophil count of 4300. The platelet count is 59,000 today. The hemoglobin is 11.3. This is a patient with progressive myeloma who recently received chemotherapy using BCNU, Adriamycin, vincristine and dexamethasone. She has responded to the chemotherapy but it produced profound depression of her blood counts. She also has stomatitis as result of the chemotherapy. In addition she has advanced myeloma that she has had for over a decade. She is persistently hypokalemic and am adjusting her IV fluids and increasing the potassium chloride concentration added to this solution. (1) Multiple myeloma Status: Chronic Assessment and plan: - recent treatment with BCNU 50 mg, dexamethasone, Adriamycin 50 mg and vincristine 2 mg IV. She has only had one course of this and it was given October 23, 2016. - symptomatic anemia s/p transfusion 2 units PRBC - neutropenia- on filgrastim.Lab work today includes white cell count of 4200 with an absolute neutrophil count of 3000. Her hemoglobin is up to 10.8 today. Her platelet count is 60,000 and rising. - levaquin for neutropenic ppx - mucositis with thrush - continue with stomatitis and addition of diflucan 200mg PO QD. The thrush remains severe. The patient is persistently hypokalemic and I am changing the IV fluids because of that. She has underlying breast cancer that is currently not a problem and there is no evidence of metastatic disease from it. She is profoundly weak for multiple reasons. Night before last she was somewhat confused and fell but did not apparently injure herself. (2) Subdural hematoma Status: Probably not acute. My plan is to reevaluate this in the next couple of days but overall her blood counts to be better and I want her electrolytes imbalance and renal function to be stable. Assessment and plan: recently d/elena from [facility]. It was apparently the opinion of the neurosurgeons at [facility] that the bleed was chronic and not acute. - mental status: She fell last night and does not remember it. She is on [place] and has alprazolam ordered which I am discontinuing. She also has haloperidol ordered which we should use instead. - holding heparin, aspirin, anticoagulation given recent bleed Exam - Constitutional Vitals: Period Temp Pulse Resp BP Sys/Mcneill Pulse Ox Last 24 Hr 97.6 F-98.7 F 80-114 17-25 132-148/70-91 90-99 Results - Labs CBC & BMP: 11/07/16 04:30 11/07/16 04:30 Quality Measures - VTE Contraindication to Pharmacological VTE Prophylaxis: Recent Intracrainal Surgey
[2016-11-07] MEDS ORDERED: DEXT 5% NACL 0.45% KCL 20 MEQ 20 MEQ/1,000 ML BAG IV SCH (08:30)
[2016-11-07] MEDS: FILGRASTIM-SNDZ 300 MCG/0.5 ML SYRINGE SUBCUT SCH (09:42)
[2016-11-07] MEDS: FLUCONAZOLE INJ 200 MG in PREMIX 1 EACH IV SCH (09:42)
[2016-11-07] MEDS: FUROSEMIDE 40 MG/4 ML VIAL IV SCH (09:42)
[2016-11-07] MEDS: DEXT 5% NACL 0.45% KCL 40 MEQ 40 MEQ/1,000 ML BAG IV SCH ×3 (09:48→21:03)
[2016-11-07] MEDS: CLOTRIMAZOLE 10 MG TROCHE PO SCH ×4 (09:49→20:59)
[2016-11-07] MEDS: LEVOFLOXACIN INJ 750 MG in PREMIX 1 EACH IV SCH (11:47)
[2016-11-07] MEDS: ONDANSETRON 4 MG/2 ML VIAL IV PRN (15:20)
[2016-11-07] MEDS: TEMAZEPAM 7.5 MG CAPSULE PO PRN (21:03)
[2016-11-08] MEDS: ALBUTEROL/IPRATROPIUM 3 ML NEB RESP TX SCH ×4 (00:36→20:13)
[2016-11-08 04:48] LABS: Basophils % 0.2 % (0.0-0.8); Hematocrit 33.4 VOL% (35.7-47.0); Hemoglobin 11.5 GM/DL (12.0-16.0); Immature Granulocytes % 1.8 %; Immature Granulocytes Absolute 0.15 #; Lymphocytes # 0.9 10*3/uL (1.4-4.0); Lymphocytes % 10.3 % (21.3-54.2); Mean Corpuscular HGB Conc 34.4 GM/DL (32-36); Mean Corpuscular Hemoglobin 29 PG (27-34); Mean Corpuscular Volume 85.4 FL (87-102); Mean Platelet Volume 12.3 FL (9.6-12.0); Monocytes # 1.2 10*3/uL (0.11-0.8); Monocytes % 13.7 % (1.7-12.7); Neutrophils # 6.3 10*3/uL (1.4-7.4); Red Blood Count 3.91 MC/CUMM (3.8-5.5); Red Cell Distribution Width 19.9 % (9.3-17.3); White Blood Count 8.5 T/CUMM (4-12)
[2016-11-08 04:50] LABS: Platelet Count 62 T/CUMM (130-400)
[2016-11-08] MEDS: DEXT 5% NACL 0.45% KCL 40 MEQ 40 MEQ/1,000 ML BAG IV SCH ×3 (05:10→15:29)
[2016-11-08 05:19] LABS: Albumin 2.4 G/DL (3.4-5.0); Bilirubin,Total 1.9 MG/DL (0.2-1.0); Calcium 7.5 MG/DL (8.5-10.1); Osmolality,Calculated 262.7 MOS/KG (273-304); Potassium 3.4 MMOL/L (3.5-5.1); Total Protein 6.8 G/DL (6.4-8.3)
[2016-11-08 05:20] LABS: Band Neutrophils 6 % (0-10); Lymphocytes 9 % (20-55); Segmented Neutrophils 77 % (50-85); Total Cells Counted 100
[2016-11-08 05:21] LABS: Anisocytosis 1+; Hypochromasia 1+; Microcytosis 1+; Platelet Estimate Decreased
[2016-11-08] MEDS: LEVOTHYROXINE 50 MCG TABLET PO SCH (06:23)
--- NOTE | 2016-11-08 06:55 | Oncology Progress Note ---
Oncology Subjective PN Interval history: This lady has advanced myeloma that has progressed on multiple combinations of chemotherapy as well as targeted therapy. She has had a single bone marrow transplant years ago. She was admitted at this time with dehydration, stomatitis and prostration as well as neutropenia, anemia and thrombocytopenia complicating her most recent chemotherapy. 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 I am going to proceed with a CT of the brain with contrast today. Heart sounds are normal. Her lungs are relatively clear with slightly coarse breath sounds. She has no obvious focal neurologic deficits but she does appear to have difficulty concentrating and she appears to have short-term memory loss. - recent treatment with BCNU 50 mg, dexamethasone, Adriamycin 50 mg and vincristine 2 mg IV. She has only had one course of this and it was given October 23, 2016. - symptomatic anemia s/p transfusion 2 units PRBC - neutropenia- on filgrastim.Lab work today includes white cell count of 4200 with an absolute neutrophil count of 3000. Her hemoglobin is up to 10.8 today. Her platelet count is 60,000 and rising. - levaquin for neutropenic ppx - mucositis with thrush - continue with stomatitis and addition of diflucan 200mg PO QD. The thrush remains severe. The patient is persistently hypokalemic and I am changing the IV fluids because of that. She has underlying breast cancer that is currently not a problem and there is no evidence of metastatic disease from it. Lab work today includes white cell count of 8500 with a hemoglobin of 11.1 and a platelet count of 62,000. She has been hypokalemic and have adjusted her potassium and her drip to 40 mEq/L. Her serum potassium today is up to 3.4. Her serum creatinine is below normal at 0.4. Exam - Constitutional Vitals: Period Temp Pulse Resp BP Sys/Mcneill Pulse Ox Last 24 Hr 97.2 F-98.3 F 81-116 18-21 134-157/75-95 92-99 Results - Labs CBC & BMP: 11/08/16 03:51 11/08/16 03:51 Quality Measures - VTE Contraindication to Pharmacological VTE Prophylaxis: Recent Intracrainal Surgey
[2016-11-08] MEDS: ONDANSETRON 4 MG/2 ML VIAL IV PRN (08:29)
[2016-11-08] MEDS: FLUCONAZOLE INJ 200 MG in PREMIX 1 EACH IV SCH (08:51)
[2016-11-08] MEDS: FILGRASTIM-SNDZ 300 MCG/0.5 ML SYRINGE SUBCUT SCH (08:51)
[2016-11-08] MEDS: CLOTRIMAZOLE 10 MG TROCHE PO SCH ×4 (08:51→21:07)
[2016-11-08] MEDS: FUROSEMIDE 40 MG/4 ML VIAL IV SCH (08:51)
[2016-11-08] MEDS ORDERED: DEXAMETHASONE INJ 20 MG in SODIUM CHLORIDE 0.9% 50 ML IV ONE (09:00)
[2016-11-08] MEDS: LEVOFLOXACIN INJ 750 MG in PREMIX 1 EACH IV SCH (11:46)
--- NOTE | 2016-11-08 11:57 | CT Report ---
CT of the head with and without contrast. Indication: Previous intracerebral hemorrhage, worsening confusion. Comparison: October 29, 2016. 80 cc Omni 350. Again noted is a left hemispheric subdural hematoma, subacute in age. It is stable to slightly decreased in size, with a maximum thickness of 8 mm. There is no evidence of acute rehemorrhage into this subdural hematoma. It does exert mild mass effect on the left cerebral hemisphere. No areas of abnormal enhancement. No midline shift. No ventricular effacement. The calvarium is intact. The included paranasal sinuses and the mastoid air cells are clear. Impression: The left subdural hematoma, subacute in age, is stable to slightly smaller in size, without any evidence of recent hemorrhage. The CT exam was performed using one or more of the following dose reduction techniques: Automated exposure control, adjustment of the mA and/or kV according to patient size, or use of iterative reconstruction technique. PROCEDURE INTERPRETED AT [facility] DEPARTMENT OF RADIOLOGY Final Report Signed by: Dr. Camryn Valerio
[2016-11-08] MEDS: TEMAZEPAM 7.5 MG CAPSULE PO PRN (21:07)
[2016-11-09] MEDS: ALBUTEROL/IPRATROPIUM 3 ML NEB RESP TX SCH ×4 (01:21→19:47)
[2016-11-09] MEDS: DEXT 5% NACL 0.45% KCL 40 MEQ 40 MEQ/1,000 ML BAG IV SCH ×4 (01:28→21:03)
[2016-11-09 05:50] LABS: Basophils % 0.1 % (0.0-0.8); Hematocrit 36.1 VOL% (35.7-47.0); Hemoglobin 12.3 GM/DL (12.0-16.0); Immature Granulocytes % 5.6 %; Immature Granulocytes Absolute 0.79 #; Mean Corpuscular HGB Conc 34.1 GM/DL (32-36); Mean Corpuscular Hemoglobin 29 PG (27-34); Monocytes # 1.2 10*3/uL (0.11-0.8); Monocytes % 8.8 % (1.7-12.7); Neutrophils # 11.1 10*3/uL (1.4-7.4); Neutrophils % 78.5 % (38.7-73.9); Platelet Count 63 T/CUMM (130-400); Red Cell Distribution Width 20.4 % (9.3-17.3); White Blood Count 14.1 T/CUMM (4-12)
[2016-11-09] MEDS: LEVOTHYROXINE 50 MCG TABLET PO SCH (06:02)
[2016-11-09 06:14] LABS: Albumin 2.4 G/DL (3.4-5.0); Bilirubin,Total 1.3 MG/DL (0.2-1.0); Calcium 7.4 MG/DL (8.5-10.1); Osmolality,Calculated 265.8 MOS/KG (273-304); Potassium 4.3 MMOL/L (3.5-5.1); Total Protein 7.1 G/DL (6.4-8.3)
[2016-11-09 06:18] LABS: Band Neutrophils 8 % (0-10); Eosinophils 1 % (0-10); Lymphocytes 5 % (20-55); Segmented Neutrophils 80 % (50-85); Total Cells Counted 100
[2016-11-09 06:19] LABS: Hypochromasia 1+; Microcytosis 1+; Platelet Estimate Decreased
[2016-11-09] MEDS: FILGRASTIM-SNDZ 300 MCG/0.5 ML SYRINGE SUBCUT SCH ×2 (09:17→09:23)
[2016-11-09] MEDS: CLOTRIMAZOLE 10 MG TROCHE PO SCH ×4 (09:17→20:56)
[2016-11-09] MEDS: FUROSEMIDE 40 MG/4 ML VIAL IV SCH (09:18)
[2016-11-09] MEDS: FLUCONAZOLE INJ 200 MG in PREMIX 1 EACH IV SCH (09:20)
--- NOTE | 2016-11-09 10:54 | Oncology Progress Note ---
Oncology Subjective PN Interval history: Ms. Kate has developed punctate raised and umbilicated areas of what appear to be septic emboli diffusely. I am asking Dr. Bryant to see her with me. She is immunosuppressed by long-term myeloma. She has not had myeloma since August 2003 and it has progressed. Her most recent chemotherapy was about 3 weeks ago and consisted of BCNU 50 mg, dexamethasone, Adriamycin 50 mg and vincristine 2 mg IV. She has only had one course of this and it was given October 23, 2016. In addition, she has a history of breast cancer that I do not think is active. I have just changed her chemotherapy to the above combination. That was her first course. She had progressed after daratumumab. I am changing her antibiotics today to include Merrem and vancomycin. She is already on Diflucan. She was on Levaquin but am stopping it. This lady is critically ill with life-threatening disease. The new skin lesions are exceedingly worrisome. She is critically ill. She is confused but not severely so. She is extremely weak and debilitated. She has a large lesion that is a mass-effect on the manubrium that has decreased in size with the most recent chemotherapy. She has stomatitis that we are actively treating as well. In addition, she has a stable non-acute subdural hematoma. Exam - Constitutional Vitals: Period Temp Pulse Resp BP Sys/Mcneill Pulse Ox Last 24 Hr 96.1 F-98.3 F 67-122 15-22 124-136/75-89 93-99 Results - Labs CBC & BMP: 11/09/16 04:00 11/09/16 04:00 Quality Measures - VTE Contraindication to Pharmacological VTE Prophylaxis: Recent Intracrainal Surgey
--- NOTE | 2016-11-09 12:24 | Physician Query Form ---
CLICK EDIT DOCUMENT TO SELECT QUERY ANSWER --> OK --> SIGN Kirstie Pan RN, CCDS Certified Clinical Senior Recruitment Consultant W) [phone] (f) [phone] [email or web address] PROVIDERS: Make your selection(s) from the choices in EACH section by typing an "x" and enter comments in the comment section. Please use your independent medical judgment in providing your response. This request does not imply that any particular answer is desired or expected. CLINICAL INDICATORS: (Providers should not edit this section) The medical record indicates that the patient was admitted with MM, WBC 1.8, RBC 2.39, Plt 68#, HH of 7.2/21.7 and the patient was given 2 units of blood. -- "She is currently on Velcade and dexamethasone and we have held thalidomide because I suspected it might be contributing to her thrombocytopenia and leukopenia that had been going on for the last few weeks" Based on the above, could you clarify the appropriate diagnosis, if significant , that supports the above abnormalities and additional evaluation, monitoring, and/or treatment rendered: ( ) Pancytopenia due to Chemotherapy ( ) Pancytopenia due to ( x) Other, please specify: ( ) Clinically unable to determine COMMENTS: I did not intend for this portion of the dictation to remain. I temporarily posted it from a previous record in order to use it as a reference. The fax outlined above are not true for this admission. Use of terms such as suspected, likely, or probable (associated with a specific diagnosis that is being evaluated, monitored, or treated as if it exists) are acceptable and can be restated in the discharge summary if not ruled out. MTDD
[2016-11-09] MEDS: LEVOFLOXACIN INJ 750 MG in PREMIX 1 EACH IV SCH (12:45)
[2016-11-09] MEDS: VANCOMYCIN INJ 1,000 MG in SODIUM CHLORIDE 0.9% 250 ML IV SCH ×2 (12:53→23:28)
--- NOTE | 2016-11-09 16:25 | Infectious Disease Consult ---
Assessment and Plan (1) Generalized rash Status: Acute Assessment and plan: I am concerned that this represents a dissiminated infection - with her significant exposure to chemotherapy she is quite immunosuppressed and at risk for atypical infections including bacteria such as in the actinomycetes class, fungi, and possibly atypical mycobacteria. Recommendations: 1. Repeat blood cultures 2. Instead of meropenem, will use imipenem which would cover actinomycetes/ nocardia 3. Instead of fluconazole, I think we should use voriconazole to cover organisms such as Aspergillus and Fusarium. THe patient is rather ill so we should be more aggressive, and can de-escalate as we get back results. 4. She may need a biopsy of one of the skin lesions to yield a quick result, if the blood cultures are negative. If biopsy is done, samples should be sent for fungal stain and culture, AFB stain and culture, and regular bacterial gram stain and culture, along with histopathology of course 5. Echo for completeness sake 6. Continue the other empiric antibiotics (levofloxacin and vancomycin) Thank you very much for the consult. Will follow. Current Visit: Yes (2) Breast cancer Status: Acute Current Visit: Yes (3) Multiple myeloma Status: Chronic Current Visit: No History of Present Illness Chief complaint: Generalized skin lesions History of present illness: History obtained mainly from review of records as patient was somewhat confused having recently had a subdural mematoma. Ms. Kate is a 66 year old female with h/o multiple myeloma diagnosed in 2003. She got treated initially with bone marrow transplant and apparently did well initially but apparently her disease progressed in recent years and she had to be on CTx. She has progressed with different regimens and last mth got switched to vincristine, carmustine, and adriamycin (she got 1 course so far). She has been pancytopenic and generally failing to thrive. SHe presented this week with fatigue, weakness and sores in her mouth. SHe was transfused and started on fluconazole for oral candiasis. She recieved G-CSF for her neutropenia, with good effect. She over the past few days developed progressive generalized skin lesions. She has not had any fever since admission. Antibiotics were escalated today and I am asked to assist with managment. Home Medications Medication Instructions Recorded Confirmed Type Venlafaxine Xr [Effexor XR] 75 mg PO PC SUPPER 06/13/16 11/03/16 History Exemestane [Aromasin] 25 mg PO DAILY 08/15/16 11/03/16 History Carvedilol [Coreg] 3.125 mg PO BID W/MEALS 09/10/16 11/03/16 History HYDROcodone/ACETAMIN 10-325 [[place] 1 tablet PO Q6H PRN 11/03/16 11/03/16 History 10-325] Levothyroxine Tab [Synthroid Tab] 50 mcg PO DAILY@0700 11/03/16 11/03/16 History Mag Hydrox/Aluminum Hyd/Simeth 10 ml PO Q6H PRN 11/03/16 11/03/16 History [Alum-Mag Hydroxide-Simeth Liq] Omeprazole 40 mg PO DAILY 11/03/16 11/03/16 History Allergies Allergy/AdvReac Type Severity Reaction Status Date / Time Iodinated Contrast Media - Allergy Mild ITCHING Verified 11/03/16 12:30 Oral and [Iodinated Contrast Media - IV Dye] 12 point system: reviewed and no additional remarkable complaints except as stated (no diarrhea, instead she is constipated, poor appetite due to oral ulcers, no cough or SOB, denies urinary symptoms (had Montesinos currently), says rash does not itch) Medical,Surgical,& Family Hx - Medical History Cardio: No history of: Cardiac Dysrhythmia, Cerebrovascular Disease, CHF, Hypertension, CO Psychological: No history of: Behavior Problems, Depression, Previous Suicide Attempt Neurology: No history of: Cerebrovascular Accident, Dementia, Migraine, Seizures, TIA, Vertigo HEENT: No history of: Ear Problem, Eye Problem, Glaucoma Endocrine: History of: Thyroid Disorder Respiratory: No history of: Asthma, Bronchitis, COPD, Obstructive Sleep Apnea, Pulmonary Embolism, Pulmonary Hypertension Renal: No history of: Renal (Kidney) Cancer, Dialysis, Renal Failure Genitourinary: No history of: Bladder Problem, Genitourinary Cancer Gastrointestinal: History of: GERD, GI Problems (ULCERS) No history of: Gastrointestinal Bleed, Hepatitis Musculoskeletal: History of: Musculoskeletal Problems (ARTHRITIS) Hematology: History of: Anemia, Hematologic Cancer (IgG lambda myeloma ) No history of: Blood Transfusion Reaction, Sickle Cell Disease Reproductive: History of: Breast Cancer (left breast CA 2012) Other: History of: Cancer (LEFT BREAST), Miscellaneous Medical Problems ( multiple myeloma) - Surgical History Cardiac Surgeries: Patient Denies: Cardiac Catheterization, Cardiac Surgery, Carotid Endarterectomy, Internal Defibrillator Thoracic Surgeries: Patient denies;: Kidney (Renal Surgery) HEENT Surgeries: Surgical HX of: Thyroid Surgery (thyroidectomy) Patient denies: Carotid Endarterectomy Abdominal Surgeries: Surgical HX of: Cholecystectomy, Colonoscopy, EGD Reproductive Surgeries: Surgical HX of;: Breast Surgery (left mastectomy), Hysterectomy - Family History Family History: Reports;: Family Cancer (mom-colon CA), Family Diabetes (brother , father), Family Heart Disease (brother-CAD pt reports brother "had 2 stents put in his heart 2 weeks ago"), Family Hypertension, Family Psychiatric Problems (MOM- ALZHMIERS) - Social History Smoking Status: Never smoker Frequency of Alcohol Use: None Type of Drug Use: None Infectious Disease Exam H&P - Constitutional Vitals: Vital Signs Temp Pulse Resp BP Pulse Ox 98.5 F 111 H 20 132/86 98 11/09/16 12:00 11/09/16 13:49 11/09/16 14:00 11/09/16 12:00 11/09/16 13:49 Intake and Output 11/09/16 11/09/16 11/09/16 07:59 15:59 23:59 Intake Total 250 / 250 1100 / 1100 Output Total 100 / 100 1999 / 1999 Balance 150 / 150 -900 / -900 Intake: IV 150 / 150 1100 / 1100 D5 1/2NS KCL 40 MEQ 40 1000 / 1000 meq In 1,000 ml @ 125 mls /hr IV .Q8H CYNDY Rx#: [id number] Diflucan Inj 200 mg In 100 / 100 Premix 1 Each @ 100 mls/ hr IV Q24H CYNDY Rx#: [id number] Levaquin Inj 750 mg In 150 / 150 Premix 1 Each @ 100 mls/ hr IV Q24H CYNDY Rx#: [id number] Oral 100 / 100 Output: Urine 100 / 100 1999 Other: Voiding Method Indwelling Catheter Indwelling Catheter # Bowel Movements 0 Exam: General: Patient looks malaised and chronically ill HEENT: Mucous membranes pale, moist, anicteric acyanotic, PERRLA, she has extensive ulcerations in her mouth - buccal mucosa and tongue involved Neck: Supple, no thyroid gland enlargement, no lymphadenopathy appreciated Respiratory system: Breath sounds vesicular, no crepitations or wheezes Cardiovascular: Normal S1 and S2, no murmurs appreciated Abdomen: Normal bowel sounds, soft nontender throughout, no organomegaly or mass Genitourinary: No suprapubic pain or bladder distention, clear urine from Montesinos catheter Extremities: no edema Skin: Extensive rash all over body literally from head to toe (scalp involved), it is somewhat hemorrhagic, vesicular edges with umbilicated center. The lesion are in varying sizes and stages of evolution, some tiny red papules without vesiculation. Reports - Labs CBC & BMP: 11/09/16 04:00 11/09/16 04:00 Labs: Laboratory Results - last 24 hr 11/09/16 11/09/16 04:00 04:00 WBC 14.1 H D RBC 4.20 Hgb 12.3 Hct 36.1 MCV 86.0 L MCH 29 MCHC 34.1 RDW 20.4 H Plt Count 63 L Neut % (Auto) 78.5 H Lymph % (Auto) 7.0 L Nuckolls % (Auto) 8.8 Eos % (Auto) 0.0 Baso % (Auto) 0.1 Neut # (Auto) 11.1 H Lymph # (Auto) 1.0 L [place]oll[place] # (Auto) 1.2 H Eos # (Auto) 0.0 Baso # (Auto) 0.0 Total Counted 100 Immature Gran % 5.6 Nucleated RBC % 0.0 Immature Gran # 0.79 Segmented Neutrophils 80 Band Neutrophils 8 Lymphocytes 5 L Monocytes 6 Eosinophils 1 Nucleated RBCs # 0.00 Platelet Estimate Decreased Hypochromasia 1+ Microcytosis 1+ Morphology Comment Sodium 130 L Potassium 4.3 Chloride 96 L Carbon Dioxide 25 Anion Gap 13.3 BUN 13 Creatinine 0.50 L GFR Calculation 95 BUN/Creatinine Ratio 26.00 H Glucose 199 H Calculated Osmolality 265.8 L Calcium 7.4 L Total Bilirubin 1.30 H AST 39 H ALT 47 Alkaline Phosphatase 213 H Lactate Dehydrogenase 421 H Total Protein 7.1 Albumin 2.4 L Globulin 4.7 H Albumin/Globulin Ratio 0.5 L - Reports Microbiology: Microbiology 11/03/16 18:30 Blood Culture - Final Blood No growth at 5 days 11/03/16 18:30 Blood Culture - Final Blood No growth at 5 days - Diagnostic Findings Procedure: Chest x-ray: image reviewed by me, report reviewed by me (Increased interstitial markings)
[2016-11-09] MEDS: ONDANSETRON 4 MG/2 ML VIAL IV PRN (16:54)
[2016-11-09] MEDS: MEROPENEM 1,000 MG in SODIUM CHLORIDE 0.9% 100 ML IV SCH ×2 (16:56→22:15)
[2016-11-09] MEDS: valACYclovir 500 MG TABLET PO SCH ×2 (18:31→20:55)
[2016-11-09] MEDS: MAGNESIUM HYDROXIDE SUSP 30 ML UDCUP PO PRN (18:33)
[2016-11-10] MEDS: IMIPENEM/CILASTATIN 500 MG in SODIUM CHLORIDE 0.9% 100 ML IV SCH ×4 (01:17→19:52)
[2016-11-10] MEDS: diphenhydrAMINE CAP 25 MG CAPSULE PO PRN ×2 (01:22→13:25)
[2016-11-10] MEDS: ALBUTEROL/IPRATROPIUM 3 ML NEB RESP TX SCH ×4 (01:54→19:35)
[2016-11-10] MEDS: SODIUM CHLORIDE 0.9% IV SCH ×3 (02:01→22:26)
[2016-11-10] MEDS: VORICONAZOLE IV SCH ×3 (02:01→22:26)
[2016-11-10] MEDS: DEXT 5% NACL 0.45% KCL 40 MEQ 40 MEQ/1,000 ML BAG IV SCH (06:51)
[2016-11-10] MEDS: LEVOTHYROXINE 50 MCG TABLET PO SCH (06:53)
[2016-11-10 06:58] LABS: Basophils # 0.1 10*3/uL (0.0-0.2); Basophils % 0.7 % (0.0-0.8); Hematocrit 37.4 VOL% (35.7-47.0); Hemoglobin 12.7 GM/DL (12.0-16.0); Immature Granulocytes % 2.6 %; Immature Granulocytes Absolute 0.26 #; Lymphocytes # 0.9 10*3/uL (1.4-4.0); Lymphocytes % 9.2 % (21.3-54.2); Mean Corpuscular Hemoglobin 30 PG (27-34); Monocytes # 1.1 10*3/uL (0.11-0.8); Monocytes % 11.1 % (1.7-12.7); Neutrophils # 7.5 10*3/uL (1.4-7.4); Neutrophils % 76.4 % (38.7-73.9); Platelet Count 74 T/CUMM (130-400); Red Cell Distribution Width 20.1 % (9.3-17.3); White Blood Count 9.9 T/CUMM (4-12)
--- NOTE | 2016-11-10 07:01 | Oncology Progress Note ---
Assessment and Plan (1) Multiple myeloma Status: Chronic Current Visit: No (2) Anemia Status: Acute Current Visit: No (3) Thrombocytopenia Status: Acute Current Visit: No Oncology Subjective PN Interval history: Ms. Cagle is doing well. Infectious disease saw her yesterday and made numerous changes to her antimicrobial agents. She seemed to have somewhat improved skin lesions this morning. She is in good spirits. She still has significant oral candidiasis and is covered with Vfend for this. She had some loose stool this morning. She remains on IV fluids due to her poor p.o. intake. Her white count has significantly improved. I will discontinue Neupogen. All of the lab work is stable. We will continue with her current management. Exam - Constitutional Vitals: Period Temp Pulse Resp BP Sys/Mcneill Pulse Ox Last 24 Hr 96.7 F-99.3 F 72-125 16-20 130-145/80-93 97-100 General appearance: normal weight, no acute distress - Head Head Exam: Present: normocephalic, atraumatic - ENT ENT exam: Present: normal exam, normal oropharynx - Neck Neck exam: Absent: lymphadenopathy, thyromegaly - Respiratory Respiratory exam: Present: CTAB. Absent: wheezes - Cardiovascular Cardiovascular exam: Present: RRR. Absent: JVD - GI/Abdominal GI/Abdominal exam: Present: soft. Absent: ascites, distended, firm, mass - Neurological Exam Neurological exam: Present: alert, oriented X3 - Psychiatric Psychiatric exam: Present: normal affect, normal mood - Skin Skin exam: Present: warm, dry Results - Labs CBC & BMP: 11/10/16 02:00 11/09/16 04:00 Lab Results: I have reviewed the past 24 hour labs Quality Measures - VTE Contraindication to Pharmacological VTE Prophylaxis: Recent Intracrainal Surgey
[2016-11-10 07:06] LABS: Albumin 2.5 G/DL (3.4-5.0); Bilirubin,Total 1.5 MG/DL (0.2-1.0); Calcium 7.5 MG/DL (8.5-10.1); Osmolality,Calculated 258.1 MOS/KG (273-304); Potassium 4.3 MMOL/L (3.5-5.1)
[2016-11-10 07:20] LABS: Band Neutrophils 6 % (0-10); Hypochromasia 1+; Lymphocytes 10 % (20-55); Platelet Estimate Decreased; Segmented Neutrophils 76 % (50-85); Total Cells Counted 100
[2016-11-10 07:21] LABS: Microcytosis Slight
[2016-11-10] MEDS: SODIUM CHLORIDE 0.9% 1,000 ML IV SCH ×2 (09:26→21:32)
[2016-11-10] MEDS: valACYclovir 500 MG TABLET PO SCH ×3 (09:27→20:45)
[2016-11-10] MEDS: CLOTRIMAZOLE 10 MG TROCHE PO SCH ×4 (09:27→20:46)
[2016-11-10] MEDS: FUROSEMIDE 40 MG/4 ML VIAL IV SCH (09:27)
[2016-11-10] MEDS: VANCOMYCIN INJ 1,000 MG in SODIUM CHLORIDE 0.9% 250 ML IV SCH (10:56)
[2016-11-10] MEDS: LACTULOSE 20 GM/30 ML UDCUP PO PRN (13:25)
[2016-11-10] MEDS: TEMAZEPAM 7.5 MG CAPSULE PO PRN (22:29)
[2016-11-11] MEDS: ALBUTEROL/IPRATROPIUM 3 ML NEB RESP TX SCH ×4 (00:40→19:27)
[2016-11-11] MEDS: VANCOMYCIN INJ 1,000 MG in SODIUM CHLORIDE 0.9% 250 ML IV SCH ×2 (00:49→13:38)
[2016-11-11] MEDS: SODIUM CHLORIDE 0.9% 1,000 ML IV SCH ×2 (02:17→14:57)
[2016-11-11] MEDS: IMIPENEM/CILASTATIN 500 MG in SODIUM CHLORIDE 0.9% 100 ML IV SCH ×4 (02:22→20:58)
[2016-11-11 05:01] LABS: Basophils % 0.2 % (0.0-0.8); Hematocrit 34.6 VOL% (35.7-47.0); Hemoglobin 11.8 GM/DL (12.0-16.0); Immature Granulocytes % 4.6 %; Immature Granulocytes Absolute 0.19 #; Lymphocytes % 24.5 % (21.3-54.2); Mean Corpuscular HGB Conc 34.1 GM/DL (32-36); Mean Corpuscular Hemoglobin 29 PG (27-34); Mean Corpuscular Volume 85.9 FL (87-102); Monocytes # 0.6 10*3/uL (0.11-0.8); Neutrophils # 2.3 10*3/uL (1.4-7.4); Neutrophils % 56.7 % (38.7-73.9); Platelet Count 76 T/CUMM (130-400); Red Blood Count 4.03 MC/CUMM (3.8-5.5); Red Cell Distribution Width 20.7 % (9.3-17.3); White Blood Count 4.1 T/CUMM (4-12)
[2016-11-11] MEDS: MAGNESIUM HYDROXIDE SUSP 30 ML UDCUP PO PRN (05:14)
[2016-11-11 05:34] LABS: Albumin 2.4 G/DL (3.4-5.0); Bilirubin,Total 0.8 MG/DL (0.2-1.0); Calcium 7.2 MG/DL (8.5-10.1); Osmolality,Calculated 275.1 MOS/KG (273-304); Potassium 3.1 MMOL/L (3.5-5.1); Total Protein 6.1 G/DL (6.4-8.3)
[2016-11-11 06:01] LABS: Metamyelocytes 2 %
[2016-11-11 06:02] LABS: Anisocytosis 1+; Burr Cells Few; Hypochromasia 1+; Lymphocytes 28 % (20-55); Macrocytosis 1+; Myelocytes 1 %; Platelet Estimate Decreased; Segmented Neutrophils 50 % (50-85); Total Cells Counted 100
[2016-11-11] MEDS: LEVOTHYROXINE 50 MCG TABLET PO SCH (06:55)
--- NOTE | 2016-11-11 07:08 | ECHO Report ---
Marisela Kate Exam Date: 11/10/2016 08:28 Referring Physician: Technologist: Age: 66 Ht (in): Wt (lb): Gender: F Exam Location: [facility] Echo Indications: BP: / HR: Rhythm: Sinus Technical Quality: Average IMPRESSIONS Left ventricular ejection fraction is estimated at 40 %. There appears to be significant hypokinesis of the mid to distal inferior ventricular myocardium and also the distal anterior ventricular myocardium. Left ventricular ejection fraction is estimated at 40 %. There appears to be significant hypokinesis of the mid to distal inferior ventricular myocardium and also the distal anterior ventricular myocardium. Diastolic parameters appear to be most consistent with Grade I diastolic dysfunction or impaired relaxation. The patient has a resting tachycardia at 120 bpm. Tricuspid regurgitation velocities suggest a RVSP of 24 mmHg plus the right atrial pressure. There is a mild to moderate pericardial effusion that appears larger than 07/2016 but no echocariographic suggestion of impending tamponade. Compared to the 07/2016 images, the HR is increased and there appears to be a decline in the EF. This may be a real change or may be due tachycardia and less than ideal endocardial resolution. The pericardial effusion is larger but does NOT appear by echocardiographic assessment have hemodynamic consequences. MEASUREMENTS (Male / Female) Normal Values 2D ECHO LV Diastolic Diameter PLAX 3.8 cm 4.2 - 5.9 / 3.9 - 5.3 cm LV Systolic Diameter PLAX 2.7 cm LV Fractional Shortening PLAX 29.4 % IVS Diastolic Thickness 0.8 cm 0.6 - 1.0 / 0.6 - 0.9 cm LVPW Diastolic Thickness 0.8 cm 0.6 - 1.0 / 0.6 - 0.9 cm RV Internal Dim ED PLAX 3.2 cm Aortic Root Diameter 2.9 cm LA Systolic Diameter LX 2.9 cm 3.0 - 4.0 / 2.7 - 3.8 cm DOPPLER TR Peak Velocity 244.0 cm/s TR Peak Gradient 23.8 mmHg FINDINGS Left Ventricle Normal left ventricular cavity size. Normal left ventricular wall thickness. Left ventricular ejection fraction is estimated at 40 %. There appears to be significant hypokinesis of the mid to distal inferior ventricular myocardium and also the distal anterior ventricular myocardium. Diastolic parameters appear to be most consistent with Grade I diastolic dysfunction or impaired relaxation. The patient has a resting tachycardia at 120 bpm. There is poor endocardial resolution and the patient is tachycardic which makes the ejection fraction slightly more difficult to assess. Right Ventricle The right ventricle is normal in size and function. Right Atrium Mild atrial enlargement in apical view (elongated RA). The previously described right atrial echodense structure is without change and appears chronic. Left Atrium Mild atrial enlargement in apical view (elongated LA). Mitral Valve Thickened mitral valve. Trace mitral valve regurgitation. Aortic Valve Aortic valve sclerosis without stenosis or regurgitation. Tricuspid Valve Morphologically normal tricuspid valve. Trace to mild tricuspid valve regurgitation. Tricuspid regurgitation velocities suggest a RVSP of 24 mmHg plus the right atrial pressure. The RAP appears to be low based on the properties of the non-dilated and collapsable IVC. Pulmonic Valve Morphologically normal pulmonic valve without significant stenosis. There is no pulmonic regurgitation. Pericardium There is a mild to moderate pericardial effusion that appears larger than 07/2016 but no echocariographic suggestion of impending tamponade. There is no significant change in mitral or tricuspid inflow velocities. Aorta Normal ascending aorta dimension. Emerald Campuzano (Electronically Signed) Final Date: 11 Nov 2016 07:07
[2016-11-11] MEDS: FUROSEMIDE 40 MG/4 ML VIAL IV SCH (08:41)
[2016-11-11] MEDS: valACYclovir 500 MG TABLET PO SCH ×3 (08:42→20:59)
[2016-11-11] MEDS: MYLANTA/LIDO VISC/NYST 180 ML BOTTLE SWISH/SWAL PRN (08:43)
[2016-11-11] MEDS ORDERED: hydrOXYzine HCL 25 MG TABLET PO PRN (09:34)
--- NOTE | 2016-11-11 09:37 | Oncology Progress Note ---
Assessment and Plan (1) Multiple myeloma Status: Chronic Current Visit: No (2) Anemia Status: Acute Current Visit: No (3) Thrombocytopenia Status: Acute Current Visit: No Oncology Subjective PN Interval history: 66-year-old white female with multiple myeloma. She is currently on broad- spectrum antimicrobial coverage. She had one episode of confusion yesterday but it was shortly after receiving Benadryl. She is hypokalemic again today so I will adjust her IV fluids. I will hold her IV Lasix for now. She is alert and oriented this morning. I will add Atarax to her as needed medications to be used for itching instead of Benadryl. Hopefully this will not cause as much confusion. She continues to have her diffuse rash that involves mainly her trunk and face more than extremities. Exam - Constitutional Vitals: Period Temp Pulse Resp BP Sys/Mcneill Pulse Ox Last 24 Hr 97.3 F-99.0 F 100-132 17-20 101-120/64-78 96-100 General appearance: normal weight, no acute distress - Head Head Exam: Present: normocephalic, atraumatic - ENT ENT exam: Present: normal exam, normal oropharynx - Neck Neck exam: Absent: lymphadenopathy, thyromegaly - Respiratory Respiratory exam: Present: CTAB. Absent: wheezes - Cardiovascular Cardiovascular exam: Present: RRR. Absent: JVD - GI/Abdominal GI/Abdominal exam: Present: soft. Absent: ascites, distended, mass - Neurological Exam Neurological exam: Present: alert, oriented X3 - Skin Skin exam: Present: dry, rash Results - Labs CBC & BMP: 11/11/16 04:00 11/11/16 04:00 Lab Results: I have reviewed the past 24 hour labs Quality Measures - VTE Contraindication to Pharmacological VTE Prophylaxis: Recent Intracrainal Surgey
[2016-11-11] MEDS: VORICONAZOLE IV SCH ×2 (10:29→22:20)
[2016-11-11] MEDS: SODIUM CHLORIDE 0.9% IV SCH ×2 (10:29→22:20)
[2016-11-11] MEDS: SODIUM CHLOR 0.45% KCL 20 MEQ 20 MEQ/1,000 ML BAG IV SCH (10:29)
[2016-11-11] MEDS: CLOTRIMAZOLE 10 MG TROCHE PO SCH ×4 (10:36→20:59)
[2016-11-11] MEDS: ONDANSETRON 4 MG/2 ML VIAL IV PRN (12:51)
[2016-11-12] MEDS: VANCOMYCIN INJ 1,000 MG in SODIUM CHLORIDE 0.9% 250 ML IV SCH ×2 (01:00→13:14)
[2016-11-12] MEDS: ALBUTEROL/IPRATROPIUM 3 ML NEB RESP TX SCH ×4 (01:12→19:23)
[2016-11-12] MEDS: SODIUM CHLOR 0.45% KCL 20 MEQ 20 MEQ/1,000 ML BAG IV SCH ×2 (02:34→03:53)
[2016-11-12] MEDS: IMIPENEM/CILASTATIN 500 MG in SODIUM CHLORIDE 0.9% 100 ML IV SCH ×4 (03:55→22:40)
[2016-11-12 06:08] LABS: Basophils % 0.3 % (0.0-0.8); Hematocrit 34.2 VOL% (35.7-47.0); Hemoglobin 11.8 GM/DL (12.0-16.0); Immature Granulocytes % 3.7 %; Immature Granulocytes Absolute 0.13 #; Lymphocytes # 0.9 10*3/uL (1.4-4.0); Lymphocytes % 26.2 % (21.3-54.2); Mean Corpuscular HGB Conc 34.5 GM/DL (32-36); Mean Corpuscular Hemoglobin 30 PG (27-34); Mean Corpuscular Volume 85.5 FL (87-102); Mean Platelet Volume 11.5 FL (9.6-12.0); Monocytes # 0.4 10*3/uL (0.11-0.8); Monocytes % 10.1 % (1.7-12.7); Neutrophils # 2.1 10*3/uL (1.4-7.4); Neutrophils % 59.7 % (38.7-73.9); Platelet Count 69 T/CUMM (130-400); Red Cell Distribution Width 20.6 % (9.3-17.3); White Blood Count 3.6 T/CUMM (4-12)
[2016-11-12] MEDS: LEVOTHYROXINE 50 MCG TABLET PO SCH (06:27)
[2016-11-12 06:37] LABS: Albumin 2.5 G/DL (3.4-5.0); Bilirubin,Total 1.1 MG/DL (0.2-1.0); Calcium 7.2 MG/DL (8.5-10.1); Osmolality,Calculated 270.4 MOS/KG (273-304); Potassium 3.1 MMOL/L (3.5-5.1); Total Protein 6.1 G/DL (6.4-8.3)
[2016-11-12 06:43] LABS: Band Neutrophils 9 % (0-10); Hypochromasia 2+; Lymphocytes 12 % (20-55); Platelet Estimate Decreased; Segmented Neutrophils 70 % (50-85); Total Cells Counted 100
[2016-11-12] MEDS: ONDANSETRON 4 MG/2 ML VIAL IV PRN ×2 (07:49→18:06)
--- NOTE | 2016-11-12 08:14 | Oncology Progress Note ---
Oncology Subjective PN Interval history: Ms. Kate has advanced myeloma that has been previously treated with thalidomide and dexamethasone followed by Velcade, thalidomide and dexamethasone and subsequently with daratumumab. She has had myeloma since 2004 and has had an autologous marrow transplant that was done prior to starting of the thalidomide and dexamethasone. Her most recent chemotherapy consisted of Adriamycin, BCNU, vincristine and dexamethasone. She received this chemotherapy on October 23, 2016 and it included BCNU 50 mg, dexamethasone, Adriamycin 50 mg and vincristine 2 mg IV. She was subsequently admitted with profound weakness and has developed pancytopenia she also has severe stomatitis. In addition she had a rash suggesting ecthyma gangrenosum last . This rash is still present. She is still appears extremely acutely ill. She is severely immunosuppressed by her long history of myeloma. She remains extremely weak and extremely debilitated. She has a history of recurrent breast cancer but there is no evidence of disease activity from it. Lab work today includes a white cell count of 3600 with an absolute neutrophil count of 2100 and she has a hemoglobin of 11.8 with a platelet count of 69,000 and falling. Her comprehensive metabolic profile includes the hypokalemia with a serum potassium of 3.14 which I am adjusting her IV fluids. I had to go through the step to order the change in IV fluids multiple times before the right order came up. On physical examination she is both acutely and chronically ill. Skin: She has multiple hemorrhagic rounded skin lesions that have not really improved except for the fact that there are few of them that appear to be blisters. Eyes: Normal lids and conjunctivae. ENT: She still has significant stomatitis that we are continuing to treat with voriconazole and Mycelex. Lungs: Breath sounds are coarse and she has scattered rhonchi. Her chest moves symmetrically. She is not tachypneic. Cardiovascular: Her heart rhythm is regular with mild tachycardia. There is no jugular venous distention, clubbing or cyanosis. Abdomen: She has no abdominal masses or ascites and there is no tenderness. She remains gravely ill with multiple problems including: (1) Multiple myeloma Status: Chronic Assessment and plan: - recent treatment with BCNU 50 mg, dexamethasone, Adriamycin 50 mg and vincristine 2 mg IV. 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 Current Visit: No (4) Breast cancer Status: Acute but without evidence of recurrence. Assessment and plan: continue with exemestane Exam - Constitutional Vitals: Period Temp Pulse Resp BP Sys/Mcneill Pulse Ox Last 24 Hr 97.8 F-98.2 F 108-125 16-24 99-118/64-76 96-100 Results - Labs CBC & BMP: 11/12/16 04:00 11/12/16 04:00 Quality Measures - VTE Contraindication to Pharmacological VTE Prophylaxis: Recent Intracrainal Surgey
[2016-11-12] MEDS: valACYclovir 500 MG TABLET PO SCH ×3 (08:23→21:12)
[2016-11-12] MEDS: CLOTRIMAZOLE 10 MG TROCHE PO SCH ×4 (08:24→21:12)
--- NOTE | 2016-11-12 11:04 | Infectious Disease Progress ---
Assessment and Plan (1) Generalized rash Status: Acute Assessment and plan: I am still concerned that this represents a dissiminated infection - with her significant exposure to chemotherapy she is quite immunosuppressed and at risk for atypical infections including bacteria such as in the actinomycetes class, fungi, and possibly atypical mycobacteria. She seems a bit better today on empiric broad-spectrum antimicrobial coverage. The MRSE cultured from 1 of the lesions likely represents colonization rather than the actual cause of her current infection. Recommendations: 1. Surgery consult for skin biopsy with samples sent for histopathology along with Gram stain and culture, fungal stain and culture, and AFB stain and culture 2. Continue empiric broad-spectrum antimicrobial coverage 3. Follow-up blood culture results Discussed with Dr. Gaines Current Visit: Yes (2) Breast cancer Status: Acute Current Visit: Yes (3) Multiple myeloma Status: Chronic Current Visit: No Infectious Disease - PN: Subj Interval history: The patient is more alert and conversant today, less malaise looking. She says she feels fair, no major events over the weekend. She has had no fever. No soreness of the mouth is improved. Rash still present no itching. Infectious Disease Exam (PN) - Constitutional Vitals: Temp Pulse Resp BP Pulse Ox 97.4 F L 121 H 20 119/68 99 11/12/16 07:15 11/12/16 07:28 11/12/16 07:28 11/12/16 07:15 11/12/16 07:28 General appearance: normal weight, no acute distress Exam: General appearance: no acute distress looks less ill than on Saturday - Eye Eye exam: Present: EOMI. no icterus Pupils: Present: JUAN MANUEL - ENT ENT exam: Oral ulcerations notably improved since Saturday - Respiratory Respiratory exam: vesicular BS, no crepitations or wheezes - Cardiovascular Cardiovascular exam: regular rate and rhythm, no murmurs - GI/Abdominal GI/Abdominal exam: normal bowel sounds, soft, non-tender, no organomegaly or mass - Extremities Exam Extremities exam: Bilateral lower extremity mild edema, right greater than left - Skin Skin exam: Still has extensive rash present all of the body from head to toe, lesions on soles noted some hemorrhagic appearing with vesicles umbilicated center. Several of the lesions on the trunk dry compared to 3 days ago. Results - Labs CBC & BMP: 11/12/16 04:00 11/12/16 04:00 Lab Results: I have reviewed the past 24 hour labs (Blood cultures negative so far, wound cultures MRSE, serum cryptococcal antigen negative) - Impressions Echo without mention of vegetation, she has mild to moderate pericardial effusion. Quality Measures - VTE Contraindication to Pharmacological VTE Prophylaxis: Recent Intracrainal Surgey
[2016-11-12] MEDS: VORICONAZOLE IV SCH ×2 (11:20→23:30)
[2016-11-12] MEDS: SODIUM CHLORIDE 0.9% IV SCH ×2 (11:20→23:30)
[2016-11-12] MEDS ORDERED: LIDOCAINE 1% 20 ML VIAL IM ONE (12:32)
[2016-11-12] MEDS: DEXT 5% NACL 0.9% KCL 40 MEQ 40 MEQ/1,000 ML BAG IV SCH ×2 (13:14→21:09)
[2016-11-12] MEDS: TEMAZEPAM 7.5 MG CAPSULE PO PRN (21:12)
[2016-11-13] MEDS: ALBUTEROL/IPRATROPIUM 3 ML NEB RESP TX SCH ×4 (00:30→19:35)
[2016-11-13] MEDS: VANCOMYCIN INJ 1,000 MG in SODIUM CHLORIDE 0.9% 250 ML IV SCH ×2 (02:12→15:16)
[2016-11-13] MEDS: IMIPENEM/CILASTATIN 500 MG in SODIUM CHLORIDE 0.9% 100 ML IV SCH ×4 (05:39→22:23)
[2016-11-13] MEDS: DEXT 5% NACL 0.9% KCL 40 MEQ 40 MEQ/1,000 ML BAG IV SCH ×2 (05:40→18:57)
[2016-11-13 05:58] LABS: Hematocrit 28.5 VOL% (35.7-47.0); Hemoglobin 9.7 GM/DL (12.0-16.0); Immature Granulocytes % 5.2 %; Immature Granulocytes Absolute 0.12 #; Lymphocytes # 0.5 10*3/uL (1.4-4.0); Lymphocytes % 23.3 % (21.3-54.2); Mean Corpuscular Hemoglobin 30 PG (27-34); Mean Corpuscular Volume 87.2 FL (87-102); Mean Platelet Volume 12.3 FL (9.6-12.0); Monocytes # 0.2 10*3/uL (0.11-0.8); Monocytes % 7.3 % (1.7-12.7); Neutrophils # 1.5 10*3/uL (1.4-7.4); Neutrophils % 64.2 % (38.7-73.9); Platelet Count 82 T/CUMM (130-400); Red Blood Count 3.27 MC/CUMM (3.8-5.5); Red Cell Distribution Width 20.6 % (9.3-17.3); White Blood Count 2.3 T/CUMM (4-12)
[2016-11-13] MEDS: LEVOTHYROXINE 50 MCG TABLET PO SCH (06:16)
[2016-11-13 06:28] LABS: Band Neutrophils 2 % (0-10); Hypochromasia 1+; Lymphocytes 25 % (20-55); Microcytosis 1+; Segmented Neutrophils 66 % (50-85); Total Cells Counted 100
[2016-11-13 06:30] LABS: Platelet Estimate Decreased; Spherocytes Slight
[2016-11-13 06:37] LABS: Albumin 2.1 G/DL (3.4-5.0); Bilirubin,Total 0.6 MG/DL (0.2-1.0); Potassium 3.8 MMOL/L (3.5-5.1); Total Protein 5.2 G/DL (6.4-8.3)
--- NOTE | 2016-11-13 07:25 | Oncology Progress Note ---
Oncology Subjective PN Interval history: Assessment and Plan (1) Multiple myeloma Status: Chronic Assessment and plan: - recent treatment with BCNU 50 mg, dexamethasone, Adriamycin 50 mg and vincristine 2 mg IV. She has only had one course of this and it was given October 23, 2016. - symptomatic anemia requiring blood transfusion - neutropenia- Her CBC today includes a white cell count of 2300 with an absolute neutrophil count 1500 and falling. Her hemoglobin is down to 9.7 and her platelet count is 82,000 and rising. - mucositis with thrush - continue with stomatitis on voriconazole. Stomatitis appears to be improving although it still remains significant she has some hoarseness from as well as persistent mouth irritation for which she is being treated with topical solution. Current Visit: No (2) Dyspnea Status: Chronic Assessment and plan: We are continuing treatment for pulmonary congestion. I am rechecking a chest x -ray today. (3) Subdural hematoma Status: Acute Assessment and plan: This is evidently chronic and stable so we are simply following her neurologically. (4) Breast cancer Status: History of breast cancer currently on exemestane and without evidence of recurrence. Assessment and plan: continue with exemestane Current Visit: Yes Exam - Constitutional Vitals: Period Temp Pulse Resp BP Sys/Mcneill Pulse Ox Last 24 Hr 96.7 F-99.1 F 95-122 18-24 92-123/51-78 96-99 Results - Labs CBC & BMP: 11/13/16 05:17 11/13/16 05:17 Quality Measures - VTE Contraindication to Pharmacological VTE Prophylaxis: Recent Intracrainal Surgey
[2016-11-13] MEDS: MYLANTA/LIDO VISC/NYST 180 ML BOTTLE SWISH/SWAL PRN ×2 (08:13→16:46)
--- NOTE | 2016-11-13 08:43 | Operative Note ---
Date of procedure: 11/13/16 Pre-op diagnosis: Unknown rash of the body Post-op diagnosis: same Procedure: Operative note: Preoperative diagnosis: Diffuse rash of the body of unknown etiology in a patient with multiple myeloma Postop diagnosis: Same Procedure: 4 mm punch biopsies of the lesions of the left thigh [address] Sanchez Anesthesia with local 1% Xylocaine plain Brief history: 66-year-old white female who has multiple myeloma and history of breast cancer who has been in for several days and has developed an unusual diffuse rash face chest arms and legs of unknown etiology. We previously biopsied some skin lesions in the past that was positive for her myeloma.. Dr. Lancaster felt that this may be infectious in nature and would like to get a punch for some cultures as well as pathology see if we can figure out what is going on with this process. It appeared that the 2 good lesions to get would be on the left thigh area and will be 1 area to be less uncomfortable and less difficult for her to take care of. Procedure: With patient prepped and draped in a sterile fashion timeout completed approaches area of the left eye with there is 2 lesions present. The one on the lateral lower third of the thigh was infiltrated with the local anesthetic and a 4 mm punch biopsy was performed removing the specimen for culture. This wound was then closed with interrupted 4-0 nylon. I next moved up to the lateral part of the thigh the upper part upper third where there is a larger lesion here. Infiltrated under with the local anesthetic and a 4 mm punch biopsy of this area for pathology. The wound was closed with interrupted 4-0 nylon. Dressings were applied to the wound bed Estimated blood loss 2 cc Complications none Condition stable satisfactory Anesthesia: local (1% Xylocaine plain) Surgeon / Physician: Abdirizak Sanchez Estimated blood loss: other (TCC) Specimens: other (Tissue sent for pathology and cultures) Condition: stable Disposition: floor Results - Labs CBC & BMP: 11/13/16 05:17 11/13/16 05:17 Discharge Plan - Discharge Medications No Action HYDROcodone/ACETAMIN 10-325 [Pierz 10-325] 1 tablet PO Q6H PRN PRN Reason: Pain Omeprazole 40 mg PO DAILY Venlafaxine Xr [Effexor XR] 75 mg PO PC SUPPER Exemestane [Aromasin] 25 mg PO DAILY Carvedilol [Coreg] 3.125 mg PO BID W/MEALS Levothyroxine Tab [Synthroid Tab] 50 mcg PO DAILY@0700 Mag Hydrox/Aluminum Hyd/Simeth [Alum-Mag Hydroxide-Simeth Liq] 10 ml PO Q6H PRN PRN Reason: Indigestion - Follow Up or Referral - Forms/Instructions
--- NOTE | 2016-11-13 09:01 | Infectious Disease Progress ---
Assessment and Plan (1) Generalized rash Status: Acute Assessment and plan: Possible dissiminated infection - with her significant exposure to chemotherapy she is quite immunosuppressed and at risk for atypical infections including bacteria such as in the actinomycetes class, fungi, and possibly atypical mycobacteria. She seems a bit better today on empiric broad-spectrum antimicrobial coverage. The MRSE cultured from 1 of the lesions likely represents colonization rather than the actual cause of her current infection. Recommendations: 1. Follow-up results of skin biopsy sent off this morning 2. Continue empiric broad-spectrum antimicrobial coverage 3. Follow-up blood culture results Current Visit: Yes (2) Breast cancer Status: Acute Current Visit: Yes (3) Multiple myeloma Status: Chronic Current Visit: No Infectious Disease - PN: Subj Interval history: Patient doing more or less the same as yesterday, has been afebrile, mouth soreness improving. Rash seems to be improving. No other new complaints. Infectious Disease Exam (PN) - Constitutional Vitals: Temp Pulse Resp BP Pulse Ox 98.8 F 105 H 18 123/66 99 11/13/16 04:08 11/13/16 07:37 11/13/16 07:37 11/13/16 04:08 11/13/16 07:37 General appearance: normal weight, no acute distress Exam: General appearance: no acute distress looks less ill overall - Eye Eye exam: Present: EOMI. no icterus Pupils: Present: JUAN MANUEL - ENT ENT exam: Oral ulcerations continue to improve - Respiratory Respiratory exam: vesicular BS, no crepitations or wheezes - Cardiovascular Cardiovascular exam: regular rate and rhythm, no murmurs - GI/Abdominal GI/Abdominal exam: normal bowel sounds, soft, non-tender, no organomegaly or mass - Extremities Exam Extremities exam: Bilateral lower extremity mild edema - Skin Skin exam: Still has extensive rash present all of the body from head to toe, but they are starting to drive in some areas especially on her trunk Results - Labs CBC & BMP: 11/13/16 05:17 11/13/16 05:17 Lab Results: I have reviewed the past 24 hour labs (Cultures still negative) Quality Measures - VTE Contraindication to Pharmacological VTE Prophylaxis: Recent Intracrainal Surgey
[2016-11-13] MEDS: BACITRACIN OINT 0.9 GM PACK TOP SCH (09:23)
[2016-11-13] MEDS: valACYclovir 500 MG TABLET PO SCH ×3 (09:24→20:57)
[2016-11-13] MEDS: CLOTRIMAZOLE 10 MG TROCHE PO SCH ×4 (09:24→20:57)
--- NOTE | 2016-11-13 10:04 | XRay Report ---
Portable chest Date: 11/13/2016 Clinical history: Multiple myeloma, infection, congestion Comparison: 11/05/2016 Technique: Portable AP sitting chest Findings: The heart is significantly smaller in size with reduced parenchymal findings in the lungs. Stable right venous access catheter and post operative findings. Osteopenia with ill-defined areas of rarefaction especially in the visualized left humerus. Mild gaseous distention of the colon with interposition on the right. Impression: The heart is significantly smaller in size with improved CHF/pneumonitis with reduced atelectasis. Osteopenia with areas of rarefaction in patient with known multiple myeloma. Mild gaseous distention of the hepatic flexure of the colon with interposition which may be related to ileus, etc. PROCEDURE INTERPRETED AT [facility] DEPARTMENT OF RADIOLOGY Final Report Signed by: Dr. Marisela Oates
[2016-11-13] MEDS: VORICONAZOLE IV SCH ×2 (11:53→23:29)
[2016-11-13] MEDS: SODIUM CHLORIDE 0.9% IV SCH ×2 (11:53→23:29)
[2016-11-13] MEDS: TEMAZEPAM 7.5 MG CAPSULE PO PRN (20:57)
[2016-11-14] MEDS: VANCOMYCIN INJ 1,000 MG in SODIUM CHLORIDE 0.9% 250 ML IV SCH ×2 (03:39→17:50)
[2016-11-14] MEDS: IMIPENEM/CILASTATIN 500 MG in SODIUM CHLORIDE 0.9% 100 ML IV SCH ×3 (05:21→18:50)
[2016-11-14 05:57] LABS: Hematocrit 26.4 VOL% (35.7-47.0); Hemoglobin 8.9 GM/DL (12.0-16.0); Immature Granulocytes Absolute 0.13 #; Lymphocytes # 0.5 10*3/uL (1.4-4.0); Lymphocytes % 21.9 % (21.3-54.2); Mean Corpuscular HGB Conc 33.7 GM/DL (32-36); Mean Corpuscular Hemoglobin 30 PG (27-34); Mean Corpuscular Volume 88.9 FL (87-102); Mean Platelet Volume 12.1 FL (9.6-12.0); Monocytes # 0.1 10*3/uL (0.11-0.8); Monocytes % 6.5 % (1.7-12.7); Neutrophils # 1.4 10*3/uL (1.4-7.4); Neutrophils % 65.6 % (38.7-73.9); Red Blood Count 2.97 MC/CUMM (3.8-5.5); Red Cell Distribution Width 20.3 % (9.3-17.3); White Blood Count 2.2 T/CUMM (4-12)
[2016-11-14 06:03] LABS: Platelet Count 84 T/CUMM (130-400)
[2016-11-14 06:20] LABS: Lymphocytes 24 % (20-55); Segmented Neutrophils 68 % (50-85); Total Cells Counted 100
[2016-11-14 06:21] LABS: Hypochromasia 1+; Platelet Estimate Decreased
[2016-11-14] MEDS: LEVOTHYROXINE 50 MCG TABLET PO SCH (06:40)
[2016-11-14 06:41] LABS: Osmolality,Calculated 270.8 MOS/KG (273-304); Potassium 3.9 MMOL/L (3.5-5.1); Total Protein 4.9 G/DL (6.4-8.3)
--- NOTE | 2016-11-14 07:09 | Oncology Progress Note ---
Oncology Subjective PN Interval history: Ms. Kate remains gravely ill. Her blood counts are not recovering. She has a disseminated infection of indefinite source. A culture from 1 of the cutaneous lesions is going MRSE. Blood cultures and fungal cultures are negative. (1) Multiple myeloma Status: Chronic Assessment and plan: - recent treatment with BCNU 50 mg, dexamethasone, Adriamycin 50 mg and vincristine 2 mg IV. She has only had one course of this and it was given October 23, 2016. - symptomatic anemia requiring blood transfusion - neutropenia- Her white cell count today is 2200 with an absolute neutrophil count of 1400. I have not discontinued her granulocyte colony-stimulating factor. She is still supposed to be on it. She also has a hemoglobin of 8.9 and a platelet count that is rising gradually of 84,000. Her conference of metabolic profile includes a normal serum creatinine of 0.3 with an alkaline phosphatase of 240 and an LDH of 283. Her albumin is 2.0 reflecting malnutrition and probably a result of the myeloma as well. - mucositis with thrush - continue with stomatitis on voriconazole. Stomatitis appears to be improving although it still remains significant she has some hoarseness from as well as persistent mouth irritation for which she is being treated with topical solution. Current Visit: No (2) Dyspnea Status: Chronic Assessment and plan: We are continuing treatment for pulmonary congestion. I am rechecking a chest x -ray today. (3) Subdural hematoma Status: Acute Assessment and plan: This is evidently chronic and stable so we are simply following her neurologically. (4) Breast cancer Status: History of breast cancer currently on exemestane and without evidence of recurrence. Assessment and plan: continue with exemestane Current Visit: Yes Exam - Constitutional Vitals: Period Temp Pulse Resp BP Sys/Mcneill Pulse Ox Last 24 Hr 98.1 F-98.9 F 104-113 16-23 109-147/60-75 92-99 Results - Labs CBC & BMP: 11/14/16 04:00 11/14/16 04:00 Quality Measures - VTE Contraindication to Pharmacological VTE Prophylaxis: Recent Intracrainal Surgey
[2016-11-14] MEDS: ALBUTEROL/IPRATROPIUM 3 ML NEB RESP TX SCH ×4 (07:24→20:10)
[2016-11-14] MEDS: BACITRACIN OINT 0.9 GM PACK TOP SCH (10:19)
[2016-11-14] MEDS: valACYclovir 500 MG TABLET PO SCH (10:20)
[2016-11-14] MEDS: DEXT 5% NACL 0.9% KCL 40 MEQ 40 MEQ/1,000 ML BAG IV SCH ×2 (10:20→22:18)
[2016-11-14] MEDS: CLOTRIMAZOLE 10 MG TROCHE PO SCH ×4 (10:21→22:20)
[2016-11-14] MEDS: FILGRASTIM-SNDZ 300 MCG/0.5 ML SYRINGE SUBCUT SCH (10:21)
[2016-11-14] MEDS: CARVEDILOL 3.125 MG TABLET PO SCH ×2 (10:21→22:19)
--- NOTE | 2016-11-14 10:42 | Infectious Disease Progress ---
Assessment and Plan (1) Generalized rash Status: Acute Assessment and plan: This probably represents dissiminated infection - with her significant exposure to chemotherapy she is quite immunosuppressed and at risk for atypical infections including bacteria such as in the actinomycetes class, fungi, and possibly atypical mycobacteria. She seems a bit better on empiric broad- spectrum antimicrobial coverage. The MRSE cultured from 1 of the lesions likely represents colonization rather than the actual cause of her current infection. Recommendations: 1. Follow-up results of skin biopsy sent off yesterday 2. Continue empiric broad-spectrum antimicrobial coverage 3. Follow-up blood culture results, lab asked to hold cultures for 7 days Current Visit: Yes (2) Breast cancer Status: Acute Current Visit: Yes (3) Multiple myeloma Status: Chronic Current Visit: No (4) Positive blood culture Status: Acute Assessment and plan: The MRSE is likely a contaminant. I will repeat the blood cultures again. Current Visit: Yes Infectious Disease - PN: Subj Interval history: Patient feels fair, she has not had any fever. Soreness in mouth improving. Infectious Disease Exam (PN) - Constitutional Vitals: Temp Pulse Resp BP Pulse Ox 98.3 F 109 H 20 117/82 98 11/14/16 08:00 11/14/16 08:00 11/14/16 08:00 11/14/16 08:00 11/14/16 08:00 General appearance: normal weight, no acute distress Exam: General appearance: Chronically ill-appearing - Eye Eye exam: Present: EOMI. no icterus Pupils: Present: JUAN MANUEL - ENT ENT exam: Oral ulcerations resolving - Respiratory Respiratory exam: vesicular BS, no crepitations or wheezes - Cardiovascular Cardiovascular exam: regular rate and rhythm, no murmurs - GI/Abdominal GI/Abdominal exam: normal bowel sounds, soft, non-tender, no organomegaly or mass - Extremities Exam Extremities exam: Bilateral lower extremity mild edema - Skin Skin exam: extensive rash present all of the body from head to toe, but they are starting to dry in some areas Results - Labs CBC & BMP: 11/14/16 04:00 11/14/16 04:00 Lab Results: I have reviewed the past 24 hour labs (MRA centimeters 1 of 2 sets of blood cultures, Gram stain and fungal and AFB stains on biopsy tissue negative) Quality Measures - VTE Contraindication to Pharmacological VTE Prophylaxis: Recent Intracrainal Surgey
[2016-11-14] MEDS: VORICONAZOLE IV SCH (12:43)
[2016-11-14] MEDS: SODIUM CHLORIDE 0.9% IV SCH (12:43)
[2016-11-15] MEDS: ALBUTEROL/IPRATROPIUM 3 ML NEB RESP TX SCH ×4 (00:23→19:00)
[2016-11-15] MEDS: IMIPENEM/CILASTATIN 500 MG in SODIUM CHLORIDE 0.9% 100 ML IV SCH ×4 (01:03→22:56)
[2016-11-15] MEDS: VORICONAZOLE IV SCH ×2 (02:42→16:03)
[2016-11-15] MEDS: SODIUM CHLORIDE 0.9% IV SCH ×2 (02:42→16:03)
[2016-11-15 06:06] LABS: Basophils % 0.3 % (0.0-0.8); Eosinophils % 0.1 % (0.00-10.9); Hematocrit 28.1 VOL% (35.7-47.0); Hemoglobin 9.5 GM/DL (12.0-16.0); Immature Granulocytes % 6.7 %; Immature Granulocytes Absolute 0.72 #; Lymphocytes # 0.6 10*3/uL (1.4-4.0); Lymphocytes % 5.1 % (21.3-54.2); Mean Corpuscular HGB Conc 33.8 GM/DL (32-36); Mean Corpuscular Hemoglobin 30 PG (27-34); Mean Corpuscular Volume 89.2 FL (87-102); Mean Platelet Volume 11.6 FL (9.6-12.0); Monocytes # 0.2 10*3/uL (0.11-0.8); Monocytes % 1.9 % (1.7-12.7); Neutrophils # 9.2 10*3/uL (1.4-7.4); Neutrophils % 85.9 % (38.7-73.9); Platelet Count 89 T/CUMM (130-400); Red Blood Count 3.15 MC/CUMM (3.8-5.5); Red Cell Distribution Width 20.3 % (9.3-17.3); White Blood Count 10.8 T/CUMM (4-12)
[2016-11-15 06:28] LABS: Band Neutrophils 5 % (0-10); Hypochromasia 1+; Lymphocytes 5 % (20-55); Ovalocytes Slight; Platelet Estimate Decreased; Segmented Neutrophils 90 % (50-85); Total Cells Counted 100
[2016-11-15 06:29] LABS: Microcytosis Slight
[2016-11-15] MEDS: DEXT 5% NACL 0.9% KCL 40 MEQ 40 MEQ/1,000 ML BAG IV SCH ×4 (06:33→23:03)
[2016-11-15] MEDS: LEVOTHYROXINE 50 MCG TABLET PO SCH (06:36)
[2016-11-15] MEDS: VANCOMYCIN INJ 1,000 MG in SODIUM CHLORIDE 0.9% 250 ML IV SCH ×2 (06:36→18:08)
[2016-11-15 06:46] LABS: Albumin 1.9 G/DL (3.4-5.0); Bilirubin,Total 0.6 MG/DL (0.2-1.0); Calcium 6.7 MG/DL (8.5-10.1); Osmolality,Calculated 268.8 MOS/KG (273-304); Potassium 3.6 MMOL/L (3.5-5.1); Total Protein 4.7 G/DL (6.4-8.3)
--- NOTE | 2016-11-15 07:07 | Oncology Progress Note ---
Oncology Subjective PN Interval history: 1) Multiple myeloma Status: Chronic Assessment and plan: - recent treatment with BCNU 50 mg, dexamethasone, Adriamycin 50 mg and vincristine 2 mg IV. She has only had one course of this and it was given October 23, 2016. - symptomatic anemia requiring blood transfusion - neutropenia- Her white cell count today is 10,800 with the patient on granulocyte colony- stimulating factor. Her hemoglobin is 9.8 and her platelet count is 89,000. 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 She is on multiple antibiotics that were monitoring for toxicity and her serum creatinine today is 0.3. Her conference of metabolic profile includes a normal serum creatinine of 0.3 with an alkaline phosphatase of 240 and an LDH of 283. Her albumin is 2.0 reflecting malnutrition and probably a result of the myeloma as well. - mucositis with thrush - continue with stomatitis on voriconazole. Stomatitis appears to be improving although it still remains significant she has some hoarseness from as well as persistent mouth irritation for which she is being treated with topical solution. She remains on broad-spectrum antibiotics. She remains critically ill with advanced myeloma that has been heavily treated and is severely immunosuppressed by the fact that the myeloma has progressed but she is also had a single bone marrow transplant. She still has a large mass in the manubrium and it may be getting larger again. This is discouraging if it is progressing. I am not sure we can safely continue chemotherapy. Current Visit: No (2) Dyspnea Status: Chronic Assessment and plan: We are continuing treatment for pulmonary congestion. I reviewed the chest x- ray from yesterday and the pulmonary congestion and infiltrative changes have improved significantly. Exam - Constitutional Vitals: Period Temp Pulse Resp BP Sys/Mcneill Pulse Ox Last 24 Hr 96.2 F-98.3 F 92-111 20-22 102-155/68-82 96-100 Results - Labs CBC & BMP: 11/15/16 04:43 11/15/16 04:43 Quality Measures - VTE Contraindication to Pharmacological VTE Prophylaxis: Recent Intracrainal Surgey
--- NOTE | 2016-11-15 08:09 | General Surgery Progress Note ---
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 Lancaster Current Visit: Yes Subjective Patient reports: Present: no new complaints Exam - Constitutional Vitals: Period Temp Pulse Resp BP Sys/Mcneill Pulse Ox Last 24 Hr 96.2 F-98.3 F 92-107 20-22 102-155/68-77 96-100 General appearance: mild distress - Neck Neck exam: Present: normal inspection - Respiratory Respiratory exam: Present: rales - Cardiovascular Cardiovascular exam: Present: RRR - Extremities Exam Extremities exam: Present: other (Wounds on the left thigh area are clean and dry the rash stable) - Skin Skin exam: Present: rash (Persistent rash of the lower extremities trunk and upper extremities), other Results - Labs CBC & BMP: 11/15/16 04:43 11/15/16 04:43 Lab Results: I have reviewed the past 24 hour labs Quality Measures - VTE Contraindication to Pharmacological VTE Prophylaxis: Recent Intracrainal Surgey
[2016-11-15] MEDS: CARVEDILOL 3.125 MG TABLET PO SCH ×2 (09:27→22:10)
[2016-11-15] MEDS: FILGRASTIM-SNDZ 300 MCG/0.5 ML SYRINGE SUBCUT SCH (09:27)
[2016-11-15] MEDS: CLOTRIMAZOLE 10 MG TROCHE PO SCH ×4 (09:29→22:10)
[2016-11-15] MEDS: BACITRACIN OINT 0.9 GM PACK TOP SCH (09:29)
--- NOTE | 2016-11-15 10:38 | Infectious Disease Progress ---
Assessment and Plan (1) Generalized rash Status: Acute Assessment and plan: Path lab reported TEN but clinically, this is not a case of TEN. THE skin lesions of TEN rapidly become confluent and there is usually diffuse mucosal involvement including eyelids and genitalia. She has oral ulcerations but these were more consistent with the stomatitis from her neutropenia/ chemotherapy. Further the skin lesions seemed to improve with antimicrobial Tx rather than discontinuing a drug which would have been a causative agent of TEN. I still think the skin lesions were related to a disseminated infection. Recommendations: would complete 2 weeks of the empiric antimicrobial Tx. AFB and fungal cultures are pending. D/W Dr Gaines Current Visit: Yes (2) Breast cancer Status: Acute Current Visit: Yes (3) Multiple myeloma Status: Chronic Current Visit: No (4) Positive blood culture Status: Acute Assessment and plan: The MRSE is likely a contaminant. Current Visit: Yes Infectious Disease - PN: Subj Interval history: The patient is more or less the same as yesterday, afebrile. Soreness in mouth resolving. Skin lesions seem to be improving. Infectious Disease Exam (PN) - Constitutional Vitals: Temp Pulse Resp BP Pulse Ox 98.3 F 95 H 20 124/77 99 11/15/16 04:30 11/15/16 07:03 11/15/16 07:03 11/15/16 04:30 11/15/16 07:03 General appearance: mild distress Exam: General appearance: Chronically ill-appearing but conversant/pleasant - Eye Eye exam: Present: EOMI. no icterus Pupils: Present: JUAN MANUEL - ENT ENT exam: Oral ulcerations continue to resolve - Respiratory Respiratory exam: vesicular BS, no crepitations or wheezes - Cardiovascular Cardiovascular exam: regular rate and rhythm, no murmurs - GI/Abdominal GI/Abdominal exam: normal bowel sounds, soft, non-tender, no organomegaly or mass - Extremities Exam Extremities exam: Bilateral lower extremity mild edema - Skin Skin exam: her rash seems to be resolving, most are dry, some with dark scab. Still a few small bullae to trunk. Results - Labs CBC & BMP: 11/15/16 04:43 11/15/16 04:43 Lab Results: I have reviewed the past 24 hour labs (Path of skin Bx reported TEN ; cultures NGTD) Quality Measures - VTE Contraindication to Pharmacological VTE Prophylaxis: Recent Intracrainal Surgey
[2016-11-16] MEDS: ALBUTEROL/IPRATROPIUM 3 ML NEB RESP TX SCH ×4 (01:49→19:23)
[2016-11-16] MEDS: DEXT 5% NACL 0.9% KCL 40 MEQ 40 MEQ/1,000 ML BAG IV SCH ×4 (02:19→20:24)
[2016-11-16] MEDS: SODIUM CHLORIDE 0.9% IV SCH ×2 (04:18→15:23)
[2016-11-16] MEDS: VORICONAZOLE IV SCH ×2 (04:18→15:23)
[2016-11-16 05:16] LABS: Basophils % 0.3 % (0.0-0.8); Eosinophils % 0.1 % (0.00-10.9); Hematocrit 28.6 VOL% (35.7-47.0); Hemoglobin 9.7 GM/DL (12.0-16.0); Immature Granulocytes % 8.9 %; Immature Granulocytes Absolute 1.19 #; Lymphocytes # 0.6 10*3/uL (1.4-4.0); Lymphocytes % 4.7 % (21.3-54.2); Mean Corpuscular HGB Conc 33.9 GM/DL (32-36); Mean Corpuscular Hemoglobin 30 PG (27-34); Mean Corpuscular Volume 88.8 FL (87-102); Mean Platelet Volume 11.8 FL (9.6-12.0); Monocytes # 0.3 10*3/uL (0.11-0.8); Neutrophils # 11.2 10*3/uL (1.4-7.4); Platelet Count 97 T/CUMM (130-400); Red Blood Count 3.22 MC/CUMM (3.8-5.5); Red Cell Distribution Width 20.1 % (9.3-17.3); White Blood Count 13.3 T/CUMM (4-12)
[2016-11-16] MEDS: IMIPENEM/CILASTATIN 500 MG in SODIUM CHLORIDE 0.9% 100 ML IV SCH ×4 (05:21→23:04)
[2016-11-16 05:47] LABS: Albumin 2.1 G/DL (3.4-5.0); Bilirubin,Total 1.5 MG/DL (0.2-1.0); Calcium 7.3 MG/DL (8.5-10.1); Potassium 3.9 MMOL/L (3.5-5.1); Total Protein 5.2 G/DL (6.4-8.3)
[2016-11-16 05:58] LABS: Band Neutrophils 2 % (0-10); Hypochromasia Slight; Lymphocytes 2 % (20-55); Microcytosis 1+; Segmented Neutrophils 94 % (50-85); Total Cells Counted 100
[2016-11-16 05:59] LABS: Platelet Estimate Decreased
[2016-11-16] MEDS: LEVOTHYROXINE 50 MCG TABLET PO SCH (06:45)
[2016-11-16] MEDS: VANCOMYCIN INJ 1,000 MG in SODIUM CHLORIDE 0.9% 250 ML IV SCH ×2 (06:47→20:24)
--- NOTE | 2016-11-16 08:01 | Oncology Progress Note ---
Oncology Subjective PN Interval history: Ms. Kate remains hospitalized with advanced myeloma with the most recent new problem being toxic epidermal necrolysis that has caused multiple blackened , umbilicated punctate lesions on her skin. These may be improving but they are doing so very slowly. She is severely immunosuppressed. Ms. Cagle was diagnosed as having IgG lambda myeloma in 2003 and underwent a single bone marrow transplant. She was subsequently placed on thalidomide and dexamethasone and intermittently received Zometa. She was subsequently placed on on Velcade and dexamethasone and thalidomide which subsequently had to be discontinued because I suspected it might be contributing to her thrombocytopenia and leukopenia that had been going on for the last few weeks. Later treatment included daratumumab which did not slow the myeloma. Her most recent treatment was with BCNU 50 mg, dexamethasone, Adriamycin 50 mg and vincristine 2 mg IV. She has only had one course of this and it was given October 23, 2016. She has had symptomatic anemia requiring blood transfusion She has had neutropenia requiring granulocyte colony-stimulating factor. Her white cell count today is 10,800 with the patient on granulocyte colony- stimulating factor. Her hemoglobin is 9.8 and her platelet count is 89,000. 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 She is on multiple antibiotics that were monitoring for toxicity and her serum creatinine today is 0.3. Her conference of metabolic profile includes a normal serum creatinine of 0.3 with an alkaline phosphatase of 240 and an LDH of 283. Her albumin is 2.0 reflecting malnutrition and probably a result of the myeloma as well. - mucositis with thrush - continue with stomatitis on voriconazole. Stomatitis appears to be improving although it still remains significant she has some hoarseness from as well as persistent mouth irritation for which she is being treated with topical solution. She remains on broad-spectrum antibiotics. She remains critically ill with advanced myeloma that has been heavily treated and is severely immunosuppressed by the fact that the myeloma has progressed but she is also had a single bone marrow transplant. She still has a large mass in the manubrium and it may be getting larger again. This is discouraging if it is progressing. I am not sure we can safely continue chemotherapy. Exam - Constitutional Vitals: Period Temp Pulse Resp BP Sys/Mcneill Pulse Ox Last 24 Hr 96.2 F-98.5 F 89-110 16-20 102-123/63-81 96-100 Results - Labs CBC & BMP: 11/16/16 04:43 11/16/16 04:43 Quality Measures - VTE Contraindication to Pharmacological VTE Prophylaxis: Recent Intracrainal Surgey
[2016-11-16] MEDS: CARVEDILOL 3.125 MG TABLET PO SCH ×2 (09:18→20:24)
[2016-11-16] MEDS: CLOTRIMAZOLE 10 MG TROCHE PO SCH ×4 (09:19→20:24)
[2016-11-16] MEDS: FILGRASTIM-SNDZ 300 MCG/0.5 ML SYRINGE SUBCUT SCH (09:19)
[2016-11-16] MEDS: BACITRACIN OINT 0.9 GM PACK TOP SCH (09:19)
--- NOTE | 2016-11-16 09:29 | Infectious Disease Progress ---
Assessment and Plan (1) Generalized rash Status: Acute Assessment and plan: Path lab reported TEN but clinically, this is not a case of TEN. THE skin lesions of TEN rapidly become confluent and there is usually diffuse mucosal involvement including eyelids and genitalia. She has oral ulcerations but these were more consistent with the stomatitis from her neutropenia/ chemotherapy. Further the skin lesions seemed to improve with antimicrobial Tx rather than discontinuing a drug which would have been a causative agent of TEN. I still think the skin lesions were related to a disseminated infection. Recommendations: complete 2 weeks of the empiric antimicrobial Tx. AFB and fungal cultures are pending. I discussed the findings of the skin biopsy with the pathologist Dr. Thomson, giving him the history and the fact that clinically the case was not consistent with TEN. He is going to look at the slides again in 2 AFB and GMS stains. Current Visit: Yes (2) Breast cancer Status: Acute Current Visit: Yes (3) Multiple myeloma Status: Chronic Current Visit: No (4) Positive blood culture Status: Acute Assessment and plan: The MRSE is likely a contaminant. Current Visit: Yes Infectious Disease - PN: Subj Interval history: Patient is in very good spirits today, no complaints. She is eating normal food now as they sores in her mouth have just about resolved. She has not had fever. Skin lesions improving. Infectious Disease Exam (PN) - Constitutional Vitals: Temp Pulse Resp BP Pulse Ox 98.3 F 98 H 20 104/63 100 11/16/16 04:00 11/16/16 04:00 11/16/16 07:15 11/16/16 04:00 11/16/16 04:00 General appearance: mild distress Exam: General appearance: Alert, comfortable - Eye Eye exam: Present: EOMI. no icterus Pupils: Present: JUAN MANUEL - ENT ENT exam: Mild oral ulcerations to tip of tongue,est of lesions resolved - Respiratory Respiratory exam: vesicular BS, no crepitations or wheezes - Cardiovascular Cardiovascular exam: regular rate and rhythm, no murmurs - GI/Abdominal GI/Abdominal exam: normal bowel sounds, soft, non-tender, no organomegaly or mass - Extremities Exam Extremities exam: Bilateral lower extremity mild edema improved - Skin Skin exam: her rash is resolving, most are dry, some with dark scab. Still a few small bullae to trunk. Results - Labs CBC & BMP: 11/16/16 04:43 11/16/16 04:43 Lab Results: I have reviewed the past 24 hour labs Quality Measures - VTE Contraindication to Pharmacological VTE Prophylaxis: Recent Intracrainal Surgey
--- NOTE | 2016-11-16 09:40 | Oncology Progress Note ---
Oncology Subjective PN Interval history: Dr. Gaines's patient list CCU [id number] Marti Nguyen See only if asked This is a patient who is now terminal for metastatic breast cancer. She only a past. 516: Stewart Henry: See only if asked.Patient with prostate cancer currently receiving IV antibiotics for gram-negative sepsis. The bacteria has not been identified. There is nothing I am actually doing on this patient presently. 542: Marisela Madrigal: See only if asked. This is a patient who has pancytopenia that is probably from some of her medications. I completed my consult 440: Terra Anthony: This is a lady with metastatic colon cancer who is recovering from bowel obstruction. She should be stable through the weekend. I plan to institute chemotherapy again Saturday. There is nothing to do unless she becomes obstructed again. 425: Marisela Kate: See her progress note for details. You have seen her before. 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 Those results are pending. She is on broad-spectrum IV antibiotics and hematologic support. I think he actually did the history and physical on her and I added a few things to the list. Her subdural hematoma is stable and her congestive heart failure has resolved, if that is what it was. Exam - Constitutional Vitals: Period Temp Pulse Resp BP Sys/Mcneill Pulse Ox Last 24 Hr 96.2 F-98.5 F 89-101 16-20 102-122/63-74 96-100 Results - Labs CBC & BMP: 11/16/16 04:43 11/16/16 04:43 Quality Measures - VTE Contraindication to Pharmacological VTE Prophylaxis: Recent Intracrainal Surgey
[2016-11-17] MEDS: ALBUTEROL/IPRATROPIUM 3 ML NEB RESP TX SCH ×4 (00:37→19:18)
[2016-11-17] MEDS: SODIUM CHLORIDE 0.9% IV SCH ×2 (02:27→20:29)
[2016-11-17] MEDS: VORICONAZOLE IV SCH ×2 (02:27→20:29)
[2016-11-17] MEDS: IMIPENEM/CILASTATIN 500 MG in SODIUM CHLORIDE 0.9% 100 ML IV SCH ×4 (04:49→23:22)
[2016-11-17] MEDS: VANCOMYCIN INJ 1,000 MG in SODIUM CHLORIDE 0.9% 250 ML IV SCH ×2 (06:24→17:31)
[2016-11-17] MEDS: LEVOTHYROXINE 50 MCG TABLET PO SCH (06:24)
[2016-11-17 07:14] LABS: Basophils % 0.2 % (0.0-0.8); Eosinophils % 0.3 % (0.00-10.9); Hematocrit 27.9 VOL% (35.7-47.0); Hemoglobin 9.4 GM/DL (12.0-16.0); Immature Granulocytes % 7.6 %; Immature Granulocytes Absolute 0.47 #; Lymphocytes # 0.6 10*3/uL (1.4-4.0); Mean Corpuscular HGB Conc 33.7 GM/DL (32-36); Mean Corpuscular Hemoglobin 30 PG (27-34); Mean Corpuscular Volume 88.3 FL (87-102); Mean Platelet Volume 11.5 FL (9.6-12.0); Monocytes # 0.3 10*3/uL (0.11-0.8); Monocytes % 4.8 % (1.7-12.7); Neutrophils # 4.8 10*3/uL (1.4-7.4); Neutrophils % 77.1 % (38.7-73.9); Platelet Count 101 T/CUMM (130-400); Red Blood Count 3.16 MC/CUMM (3.8-5.5); Red Cell Distribution Width 20.3 % (9.3-17.3); White Blood Count 6.2 T/CUMM (4-12)
[2016-11-17 07:42] LABS: Albumin 2.2 G/DL (3.4-5.0); Bilirubin,Total 0.9 MG/DL (0.2-1.0); Calcium 7.1 MG/DL (8.5-10.1); Potassium 3.9 MMOL/L (3.5-5.1); Total Protein 5.2 G/DL (6.4-8.3)
[2016-11-17 07:48] LABS: Band Neutrophils 6 % (0-10); Lymphocytes 5 % (20-55); Segmented Neutrophils 83 % (50-85); Total Cells Counted 100
[2016-11-17 07:49] LABS: Macrocytosis 1+; Platelet Estimate Decreased; Polychromasia Slight
--- NOTE | 2016-11-17 10:07 | Oncology Progress Note ---
Assessment and Plan (1) Generalized rash Status: Acute Assessment and plan: skin biopsy consistent with TEN - infectious disease concerned of an infectious etiology - will continue with a 2 week course of antibiotics with imipenem and vanco - slowly improving per patient Current Visit: Yes (2) Multiple myeloma Status: Chronic Assessment and plan: -s/p cycle 1 of vincristine, BCNU, and adriamycin - pancytopenia improved with time and filgrastim - will evaluate outpatient for further therapy Current Visit: No (3) Dyspnea Status: Chronic Assessment and plan: resolved and stable with lasix Current Visit: No (4) Breast cancer Status: Acute Assessment and plan: exemestane on hold Current Visit: Yes Oncology Subjective PN Interval history: 66 year old female with PMHx of MM and subdural hematoma admitted for pancytopenia and mucositis secondary to chemotherapy. Hospital course complicated by new onset rash with biopsy consistent with TEN versus possible infectious etiology. Today patient states feels well. She has had episodes of confusion during hospital stay which are resolved at this time. Denies fevers, chills. States rash is slowly resolving and no new lesions. Refers good appetite. Continues to be decompensated and with decreased ambulation. No N/V/ D. Counts have improved with filgrastim and mucositis much improved with vori. Exam - Constitutional Vitals: Period Temp Pulse Resp BP Sys/Mcneill Pulse Ox Last 24 Hr 97.0 F-98.5 F 89-108 20-22 104-127/60-80 95-100 General appearance: no acute distress - Eye Eye Exam: Present: EOMI - Respiratory Respiratory exam: Present: CTAB - Cardiovascular Cardiovascular exam: Present: RRR, other (positive sternal chest wall mass) - GI/Abdominal GI/Abdominal exam: Present: soft. Absent: ascites, distended, mass, tenderness - Extremities Exam Extremities exam: Present: edema (1+) - Neurological Exam Neurological exam: Present: alert, oriented X3 - Psychiatric Psychiatric exam: Present: normal affect - Skin Skin exam: Present: warm Results - Labs CBC & BMP: 11/17/16 05:16 11/17/16 05:16 Quality Measures - VTE Contraindication to Pharmacological VTE Prophylaxis: Recent Intracrainal Surgey
[2016-11-17] MEDS: CLOTRIMAZOLE 10 MG TROCHE PO SCH ×4 (10:54→20:30)
[2016-11-17] MEDS: CARVEDILOL 3.125 MG TABLET PO SCH ×2 (10:55→20:30)
[2016-11-17] MEDS: BACITRACIN OINT 0.9 GM PACK TOP SCH (10:55)
[2016-11-17] MEDS: FILGRASTIM-SNDZ 300 MCG/0.5 ML SYRINGE SUBCUT SCH (10:55)
[2016-11-17] MEDS: DEXT 5% NACL 0.9% KCL 40 MEQ 40 MEQ/1,000 ML BAG IV SCH ×2 (10:56→13:47)
[2016-11-17] MEDS: LACTULOSE 20 GM/30 ML UDCUP PO PRN (13:44)
[2016-11-18] MEDS: ALBUTEROL/IPRATROPIUM 3 ML NEB RESP TX SCH ×4 (00:25→20:15)
[2016-11-18] MEDS: ONDANSETRON 4 MG/2 ML VIAL IV PRN (02:22)
[2016-11-18] MEDS: IMIPENEM/CILASTATIN 500 MG in SODIUM CHLORIDE 0.9% 100 ML IV SCH ×4 (04:24→23:20)
[2016-11-18 05:26] LABS: Basophils % 0.3 % (0.0-0.8); Eosinophils # 0.1 10*3/uL (0.0-0.87); Eosinophils % 1.3 % (0.00-10.9); Hematocrit 27.7 VOL% (35.7-47.0); Hemoglobin 9.3 GM/DL (12.0-16.0); Immature Granulocytes % 10.7 %; Immature Granulocytes Absolute 0.73 #; Lymphocytes # 0.7 10*3/uL (1.4-4.0); Lymphocytes % 10.4 % (21.3-54.2); Mean Corpuscular HGB Conc 33.6 GM/DL (32-36); Mean Corpuscular Hemoglobin 30 PG (27-34); Mean Corpuscular Volume 89.1 FL (87-102); Mean Platelet Volume 11.1 FL (9.6-12.0); Monocytes # 0.7 10*3/uL (0.11-0.8); Monocytes % 9.9 % (1.7-12.7); Neutrophils # 4.6 10*3/uL (1.4-7.4); Neutrophils % 67.4 % (38.7-73.9); Platelet Count 94 T/CUMM (130-400); Red Blood Count 3.11 MC/CUMM (3.8-5.5); Red Cell Distribution Width 20.1 % (9.3-17.3); White Blood Count 6.8 T/CUMM (4-12)
[2016-11-18 05:43] LABS: Albumin 2.3 G/DL (3.4-5.0); Bilirubin,Total 0.9 MG/DL (0.2-1.0); Calcium 7.6 MG/DL (8.5-10.1); Osmolality,Calculated 269.8 MOS/KG (273-304); Total Protein 5.2 G/DL (6.4-8.3)
[2016-11-18] MEDS: DEXT 5% NACL 0.9% KCL 40 MEQ 40 MEQ/1,000 ML BAG IV SCH ×4 (05:44→23:21)
[2016-11-18] MEDS: VANCOMYCIN INJ 1,000 MG in SODIUM CHLORIDE 0.9% 250 ML IV SCH ×2 (05:44→19:22)
[2016-11-18] MEDS: LEVOTHYROXINE 50 MCG TABLET PO SCH (06:34)
[2016-11-18 07:44] LABS: Band Neutrophils 17 % (0-10); Hypochromasia 1+; Lymphocytes 9 % (20-55); Microcytosis 1+; Myelocytes 1 %; Platelet Estimate Decreased; Segmented Neutrophils 68 % (50-85); Total Cells Counted 100
[2016-11-18] MEDS: VORICONAZOLE IV SCH ×2 (08:22→20:54)
[2016-11-18] MEDS: SODIUM CHLORIDE 0.9% IV SCH ×2 (08:22→20:54)
[2016-11-18] MEDS: CLOTRIMAZOLE 10 MG TROCHE PO SCH ×3 (08:31→20:55)
[2016-11-18] MEDS: CARVEDILOL 3.125 MG TABLET PO SCH ×2 (08:31→20:55)
--- NOTE | 2016-11-18 09:00 | Oncology Progress Note ---
Assessment and Plan (1) Generalized rash Status: Acute Assessment and plan: skin biopsy consistent with TEN - infectious disease concerned of an infectious etiology - will continue with a 2 week course of antibiotics with imipenem and vanco - creatinine stable - continues to improve - physical therapy consult for deconditioning Current Visit: Yes (2) Multiple myeloma Status: Chronic Assessment and plan: -s/p cycle 1 of vincristine, BCNU, and adriamycin - pancytopenia improved with time and filgrastim - will evaluate outpatient for further therapy Current Visit: No (3) Dyspnea Status: Chronic Assessment and plan: resolved and stable Current Visit: No (4) Breast cancer Status: Acute Assessment and plan: exemestane on hold Current Visit: Yes Oncology Subjective PN Interval history: 66 year old female with PMHx of MM and subdural hematoma admitted for pancytopenia secondary to chemotherapy, mucositis, and shortness of breath now resolved. Hospital course complicated by diffuse onset purpuric rash biopsy consistent with TEN versus concern for infectious etiology. Continues on antibiotics. Today feels well. Rash continues to crust over and no new lesions. No fevers. No new pains. Patient deconditioned and unable to transfer to chair. Good PO intake. Exam - Constitutional Vitals: Period Temp Pulse Resp BP Sys/Mcneill Pulse Ox Last 24 Hr 97.2 F-98.2 F 76-103 16-21 106-154/62-75 96-100 General appearance: no acute distress - Eye Eye Exam: Present: EOMI - Respiratory Respiratory exam: Present: CTAB - Cardiovascular Cardiovascular exam: Present: RRR - GI/Abdominal GI/Abdominal exam: Present: soft. Absent: ascites, distended, mass, tenderness - Extremities Exam Extremities exam: Absent: edema - Neurological Exam Neurological exam: Present: alert, oriented X3 - Skin Skin exam: Present: warm Results - Labs CBC & BMP: 11/18/16 04:50 11/18/16 04:50 Quality Measures - VTE Contraindication to Pharmacological VTE Prophylaxis: Recent Intracrainal Surgey
[2016-11-18] MEDS ORDERED: ALTEPLASE 2 MG VIAL INTRACATH ONE (16:25)
[2016-11-18] MEDS: BACITRACIN OINT 0.9 GM PACK TOP SCH (16:58)
[2016-11-19] MEDS: ALBUTEROL/IPRATROPIUM 3 ML NEB RESP TX SCH ×4 (01:11→20:11)
[2016-11-19] MEDS: IMIPENEM/CILASTATIN 500 MG in SODIUM CHLORIDE 0.9% 100 ML IV SCH ×4 (03:45→23:48)
[2016-11-19 05:13] LABS: Basophils % 0.3 % (0.0-0.8); Eosinophils # 0.1 10*3/uL (0.0-0.87); Eosinophils % 1.4 % (0.00-10.9); Hematocrit 26.9 VOL% (35.7-47.0); Immature Granulocytes % 20.5 %; Immature Granulocytes Absolute 0.73 #; Lymphocytes # 0.8 10*3/uL (1.4-4.0); Lymphocytes % 22.8 % (21.3-54.2); Mean Corpuscular HGB Conc 33.5 GM/DL (32-36); Mean Corpuscular Hemoglobin 30 PG (27-34); Mean Corpuscular Volume 89.7 FL (87-102); Mean Platelet Volume 11.1 FL (9.6-12.0); Monocytes # 0.5 10*3/uL (0.11-0.8); Monocytes % 13.5 % (1.7-12.7); Neutrophils # 1.5 10*3/uL (1.4-7.4); Neutrophils % 41.5 % (38.7-73.9); Platelet Count 102 T/CUMM (130-400); Red Cell Distribution Width 20.6 % (9.3-17.3); White Blood Count 3.6 T/CUMM (4-12)
[2016-11-19 05:49] LABS: Band Neutrophils 4 % (0-10); Hypochromasia 1+; Lymphocytes 26 % (20-55); Metamyelocytes 1 %; Microcytosis 1+; Segmented Neutrophils 57 % (50-85); Total Cells Counted 100
[2016-11-19 05:50] LABS: Ovalocytes Slight; Platelet Estimate Decreased
[2016-11-19 05:55] LABS: Albumin 2.2 G/DL (3.4-5.0); Bilirubin,Total 0.8 MG/DL (0.2-1.0); Calcium 7.2 MG/DL (8.5-10.1); Osmolality,Calculated 269.8 MOS/KG (273-304); Potassium 3.9 MMOL/L (3.5-5.1); Total Protein 5.3 G/DL (6.4-8.3)
[2016-11-19] MEDS: VANCOMYCIN INJ 1,000 MG in SODIUM CHLORIDE 0.9% 250 ML IV SCH ×2 (06:11→18:57)
[2016-11-19] MEDS: LEVOTHYROXINE 50 MCG TABLET PO SCH (06:12)
--- NOTE | 2016-11-19 06:50 | Oncology Progress Note ---
Oncology Subjective PN Interval history: Ms. Kate is being treated for recurrent breast cancer. He was brought to my attention this weekend by weekend coverage that she was not on Aromasin. In reviewing her orders on this electronic medical record, it is not listed. When I ordered it to be started at a dose of 25 mg p.o. daily, the electronic medical record indicated that the patient had already been on it. I overrode that order because there is no documentation that the patient has been on Aromasin earlier in this hospital stay. I want to make sure she is receiving it. Myeloma: This is a patient with advanced progressive myeloma that was initially diagnosed in 2003 and treated with a single bone marrow transplant followed by dexamethasone and thalidomide. Velcade was later added. She progressed on it and I have tried her on daratumumab but the disease progressed through it. Her most recent treatment was with BCNU 50 mg, dexamethasone, Adriamycin 50 mg and vincristine 2 mg IV. She has only had one course of this and it was given October 23, 2016. I am rechecking protein electrophoretic studies today. I am also going to give her immunoglobulin today to see if this will facilitate the healing from her infection. 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 She has generalized alopecia. She has worsening muscle weakness and loss of muscle mass without focal muscle atrophy or bone or joint deformity. She is becoming progressively more emaciated. She has a stable subdural hematoma. She is oriented and alert. Exam - Constitutional Vitals: Period Temp Pulse Resp BP Sys/Mcneill Pulse Ox Last 24 Hr 97.3 F-98.8 F 85-106 16-21 102-129/63-77 95-106 Results - Labs CBC & BMP: 11/19/16 03:34 11/19/16 03:34 Quality Measures - VTE Contraindication to Pharmacological VTE Prophylaxis: Recent Intracrainal Surgey
[2016-11-19 07:44] LABS: Immunoglobulin A < 31 MG/DL (70-400); Immunoglobulin G 1470 MG/DL (700-1600); Total Protein 5.1 G/DL (6.4-8.3)
[2016-11-19] MEDS ORDERED: IMMUNE GLOBULIN 10% 20 GM, IMMUNE GLOBULIN 10% 10 GM in PREMIX 1 EACH IV ONE (07:51)
[2016-11-19 08:02] LABS: Immunoglobulin M < 21 MG/DL (40-230)
[2016-11-19] MEDS: VORICONAZOLE IV SCH ×2 (08:12→21:06)
[2016-11-19] MEDS: SODIUM CHLORIDE 0.9% IV SCH ×2 (08:12→21:06)
[2016-11-19] MEDS: EXEMESTANE 25 MG TABLET PO SCH (10:14)
[2016-11-19] MEDS: BACITRACIN OINT 0.9 GM PACK TOP SCH (10:14)
[2016-11-19] MEDS: CARVEDILOL 3.125 MG TABLET PO SCH ×2 (10:14→21:03)
[2016-11-19] MEDS: CLOTRIMAZOLE 10 MG TROCHE PO SCH ×4 (10:17→21:03)
--- NOTE | 2016-11-19 10:41 | Infectious Disease Progress ---
Assessment and Plan (1) Generalized rash Status: Acute Assessment and plan: Path lab reported TEN but clinically, this is not a case of TEN. THE skin lesions of TEN rapidly become confluent and there is usually diffuse mucosal involvement including eyelids and genitalia. She has oral ulcerations but these were more consistent with the stomatitis from her neutropenia/ chemotherapy. Further the skin lesions seemed to improve with antimicrobial Tx rather than discontinuing a drug which would have been a causative agent of TEN. I still think the skin lesions were related to a disseminated infection. Recommendations: We are completing 2 weeks of the empiric antimicrobial Tx so they will be stopped this Saturday. AFB and fungal cultures are pending. Current Visit: Yes (2) Breast cancer Status: Acute Current Visit: Yes (3) Multiple myeloma Status: Chronic Current Visit: No (4) Positive blood culture Status: Acute Assessment and plan: The MRSE is likely a contaminant. Current Visit: Yes Infectious Disease - PN: Subj Interval history: Patient is doing fairly okay, no fever, her appetite is definitely improving, the soreness in her mouth is just about gone. She has no cough or shortness of breath, no nausea vomiting or diarrhea. Skin lesions are resolving. Infectious Disease Exam (PN) - Constitutional Vitals: Temp Pulse Resp BP Pulse Ox 98.0 F 93 H 16 113/67 99 11/19/16 04:00 11/19/16 07:51 11/19/16 07:51 11/19/16 04:00 11/19/16 07:51 General appearance: no acute distress Exam: General appearance: Alert, comfortable - Eye Eye exam: Present: EOMI. no icterus Pupils: Present: JUAN MANUEL - ENT ENT exam: Residual ulcerations to tip of tongue resolving - Respiratory Respiratory exam: vesicular BS, no crepitations or wheezes - Cardiovascular Cardiovascular exam: regular rate and rhythm, no murmurs - GI/Abdominal GI/Abdominal exam: normal bowel sounds, soft, non-tender, no organomegaly or mass - Extremities Exam Extremities exam: Bilateral lower extremity mild edema almost resolved - Skin Skin exam: her rash continues to resolve, most are dry, some with dark scab. Results - Labs CBC & BMP: 11/19/16 03:34 11/19/16 03:34 Lab Results: I have reviewed the past 24 hour labs Quality Measures - VTE Contraindication to Pharmacological VTE Prophylaxis: Recent Intracrainal Surgey
[2016-11-19 10:51] LABS: Albumin (SPE) 2.6 G/DL (3.2-5.3); Albumin (SPE) Rel % 51.1 %; Alpha 1 (SPE) 0.2 G/DL (0.1-0.4); Alpha 1 (SPE) Rel % 4.5 %; Alpha 2 (SPE) 0.6 G/DL (0.4-1.0); Alpha 2 (SPE) Rel % 11.9 %; Beta (SPE) 0.5 G/DL (0.5-1.1); Gamma (SPE) 1.2 G/DL (0.7-1.7); Total Protein (Chem) 5.1 G/DL (6.4-8.2)
[2016-11-19 10:52] LABS: Immunoglobulin A (Chem) < 31 MG/DL (70-400); Immunoglobulin G (Chem) 1470 MG/DL (700-1600); Immunoglobulin M (Chem) < 21 MG/DL (40-230)
[2016-11-19 10:58] LABS: Gamma (SPE) Rel % 23.5 %
[2016-11-19] MEDS: LACTULOSE 20 GM/30 ML UDCUP PO PRN (15:59)
[2016-11-19] MEDS: TEMAZEPAM 7.5 MG CAPSULE PO PRN (21:03)
[2016-11-19] MEDS: DEXT 5% NACL 0.9% KCL 40 MEQ 40 MEQ/1,000 ML BAG IV SCH ×3 (21:10→23:49)
[2016-11-20] MEDS: ALBUTEROL/IPRATROPIUM 3 ML NEB RESP TX SCH ×4 (00:27→21:25)
[2016-11-20] MEDS: IMIPENEM/CILASTATIN 500 MG in SODIUM CHLORIDE 0.9% 100 ML IV SCH ×4 (04:06→21:08)
[2016-11-20 05:52] LABS: Eosinophils # 0.1 10*3/uL (0.0-0.87); Hematocrit 26.1 VOL% (35.7-47.0); Hemoglobin 8.7 GM/DL (12.0-16.0); Immature Granulocytes % 5.3 %; Immature Granulocytes Absolute 0.16 #; Lymphocytes # 0.8 10*3/uL (1.4-4.0); Lymphocytes % 27.5 % (21.3-54.2); Mean Corpuscular HGB Conc 33.3 GM/DL (32-36); Mean Corpuscular Hemoglobin 30 PG (27-34); Mean Corpuscular Volume 90.6 FL (87-102); Mean Platelet Volume 11.1 FL (9.6-12.0); Monocytes # 0.4 10*3/uL (0.11-0.8); Monocytes % 13.2 % (1.7-12.7); Neutrophils # 1.6 10*3/uL (1.4-7.4); Platelet Count 103 T/CUMM (130-400); Red Blood Count 2.88 MC/CUMM (3.8-5.5); Red Cell Distribution Width 20.4 % (9.3-17.3)
[2016-11-20 06:12] LABS: Albumin 2.2 G/DL (3.4-5.0); Bilirubin,Total 0.4 MG/DL (0.2-1.0); Calcium 7.1 MG/DL (8.5-10.1); Osmolality,Calculated 272.7 MOS/KG (273-304); Potassium 3.6 MMOL/L (3.5-5.1); Total Protein 5.7 G/DL (6.4-8.3)
[2016-11-20 06:20] LABS: Band Neutrophils 3 % (0-10); Eosinophils 1 % (0-10); Lymphocytes 30 % (20-55); Nucleated Red Blood Cells 1 (0-5); Segmented Neutrophils 60 % (50-85); Total Cells Counted 100
[2016-11-20 06:21] LABS: Hypochromasia 1+; Microcytosis 1+; Platelet Estimate Decreased
[2016-11-20] MEDS: LEVOTHYROXINE 50 MCG TABLET PO SCH (06:31)
[2016-11-20] MEDS: VANCOMYCIN INJ 1,000 MG in SODIUM CHLORIDE 0.9% 250 ML IV SCH ×2 (06:31→18:45)
--- NOTE | 2016-11-20 06:38 | Oncology Progress Note ---
Oncology Subjective PN Interval history: 1) Generalized rash Status: Acute Assessment and plan: skin biopsy consistent with TEN. Cultures grew out methicillin resistant staph epidermidis that infectious disease believed to be a contaminant. - will continue with a 2 week course of antibiotics with imipenem and vanco -We are monitoring serum creatinine because vancomycin has nephrotoxicity. Creatinine stable - continues to gradually improve Current Visit: Yes (2) Multiple myeloma Status: Chronic Assessment and plan: -s/p cycle 1 of vincristine, BCNU, and adriamycin. Treatment was with BCNU 50 mg , dexamethasone, Adriamycin 50 mg and vincristine 2 mg IV. She has only had one course of this and it was given October 23, 2016. The large mass over her manubrium decreased in size but it appears to be growing back. This chemotherapy is usually repeated every 4 weeks but I am not prepared to start quite yet. - pancytopenia improved with time and filgrastim - physical therapy consult for deconditioning (3) Dyspnea Status: Chronic Assessment and plan: resolved and stable Current Visit: No (4) Breast cancer Status: Acute Assessment and plan: We are actively treating her with exemestane as hormone therapy. She has no evidence of recurrence of breast cancer. Current Visit: Yes Lab work today includes a white cell count of 3000 with an absolute neutrophil count of 1600. Her hemoglobin is 8.7 and her platelet count is 103,000. This is worrisome both from the standpoint of toxicity from the chemotherapy and also worrisome for possible myeloma involvement in the bone marrow. She responded to granulocyte colony-stimulating factor earlier in this stay. I am repeating Neupogen. Exam - Constitutional Vitals: Period Temp Pulse Resp BP Sys/Mcneill Pulse Ox Last 24 Hr 96.4 F-98.8 F 90-107 16-22 112-137/67-79 92-100 Results - Labs CBC & BMP: 11/20/16 04:00 11/20/16 04:00 Quality Measures - VTE Contraindication to Pharmacological VTE Prophylaxis: Recent Intracrainal Surgey
[2016-11-20 07:08] LABS: Immuno Free Light Chain Kappa 0.08 MG/DL (0.33-1.94); Immuno Free Light Chain Lambda 2.03 MG/DL (0.57-2.63); Immuno Free Light Chain Ratio 0.04 MG/DL (0.26-1.65)
[2016-11-20] MEDS: CARVEDILOL 3.125 MG TABLET PO SCH ×2 (08:38→20:14)
[2016-11-20] MEDS: SODIUM CHLORIDE 0.9% IV SCH ×2 (08:38→20:14)
[2016-11-20] MEDS: VORICONAZOLE IV SCH ×2 (08:38→20:14)
[2016-11-20] MEDS: EXEMESTANE 25 MG TABLET PO SCH (08:38)
[2016-11-20] MEDS: CLOTRIMAZOLE 10 MG TROCHE PO SCH ×4 (08:39→20:18)
[2016-11-20] MEDS: FILGRASTIM-SNDZ 300 MCG/0.5 ML SYRINGE SUBCUT SCH (08:39)
[2016-11-20] MEDS: BACITRACIN OINT 0.9 GM PACK TOP SCH (08:39)
--- NOTE | 2016-11-20 09:26 | Infectious Disease Progress ---
Assessment and Plan (1) Generalized rash Status: Acute Assessment and plan: Path lab reported TEN but clinically, this is not a case of TEN. THE skin lesions of TEN rapidly become confluent and there is usually diffuse mucosal involvement including eyelids and genitalia. She has oral ulcerations but these were more consistent with the stomatitis from her neutropenia/ chemotherapy. Further the skin lesions seemed to improve with antimicrobial Tx rather than discontinuing a drug which would have been a causative agent of TEN. I still think the skin lesions were related to a disseminated infection. Recommendations: Patient overall much improved and we are completing 2 weeks of the empiric antimicrobial Tx so they will be stopped this Saturday. Current Visit: Yes (2) Breast cancer Status: Acute Current Visit: Yes (3) Multiple myeloma Status: Chronic Current Visit: No (4) Positive blood culture Status: Acute Assessment and plan: The MRSE is likely a contaminant. Current Visit: Yes Infectious Disease - PN: Subj Interval history: No complaints voiced today, patient continues to look and feel better overall over the past 1-1/2 weeks. She has been afebrile. No breathing difficulties. Appetite is improved. Infectious Disease Exam (PN) - Constitutional Vitals: Temp Pulse Resp BP Pulse Ox 97.5 F L 104 H 20 131/76 99 11/20/16 04:06 11/20/16 07:38 11/20/16 07:38 11/20/16 04:06 11/20/16 07:38 General appearance: no acute distress Exam: General appearance: Alert, comfortable - Eye Eye exam: Present: EOMI. no icterus Pupils: Present: JUAN MANUEL - ENT ENT exam: Residual ulcerations to tip of tongue just about resolved - Respiratory Respiratory exam: vesicular BS, no crepitations or wheezes - Cardiovascular Cardiovascular exam: regular rate and rhythm, no murmurs - GI/Abdominal GI/Abdominal exam: normal bowel sounds, soft, non-tender, no organomegaly or mass - Clear urine from Montesinos - Extremities Exam Extremities exam: Bilateral lower extremity mild edema resolved - Skin Skin exam: her rash continues to resolve, most are dry, some with dark scab. Results - Labs CBC & BMP: 11/20/16 04:00 11/20/16 04:00 Lab Results: I have reviewed the past 24 hour labs Quality Measures - VTE Contraindication to Pharmacological VTE Prophylaxis: Recent Intracrainal Surgey
[2016-11-20] MEDS: DEXT 5% NACL 0.9% KCL 40 MEQ 40 MEQ/1,000 ML BAG IV SCH ×2 (16:00→19:25)
[2016-11-20] MEDS: TEMAZEPAM 7.5 MG CAPSULE PO PRN (20:17)
[2016-11-21] MEDS: ALBUTEROL/IPRATROPIUM 3 ML NEB RESP TX SCH ×4 (03:37→19:25)
[2016-11-21] MEDS: DEXT 5% NACL 0.9% KCL 40 MEQ 40 MEQ/1,000 ML BAG IV SCH ×4 (04:15→18:10)
[2016-11-21] MEDS: IMIPENEM/CILASTATIN 500 MG in SODIUM CHLORIDE 0.9% 100 ML IV SCH ×4 (04:25→23:06)
[2016-11-21 05:07] LABS: Basophils % 0.2 % (0.0-0.8); Eosinophils # 0.1 10*3/uL (0.0-0.87); Hematocrit 24.7 VOL% (35.7-47.0); Hemoglobin 8.2 GM/DL (12.0-16.0); Immature Granulocytes % 9.8 %; Immature Granulocytes Absolute 1.08 #; Lymphocytes # 1.2 10*3/uL (1.4-4.0); Lymphocytes % 10.8 % (21.3-54.2); Mean Corpuscular HGB Conc 33.2 GM/DL (32-36); Mean Corpuscular Hemoglobin 30 PG (27-34); Mean Corpuscular Volume 90.1 FL (87-102); Mean Platelet Volume 11.2 FL (9.6-12.0); Monocytes # 0.6 10*3/uL (0.11-0.8); Monocytes % 5.3 % (1.7-12.7); Neutrophils % 72.9 % (38.7-73.9); Platelet Count 102 T/CUMM (130-400); Red Blood Count 2.74 MC/CUMM (3.8-5.5)
[2016-11-21 05:40] LABS: Band Neutrophils 4 % (0-10); Eosinophils 1 % (0-10); Lymphocytes 11 % (20-55); Myelocytes 2 %; Segmented Neutrophils 78 % (50-85); Total Cells Counted 100
[2016-11-21 05:41] LABS: Hypochromasia 1+; Microcytosis 1+; Ovalocytes Slight; Platelet Estimate Decreased
[2016-11-21 05:45] LABS: Albumin 2.2 G/DL (3.4-5.0); Bilirubin,Total 0.5 MG/DL (0.2-1.0); Total Protein 5.6 G/DL (6.4-8.3)
[2016-11-21 05:46] LABS: Osmolality,Calculated 273.5 MOS/KG (273-304); Potassium 3.7 MMOL/L (3.5-5.1)
[2016-11-21] MEDS: VANCOMYCIN INJ 1,000 MG in SODIUM CHLORIDE 0.9% 250 ML IV SCH ×2 (06:01→18:05)
[2016-11-21] MEDS: LEVOTHYROXINE 50 MCG TABLET PO SCH (06:03)
--- NOTE | 2016-11-21 08:05 | Oncology Progress Note ---
Oncology Subjective PN Interval history: 1) Generalized rash Status: Acute Assessment and plan: skin biopsy consistent with TEN. Cultures grew out methicillin resistant staph epidermidis that infectious disease believed to be a contaminant. - will continue with a 2 week course of antibiotics with imipenem and vanco -We are monitoring serum creatinine because vancomycin has nephrotoxicity. Creatinine is 0.3. - continues to gradually improve. Continue current antibiotics and monitoring for toxicity. Current Visit: Yes (2) Multiple myeloma Status: Chronic Assessment and plan: -s/p cycle 1 of vincristine, BCNU, and adriamycin. Treatment was with BCNU 50 mg , dexamethasone, Adriamycin 50 mg and vincristine 2 mg IV. She has only had one course of this and it was given October 23, 2016. The large mass over her manubrium decreased in size but it appears to be growing back. This chemotherapy is usually repeated every 4 weeks but I am not prepared to start quite yet. - Lab work today includes a white cell count of 11,000 with an absolute neutrophil count of 8000. I just added Neupogen again. In addition, she is anemic with a hemoglobin of 8.2. Her platelet count is 102, 000. Lab work from November 19, 2016 revealed that her kappa free light chain is 0.08 with a lambda free light chain of 2.03. Her IgG level is 1170 with a low IgA level of 31 and a low IgM level of 21. She has received immune globulins intravenously recently because of this. In addition she has an M spike of 0.9 g /dL or 18.5%. - physical therapy consult for deconditioning (3) Dyspnea Status: Chronic Assessment and plan: resolved and stable Current Visit: No (4) Breast cancer Status: Acute Assessment and plan: We are actively treating her with exemestane as hormone therapy. She has no evidence of recurrence of breast cancer. Current Visit: Yes She is complaining of perineal itching. She is on voriconazole. She asked me today about whether or not it was worth continuing chemotherapy in view of the significant amount of discomfort that she is having in the department of side effects. I agree with her concerning this and I told her that we would make a mutual decision at some point but it was not even time to do that yet. On physical examination she is oriented and alert although acutely and chronically ill. Skin examination reveals extensive skin damage from the toxic epidermal necrolysis that appears to be healing slowly. Her oral mucosa reveals persistent mucositis and loss of landing of her pharynx and tone. Her trachea is midline. Her voice is clear. Her hearing is normal. The mass in the manubrium of her sternum remained stable. Exam - Constitutional Vitals: Period Temp Pulse Resp BP Sys/Mcneill Pulse Ox Last 24 Hr 96.5 F-98.6 F 99-111 16-24 100-143/56-82 93-99 Results - Labs CBC & BMP: 11/21/16 04:15 11/21/16 04:15 Quality Measures - VTE Contraindication to Pharmacological VTE Prophylaxis: Recent Intracrainal Surgey
[2016-11-21] MEDS: EXEMESTANE 25 MG TABLET PO SCH (08:39)
[2016-11-21] MEDS: BACITRACIN OINT 0.9 GM PACK TOP SCH (08:39)
[2016-11-21] MEDS: VORICONAZOLE IV SCH ×2 (08:39→20:30)
[2016-11-21] MEDS: FILGRASTIM-SNDZ 300 MCG/0.5 ML SYRINGE SUBCUT SCH ×2 (08:39→10:25)
[2016-11-21] MEDS: CARVEDILOL 3.125 MG TABLET PO SCH ×2 (08:39→20:31)
[2016-11-21] MEDS: CLOTRIMAZOLE 10 MG TROCHE PO SCH (08:39)
[2016-11-21] MEDS: SODIUM CHLORIDE 0.9% IV SCH ×2 (08:39→20:30)
[2016-11-21] MEDS ORDERED: FLUCONAZOLE 100 MG TABLET PO SCH (09:00)
--- NOTE | 2016-11-21 10:46 | Infectious Disease Progress ---
Assessment and Plan (1) Generalized rash Status: Acute Assessment and plan: Path lab reported TEN but clinically, this is not a case of TEN. THE skin lesions of TEN rapidly become confluent and there is usually diffuse mucosal involvement including eyelids and genitalia. She has oral ulcerations but these were more consistent with the stomatitis from her neutropenia/ chemotherapy. Further the skin lesions seemed to improve with antimicrobial Tx rather than discontinuing a drug which would have been a causative agent of TEN. I still think the skin lesions were related to a disseminated infection. Recommendations: Patient overall much improved and we are completing 2 weeks of the empiric antimicrobial Tx so they will be stopped this Saturday. Will give clotrimazole cream for use in genital area where it might soothe the irritation. I am going to go ahead and stop the fluconazole as she is already on voriconazole.. Will go ahead and stop the clotrimazole troches as her oral ulcerations have just about resolved. Current Visit: Yes (2) Breast cancer Status: Acute Current Visit: Yes (3) Multiple myeloma Status: Chronic Current Visit: No (4) Positive blood culture Status: Acute Assessment and plan: The MRSE is likely a contaminant. Current Visit: Yes Infectious Disease - PN: Subj Interval history: The patient continues to feel relatively okay, remains afebrile. Eating better. Has been sitting out in the chair - sat out for 3 hours yesterday. Her only complaint today is irritation about the Montesinos catheter. Infectious Disease Exam (PN) - Constitutional Vitals: Temp Pulse Resp BP Pulse Ox 97.8 F 100 H 20 143/82 100 11/21/16 07:13 11/21/16 08:12 11/21/16 08:12 11/21/16 07:13 11/21/16 08:12 General appearance: no acute distress Exam: General appearance: Alert, comfortable - Eye Eye exam: Present: EOMI. no icterus Pupils: Present: JUAN MANUEL - ENT ENT exam: Residual ulcerations to tip of tongue just about resolved - Respiratory Respiratory exam: vesicular BS, no crepitations or wheezes - Cardiovascular Cardiovascular exam: regular rate and rhythm, no murmurs - GI/Abdominal GI/Abdominal exam: normal bowel sounds, soft, non-tender, no organomegaly or mass - Clear urine from Montesinos - Extremities Exam Extremities exam: No edema - Skin Skin exam: her rash continues to resolve, most are dry, some with dark scab. Results - Labs CBC & BMP: 11/21/16 04:15 11/21/16 04:15 Lab Results: I have reviewed the past 24 hour labs Quality Measures - VTE Contraindication to Pharmacological VTE Prophylaxis: Recent Intracrainal Surgey
[2016-11-21] MEDS: CLOTRIMAZOLE 1% CREAM 15 GM TUBE TOP SCH ×2 (12:32→20:32)
[2016-11-21] MEDS: TEMAZEPAM 7.5 MG CAPSULE PO PRN (20:31)
[2016-11-22] MEDS: ALBUTEROL/IPRATROPIUM 3 ML NEB RESP TX SCH ×4 (00:10→19:09)
[2016-11-22] MEDS: TEMAZEPAM 7.5 MG CAPSULE PO PRN ×2 (01:38→20:32)
[2016-11-22] MEDS: IMIPENEM/CILASTATIN 500 MG in SODIUM CHLORIDE 0.9% 100 ML IV SCH ×4 (04:01→23:24)
[2016-11-22] MEDS: DEXT 5% NACL 0.9% KCL 40 MEQ 40 MEQ/1,000 ML BAG IV SCH ×3 (05:06→19:02)
[2016-11-22 05:15] LABS: Basophils % 0.2 % (0.0-0.8); Eosinophils # 0.2 10*3/uL (0.0-0.87); Eosinophils % 1.3 % (0.00-10.9); Hematocrit 24.3 VOL% (35.7-47.0); Hemoglobin 8.1 GM/DL (12.0-16.0); Immature Granulocytes % 13.2 %; Immature Granulocytes Absolute 1.87 #; Lymphocytes # 1.4 10*3/uL (1.4-4.0); Lymphocytes % 9.5 % (21.3-54.2); Mean Corpuscular HGB Conc 33.3 GM/DL (32-36); Mean Corpuscular Hemoglobin 31 PG (27-34); Mean Corpuscular Volume 91.4 FL (87-102); Mean Platelet Volume 11.1 FL (9.6-12.0); Monocytes # 0.6 10*3/uL (0.11-0.8); Monocytes % 3.9 % (1.7-12.7); Neutrophils # 10.2 10*3/uL (1.4-7.4); Neutrophils % 71.9 % (38.7-73.9); Platelet Count 112 T/CUMM (130-400); Red Blood Count 2.66 MC/CUMM (3.8-5.5); Red Cell Distribution Width 21.3 % (9.3-17.3); White Blood Count 14.2 T/CUMM (4-12)
[2016-11-22 05:36] LABS: Albumin 2.3 G/DL (3.4-5.0); Bilirubin,Total 0.5 MG/DL (0.2-1.0); Calcium 7.3 MG/DL (8.5-10.1); Osmolality,Calculated 270.8 MOS/KG (273-304); Potassium 3.5 MMOL/L (3.5-5.1); Total Protein 5.6 G/DL (6.4-8.3)
[2016-11-22 05:42] LABS: Band Neutrophils 6 % (0-10); Eosinophils 1 % (0-10); Lymphocytes 6 % (20-55); Metamyelocytes 3 %; Segmented Neutrophils 81 % (50-85); Total Cells Counted 100
[2016-11-22 05:43] LABS: Microcytosis 1+; Platelet Estimate Decreased
[2016-11-22 05:44] LABS: Hypochromasia 1+
[2016-11-22] MEDS: VANCOMYCIN INJ 1,000 MG in SODIUM CHLORIDE 0.9% 250 ML IV SCH ×2 (06:33→17:59)
[2016-11-22] MEDS: LEVOTHYROXINE 50 MCG TABLET PO SCH (06:34)
--- NOTE | 2016-11-22 08:29 | Oncology Progress Note ---
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 Cultures grew out methicillin resistant staph epidermidis that infectious disease believed to be a contaminant. The areas of black well-demarcated skin damage from the toxic epidermal necrolysis or being very slow to heal. - will continue with a 2 week course of antibiotics with imipenem and vanco -We are monitoring serum creatinine because vancomycin has nephrotoxicity. Creatinine is 0.3. - continues to gradually improve. Continue current antibiotics and monitoring for toxicity. -She also has persistent stomatitis that is being very slow to improve. She has loss of some of the surface epithelium of her tongue and oral mucosa. Current Visit: Yes (2) Multiple myeloma Status: Chronic Assessment and plan: -s/p cycle 1 of vincristine, BCNU, and adriamycin. Treatment was with BCNU 50 mg , dexamethasone, Adriamycin 50 mg and vincristine 2 mg IV. She has only had one course of this and it was given October 23, 2016. The large mass over her manubrium decreased in size but it appears to be growing back. This chemotherapy is usually repeated every 4 weeks but I am not prepared to start quite yet. In addition, she may decide not to take any further treatment.. - Lab work today includes a white cell count of 14,200 with an absolute neutrophil count of 10,200. Her hemoglobin is 8.2 today. Her platelet count is 112,000. Lab work from November 19, 2016 revealed that her kappa free light chain is 0.08 with a lambda free light chain of 2.03. Her IgG level is 1170 with a low IgA level of 31 and a low IgM level of 21. She has received immune globulins intravenously recently because of this. In addition she has an M spike of 0.9 g /dL or 18.5%. - physical therapy consult for deconditioning We are starting discussions about whether to pursue additional chemotherapy or not at this point. She has certainly had a lot of side effects from progression of the myeloma and some of them have been from the chemotherapy as well. At this point, it does not appear that the chemotherapy has improved the quality of her life. Her comprehensive metabolic profile includes a serum creatinine of 0.3 which we will continue to monitor because she is on vancomycin. Her alkaline phosphatase is 276. Her LDH is 442. (3) Breast cancer Status: Acute Assessment and plan: We are actively treating her with exemestane as hormone therapy. She has no evidence of recurrence of breast cancer. Current Visit: Yes Exam - Constitutional Vitals: Period Temp Pulse Resp BP Sys/Mcneill Pulse Ox Last 24 Hr 96.5 F-98.4 F 98-110 18-22 113-142/60-81 93-100 Results - Labs CBC & BMP: 11/22/16 04:00 11/22/16 04:00 Quality Measures - VTE Contraindication to Pharmacological VTE Prophylaxis: Recent Intracrainal Surgey
[2016-11-22] MEDS: ONDANSETRON 4 MG/2 ML VIAL IV PRN (08:35)
[2016-11-22 08:42] LABS: Apearance,Urine CLEAR (Clear); Bilirubin,Urine Negative (Negative); Blood, Urine Negative (Negative); Glucose,Urine (UA) 50 mg/dL (Negative); Ketones,Urine Negative (Negative); Mucus,Urine Occasional /LPF (Occasional); Nitrite,Urine Negative (Negative); Protein,Urine Negative; RBC,Urine <1 /HPF (0-4); Urine Color Straw (Yellow); Urine Specific Gravity 1.005 (1.001-1.035); Urine Urobilinogen < 2.0 EU/DL (0.2-1.0); WBC,Urine 1 /HPF (0-6)
[2016-11-22] MEDS: CARVEDILOL 3.125 MG TABLET PO SCH ×2 (08:58→20:32)
[2016-11-22] MEDS: CLOTRIMAZOLE 1% CREAM 15 GM TUBE TOP SCH ×2 (08:59→20:33)
[2016-11-22] MEDS: VORICONAZOLE IV SCH ×2 (08:59→20:32)
[2016-11-22] MEDS: SODIUM CHLORIDE 0.9% IV SCH ×2 (08:59→20:32)
[2016-11-22] MEDS: BACITRACIN OINT 0.9 GM PACK TOP SCH (08:59)
[2016-11-22] MEDS: EXEMESTANE 25 MG TABLET PO SCH (08:59)
[2016-11-22] MEDS: FILGRASTIM-SNDZ 300 MCG/0.5 ML SYRINGE SUBCUT SCH (09:48)
--- NOTE | 2016-11-22 09:57 | Infectious Disease Progress ---
Assessment and Plan (1) Generalized rash Status: Acute Assessment and plan: Path lab reported TEN but clinically, this is not a case of TEN. THE skin lesions of TEN rapidly become confluent and there is usually diffuse mucosal involvement including eyelids and genitalia. She has oral ulcerations but these were more consistent with the stomatitis from her neutropenia/ chemotherapy. Further the skin lesions seemed to improve with antimicrobial Tx rather than discontinuing a drug which would have been a causative agent of TEN. I still think the skin lesions were related to a disseminated infection. Recommendations: Patient overall much improved and we are completing 2 weeks of the empiric antimicrobial Tx so they will be stopped this Saturday. Current Visit: Yes (2) Breast cancer Status: Acute Current Visit: Yes (3) Multiple myeloma Status: Chronic Current Visit: No (4) Positive blood culture Status: Acute Assessment and plan: The MRSE is likely a contaminant. Current Visit: Yes Infectious Disease - PN: Subj Interval history: Complaint of stomach discomfort and one episode of loose stool related to some pairs she thinks she ate. No fever. She had a Montesinos catheter removed yesterday but was unable to urinate and so had it with inserted. 1.2 L of urine drained with reinsertion. The irritation in the vaginal area has improved with clotrimazole cream. Infectious Disease Exam (PN) - Constitutional Vitals: Temp Pulse Resp BP Pulse Ox 98.1 F 102 H 20 127/75 95 11/22/16 07:45 11/22/16 07:45 11/22/16 07:45 11/22/16 07:45 11/22/16 07:45 General appearance: no acute distress Exam: General appearance: Alert, relatively comfortable - Eye Eye exam: Present: EOMI. no icterus Pupils: Present: JUAN MANUEL - ENT ENT exam: Residual ulcerations to tip of tongue resolved - Respiratory Respiratory exam: vesicular BS, no crepitations or wheezes - Cardiovascular Cardiovascular exam: regular rate and rhythm, no murmurs - GI/Abdominal GI/Abdominal exam: normal bowel sounds, soft, non-tender, no organomegaly or mass - Clear urine from Montesinos - Extremities Exam Extremities exam: No edema - Skin Skin exam: her rash continues to resolve, most are dry, some with dark scab. Results - Labs CBC & BMP: 11/22/16 04:00 11/22/16 04:00 Lab Results: I have reviewed the past 24 hour labs Quality Measures - VTE Contraindication to Pharmacological VTE Prophylaxis: Recent Intracrainal Surgey
[2016-11-22] MEDS: MORPHINE 2 MG/1 ML SYRINGE IV PRN (23:24)
[2016-11-23] MEDS: ALBUTEROL/IPRATROPIUM 3 ML NEB RESP TX SCH ×4 (00:22→19:18)
[2016-11-23] MEDS: DEXT 5% NACL 0.9% KCL 40 MEQ 40 MEQ/1,000 ML BAG IV SCH ×2 (01:58→17:37)
[2016-11-23] MEDS: MORPHINE 2 MG/1 ML SYRINGE IV PRN (02:10)
[2016-11-23] MEDS: IMIPENEM/CILASTATIN 500 MG in SODIUM CHLORIDE 0.9% 100 ML IV SCH ×4 (04:30→21:20)
[2016-11-23 05:34] LABS: Basophils % 0.3 % (0.0-0.8); Eosinophils # 0.2 10*3/uL (0.0-0.87); Eosinophils % 2.3 % (0.00-10.9); Hematocrit 24.8 VOL% (35.7-47.0); Hemoglobin 8.1 GM/DL (12.0-16.0); Immature Granulocytes % 8.3 %; Immature Granulocytes Absolute 0.57 #; Lymphocytes # 1.2 10*3/uL (1.4-4.0); Lymphocytes % 16.8 % (21.3-54.2); Mean Corpuscular HGB Conc 32.7 GM/DL (32-36); Mean Corpuscular Hemoglobin 30 PG (27-34); Mean Corpuscular Volume 91.9 FL (87-102); Mean Platelet Volume 10.9 FL (9.6-12.0); Monocytes # 0.5 10*3/uL (0.11-0.8); Monocytes % 6.7 % (1.7-12.7); NRBC # 0.02 10*3/uL; Neutrophils # 4.5 10*3/uL (1.4-7.4); Neutrophils % 65.6 % (38.7-73.9); Platelet Count 122 T/CUMM (130-400); Red Cell Distribution Width 21.7 % (9.3-17.3); White Blood Count 6.9 T/CUMM (4-12)
[2016-11-23] MEDS: VANCOMYCIN INJ 1,000 MG in SODIUM CHLORIDE 0.9% 250 ML IV SCH ×2 (06:17→18:51)
[2016-11-23] MEDS: LEVOTHYROXINE 50 MCG TABLET PO SCH (06:18)
[2016-11-23 06:25] LABS: Eosinophils 1 % (0-10); Lymphocytes 11 % (20-55); Segmented Neutrophils 84 % (50-85)
[2016-11-23 06:26] LABS: Platelet Estimate Normal; Total Cells Counted 100
[2016-11-23 06:47] LABS: Albumin 2.4 G/DL (3.4-5.0); Bilirubin,Total 0.4 MG/DL (0.2-1.0); Calcium 7.6 MG/DL (8.5-10.1); Osmolality,Calculated 276.3 MOS/KG (273-304); Total Protein 5.7 G/DL (6.4-8.3)
--- NOTE | 2016-11-23 06:48 | Oncology Progress Note ---
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 I appreciate the comments by Dr. Bryant. I agree that this is probably not toxic epidermal necrolysis. 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 This would be related to sepsis. This is healing slowly. Cultures grew out methicillin resistant staph epidermidis that infectious disease believed to be a contaminant. The areas of black well-demarcated skin damage from the toxic epidermal necrolysis or being very slow to heal. - will continue with a 2 week course of antibiotics with imipenem and vancomycin. -We are monitoring serum creatinine because vancomycin has nephrotoxicity. Creatinine is 0.3. - continues to gradually improve. Continue current antibiotics and monitoring for toxicity. -She also has persistent stomatitis that is being very slow to improve. She has loss of some of the surface epithelium of her tongue and oral mucosa. Current Visit: Yes (2) Multiple myeloma Status: Chronic Assessment and plan: -s/p cycle 1 of vincristine, BCNU, and adriamycin. Treatment was with BCNU 50 mg , dexamethasone, Adriamycin 50 mg and vincristine 2 mg IV. She has only had one course of this and it was given October 23, 2016. The large mass over her manubrium decreased in size but it appears to be growing back. This chemotherapy is usually repeated every 4 weeks but I am not prepared to start quite yet. In addition, she may decide not to take any further treatment.. - Lab work today includes a white cell count of 6900 with a hemoglobin of 8.1 and a platelet count of 122,000. Lab work from November 19, 2016 revealed that her kappa free light chain is 0.08 with a lambda free light chain of 2.03. Her IgG level is 1170 with a low IgA level of 31 and a low IgM level of 21. She has received immune globulins intravenously recently because of this. In addition she has an M spike of 0.9 g /dL or 18.5%. - physical therapy consult for deconditioning We are starting discussions about whether to pursue additional chemotherapy or not at this point. She has certainly had a lot of side effects from progression of the myeloma and some of them have been from the chemotherapy as well. At this point, it does not appear that the chemotherapy has improved the quality of her life. Her comprehensive metabolic profile includes a serum creatinine of 0.3 which we will continue to monitor because she is on vancomycin. Her alkaline phosphatase is 276. Her LDH is 442. She is having pains in her right leg and some decrease in right leg strength and function. I am going to x-ray her pelvis. She had previously documented pelvic involvement from the myeloma and I suspect that it should progressing. (3) Breast cancer Status: Acute Assessment and plan: We are actively treating her with exemestane as hormone therapy. She has no evidence of recurrence of breast cancer. Exam - Constitutional Vitals: Period Temp Pulse Resp BP Sys/Mcneill Pulse Ox Last 24 Hr 98.1 F-98.7 F 87-109 17-21 109-131/55-75 92-100 Results - Labs CBC & BMP: 11/23/16 04:00 11/23/16 04:00 Quality Measures - VTE Contraindication to Pharmacological VTE Prophylaxis: Recent Intracrainal Surgey
[2016-11-23] MEDS: VORICONAZOLE IV SCH (07:42)
[2016-11-23] MEDS: SODIUM CHLORIDE 0.9% IV SCH (07:42)
[2016-11-23] MEDS: EXEMESTANE 25 MG TABLET PO SCH (08:54)
[2016-11-23] MEDS: CARVEDILOL 3.125 MG TABLET PO SCH ×2 (08:54→21:19)
--- NOTE | 2016-11-23 09:26 | XRay Report ---
History: Multiple myeloma with loss of right leg strength Date: 11/23/2016 Study: 2 views right hip to include AP pelvis Comparison exam: Right hip x-ray September 03, 2016 There is no acute fracture, dislocation, or focal destructive osseous abnormality. There is mild osteophyte formation of the right hip. The right hip joint space is well-maintained. The sacroiliac joints are normal. Impression: No acute bony abnormality. Mild osteoarthritis right hip PROCEDURE INTERPRETED AT [facility] DEPARTMENT OF RADIOLOGY Final Report Signed by: Dr. Muriel Resendiz
[2016-11-23] MEDS: FILGRASTIM-SNDZ 300 MCG/0.5 ML SYRINGE SUBCUT SCH (10:57)
[2016-11-23] MEDS: BACITRACIN OINT 0.9 GM PACK TOP SCH (10:59)
[2016-11-23] MEDS: CLOTRIMAZOLE 1% CREAM 15 GM TUBE TOP SCH ×2 (11:05→21:24)
--- NOTE | 2016-11-23 12:50 | Infectious Disease Progress ---
Assessment and Plan (1) Generalized rash Status: Acute Assessment and plan: Path lab reported TEN but clinically, this is not a case of TEN. THE skin lesions of TEN rapidly become confluent and there is usually diffuse mucosal involvement including eyelids and genitalia. She has oral ulcerations but these were more consistent with the stomatitis from her neutropenia/ chemotherapy. Further the skin lesions seemed to improve with antimicrobial Tx rather than discontinuing a drug which would have been a causative agent of TEN. I still think the skin lesions were related to a disseminated infection. Recommendations: Voriconazole, vancomycin and imipenem to be stopped today. She has 1 more dose of imipenem left. We will see how she does off antimicrobial therapy. The tip of her Montesinos catheter cultured positive for Enterococcus faecalis and yeast. This is likely contamination from his skin when the catheter was being removed. Usually catheter tip cultures are not indicated. No treatment is indicated. Current Visit: Yes (2) Breast cancer Status: Acute Current Visit: Yes (3) Multiple myeloma Status: Chronic Current Visit: No (4) Positive blood culture Status: Acute Assessment and plan: The MRSE is likely a contaminant. Current Visit: Yes Infectious Disease - PN: Subj Interval history: Patient has no complaints, afebrile, eating well, no soreness in the mouth. No nausea vomiting or diarrhea. Montesinos catheter remains in situ because she was unable to void on her own. Infectious Disease Exam (PN) - Constitutional Vitals: Temp Pulse Resp BP Pulse Ox 98.2 F 110 H 20 117/73 100 11/23/16 04:00 11/23/16 08:30 11/23/16 08:30 11/23/16 04:00 11/23/16 08:30 General appearance: no acute distress Exam: General appearance: Alert, comfortable - Eye Eye exam: Present: EOMI. no icterus Pupils: Present: JUAN MANUEL - ENT ENT exam: Residual ulcerations to tip of tongue resolved, no new lesions - Respiratory Respiratory exam: vesicular BS, no crepitations or wheezes - Cardiovascular Cardiovascular exam: regular rate and rhythm, no murmurs - GI/Abdominal GI/Abdominal exam: normal bowel sounds, soft, non-tender, no organomegaly or mass - Clear urine from Montesinos - Extremities Exam Extremities exam: No edema - Skin Skin exam: her rash continues to resolve, most are dry, some with dark scab. Results - Labs CBC & BMP: 11/23/16 04:00 11/23/16 04:00 Lab Results: I have reviewed the past 24 hour labs (Per patient's nurse the catheter tip that was cultured was the Montesinos catheter tip) Quality Measures - VTE Contraindication to Pharmacological VTE Prophylaxis: Recent Intracrainal Surgey
[2016-11-23] MEDS: TEMAZEPAM 7.5 MG CAPSULE PO PRN (21:19)
[2016-11-24] MEDS: ALBUTEROL/IPRATROPIUM 3 ML NEB RESP TX SCH ×4 (00:43→19:10)
[2016-11-24] MEDS: DEXT 5% NACL 0.9% KCL 40 MEQ 40 MEQ/1,000 ML BAG IV SCH ×4 (01:32→20:35)
[2016-11-24 06:09] LABS: Basophils % 0.2 % (0.0-0.8); Eosinophils # 0.2 10*3/uL (0.0-0.87); Eosinophils % 1.4 % (0.00-10.9); Hemoglobin 8.2 GM/DL (12.0-16.0); Immature Granulocytes % 6.5 %; Lymphocytes # 1.8 10*3/uL (1.4-4.0); Lymphocytes % 12.6 % (21.3-54.2); Mean Corpuscular HGB Conc 31.5 GM/DL (32-36); Mean Corpuscular Hemoglobin 30 PG (27-34); Mean Corpuscular Volume 95.9 FL (87-102); Mean Platelet Volume 10.6 FL (9.6-12.0); Monocytes # 0.8 10*3/uL (0.11-0.8); Monocytes % 5.7 % (1.7-12.7); NRBC # 0.02 10*3/uL; Neutrophils # 10.2 10*3/uL (1.4-7.4); Neutrophils % 73.6 % (38.7-73.9); Platelet Count 134 T/CUMM (130-400); Red Blood Count 2.71 MC/CUMM (3.8-5.5); White Blood Count 13.9 T/CUMM (4-12)
[2016-11-24 06:24] LABS: Albumin 2.4 G/DL (3.4-5.0); Bilirubin,Total 0.6 MG/DL (0.2-1.0); Calcium 7.6 MG/DL (8.5-10.1); Osmolality,Calculated 268.8 MOS/KG (273-304); Potassium 3.6 MMOL/L (3.5-5.1)
[2016-11-24] MEDS: LEVOTHYROXINE 50 MCG TABLET PO SCH (06:43)
[2016-11-24 06:44] LABS: Band Neutrophils 4 % (0-10); Eosinophils 1 % (0-10); Lymphocytes 6 % (20-55); Metamyelocytes 3 %; Microcytosis 1+; Segmented Neutrophils 81 % (50-85); Total Cells Counted 100
[2016-11-24 06:45] LABS: Hypochromasia 1+; Platelet Estimate Adequate
[2016-11-24] MEDS: CLOTRIMAZOLE 1% CREAM 15 GM TUBE TOP SCH ×2 (09:06→20:37)
[2016-11-24] MEDS: EXEMESTANE 25 MG TABLET PO SCH (09:06)
[2016-11-24] MEDS: BACITRACIN OINT 0.9 GM PACK TOP SCH (09:06)
[2016-11-24] MEDS: CARVEDILOL 3.125 MG TABLET PO SCH ×2 (09:06→20:37)
--- NOTE | 2016-11-24 09:41 | Oncology Progress Note ---
Oncology Subjective PN Interval history: Lab work today includes white cell count 13,900 with a hemoglobin of 8.2 and platelet count 134,000. She has been on Neupogen but we are holding today. Chemistry studies done today include normal electrolytes and a urea nitrogen that is low at 4.0 with a serum creatinine of 0.3 which is also below normal. She is having a lot of pain and we are altering her Perry and increasing the dose to 10. 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 I appreciate the comments by Dr. Bryant. I agree that this is probably not toxic epidermal necrolysis. 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 This would be related to sepsis. This is healing slowly. Cultures grew out methicillin resistant staph epidermidis that infectious disease believed to be a contaminant. The areas of black well-demarcated skin damage from the toxic epidermal necrolysis or being very slow to heal. - will continue with a 2 week course of antibiotics with imipenem and vancomycin. -We are monitoring serum creatinine because vancomycin has nephrotoxicity. Creatinine is 0.3. - continues to gradually improve. Continue current antibiotics and monitoring for toxicity. -She also has persistent, slowly improving stomatitis. Current Visit: Yes (2) Multiple myeloma Status: Chronic Assessment and plan: -s/p cycle 1 of vincristine, BCNU, and adriamycin. Treatment was with BCNU 50 mg , dexamethasone, Adriamycin 50 mg and vincristine 2 mg IV. She has only had one course of this and it was given October 23, 2016. The large mass over her manubrium decreased in size but it appears to be growing back. This chemotherapy is usually repeated every 4 weeks but I am not prepared to start quite yet. In addition, she may decide not to take any further treatment.. - Lab work today includes Hemoglobin 8.2, white cell count 13,900, platelets 134 ,000. Creatinine 0.3. Albumin 2.4 with a globulin of 3.6.a white cell count of 6900 with a hemoglobin of 8.1 and a platelet count of 122,000. Lab work from November 19, 2016 revealed that her kappa free light chain is 0.08 with a lambda free light chain of 2.03. Her IgG level is 1170 with a low IgA level of 31 and a low IgM level of 21. She has received immune globulins intravenously recently because of this. In addition she has an M spike of 0.9 g /dL or 18.5%. - physical therapy consult for deconditioning We are continuing discussions about whether to pursue additional chemotherapy or not at this point. She has certainly had a lot of side effects from progression of the myeloma and some of them have been from the chemotherapy as well. At this point, it does not appear that the chemotherapy has improved the quality of her life. The nurses have instituted discussions about swing bed with her. Her comprehensive metabolic profile includes a serum creatinine of 0.3 which we will continue to monitor because she is on vancomycin. Her alkaline phosphatase is 276. Her LDH is 442. She was having pain in her right leg yesterday. We obtained x-rays of her right hip and pelvis that are negative for bone involvement there. I did not check for progression of spinal metastases. (3) Breast cancer Status: Acute Assessment and plan: We are actively treating her with exemestane as hormone therapy. She has no evidence of recurrence of breast cancer. Exam - Constitutional Vitals: Period Temp Pulse Resp BP Sys/Mcneill Pulse Ox Last 24 Hr 97.6 F-98.5 F 104-115 18-20 104-119/62-69 93-99 Results - Labs CBC & BMP: 11/24/16 04:45 11/24/16 04:45 Quality Measures - VTE Contraindication to Pharmacological VTE Prophylaxis: Recent Intracrainal Surgey
[2016-11-24] MEDS: FILGRASTIM-SNDZ 300 MCG/0.5 ML SYRINGE SUBCUT SCH (13:14)
[2016-11-24] MEDS: TEMAZEPAM 7.5 MG CAPSULE PO PRN (20:37)
[2016-11-25] MEDS: ALBUTEROL/IPRATROPIUM 3 ML NEB RESP TX SCH ×4 (00:10→19:47)
[2016-11-25 05:18] LABS: Basophils % 0.3 % (0.0-0.8); Eosinophils # 0.2 10*3/uL (0.0-0.87); Eosinophils % 2.7 % (0.00-10.9); Hematocrit 23.4 VOL% (35.7-47.0); Hemoglobin 7.7 GM/DL (12.0-16.0); Immature Granulocytes % 10.5 %; Immature Granulocytes Absolute 0.69 #; Lymphocytes # 1.5 10*3/uL (1.4-4.0); Lymphocytes % 22.1 % (21.3-54.2); Mean Corpuscular HGB Conc 32.9 GM/DL (32-36); Mean Corpuscular Hemoglobin 30 PG (27-34); Mean Corpuscular Volume 92.1 FL (87-102); Mean Platelet Volume 10.7 FL (9.6-12.0); Monocytes # 0.6 10*3/uL (0.11-0.8); Monocytes % 9.3 % (1.7-12.7); NRBC # 0.03 10*3/uL; Neutrophils # 3.6 10*3/uL (1.4-7.4); Neutrophils % 55.1 % (38.7-73.9); Platelet Count 133 T/CUMM (130-400); Red Blood Count 2.54 MC/CUMM (3.8-5.5); Red Cell Distribution Width 22.3 % (9.3-17.3); White Blood Count 6.6 T/CUMM (4-12)
[2016-11-25 05:46] LABS: Albumin 2.5 G/DL (3.4-5.0); Bilirubin,Total 0.5 MG/DL (0.2-1.0); Calcium 7.5 MG/DL (8.5-10.1); Osmolality,Calculated 270.7 MOS/KG (273-304); Potassium 3.9 MMOL/L (3.5-5.1); Total Protein 5.9 G/DL (6.4-8.3)
[2016-11-25 06:08] LABS: Band Neutrophils 1 % (0-10); Eosinophils 3 % (0-10); Hypochromasia Slight; Lymphocytes 19 % (20-55); Metamyelocytes 1 %; Microcytosis 1+; Nucleated Red Blood Cells 1 (0-5); Platelet Estimate Adequate; Segmented Neutrophils 73 % (50-85); Total Cells Counted 100
[2016-11-25] MEDS: LEVOTHYROXINE 50 MCG TABLET PO SCH (06:10)
[2016-11-25] MEDS: DEXT 5% NACL 0.9% KCL 40 MEQ 40 MEQ/1,000 ML BAG IV SCH ×3 (06:11→21:44)
[2016-11-25] MEDS: EXEMESTANE 25 MG TABLET PO SCH (09:24)
[2016-11-25] MEDS: BACITRACIN OINT 0.9 GM PACK TOP SCH (09:24)
[2016-11-25] MEDS: CLOTRIMAZOLE 1% CREAM 15 GM TUBE TOP SCH ×2 (09:24→21:45)
[2016-11-25] MEDS: CARVEDILOL 3.125 MG TABLET PO SCH ×2 (09:24→21:42)
--- NOTE | 2016-11-25 10:17 | Oncology Progress Note ---
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 I appreciate the comments by Dr. Bryant. I agree that this is probably not toxic epidermal necrolysis. 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 This would be related to sepsis. This is healing slowly. Cultures grew out methicillin resistant staph epidermidis that infectious disease believed to be a contaminant. The areas of black well-demarcated skin damage from the toxic epidermal necrolysis or being very slow to heal. -She actually completed antibiotic therapy yesterday and we are now working on plans for discharge. I am not sure that she is going to take additional chemotherapy at this point. We have had prolonged discussions about this. - continues to gradually improve. -She also has persistent, slowly improving stomatitis. Current Visit: Yes (2) Multiple myeloma Status: Chronic Assessment and plan: -s/p cycle 1 of vincristine, BCNU, and adriamycin. Treatment was with BCNU 50 mg , dexamethasone, Adriamycin 50 mg and vincristine 2 mg IV. She has only had one course of this and it was given October 23, 2016. The large mass over her manubrium decreased in size but it appears to be growing back. This chemotherapy is usually repeated every 4 weeks but I am not prepared to start quite yet. In addition, she may decide not to take any further treatment. In fact, we are discussing the possibility of sending the patient home to the stepdown unit, or swing bed on hospice. - Lab work today includes a white cell count of 6600 with a hemoglobin of 7.7. Her platelet count is 133,000. I am going to order packed red cells today. Her comprehensive metabolic profile is relatively stable. Her LDH remains elevated at 174 and her albumin is low at 2.5 although is slightly higher. She has normal electrolytes and her serum creatinine remains 0.3 which is below normal. Her serum calcium is 7.5 but this corresponds to her low serum albumin. Lab work from November 19, 2016 revealed that her kappa free light chain is 0.08 with a lambda free light chain of 2.03. Her IgG level is 1170 with a low IgA level of 31 and a low IgM level of 21. She has received immune globulins intravenously recently because of this. In addition she has an M spike of 0.9 g /dL or 18.5%. - physical therapy consult for deconditioning We are continuing discussions about whether to pursue additional chemotherapy or not at this point. She has certainly had a lot of side effects from progression of the myeloma and some of them have been from the chemotherapy as well. At this point, it does not appear that the chemotherapy has improved the quality of her life. The nurses have instituted discussions about swing bed with her. Exam - Constitutional Vitals: Period Temp Pulse Resp BP Sys/Mcneill Pulse Ox Last 24 Hr 97.6 F-98.6 F 102-115 16-20 116-125/57-78 94-100 Results - Labs CBC & BMP: 11/25/16 04:29 11/25/16 04:29 Quality Measures - VTE Contraindication to Pharmacological VTE Prophylaxis: Recent Intracrainal Surgey
[2016-11-25] MEDS ORDERED: SODIUM CHLORIDE 0.9% 250 ML IV PRN (10:18)
[2016-11-25] MEDS: FILGRASTIM-SNDZ 300 MCG/0.5 ML SYRINGE SUBCUT SCH (10:57)
[2016-11-25] MEDS: TEMAZEPAM 7.5 MG CAPSULE PO PRN (21:40)
[2016-11-26] MEDS: ALBUTEROL/IPRATROPIUM 3 ML NEB RESP TX SCH ×4 (00:41→19:46)
[2016-11-26 05:36] LABS: Basophils % 0.6 % (0.0-0.8); Eosinophils # 0.1 10*3/uL (0.0-0.87); Eosinophils % 2.4 % (0.00-10.9); Hemoglobin 10.2 GM/DL (12.0-16.0); Immature Granulocytes % 18.9 %; Immature Granulocytes Absolute 1.01 #; Lymphocytes # 1.6 10*3/uL (1.4-4.0); Lymphocytes % 29.6 % (21.3-54.2); Mean Corpuscular HGB Conc 32.9 GM/DL (32-36); Mean Corpuscular Hemoglobin 29 PG (27-34); Mean Corpuscular Volume 88.8 FL (87-102); Mean Platelet Volume 10.4 FL (9.6-12.0); Monocytes # 0.6 10*3/uL (0.11-0.8); Monocytes % 11.1 % (1.7-12.7); NRBC # 0.03 10*3/uL; Neutrophils % 37.4 % (38.7-73.9); Platelet Count 130 T/CUMM (130-400); Red Blood Count 3.49 MC/CUMM (3.8-5.5); Red Cell Distribution Width 20.2 % (9.3-17.3); White Blood Count 5.3 T/CUMM (4-12)
[2016-11-26 06:08] LABS: Albumin 2.6 G/DL (3.4-5.0); Calcium 7.6 MG/DL (8.5-10.1); Osmolality,Calculated 270.8 MOS/KG (273-304); Potassium 3.9 MMOL/L (3.5-5.1); Total Protein 6.2 G/DL (6.4-8.3)
[2016-11-26] MEDS: LEVOTHYROXINE 50 MCG TABLET PO SCH (06:22)
[2016-11-26] MEDS: DEXT 5% NACL 0.9% KCL 40 MEQ 40 MEQ/1,000 ML BAG IV SCH ×3 (06:24→20:32)
[2016-11-26 07:26] LABS: Band Neutrophils 6 % (0-10); Lymphocytes 38 % (20-55); Microcytosis 1+; Myelocytes 2 %; Platelet Estimate Decreased; Polychromasia Slight; Segmented Neutrophils 52 % (50-85); Total Cells Counted 100
--- NOTE | 2016-11-26 08:46 | Oncology Progress Note ---
Oncology Subjective PN Interval history: 1) Generalized rash Status: Acute Assessment and plan: -skin biopsy "consistent with toxic epidermal necrolysis". I appreciate the comments by Dr. Bryant. I agree that this is probably not toxic epidermal necrolysis. 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 This would be related to sepsis. This is healing slowly. Cultures grew out methicillin resistant staph epidermidis that infectious disease believed to be a contaminant. The areas of black well-demarcated skin damage from the toxic epidermal necrolysis are healing more rapidly now. -She actually completed antibiotic therapy yesterday and we are now working on plans for discharge. I am not sure that she is going to take additional chemotherapy at this point. We have had prolonged discussions about this. - continues to gradually improve. -She also has persistent, slowly improving stomatitis. Current Visit: Yes (2) Multiple myeloma Status: Chronic Assessment and plan: Ms. Kate has advanced and progressive myeloma. She has been treated with multiple combinations of chemotherapy.. -s/p cycle 1 of vincristine, BCNU, and adriamycin. Treatment was with BCNU 50 mg , dexamethasone, Adriamycin 50 mg and vincristine 2 mg IV. She has only had one course of this and it was given October 23, 2016. The large mass over her manubrium decreased in size but it appears to be growing back. This chemotherapy is usually repeated every 4 weeks but I am not prepared to start quite yet. In addition, she may decide not to take any further treatment. In fact, we are discussing the possibility of sending the patient home to the stepdown unit, or swing bed on hospice. I have no plans for further treatment right away and I told her so. (3) depression. I am starting her on Paxil. She is crying on a regular basis now. This is a very sad case at this point. Exam - Constitutional Vitals: Period Temp Pulse Resp BP Sys/Mcneill Pulse Ox Last 24 Hr 97.6 F-98.8 F 80-114 16-147 111-124/66-74 93-100 Results - Labs CBC & BMP: 11/26/16 04:58 11/26/16 04:58 Quality Measures - VTE Contraindication to Pharmacological VTE Prophylaxis: Recent Intracrainal Surgey
[2016-11-26] MEDS: EXEMESTANE 25 MG TABLET PO SCH (09:54)
[2016-11-26] MEDS: CLOTRIMAZOLE 1% CREAM 15 GM TUBE TOP SCH ×2 (09:54→20:35)
[2016-11-26] MEDS: BACITRACIN OINT 0.9 GM PACK TOP SCH (09:54)
[2016-11-26] MEDS: CARVEDILOL 3.125 MG TABLET PO SCH ×2 (09:54→20:32)
[2016-11-26] MEDS: FILGRASTIM-SNDZ 300 MCG/0.5 ML SYRINGE SUBCUT SCH (10:05)
--- NOTE | 2016-11-26 16:05 | Event Note ---
The patient remained stable over the weekend off antibiotic therapy. She has no specific complaints today. Case discussed with Dr. Gaines and he is likely going to send her home on hospice. I will sign off. Call again as needed.
[2016-11-26] MEDS: TEMAZEPAM 7.5 MG CAPSULE PO PRN (20:32)
[2016-11-26] MEDS: MORPHINE 2 MG/1 ML SYRINGE IV PRN (21:51)
[2016-11-27] MEDS: ALBUTEROL/IPRATROPIUM 3 ML NEB RESP TX SCH ×4 (01:10→19:35)
[2016-11-27 04:00] LABS: Basophils % 0.7 % (0.0-0.8); Eosinophils # 0.1 10*3/uL (0.0-0.87); Hematocrit 31.2 VOL% (35.7-47.0); Hemoglobin 10.6 GM/DL (12.0-16.0); Immature Granulocytes % 13.2 %; Immature Granulocytes Absolute 0.59 #; Lymphocytes # 1.5 10*3/uL (1.4-4.0); Lymphocytes % 33.6 % (21.3-54.2); Mean Corpuscular Hemoglobin 30 PG (27-34); Mean Corpuscular Volume 86.9 FL (87-102); Mean Platelet Volume 10.1 FL (9.6-12.0); Monocytes # 0.7 10*3/uL (0.11-0.8); Monocytes % 15.5 % (1.7-12.7); NRBC # 0.02 10*3/uL; Neutrophils # 1.6 10*3/uL (1.4-7.4); Platelet Count 128 T/CUMM (130-400); Red Blood Count 3.59 MC/CUMM (3.8-5.5); Red Cell Distribution Width 20.2 % (9.3-17.3); White Blood Count 4.5 T/CUMM (4-12)
[2016-11-27] MEDS: MORPHINE 2 MG/1 ML SYRINGE IV PRN (04:45)
[2016-11-27 04:47] LABS: Band Neutrophils 4 % (0-10); Eosinophils 3 % (0-10); Hypochromasia 1+; Lymphocytes 30 % (20-55); Nucleated Red Blood Cells 1 (0-5); Platelet Estimate Decreased; Segmented Neutrophils 49 % (50-85); Total Cells Counted 100
[2016-11-27 04:48] LABS: Microcytosis 1+
[2016-11-27] MEDS: LEVOTHYROXINE 50 MCG TABLET PO SCH (06:52)
--- NOTE | 2016-11-27 07:31 | Oncology Progress Note ---
Oncology Subjective PN Interval history: Ms. Kate has advanced myeloma that may be benign secretory at this point. She was admitted because of sepsis. She has progressed on multiple combinations of treatment for her myeloma with the most recent one being BCNU, Adriamycin, vincristine and dexamethasone. Her last previous treatment was daratumumab. Prior to that time she had already received thalidomide and Velcade. She is so immunosuppressed now that she cannot possibly receive additional chemotherapy for the time being. She has multiple biopsy-proven sites of metastatic disease. She is severely depressed by our discussions about her failure to continue to respond to chemotherapy. New problem; this loss of right leg function: She is probably developing cord compression from her myeloma. I am ordering MRIs of the thoracic and lumbar spine. In addition, I am starting her on dexamethasone 20 mg intravenously daily. She was moving her right leg yesterday and can barely move today. I will await the results of the MRIs. This is a very sad case at this point. Exam - Constitutional Vitals: Period Temp Pulse Resp BP Sys/Mcneill Pulse Ox Last 24 Hr 96.3 F-98.5 F 98-110 18-20 111-128/58-78 92-100 Results - Labs CBC & BMP: 11/27/16 03:54 11/26/16 04:58 Quality Measures - VTE Contraindication to Pharmacological VTE Prophylaxis: Recent Intracrainal Surgey
[2016-11-27] MEDS ORDERED: DEXAMETHASONE 10 MG/1 ML VIAL IV SCH (09:00)
[2016-11-27] MEDS: FILGRASTIM-SNDZ 300 MCG/0.5 ML SYRINGE SUBCUT SCH (09:39)
[2016-11-27] MEDS: CARVEDILOL 3.125 MG TABLET PO SCH ×2 (09:39→20:46)
[2016-11-27] MEDS: DEXAMETHASONE INJ 20 MG in SODIUM CHLORIDE 0.9% 50 ML IV SCH (09:39)
[2016-11-27] MEDS: BACITRACIN OINT 0.9 GM PACK TOP SCH (09:39)
[2016-11-27] MEDS: CLOTRIMAZOLE 1% CREAM 15 GM TUBE TOP SCH ×2 (09:39→20:46)
[2016-11-27] MEDS: EXEMESTANE 25 MG TABLET PO SCH (09:39)
[2016-11-27] MEDS: DEXT 5% NACL 0.9% KCL 40 MEQ 40 MEQ/1,000 ML BAG IV SCH ×2 (09:44→15:58)
--- NOTE | 2016-11-27 12:39 | Magnetic Resonance Report ---
MR thoracic spine wo/w con Indication: Myeloma, leg paralysis Comparison: MRI thoracic spine dated January 04, 2014 Technique: Multiplanar MRI of the thoracic spine was performed before and after the administration of 11 cc Dotarem intravenous contrast. Findings: Interval development of significant diffuse abnormal T1 hypointensity and T2 hyperintensity throughout the majority of the visualized thoracic and cervical vertebral bodies with corresponding contrast enhancement consistent with myeloma. There has been interval development of moderate compression deformity of T6 vertebral body with approximate 60% height loss. There has been interval development of moderate compression deformity of the T7 vertebral body with approximate 50% height loss. There has been interval development of mild compression deformity of T8 vertebral body with approximate 15% height loss. No significant spinal canal or neuroforaminal narrowing demonstrated. IMPRESSION: As above. PROCEDURE INTERPRETED AT [facility] DEPARTMENT OF RADIOLOGY Final Report Signed by: Dr Joshua Powell
--- NOTE | 2016-11-27 13:12 | Magnetic Resonance Report ---
MR lumbar spine wo/w con Indication: Leg paralysis, myeloma Comparison: MRI lumbar spine dated January 04, 2014 Technique: Multiplanar MRI imaging of the lumbar spine was performed before and after the administration of 11 cc Dotarem intravenous contrast. Findings: Interval development of diffuse abnormal hyperintense T1/hypointense T2 signal throughout the lumbosacral spine consistent with myeloma. Interval development of compression deformity involving the superior aspect of L5 with approximate 30% height loss. There is posterior protrusion of cortex into the spinal canal resulting in moderate spinal canal narrowing. Moderate to severe bilateral neuroforaminal narrowing noted at this level. There is an enhancing soft tissue lesion measuring up to 1.8 cm noted within the right paracentral location in the epidural space behind the L4 vertebral body which extends into the right neural foramen at the L4-5 level. This demonstrates postcontrast enhancement and is likely myelomatous. There is minimal compression deformity of the inferior endplate of L4 with approximate 20% height loss. There is an enhancing probable myelomatous lesion at the S2 level which measures up to 1.4 cm and extends into the epidural space effacing much of the left lateral recess at this level. Fluid signal is demonstrated within the L4-5 disc with maintenance of hypointense cortical lines and without significant contrast enhancement demonstrated within the disc space. There is mild diffuse disc bulge at L3-4 with mild right-sided neuroforaminal narrowing. IMPRESSION: Interval development of diffuse abnormal hyperintense T1/hypointense T2 signal throughout the lumbosacral spine consistent with myeloma. Interval development of compression deformity involving the superior aspect of L5 with approximate 30% height loss. There is posterior protrusion of cortex into the spinal canal resulting in moderate spinal canal narrowing. Moderate to severe bilateral neuroforaminal narrowing noted at this level. There is an enhancing soft tissue lesion measuring up to 1.8 cm noted within the right paracentral location in the epidural space behind the L4 vertebral body which extends into the right neural foramen at the L4-5 level. This demonstrates postcontrast enhancement and is likely myelomatous. There is minimal compression deformity of the inferior endplate of L4 with approximate 20% height loss. There is an enhancing probable myelomatous lesion at the S2 level which measures up to 1.4 cm and extends into the epidural space effacing much of the left lateral recess at this level. PROCEDURE INTERPRETED AT [facility] DEPARTMENT OF RADIOLOGY Final Report Signed by: Dr Joshua Powell
[2016-11-27] MEDS: ONDANSETRON 4 MG/2 ML VIAL IV PRN (15:52)
[2016-11-28] MEDS: MORPHINE 2 MG/1 ML SYRINGE IV PRN ×2 (00:06→03:56)
[2016-11-28] MEDS: TEMAZEPAM 7.5 MG CAPSULE PO PRN ×2 (00:06→20:10)
[2016-11-28] MEDS: DEXAMETHASONE INJ 20 MG in SODIUM CHLORIDE 0.9% 50 ML IV SCH ×3 (00:06→20:06)
[2016-11-28] MEDS: DEXT 5% NACL 0.9% KCL 40 MEQ 40 MEQ/1,000 ML BAG IV SCH ×4 (00:25→20:15)
[2016-11-28] MEDS: ALBUTEROL/IPRATROPIUM 3 ML NEB RESP TX SCH ×4 (01:00→19:05)
[2016-11-28 05:03] LABS: Basophils # 0.1 10*3/uL (0.0-0.2); Basophils % 0.3 % (0.0-0.8); Hematocrit 32.9 VOL% (35.7-47.0); Immature Granulocytes % 8.4 %; Immature Granulocytes Absolute 2.16 #; Lymphocytes # 2.6 10*3/uL (1.4-4.0); Lymphocytes % 10.2 % (21.3-54.2); Mean Corpuscular HGB Conc 33.4 GM/DL (32-36); Mean Corpuscular Hemoglobin 29 PG (27-34); Mean Corpuscular Volume 87.7 FL (87-102); Mean Platelet Volume 10.6 FL (9.6-12.0); Monocytes # 0.8 10*3/uL (0.11-0.8); Monocytes % 3.2 % (1.7-12.7); Neutrophils % 77.9 % (38.7-73.9); Platelet Count 161 T/CUMM (130-400); Red Blood Count 3.75 MC/CUMM (3.8-5.5); Red Cell Distribution Width 20.9 % (9.3-17.3); White Blood Count 25.6 T/CUMM (4-12)
[2016-11-28 05:35] LABS: Band Neutrophils 7 % (0-10); Lymphocytes 8 % (20-55); Segmented Neutrophils 83 % (50-85); Total Cells Counted 100
[2016-11-28 05:36] LABS: Hypochromasia 1+; Microcytosis 1+
[2016-11-28 05:37] LABS: Platelet Estimate Adequate
[2016-11-28] MEDS: LEVOTHYROXINE 50 MCG TABLET PO SCH (06:42)
--- NOTE | 2016-11-28 08:49 | Oncology Progress Note ---
Oncology Subjective PN Interval history: We have additional problems on Ms. Kate. She has extensive spinal/ vertebral involvement and is developing spinal compression that we may not be able to reverse. I have started her on dexamethasone and I am going to discuss further chemotherapy with her. This is an extremely bad situation. There is diffuse involvement of the entire thoracic spine with a compression deformity at T7 and a mild compression fracture at T8. There is also diffuse myeloma involvement in the lumbar spine as well as an enhancing soft tissue lesion in the right parasacral location. She is on dexamethasone and I am altering the dose. I discussed further chemotherapy with her and I do not think she is going to accept it. This is been a terrible disappointment for her and for the nursing staff as well. Exam - Constitutional Vitals: Period Temp Pulse Resp BP Sys/Mcneill Pulse Ox Last 24 Hr 97.2 F-98.5 F 99-116 18-20 107-121/56-69 92-99 Results - Labs CBC & BMP: 11/28/16 04:00 11/26/16 04:58 Quality Measures - VTE Contraindication to Pharmacological VTE Prophylaxis: Recent Intracrainal Surgey
[2016-11-28] MEDS: EXEMESTANE 25 MG TABLET PO SCH (09:17)
[2016-11-28] MEDS: CARVEDILOL 3.125 MG TABLET PO SCH ×2 (09:17→20:09)
[2016-11-28] MEDS: BACITRACIN OINT 0.9 GM PACK TOP SCH (09:17)
[2016-11-28] MEDS: FILGRASTIM-SNDZ 300 MCG/0.5 ML SYRINGE SUBCUT SCH (09:21)
[2016-11-28] MEDS: CLOTRIMAZOLE 1% CREAM 15 GM TUBE TOP SCH ×2 (09:21→20:17)
[2016-11-28] MEDS: ALUMINUM/MAGNES/SIMETH MAX STR 30 ML UDCUP PO PRN (18:15)
[2016-11-29] MEDS: ALBUTEROL/IPRATROPIUM 3 ML NEB RESP TX SCH ×4 (00:30→19:05)
[2016-11-29] MEDS: DEXAMETHASONE INJ 20 MG in SODIUM CHLORIDE 0.9% 50 ML IV SCH ×2 (10:14→21:04)
[2016-11-29] MEDS: CARVEDILOL 3.125 MG TABLET PO SCH ×2 (10:15→21:04)
[2016-11-29] MEDS: CLOTRIMAZOLE 1% CREAM 15 GM TUBE TOP SCH ×2 (10:15→21:04)
[2016-11-29] MEDS: BACITRACIN OINT 0.9 GM PACK TOP SCH (10:15)
[2016-11-29] MEDS: EXEMESTANE 25 MG TABLET PO SCH (10:15)
[2016-11-29] MEDS: FILGRASTIM-SNDZ 300 MCG/0.5 ML SYRINGE SUBCUT SCH (10:15)
--- NOTE | 2016-11-29 12:15 | Oncology Progress Note ---
Oncology Subjective PN Interval history: This is a very unfortunate patient who has been responding well to treatment for her myeloma for about 13 years. Unfortunately, it is progressing now and she has multiple areas of cord compression and vertebral involvement from the myeloma. I have placed her on high-dose corticosteroids and given her the option of further chemotherapy but I also explained to her that it may not work and the side effects she has had in the past will possibly recur. We had a prolonged discussion today and the patient was to go home on hospice. We will make arrangements for this and we do not plan additional chemotherapy. Her leg pain and weakness have improved modestly with the dexamethasone. Exam - Constitutional Vitals: Period Temp Pulse Resp BP Sys/Mcneill Pulse Ox Last 24 Hr 97.3 F-98 F 94-114 2-22 97-132/56-74 92-99 Results - Labs CBC & BMP: 11/28/16 04:00 11/26/16 04:58 Quality Measures - VTE Contraindication to Pharmacological VTE Prophylaxis: Recent Intracrainal Surgey
[2016-11-29] MEDS: DEXT 5% NACL 0.9% KCL 40 MEQ 40 MEQ/1,000 ML BAG IV SCH (12:59)
[2016-11-29] MEDS: ONDANSETRON 4 MG/2 ML VIAL IV PRN (12:59)
[2016-11-29] MEDS: TEMAZEPAM 7.5 MG CAPSULE PO PRN (21:13)
[2016-11-30] MEDS: ONDANSETRON 4 MG/2 ML VIAL IV PRN (00:25)
[2016-11-30] MEDS: ALBUTEROL/IPRATROPIUM 3 ML NEB RESP TX SCH ×2 (00:35→07:28)
[2016-11-30] MEDS: DEXT 5% NACL 0.9% KCL 40 MEQ 40 MEQ/1,000 ML BAG IV SCH ×2 (02:33→13:52)
[2016-11-30] MEDS: ALUMINUM/MAGNES/SIMETH MAX STR 30 ML UDCUP PO PRN (04:12)
[2016-11-30] MEDS: LEVOTHYROXINE 50 MCG TABLET PO SCH ×2 (06:58→07:39)
--- NOTE | 2016-11-30 07:53 | Oncology Progress Note ---
Oncology Subjective PN Interval history: (1) Multiple myeloma Status: Acute Assessment and plan: Ms. Kate has developed vertebral involvement from her myeloma and has progressive leg weakness. -s/p cycle 1 of vincristine, BCNU, and adriamycin. Treatment was with BCNU 50 mg , dexamethasone, Adriamycin 50 mg and vincristine 2 mg IV. She has only had one course of this and it was given October 23, 2016. The large mass over her manubrium decreased in size but it appears to be growing back. This chemotherapy is usually repeated every 4 weeks but I am not prepared to start quite yet. In addition, she may decide not to take any further treatment.. - Lab work today includes a white cell count of 6900 with a hemoglobin of 8.1 and a platelet count of 122,000. Lab work from November 19, 2016 revealed that her kappa free light chain is 0.08 with a lambda free light chain of 2.03. Her IgG level is 1170 with a low IgA level of 31 and a low IgM level of 21. She has received immune globulins intravenously recently because of this. In addition she has an M spike of 0.9 g /dL or 18.5%. - physical therapy consult for deconditioning We are starting discussions about whether to pursue additional chemotherapy or not at this point. She has certainly had a lot of side effects from progression of the myeloma and some of them have been from the chemotherapy as well. At this point, it does not appear that the chemotherapy has improved the quality of her life. Her comprehensive metabolic profile includes a serum creatinine of 0.3 which we will continue to monitor because she is on vancomycin. Her alkaline phosphatase is 276. Her LDH is 442. She is having pains in her right leg and some decrease in right leg strength and function. I am going to x-ray her pelvis. She had previously documented pelvic involvement from the myeloma and I suspect that it should progressing. (2) Breast cancer Status: Acute Assessment and plan: We are actively treating her with exemestane as hormone therapy. She has no evidence of recurrence of breast cancer. Exam - Constitutional Vitals: Period Temp Pulse Resp BP Sys/Mcneill Pulse Ox Last 24 Hr 97.1 F-98.5 F 100-111 16-24 106-122/68-77 94-98 Results - Labs CBC & BMP: 11/28/16 04:00 11/26/16 04:58 Quality Measures - VTE Contraindication to Pharmacological VTE Prophylaxis: Recent Intracrainal Surgey
[2016-11-30] MEDS: EXEMESTANE 25 MG TABLET PO SCH (08:52)
[2016-11-30] MEDS: FILGRASTIM-SNDZ 300 MCG/0.5 ML SYRINGE SUBCUT SCH (08:52)
[2016-11-30] MEDS: CARVEDILOL 3.125 MG TABLET PO SCH (08:52)
[2016-11-30] MEDS: CLOTRIMAZOLE 1% CREAM 15 GM TUBE TOP SCH (08:52)
[2016-11-30] MEDS: BACITRACIN OINT 0.9 GM PACK TOP SCH (08:52)
[2016-11-30] MEDS: DEXAMETHASONE INJ 20 MG in SODIUM CHLORIDE 0.9% 50 ML IV SCH (08:52)
--- NOTE | 2016-11-30 10:37 | Discharge Summary ---
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 Kate is a 66 year old female with a history of both IgG lambda myeloma that was diagnosed in August 2003 and also history of lower inner quadrant left breast carcinoma initially diagnosed April 20, 2013. Ms. Kate is been through multiple courses of various types of chemotherapy , including initially a single bone marrow transplant followed by thalidomide and dexamethasone. Velcade was later added. She also has had daratumumab and in addition has had chemotherapy using BCNU, Adriamycin, vincristine and dexamethasone. She has now progressed on all of these and while hospitalized here her disease progression resulted in paraplegia. There are multiple sites of myeloma involvement and she has rapidly progressing bony metastases throughout her system that have included 3 separate sites that were biopsied including the manubrium, the pelvis and a vertebra. She has had persistent severe pancytopenia throughout most of this hospital stay , complicated by monilial stomatitis and also by 1 blood culture that grew RAVEN. At this point her myeloma is growing faster than her marrow can recover from each treatment. I am discharging her now for hospice. I will accept her back as needed. I do not expect her to survive very long at the right that her myeloma was progressing. I have handwritten a prescription for Yoder 10/325 with 200 tablets dispensed and instructions to take 1 or 2 every 4 hours as needed for pain. I will minimize the rest of her home medications as much as possible. - Time spent with patient Time with patient DS: Greater than 30 minutes Discharge Plan - Discharge Data Disposition: Hospice - Home Condition at Discharge: Critical Discharge Diet: advance to your usual diet Activity: resume usual activities as tolerated, other Hygiene: no restrictions Weight Bearing at Discharge: other Driving: other - Discharge Medications Continue Levothyroxine Tab [Synthroid Tab] 50 mcg PO DAILY@0700 Changed HYDROcodone/ACETAMIN 10-325 [Yoder 10-325] 1 - 2 tablet PO Q4HR PRN #200 PRN Reason: Pain Discontinued Exemestane [Aromasin] 25 mg PO DAILY Carvedilol [Coreg] 3.125 mg PO BID W/MEALS No Action Omeprazole 40 mg PO DAILY Venlafaxine Xr [Effexor XR] 75 mg PO PC SUPPER Mag Hydrox/Aluminum Hyd/Simeth [Alum-Mag Hydroxide-Simeth Liq] 10 ml PO Q6H PRN PRN Reason: Indigestion - Follow Up or Referral - Forms/Instructions Additional Discharge Instructions: Discharge to hospice. Return here as needed. I will not schedule regular appointment to see me. Exam - Constitutional Vitals: Period Temp Pulse Resp BP Sys/Mcneill Pulse Ox Last 24 Hr 97.1 F-98.5 F 100-104 16-20 106-122/63-77 94-98 Discharge Results Procedures and tests throughout hospitalization: Pending Orders 11/12/16 10:51 AFB Culture/Smears Routine Fungal Culture, Skin Hair Nail Routine Histology Stains Routine Labs on day of discharge: Preliminary micro results at discharge 11/13/16 08:30 Fungal Culture - Preliminary Skin No Fungus isolated at 2 weeks 11/13/16 08:30 Mycobacterial Culture - Preliminary Leg - Left Upper No AFB isolated at 2 weeks DS: Provider Date of admission: 11/03/16 15:57 Primary care physician: Carlos Alberto Alonso Attending physician on admission: Hernan Gaines MD Consults: 11/03/16 17:38 Consult to Dietitian [CONS] Routine Reason for Dietitian: Diet Recommendations 11/09/16 11:36 Consult to Physician [CONS] Routine Comment: evaluate vesicular lesions Consulting Provider: Johana Cottrell Consulting Provider Notified: Yes When should Consulting Provider be notified: Now Consult to Specialist Group: Infectious Disease When should Consulting Provider be notified: Now Person Notified: MINDY Date Notified: 11/09/16 Time Notified: 10:15 11/12/16 10:39 Consult to Physician [CONS] Routine Comment: skin biopsy Consulting Provider: Abdirizak Sanchez Consulting Provider Notified: Yes When should Consulting Provider be notified: Now Consult to Specialist Group: Surgery When should Consulting Provider be notified: Now Person Notified: PAUL Date Notified: 11/12/16 Time Notified: 10:53 11/24/16 13:18 Consult to Case Mgmt/Social Srvs [CONS] Routine Reason for Case Mgmt/Social Srvs: Discharge Planning Consult Comment: ? swing bed in [place]. 11/29/16 09:52 Consult to Case Mgmt/Social Srvs [CONS] Routine Reason for Case Mgmt/Social Srvs: Hospice Referral Discharging clinician: Hernan Gaines MD
[2016-11-30] MEDS ORDERED: HEPARIN LOCK FLUSH 500 UNIT/5 ML SYRINGE IV ONE (11:48)
[2016-11-30 12:29] VITALS: BP 118/68
--- NOTE | 2016-12-18 11:04 | Physician Query Form ---
CLICK EDIT DOCUMENT TO SELECT QUERY ANSWER --> OK --> SIGN PROVIDERS: Make your selection(s) from the choices in EACH section by typing an "x" and enter comments in the comment section. Please use your independent medical judgment in providing your response. This request does not imply that any particular answer is desired or expected. CLINICAL INDICATORS: (Providers should not edit this section) The medical record indicates that the patient was admitted with MM, WBC 1.8#, heart rate 107# in the ER, Respirations of 20-38, Plt's of 68#, later on the same day Rapid Response Team was called for "Respiratory Distress" Respirations of 48 and the patient was placed antibiotics: {Note on 11/27 stating "she was admitted because of sepsis".} Please clarify which, if any, of the following is the etiology of the above symptoms and treatment rendered: ( ) Sepsis POA ( ) Sepsis not POA (occurred after admission) Criteria for Sepsis (SIRS due to an infection) should be based on 2 or more of the following being present: Temperature > 101F or < 96.8F WBC > 12,000 or < 4,000, or > 10% bands Tachycardia HR > 90 beats/minute Tachypnea RR > 20 breaths/minute or PaCO2 > 32mmHg Lactate level > 2.0 mmol/L (>4 is equivalent to severe sepsis) Altered Mental Status Mottling of skin or prolonged capillary refill Non-diabetic hyperglycemia (blood sugar >120 mg/dl) Other evidence of acute organ failure associated with sepsis ( severe sepsis) COMMENTS:I do not remember. I do not have time to go back and look it up. PLEASE ALSO DOCUMENT RESPONSE IN PROGRESS NOTES AND/OR DISCHARGE SUMMARY Use of terms such as suspected, likely, or probable (associated with a specific diagnosis that is being evaluated, monitored, or treated as if it exists) are acceptable and can be restated in the discharge summary if not ruled out. MTDD
== END 2016-11-30 15:27 | disposition hospice, home (50) | DRG 840 ==
LOC: N.ED 12:19 → N.EDINP 15:57 → N.4E 18:08
PROVIDERS: ADMIT Specialist; ATTEND Specialist